=== PATIENT | male | born 1940 | race Caucasian/White ===

== ENCOUNTER 2019-08-15 06:07 | Outpatient (RCR) | payer MEDICARE, SELFPAY | END 2019-08-30 00:01 | LOC: ONCMED 06:07 | PROVIDERS: Family Provider Family Medicine; Visit Provider Nurse Practitioner | DX: C7B.02 Secondary carcinoid tumors of liver (principal); C7A.012 Malignant carcinoid tumor of the ileum | CPT/HCPCS: 96372 ==

== ENCOUNTER 2019-09-15 06:53 | Outpatient (RCR) | payer MEDICARE, SELFPAY ==
[2019-09-15] MEDS: octreotide LAR depot 20 mg Kit IM (08:40)
== END 2019-09-30 23:59 | disposition home or self-care (01) ==
LOC: ONCMED 06:53
PROVIDERS: Family Provider Family Medicine; PCP Registered Nurse; Visit Provider Nurse Practitioner
DX: C7B.02 Secondary carcinoid tumors of liver (principal); C7A.012 Malignant carcinoid tumor of the ileum
CPT/HCPCS: 96372; J2353

== ENCOUNTER 2019-10-17 05:40 | Outpatient (RCR) | payer MEDICARE, SELFPAY ==
[2019-10-10 09:38] LABS: Basophils # 0.1 10^3/uL (0.0-0.1); Basophils % 0.6 %; Eosinophils # 0.3 10^3/uL (0.0-0.8); Hematocrit 39.3 % (42.0-52.0); Lymphocytes % 24.3 %; Mean Corpuscular HGB Conc 33.1 g/dL (30.0-36.0); Mean Corpuscular Hemoglobin 35.5 pg (28.0-34.0); Mean Corpuscular Volume 107.4 fL (80-94); Mean Platelet Volume 10.9 fL (7.4-10.4); Monocytes # 0.6 10^3/uL (0.2-0.9); Monocytes % 7.6 %; Neutrophils # 5.3 10^3/uL (1.8-7.7); Neutrophils % 64.3 %; Nucleated Red Blood Cells % 0 %; Platelet Count 166 10^3/cmm (130-400); Red Blood Count 3.66 10^6/uL (4.1-5.3); Red Cell Distribution Width 13.6 % (12.1-15.1); White Blood Count 8.3 10^3/uL (4.0-10.0)
[2019-10-10 10:08] LABS: Alanine Aminotransferase 18 U/L (0-41); Albumin Level 3.9 g/dL (3.5-5.2); Alkaline Phosphatase 124 IU/L (40-130); Anion Gap 16.1 (5-19); Aspartate Amino Transferase 27 U/L (0-40); Blood Urea Nitrogen 14 mg/dL (8-23); Calcium 9.3 mg/dL (8.5-10.5); Carbon Dioxide 27 mmol/L (22-29); Chloride 102 mmol/L (98-107); Glucose 140 mg/dL (65-115); Potassium 4.1 mmol/L (3.5-5.1); Sodium 141 mmol/L (136-145); Thyroid Stimulating Hormone 1.69 uIU/mL (0.27-4.20); Total Bilirubin 0.4 mg/dL (0.15-1.2); Total Protein 6.9 g/dL (6.6-8.7)
[2019-10-13 16:28] LABS: Chromogranin A 245 ng/mL (25-140)
[2019-10-17] MEDS: octreotide LAR depot 20 mg Kit IM (09:35)
--- NOTE | 2019-10-17 10:40 | ONC FU_ITS ---
Dr. Joel Patient Follow-Up Note Patient: Jigar Ochoa Unit #: [id number]: 1940 Dicatated By: Jamir Joel M.D.Date of Visit:Oct 17, 2019 Onc Med Follow-up/Prog Note Chief Complaint: Malignant carcinoid. History of Present Illness: This is an 79 year-old man with metastatic carcinoid involving the liver. He had presented to the emergency room in May 2014 with abdominal pain, bloating, and constipation. Abdominal CT scan showed high-grade small bowel obstruction with a transition point which appeared to be near the region of the cecum. There was felt to be probably a cecal mass, though a discrete mass was difficult to identify. There was a cluster of lymph nodes in the mesentery measuring 2.8 x 1.4 cm which was suspicious for metastatic disease, and there were lesions in the liver which were suspicious for metastases. Incidentally noted was an infrarenal abdominal aortic aneurysm measuring 3.5 cm. On 06/23/14 he underwent exploratory laparotomy. He was found to have a distal small bowel obstructing mass approximately 50 cm from the terminal ileum. There was an additional mesenteric mass adjacent to it at the level of the mid mesentery. On palpation, there are also was suspicion of a cecal mass. There were multiple small nodules identified on the surface of the liver. The procedure included resection of the distal small bowel to include the small bowel mass and the mesenteric mass, right hemicolectomy, and liver biopsy. On further examination, there was no mass found in the cecum. Pathology showed low-grade carcinoid tumor measuring 1.5 cm in greatest dimension. The tumor was extending into the deep muscularis into the subserosa. The margins were free including a 6 cm proximal margin, 50 cm distal margin, and a 4 cm radial margin. There was involvement in 4 of 21 lymph nodes. The liver biopsy showed metastatic carcinoid tumor. I had seen him initially in July 2014. At that time, he was having severe diarrhea and he also was very weak. His laboratory studies did show iron deficiency, though he was just borderline anemic with hemoglobin 12.9 g. His albumin was low at 2.8 g/dL. Liver enzymes and bilirubin were normal. TSH was normal, as was the B12 level. His chromogranin A level was normal at 3 nmol per liter and a 24-hour urine HIAA also was normal. Multiple stool samples were negative for Clostridium difficile. He had subsequently shown gradual improvement with symptomatic management. During follow-up, there was suspicion of bowel obstruction on restaging CT scans, but repeat colonoscopy in February 2015 showed patent ileocolic anastomosis and no other significant abnormalities. CT scan of the abdomen and pelvis performed 07/18/2016 showed numerous metastatic nodules within the liver. Taking into consideration difference in technique and slice selection there was no significant progression since 07/04/2015. New soft tissue thickening was noted around the abdominal aortic aneurysm. 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 The abdominal aortic aneurysm was noted to measure 3.8 cm transverse diameter with a 2 mm increase in size since 07/04/2015. He continued observation/expectant management. A follow-up CTA of the thoracic/abdominal aorta on 06/09/2017 showed mild ectasia and predominantly noncalcified atherosclerotic plaque of the aortic arch and descending thoracic aorta. The infrarenal fusiform abdominal aortic aneurysm appeared stable compared to the study from July 2016. There was no change in the probable inflammatory retroperitoneal soft tissue thickening anterior to the inferior aspect of the aneurysm. Also noted was some progression of metastatic involvement in the liver, the largest measuring up to 2.9 cm compared to 2.3 cm on the prior exam. Restaging CT of the abdomen/pelvis on 12/21/2017 showed progression in the size and number of metastatic lesions within the liver. There were 2 lesions identified in the left lobe, the largest measuring 1.7 cm. A new nodule was noted adjacent the falciform ligament. At least 5 metastatic lesions were identified within the right lobe, the largest measuring 2.8 cm. There was no associated lymphadenopathy. The abdominal aortic aneurysm was noted to be stable with a maximum diameter of 3.9 cm. At that point his tumor markers had not changed significantly, but he appeared to be having more significant diarrhea, and I did opt to have him start treatment with Sandostatin LAR. He received his initial injection of 20 mg on 01/19/2018. He tolerated it well, and he then continued Sandostatin LAR injections monthly. 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 He also has COPD. He has no other medical illnesses. He has a history of smoking 2 packs of cigarettes daily for 50 years. He quit smoking in August 2016. INTERIM HISTORY: He is seen for a scheduled visit. He has been feeling okay. He stays busy all the time, and he pretty much has normal activity. His appetite is not as good. His weight is stable. He has no fever or flushing spells. He still has sweating at night. He has a little bit of sinus congestion and has a little bit of cough. He does not complain of shortness of breath or chest pain. He has no GI complaints other than frequent bowel movements, though he says it is not diarrhea. He also has urinary frequency, but that has improved with medication. He has no significant joint or bone pain. He has no focal neurologic symptoms. Medications: Aspirin 1 (81 mg) Tablet Oral daily, Multivitamins 1 Tablet Oral daily, SandoSTATIN LAR Depot 1 (20 mg) Intramuscular q 4 weeks, Tamsulosin HCl 1 Capsule (of 0.4 mg) Oral daily Allergies: PCN Review of Systems: Constitutional - He stays busy, and he has normal activity. His appetite is not as good as it used to be, but his weight is up 4 pounds since his last visit. No fever, chills or hot flashes. He has night sweating. ECOG score is 0, ENMT - He has sinus congestion. No mouth sores. No sore throat or difficulty swallowing, Hematologic/Lymphatic - He bruises easily, Respiratory - No shortness of breath. He has a little bit of cough. No pleuritic pain or hemoptysis. He has quit smoking, Cardiovascular - No angina pain. No palpitations, Gastrointestinal - No nausea or vomiting. No heartburn or acid reflux. He has frequent bowel movements, but he says it is not diarrhea. No blood in the stool or black stools, Genitourinary (M) - No dysuria or hematuria. He has frequent urination, but it has improved with medication. No urgency or incontinence, Musculoskeletal - No joint or bone pain, Integumentary - No skin complications, Neurologic - No headache. His dizziness has gotten better. No numbness/paresthesias or other focal neurologic symptoms, Psychiatric - He has some anxiety and depression. He has a hard time getting to sleep. Vital Signs: Performed on Oct 17, 2019 08:36 Height - 74.00 in Weight - 168.8 lbs (HIGH) BSA - 2.02 sq.m BMI - 21.67 Temperature - 97.9 F (LOW) Pulse - 81 /min Respiration - 16 /min BP - 134/74 mm(hg) O2 Sat - 99 % Pain - 0 Physical Examination: Constitutional - He looks pretty good generally, Eyes - Sclerae nonicteric. Conjunctivae clear, ENMT - No lesions noted in the oral cavity, Hematologic/Lymphatic - No cervical, clavicular, or axillary adenopathy, Respiratory - Lungs are clear with diminished air movement bilaterally, Cardiovascular - Heart rhythm is regular. There is murmur, gallop, or rub noted, Abdomen - Soft. Liver is not enlarged. Spleen is not palpable. There is no abdominal mass or ascites noted and there is no inguinal adenopathy, Extremities - No edema, Neurologic - No focal neurologic deficits noted. Lab/Imaging: Test performed on Jul 07, 2019 08:20 Sodium 141 mmol/L Potassium 4.2 mmol/L Chloride 106 mmol/L CO2 25 mmol/L Anion Gap 14.2 BUN 17 mg/dL Creatinine 1.2 mg/dL Cr Clearance (Est) 52.9800 mL/min Glucose 98 mg/dl Calcium 9.2 mg/dL Protein, Total 6.8 g/dL Albumin 4.5 g/dL Globulin 2.3 gm/dL Bilirubin, Total 0.3 mg/dL ALT (SGPT) 19 U/L AST (SGOT) 26 U/L Alkaline Phosphatase 137 U/L WBC 6.9 10 3/uL RBC 3.46 10 6/uL HGB 12.2 g/dL HCT 36.3 % MCV 104.9 fl MCH 35.3 pg MCHC 33.6 g/dl RDW 13.1 % Platelet Count 150 10 3/cmm MPV 10.6 fl Neutrophils 4.2 10 3/uL Lymphocytes 1.7 10 3/uL Monocytes 0.7 10 3/uL Eosinophils 0.3 10 3/uL Basophils 0.1 10 3/uL Neutrophil % 61.2 % Lymphocyte % 23.9 % Monocyte % 9.9 % Eosinophil % 3.9 % Basophils % 1.0 % Chromogranin A 250 ng/mL Impression: 1. 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 2. He had presented initially with small bowel obstruction, and he underwent exploratory laparotomy with the ileocolic resection on 06/23/2014. 3. He developed severe diarrhea following the surgery. It has improved and has generally been controlled on Imodium, but the etiology remains uncertain. Thus far he does not appear clinically to have carcinoid syndrome, and he has remained on observation/symptomatic management following the surgery. 4. A followup CT scan in November 2014 did show a slight increase in the number of hepatic metastatic lesions, with the largest lesion measuring 2.0 cm. That study showed marked dilatation of the colon at the anastomotic site with possible partial obstruction at 10 cm from the anastomosis. An area of narrowing was noted in that area, with no associated mass. There were new subcentimeter lymph nodes in the mesentery of the right abdomen. He was seen then by Dr. Kelsey, but there was no evidence of obstruction on a followup colonoscopy. Restaging CT in July 2015 appeared stable. Other medical illnesses include: 5. History of atrial fibrillation. 6. He apparently has a prior diagnosis of polymyalgia rheumatica. 7. He has nicotine dependence (cigarettes). CT scan of the abdomen and pelvis performed on 07/18/2016 showed numerous metastatic nodules with the liver, but with no significant progression since 07/04/2015. There was new soft tissue thickening around the abdominal aortic aneurysm which was felt to be highly suspicious for interval development of inflammatory abdominal aortic aneurysm. The aneurysm had shown a 0.2 mm increase in size, to 3.8 cm transverse diameter, since the 07/04/2015 study. A follow-up CTA of the thoracic/abdominal aorta on 06/09/2017 showed no significant change in the aneurysm. There was evidence of some progression of the metastatic lesions in the liver, the largest measuring 2.9 cm compared to 2.3 cm on the previous study. At that point he did not appear to be symptomatic, it was opted to just continue on observation/expectant management. His repeat CT scan of the abdomen/pelvis on 12/21/2017 did appear to show some further disease progression in the liver. At that point his tumor markers were stable, but he was having more diarrhea, and I did opt to have him start treatment with Sandostatin LAR. He received his initial injection of 20 mg on 01/19/2018. He has since then continued treatment monthly. He has tolerated it well. He has had symptomatic improvement, though he continues to complain of night sweating. During follow-up he has continued to tolerate the Sandostatin LAR with no adverse effects. His chromogranin A level is elevated, but stable. His overall clinical status also appears stable. Overall, he appears to be doing well with no obvious progression of the malignant carcinoid. Plan: He continues Sandostatin LAR 20 mg by intramuscular injection monthly. He will be scheduled for a follow-up visit in 3 months. Signed By: Jamir Joel M.D. <<Signature on File>>
== END 2019-10-29 23:59 | disposition home or self-care (01) ==
LOC: ONCMED 05:40
PROVIDERS: Nurse Practitioner; Family Provider Family Medicine; PCP Registered Nurse; Visit Provider Internal Medicine Medical Oncology
DX: C7B.02 Secondary carcinoid tumors of liver (principal); C7A.012 Malignant carcinoid tumor of the ileum; J44.9 Chronic obstructive pulmonary disease, unspecified; I48.91 Unspecified atrial fibrillation; M35.3 Polymyalgia rheumatica; Z79.82 Long term (current) use of aspirin; Z79.899 Other long term (current) drug therapy; Z87.891 Personal history of nicotine dependence; Z95.0 Presence of cardiac pacemaker
CPT/HCPCS: 80053; 83497; 84443; 85025; 86316; 96372; 99214; J2353

== ENCOUNTER 2019-11-14 06:17 | Outpatient (RCR) | payer MEDICARE, SELFPAY ==
[2019-11-14] MEDS: octreotide LAR depot 20 mg Kit IM (08:50)
== END 2019-11-29 23:59 | disposition home or self-care (01) ==
LOC: ONCMED 06:17
PROVIDERS: Family Provider Family Medicine; PCP Registered Nurse; Visit Provider Nurse Practitioner
DX: C7A.012 Malignant carcinoid tumor of the ileum (principal); C7B.02 Secondary carcinoid tumors of liver
CPT/HCPCS: 96372; J2353

== ENCOUNTER 2019-12-12 07:00 | Outpatient (RCR) | payer MEDICARE, SELFPAY | END 2019-12-29 23:59 | disposition home or self-care (01) | LOC: ONCMED 07:00 | PROVIDERS: Family Provider Family Medicine; PCP Registered Nurse; Visit Provider Nurse Practitioner | DX: C7A.012 Malignant carcinoid tumor of the ileum (principal); C7B.02 Secondary carcinoid tumors of liver | CPT/HCPCS: 96372; J2353 ==

== ENCOUNTER 2020-01-09 06:42 | Outpatient (RCR) | payer MEDICARE, SELFPAY ==
[2020-01-02 09:17] LABS: Basophils # 0.1 10^3/uL (0.0-0.1); Basophils % 0.7 %; Eosinophils # 0.2 10^3/uL (0.0-0.8); Eosinophils % 2.9 %; Hematocrit 37.5 % (42.0-52.0); Hemoglobin 12.3 g/dL (11.7-16.6); Lymphocytes # 1.7 10^3/uL (0.8-4.8); Lymphocytes % 24.1 %; Mean Corpuscular HGB Conc 32.8 g/dL (30.0-36.0); Mean Corpuscular Hemoglobin 35.3 pg (28.0-34.0); Mean Corpuscular Volume 107.8 fL (80-94); Mean Platelet Volume 10.6 fL (7.4-10.4); Monocytes # 0.5 10^3/uL (0.2-0.9); Monocytes % 7.5 %; Neutrophils # 4.5 10^3/uL (1.8-7.7); Neutrophils % 64.7 %; Nucleated Red Blood Cells % 0 %; Platelet Count 139 10^3/cmm (130-400); Red Blood Count 3.48 10^6/uL (4.1-5.3); White Blood Count 6.9 10^3/uL (4.0-10.0)
[2020-01-02 09:47] LABS: Alanine Aminotransferase 18 U/L (0-41); Alkaline Phosphatase 124 IU/L (40-130); Anion Gap 11.6 (5-19); Aspartate Amino Transferase 25 U/L (0-40); Blood Urea Nitrogen 25 mg/dL (8-23); Calcium 9.1 mg/dL (8.5-10.5); Carbon Dioxide 25 mmol/L (22-29); Chloride 107 mmol/L (98-107); Globulin 3.2 g/dL (1.3-4.6); Glucose 112 mg/dL (65-115); Osmolality Calculated 286 mOsm/kg (285-295); Potassium 4.6 mmol/L (3.5-5.1); Sodium 139 mmol/L (136-145); Total Bilirubin 0.5 mg/dL (0.15-1.2); Total Protein 7.2 g/dL (6.6-8.7)
[2020-01-05 17:02] LABS: Chromogranin A 224 ng/mL (25-140)
[2020-01-07 19:01] LABS: Serotonin Whole Blood 262 ng/mL (56-244)
[2020-01-09] MEDS: octreotide LAR depot 20 mg Kit IM (08:45)
--- NOTE | 2020-01-09 10:17 | ONC FU_ITS ---
Dr. Joel Patient Follow-Up Note Patient: Jigar Ochoa Unit #: [id number]: 1940 Dicatated By: Jamir Joel M.D.Date of Visit:January 09, 2020 Onc Med Follow-up/Prog Note Chief Complaint: Malignant carcinoid. History of Present Illness: This is an 79 year-old man with metastatic carcinoid involving the liver. He had presented to the emergency room in May 2014 with abdominal pain, bloating, and constipation. Abdominal CT scan showed high-grade small bowel obstruction with a transition point which appeared to be near the region of the cecum. There was felt to be probably a cecal mass, though a discrete mass was difficult to identify. There was a cluster of lymph nodes in the mesentery measuring 2.8 x 1.4 cm which was suspicious for metastatic disease, and there were lesions in the liver which were suspicious for metastases. Incidentally noted was an infrarenal abdominal aortic aneurysm measuring 3.5 cm. On 06/23/14 he underwent exploratory laparotomy. He was found to have a distal small bowel obstructing mass approximately 50 cm from the terminal ileum. There was an additional mesenteric mass adjacent to it at the level of the mid mesentery. On palpation, there are also was suspicion of a cecal mass. There were multiple small nodules identified on the surface of the liver. The procedure included resection of the distal small bowel to include the small bowel mass and the mesenteric mass, right hemicolectomy, and liver biopsy. On further examination, there was no mass found in the cecum. Pathology showed low-grade carcinoid tumor measuring 1.5 cm in greatest dimension. The tumor was extending into the deep muscularis into the subserosa. The margins were free including a 6 cm proximal margin, 50 cm distal margin, and a 4 cm radial margin. There was involvement in 4 of 21 lymph nodes. The liver biopsy showed metastatic carcinoid tumor. I had seen him initially in July 2014. At that time, he was having severe diarrhea and he also was very weak. His laboratory studies did show iron deficiency, though he was just borderline anemic with hemoglobin 12.9 g. His albumin was low at 2.8 g/dL. Liver enzymes and bilirubin were normal. TSH was normal, as was the B12 level. His chromogranin A level was normal at 3 nmol per liter and a 24-hour urine HIAA also was normal. Multiple stool samples were negative for Clostridium difficile. He had subsequently shown gradual improvement with symptomatic management. During follow-up, there was suspicion of bowel obstruction on restaging CT scans, but repeat colonoscopy in February 2015 showed patent ileocolic anastomosis and no other significant abnormalities. CT scan of the abdomen and pelvis performed 07/18/2016 showed numerous metastatic nodules within the liver. Taking into consideration difference in technique and slice selection there was no significant progression since 07/04/2015. New soft tissue thickening was noted around the abdominal aortic aneurysm. 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 The abdominal aortic aneurysm was noted to measure 3.8 cm transverse diameter with a 2 mm increase in size since 07/04/2015. He continued observation/expectant management. A follow-up CTA of the thoracic/abdominal aorta on 06/09/2017 showed mild ectasia and predominantly noncalcified atherosclerotic plaque of the aortic arch and descending thoracic aorta. The infrarenal fusiform abdominal aortic aneurysm appeared stable compared to the study from July 2016. There was no change in the probable inflammatory retroperitoneal soft tissue thickening anterior to the inferior aspect of the aneurysm. Also noted was some progression of metastatic involvement in the liver, the largest measuring up to 2.9 cm compared to 2.3 cm on the prior exam. Restaging CT of the abdomen/pelvis on 12/21/2017 showed progression in the size and number of metastatic lesions within the liver. There were 2 lesions identified in the left lobe, the largest measuring 1.7 cm. A new nodule was noted adjacent the falciform ligament. At least 5 metastatic lesions were identified within the right lobe, the largest measuring 2.8 cm. There was no associated lymphadenopathy. The abdominal aortic aneurysm was noted to be stable with a maximum diameter of 3.9 cm. At that point his tumor markers had not changed significantly, but he appeared to be having more significant diarrhea, and I did opt to have him start treatment with Sandostatin LAR. He received his initial injection of 20 mg on 01/19/2018. He tolerated it well, and he then continued Sandostatin LAR injections monthly. 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 He also has COPD. He has no other medical illnesses. He has a history of smoking 2 packs of cigarettes daily for 50 years. He quit smoking in August 2016. INTERIM HISTORY: Repeat CT abdomen/pelvis on 07/26/2019 showed no change in the multiple hepatic metastatic lesions. There was no evidence of other malignant process. The infrarenal abdominal aortic aneurysm was unchanged at 3.9 cm. He continued treatment with Sandostatin LAR. He is seen for a scheduled visit. He has been feeling pretty good generally. He says his energy is fair. He does stay busy all the time. His ECOG score is 1. His appetite has not been as good. His weight is down a couple of pounds. He has not had fever or hot flashes/flushing spells. He still has night sweating. He has no shortness of breath, cough, or chest pain. He has no GI complaints. In particular, he has had no diarrhea. Bladder function remains adequate with tamsulosin. He has no significant joint or bone pain. He has no focal neurologic symptoms. Medications: Aspirin 1 (81 mg) Tablet Oral daily, Multivitamins 1 Tablet Oral daily, SandoSTATIN LAR [place]ot 1 (20 mg) Intramuscular q 4 weeks, Tamsulosin HCl 1 Capsule (of 0.4 mg) Oral daily Allergies: PCN Review of Systems: Constitutional - His energy level is fair. He does some light outside work. His appetite is poor and weight is down a few pounds from last visit. No fever, chills or hot flashes. He continues to have persistent night sweats. ECOG score is 1, ENMT - He has some sinus congestion/drainage. No mouth sores. No sore throat or difficulty swallowing. He wears hearing aids, Hematologic/Lymphatic - He bruises easily, Respiratory - No shortness of breath. No cough. No pleuritic pain or hemoptysis, Cardiovascular - No angina pain. No palpitations, Gastrointestinal - No nausea or vomiting. No heartburn or acid reflux. No diarrhea or constipation. No blood in the stool or black stools, Genitourinary (M) - No dysuria or hematuria. No urinary frequency. No urgency or incontinence, Musculoskeletal - No joint or bone pain, Integumentary - No skin complications, Neurologic - No headache or dizziness. No numbness/paresthesias or other focal neurologic symptoms, Psychiatric - No anxiety or depression. No insomnia. Vital Signs: Performed on January 09, 2020 08:12 Height - 74.00 in Weight - 166.2 lbs (LOW) BSA - 2.01 sq.m BMI - 21.34 Temperature - 98.5 F Pulse - 66 /min Respiration - 18 /min BP - 145/81 mm(hg) (HIGH) O2 Sat - 99 % Pain - 0 Physical Examination: Constitutional - He looks pretty good generally, Eyes - Sclerae nonicteric. Conjunctivae clear, ENMT - No lesions noted in the oral cavity, Hematologic/Lymphatic - No cervical, clavicular, or axillary adenopathy, Respiratory - Lungs are clear with diminished air movement bilaterally, Cardiovascular - Heart rhythm is regular. There is no murmur, gallop, or rub noted, Abdomen - Soft. Liver is not enlarged. Spleen is not palpable. There is no abdominal mass or ascites noted and there is no inguinal adenopathy, Extremities - No edema, Neurologic - No focal neurologic deficits noted. Lab/Imaging: Test performed on January 02, 2020 08:56 Sodium 139 mmol/L Potassium 4.6 mmol/L Chloride 107 mmol/L CO2 25 mmol/L Anion Gap 11.6 BUN 25 mg/dL Creatinine 1.4 mg/dL Cr Clearance (Est) 44.8200 mL/min Glucose 112 mg/dL Calcium 9.1 mg/dL Protein, Total 7.2 g/dL Albumin 4.0 g/dL Globulin 3.2 g/dL Bilirubin, Total 0.5 mg/dL ALT (SGPT) 18 U/L AST (SGOT) 25 U/L Alkaline Phosphatase 124 IU/L WBC 6.9 10 3/uL RBC 3.48 10 6/uL HGB 12.3 g/dL HCT 37.5 % MCV 107.8 fL MCH 35.3 pg MCHC 32.8 g/dL RDW 14.0 % Platelet Count 139 10 3/cmm MPV 10.6 fL Neutrophils 4.5 10 3/uL Lymphocytes 1.7 10 3/uL Monocytes 0.5 10 3/uL Eosinophils 0.2 10 3/uL Basophils 0.1 10 3/uL Neutrophil % 64.7 % Lymphocyte % 24.1 % Monocyte % 7.5 % Eosinophil % 2.9 % Basophils % 0.7 % Chromogranin A 224 ng/mL Impression: 1. 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 2. He had presented initially with small bowel obstruction, and he underwent exploratory laparotomy with the ileocolic resection on 06/23/2014. 3. He developed severe diarrhea following the surgery. It has improved and has generally been controlled on Imodium, but the etiology remains uncertain. Thus far he does not appear clinically to have carcinoid syndrome, and he has remained on observation/symptomatic management following the surgery. 4. A followup CT scan in November 2014 did show a slight increase in the number of hepatic metastatic lesions, with the largest lesion measuring 2.0 cm. That study showed marked dilatation of the colon at the anastomotic site with possible partial obstruction at 10 cm from the anastomosis. An area of narrowing was noted in that area, with no associated mass. There were new subcentimeter lymph nodes in the mesentery of the right abdomen. He was seen then by Dr. Kelsey, but there was no evidence of obstruction on a followup colonoscopy. Restaging CT in July 2015 appeared stable. Other medical illnesses include: 5. History of atrial fibrillation. 6. He apparently has a prior diagnosis of polymyalgia rheumatica. 7. He has nicotine dependence (cigarettes). CT scan of the abdomen and pelvis performed on 07/18/2016 showed numerous metastatic nodules with the liver, but with no significant progression since 07/04/2015. There was new soft tissue thickening around the abdominal aortic aneurysm which was felt to be highly suspicious for interval development of inflammatory abdominal aortic aneurysm. The aneurysm had shown a 0.2 mm increase in size, to 3.8 cm transverse diameter, since the 07/04/2015 study. A follow-up CTA of the thoracic/abdominal aorta on 06/09/2017 showed no significant change in the aneurysm. There was evidence of some progression of the metastatic lesions in the liver, the largest measuring 2.9 cm compared to 2.3 cm on the previous study. At that point he did not appear to be symptomatic, it was opted to just continue on observation/expectant management. His repeat CT scan of the abdomen/pelvis on 12/21/2017 did appear to show some further disease progression in the liver. At that point his tumor markers were stable, but he was having more diarrhea, and I did opt to have him start treatment with Sandostatin LAR. He received his initial injection of 20 mg on 01/19/2018. He has since then continued treatment monthly. He has tolerated it well. He has had symptomatic improvement, though he continues to complain of night sweating. During follow-up he has olerated the Sandostatin LAR with no adverse effects. His chromogranin A level has been elevated, but stable. His clinical status also has remained stable. Overall, he has been doing well with no obvious progression of the malignant carcinoid. Plan: He continues Sandostatin LAR 20 mg by intramuscular injection monthly. He will be scheduled for a follow-up visit in 3 months. Signed By: Jamir Joel M.D. <<Signature on File>>
[2020-01-09 20:31] LABS: 24 Hour Urine Volume 1025 mL/24 h; 5-HIAA, 24 Hour Urine 8.7 mg/24 h (<=6.0)
== END 2020-01-29 23:59 | disposition home or self-care (01) ==
LOC: ONCMED 06:42
PROVIDERS: Nurse Practitioner; Family Provider Family Medicine; PCP Registered Nurse; Visit Provider Internal Medicine Medical Oncology
DX: C7A.012 Malignant carcinoid tumor of the ileum (principal); C7B.02 Secondary carcinoid tumors of liver; I48.91 Unspecified atrial fibrillation; M35.3 Polymyalgia rheumatica; F17.210 Nicotine dependence, cigarettes, uncomplicated; I71.4 Abdominal aortic aneurysm, without rupture; K56.609 Unspecified intestinal obstruction, unspecified as to partial versus complete obstruction
CPT/HCPCS: 36415; 80053; 83497; 84260; 85025; 86316; 96372; 99214; J2353

== ENCOUNTER 2020-02-09 07:05 | Outpatient (RCR) | payer MEDICARE, SELFPAY ==
[2020-02-09] MEDS: octreotide LAR depot 20 mg Kit IM (08:10)
== END 2020-02-28 23:59 | disposition home or self-care (01) ==
LOC: ONCMED 07:05
PROVIDERS: PCP Registered Nurse; Visit Provider Internal Medicine Medical Oncology
DX: C7A.012 Malignant carcinoid tumor of the ileum (principal); C7B.02 Secondary carcinoid tumors of liver; I48.91 Unspecified atrial fibrillation; M35.3 Polymyalgia rheumatica; F17.200 Nicotine dependence, unspecified, uncomplicated; Z79.818 Long term (current) use of other agents affecting estrogen receptors and estrogen levels
CPT/HCPCS: 96372; J2353

== ENCOUNTER 2020-03-12 07:19 | Outpatient (RCR) | payer MEDICARE, SELFPAY ==
[2020-03-12] MEDS: octreotide LAR depot 20 mg Kit IM (08:15)
== END 2020-03-30 23:59 | disposition home or self-care (01) ==
LOC: ONCMED 07:19
PROVIDERS: PCP Registered Nurse; Visit Provider Internal Medicine Medical Oncology
DX: C7A.012 Malignant carcinoid tumor of the ileum (principal); C7B.02 Secondary carcinoid tumors of liver; I48.91 Unspecified atrial fibrillation
CPT/HCPCS: 96372; J2353

== ENCOUNTER 2020-04-12 05:41 | Outpatient (RCR) | payer MEDICARE, SELFPAY ==
[2020-04-05 08:59] LABS: Basophils # 0.1 10^3/uL (0.0-0.1); Basophils % 0.7 %; Eosinophils # 0.2 10^3/uL (0.0-0.8); Eosinophils % 2.2 %; Hematocrit 39.2 % (42.0-52.0); Lymphocytes # 1.4 10^3/uL (0.8-4.8); Lymphocytes % 18.9 %; Mean Corpuscular HGB Conc 33.2 g/dL (30.0-36.0); Mean Corpuscular Hemoglobin 36.5 pg (28.0-34.0); Mean Corpuscular Volume 110.1 fL (80-94); Mean Platelet Volume 10.5 fL (7.4-10.4); Monocytes # 0.6 10^3/uL (0.2-0.9); Monocytes % 8.3 %; Neutrophils # 5.25 10^3/uL (1.8-7.7); Neutrophils % 69.5 %; Nucleated Red Blood Cells % 0 %; Platelet Count 150 10^3/cmm (130-400); Red Blood Count 3.56 10^6/uL (4.1-5.3); Red Cell Distribution Width 13.8 % (12.1-15.1); White Blood Count 7.6 10^3/uL (4.0-10.0)
[2020-04-05 09:16] LABS: Alanine Aminotransferase 20 U/L (0-41); Albumin Level 4.3 g/dL (3.5-5.2); Alkaline Phosphatase 135 IU/L (40-130); Anion Gap 12.3 (5-19); Aspartate Amino Transferase 29 U/L (0-40); Blood Urea Nitrogen 21 mg/dL (8-23); Carbon Dioxide 25 mmol/L (22-29); Chloride 104 mmol/L (98-107); Globulin 2.6 g/dL (1.3-4.6); Glucose 103 mg/dL (65-115); Osmolality Calculated 281 mOsm/kg (285-295); Potassium 4.3 mmol/L (3.5-5.1); Sodium 137 mmol/L (136-145); Total Bilirubin 0.5 mg/dL (0.15-1.2); Total Protein 6.9 g/dL (6.6-8.7)
[2020-04-09 17:20] LABS: Chromogranin A 274 ng/mL (25-140)
[2020-04-10 20:00] LABS: Serotonin Whole Blood 365 ng/mL (56-244)
[2020-04-11 14:10] LABS: 24 Hour Urine Volume 2525 mL; 5-HIAA, 24 Hour Urine 8.1 mg/24 h (<=6.0)
[2020-04-12] MEDS: octreotide LAR depot 20 mg Kit IM (09:40)
--- NOTE | 2020-04-15 11:26 | ONC FU_ITS ---
Dr. Joel Patient Follow-Up Note Patient: Jigar Ochoa Unit #: [id number]: 1940 Dicatated By: Jamir Joel M.D.Date of Visit:Apr 12, 2020 Onc Med Follow-up/Prog Note Chief Complaint: Malignant carcinoid. History of Present Illness: This is an 79 year-old man with metastatic carcinoid involving the liver. He had presented to the emergency room in May 2014 with abdominal pain, bloating, and constipation. Abdominal CT scan showed high-grade small bowel obstruction with a transition point which appeared to be near the region of the cecum. There was felt to be probably a cecal mass, though a discrete mass was difficult to identify. There was a cluster of lymph nodes in the mesentery measuring 2.8 x 1.4 cm which was suspicious for metastatic disease, and there were lesions in the liver which were suspicious for metastases. Incidentally noted was an infrarenal abdominal aortic aneurysm measuring 3.5 cm. On 06/23/14 he underwent exploratory laparotomy. He was found to have a distal small bowel obstructing mass approximately 50 cm from the terminal ileum. There was an additional mesenteric mass adjacent to it at the level of the mid mesentery. On palpation, there are also was suspicion of a cecal mass. There were multiple small nodules identified on the surface of the liver. The procedure included resection of the distal small bowel to include the small bowel mass and the mesenteric mass, right hemicolectomy, and liver biopsy. On further examination, there was no mass found in the cecum. Pathology showed low-grade carcinoid tumor measuring 1.5 cm in greatest dimension. The tumor was extending into the deep muscularis into the subserosa. The margins were free including a 6 cm proximal margin, 50 cm distal margin, and a 4 cm radial margin. There was involvement in 4 of 21 lymph nodes. The liver biopsy showed metastatic carcinoid tumor. I had seen him initially in July 2014. At that time, he was having severe diarrhea and he also was very weak. His laboratory studies did show iron deficiency, though he was just borderline anemic with hemoglobin 12.9 g. His albumin was low at 2.8 g/dL. Liver enzymes and bilirubin were normal. TSH was normal, as was the B12 level. His chromogranin A level was normal at 3 nmol per liter and a 24-hour urine HIAA also was normal. Multiple stool samples were negative for Clostridium difficile. He had subsequently shown gradual improvement with symptomatic management. During follow-up, there was suspicion of bowel obstruction on restaging CT scans, but repeat colonoscopy in February 2015 showed patent ileocolic anastomosis and no other significant abnormalities. CT scan of the abdomen and pelvis performed 07/18/2016 showed numerous metastatic nodules within the liver. Taking into consideration difference in technique and slice selection there was no significant progression since 07/04/2015. New soft tissue thickening was noted around the abdominal aortic aneurysm. 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 The abdominal aortic aneurysm was noted to measure 3.8 cm transverse diameter with a 2 mm increase in size since 07/04/2015. He continued observation/expectant management. A follow-up CTA of the thoracic/abdominal aorta on 06/09/2017 showed mild ectasia and predominantly noncalcified atherosclerotic plaque of the aortic arch and descending thoracic aorta. The infrarenal fusiform abdominal aortic aneurysm appeared stable compared to the study from July 2016. There was no change in the probable inflammatory retroperitoneal soft tissue thickening anterior to the inferior aspect of the aneurysm. Also noted was some progression of metastatic involvement in the liver, the largest measuring up to 2.9 cm compared to 2.3 cm on the prior exam. Restaging CT of the abdomen/pelvis on 12/21/2017 showed progression in the size and number of metastatic lesions within the liver. There were 2 lesions identified in the left lobe, the largest measuring 1.7 cm. A new nodule was noted adjacent the falciform ligament. At least 5 metastatic lesions were identified within the right lobe, the largest measuring 2.8 cm. There was no associated lymphadenopathy. The abdominal aortic aneurysm was noted to be stable with a maximum diameter of 3.9 cm. At that point his tumor markers had not changed significantly, but he appeared to be having more significant diarrhea, and I did opt to have him start treatment with Sandostatin LAR. He received his initial injection of 20 mg on 01/19/2018. He tolerated it well, and he then continued Sandostatin LAR injections monthly. 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 He also has COPD. He has no other medical illnesses. He has a history of smoking 2 packs of cigarettes daily for 50 years. He quit smoking in August 2016. INTERIM HISTORY: Repeat CT abdomen/pelvis on 07/26/2019 showed no change in the multiple hepatic metastatic lesions. There was no evidence of other malignant process. The infrarenal abdominal aortic aneurysm was unchanged at 3.9 cm. He continued treatment with Sandostatin LAR. He is seen for a scheduled visit. He has been feeling pretty good generally. He says his energy is not bad. He has normal activity. ECOG score is 0. His appetite is okay, but he has lost weight, in the range of 8 pounds. He does not have fever. He says he is not having as much night sweating now. He has no shortness of breath, cough, or chest pain. He has no GI complaints. In particular, he has had no diarrhea. He has urinary frequency and nocturia. He has no significant joint or bone pain. He does not complain of headache or dizziness. He has no focal neurologic symptoms. Medications: Aspirin 1 (81 mg) Tablet Oral daily, Multivitamins 1 Tablet Oral daily, SandoSTATIN LAR [place] 1 (20 mg) Intramuscular q 4 weeks, Tamsulosin HCl 1 Capsule (of 0.4 mg) Oral daily Allergies: PCN Review of Systems: Constitutional - He has been feeling good. His energy is good and he has normal activity without restrictions. His appetite is good and he is eating well. His weight is down 8 pounds. No fevers. He has not been having as much sweating at night. No hot flushes. ECOG score is 0, ENMT - No sinus congestion/drainage. No mouth sores. No sore throat or difficulty swallowing, Hematologic/Lymphatic - He bruises easily, Respiratory - No shortness of breath. No cough. No pleuritic pain or hemoptysis, Cardiovascular - No angina pain. No palpitations, Gastrointestinal - No nausea or vomiting. No heartburn or acid reflux. No diarrhea or constipation. No blood in the stool or black stools, Genitourinary (M) - No dysuria or hematuria. He has urinary frequency both day and at night. No urgency or incontinence, Musculoskeletal - No joint or bone pain, Integumentary - No skin complications, Neurologic - No headache or dizziness. No numbness or tingling. No other focal neurologic symptoms, Psychiatric - No anxiety or depression. No insomnia. Vital Signs: Performed on Apr 12, 2020 09:12 Height - 74.00 in Weight - 158.6 lbs (LOW) BSA - 1.97 sq.m BMI - 20.36 Temperature - 97.6 F (LOW) Pulse - 70 /min Respiration - 20 /min BP - 140/74 mm(hg) O2 Sat - 97 % Pain - 0 Physical Examination: Constitutional - He looks pretty good generally, Eyes - Sclerae nonicteric. Conjunctivae clear, ENMT - No lesions noted in the oral cavity, Hematologic/Lymphatic - No cervical, clavicular, or axillary adenopathy, Respiratory - Lungs are clear with diminished air movement bilaterally, Cardiovascular - Heart rhythm is regular. There is no murmur, gallop, or rub noted, Abdomen - Soft. Liver is not enlarged. Spleen is not palpable. There is no abdominal mass or ascites noted and there is no inguinal adenopathy, Extremities - No edema, Neurologic - No focal neurologic deficits noted. Lab/Imaging: CBC shows hemoglobin 13.0 g, white blood cell count 7600, and platelet count 150,000. Comprehensive metabolic profile shows borderline renal function with BUN 21 and creatinine 1.3 mg/dL. Alkaline phosphatase is slightly elevated at 135/130 IU/L. The bilirubin and the other liver enzymes are normal. The chromogranin A level remains mildly elevated at 274/140 ng/mL and the whole blood serotonin also has mildly elevated at 365/244 ng/mL. His 24-hour urine 5-HIAA is slightly high at 8.1 mg. Impression: 1. 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 2. He had presented initially with small bowel obstruction, and he underwent exploratory laparotomy with the ileocolic resection on 06/23/2014. 3. He developed severe diarrhea following the surgery. It has improved and has generally been controlled on Imodium, but the etiology remains uncertain. Thus far he does not appear clinically to have carcinoid syndrome, and he has remained on observation/symptomatic management following the surgery. 4. A followup CT scan in November 2014 did show a slight increase in the number of hepatic metastatic lesions, with the largest lesion measuring 2.0 cm. That study showed marked dilatation of the colon at the anastomotic site with possible partial obstruction at 10 cm from the anastomosis. An area of narrowing was noted in that area, with no associated mass. There were new subcentimeter lymph nodes in the mesentery of the right abdomen. He was seen then by Dr. Kelsey, but there was no evidence of obstruction on a followup colonoscopy. Restaging CT in July 2015 appeared stable. Other medical illnesses include: 5. History of atrial fibrillation. 6. He apparently has a prior diagnosis of polymyalgia rheumatica. 7. He has nicotine dependence (cigarettes). CT scan of the abdomen and pelvis performed on 07/18/2016 showed numerous metastatic nodules with the liver, but with no significant progression since 07/04/2015. There was new soft tissue thickening around the abdominal aortic aneurysm which was felt to be highly suspicious for interval development of inflammatory abdominal aortic aneurysm. The aneurysm had shown a 0.2 mm increase in size, to 3.8 cm transverse diameter, since the 07/04/2015 study. A follow-up CTA of the thoracic/abdominal aorta on 06/09/2017 showed no significant change in the aneurysm. There was evidence of some progression of the metastatic lesions in the liver, the largest measuring 2.9 cm compared to 2.3 cm on the previous study. At that point he did not appear to be symptomatic, it was opted to just continue on observation/expectant management. His repeat CT scan of the abdomen/pelvis on 12/21/2017 did appear to show some further disease progression in the liver. At that point his tumor markers were stable, but he was having more diarrhea, and I did opt to have him start treatment with Sandostatin LAR. He received his initial injection of 20 mg on 01/19/2018. He has since then continued treatment monthly. He has tolerated it well. He has had symptomatic improvement, though he continues to complain of night sweating. During follow-up he has olerated the Sandostatin LAR with no adverse effects. His chromogranin A level has been elevated, but stable. At this point he has no obvious carcinoid symptoms. He has had significant weight loss since his last visit. His clinical status otherwise remains stable. Plan: He continues Sandostatin LAR 20 mg by intramuscular injection monthly. I will see him again in 3 months. He will have restaging CT scans prior to that visit. Signed By: Jamir Joel M.D. <<Signature on File>>
== END 2020-04-30 23:59 | disposition home or self-care (01) ==
LOC: ONCMED 05:41
PROVIDERS: Nurse Practitioner; PCP Registered Nurse; Visit Provider Internal Medicine Medical Oncology
DX: C7A.012 Malignant carcinoid tumor of the ileum (principal); C7B.02 Secondary carcinoid tumors of liver; K56.609 Unspecified intestinal obstruction, unspecified as to partial versus complete obstruction; I48.91 Unspecified atrial fibrillation; M35.3 Polymyalgia rheumatica; F17.210 Nicotine dependence, cigarettes, uncomplicated; R97.8 Other abnormal tumor markers; Z79.899 Other long term (current) drug therapy
CPT/HCPCS: 80053; 83497; 84260; 85025; 86316; 96372; 99214; J2353

== ENCOUNTER 2020-05-14 06:01 | Outpatient (CLI) | payer MEDICARE, SELFPAY ==
[2020-05-14] MEDS: octreotide LAR depot 20 mg Kit IM (08:40)
== END 2020-05-14 06:02 | disposition home or self-care (01) ==
LOC: ONCMED 06:02
PROVIDERS: PCP Registered Nurse; Visit Provider Internal Medicine Medical Oncology
DX: C7A.012 Malignant carcinoid tumor of the ileum (principal); C7B.02 Secondary carcinoid tumors of liver
CPT/HCPCS: 96372; J2353

== ENCOUNTER 2020-06-13 06:11 | Outpatient (CLI) | payer MEDICARE, SELFPAY ==
[2020-06-13] MEDS: octreotide LAR depot 20 mg Kit IM (08:45)
== END 2020-06-13 06:12 | disposition home or self-care (01) ==
LOC: ONCMED 06:14
PROVIDERS: PCP Registered Nurse; Visit Provider Internal Medicine Medical Oncology
DX: C7A.012 Malignant carcinoid tumor of the ileum (principal); C7B.02 Secondary carcinoid tumors of liver
CPT/HCPCS: 96372; J2353

== ENCOUNTER 2020-07-11 12:45 | Outpatient (CLI) | payer MEDICARE, SELFPAY ==
--- NOTE | 2020-07-11 13:09 | CT_ITS ---
WS: [id number] CT scan of the chest With IV contrast, CT scan of the abdomen and pelvis with IV contrast and oral contrast. Additional two-dimensional coronal and sagittal reconstruction was performed. 07/11/2020 Clinical Data: CARCINOID, AORTIC ANEURYSM Comparison: CT abdomen and pelvis, 07/25/2019. DLP: 1987.[address] scans at [facility] use at least one of these dose optimization techniques: automat ed exposure control; mA and/or kV adjustment per patient size (includes targeted exams where dose is matched to clinical indication); or iterative reconstruction. Findings: Chest: No nodules, masses or effusions are seen. There is a permanent pacemaker via a left upper chest with the lead wires ending in the right ventricle. The heart size is normal with no pericardial effusion. No pneumonia or pneumothorax is seen. The pulm onary vascularity is not remarkable. The pulmonary arterial system and thoracic aorta demonstrate no abnormalities or dilatations. The thy roid gland shows normal enhancement. There is no axillary or significant mediastinal adenopathy. Ther e is a small hiatal hernia. 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 Abdomen/pelvis: The liver has several low density areas and the largest of which is in the posterior aspect of the ri ght lobe measuring 2.4 cm. These are presumed to be metastatic lesions. They have changed from the pr ior study. The gallbladder shows gallstones.. The spleen, adrenal glands and pancreas are normal. The kidneys show equal bilateral contrast excretion with no cyst or masses. The abdominal aorta shows a 3.9 cm aneurysm with mural thrombus but no extravasation.. No appendicitis or diverticulitis is seen. There are numerous sigmoid diverticula. Oral contrast is i n the stomach, small bowel and colon, and there is no bowel dilatation. The patient's had a right hem icolectomy. No abscess, adenopathy, ascites, mass, obstruction or free air is seen. The bladder is unremarkable. No inguinal hernia is seen. The lumbar vertebral bodies show osteoarthritic change but no metastatic disease. CT/CT chest abd pel w con* Impression: 1. Multiple low density lesions in the liver which are probably metastatic but they have not changed. 2. Cholelithiasis. 3. Abdominal aortic aneurysm unchanged. 4. Negative for acute cardiopulmonary disease.
[2020-07-11] MEDS: iohexol 300 mg/mL 50 mL Btl PO (13:20)
[2020-07-11 14:44] LABS: Blood Urea Nitrogen 23 mg/dL (8-23)
[2020-07-11] MEDS: iodixanol 320 mg/mL 100mL Btl IV (14:53)
== END 2020-07-11 12:50 | disposition home or self-care (01) ==
LOC: RADWPI 12:49
PROVIDERS: PCP Registered Nurse; Visit Provider Internal Medicine Medical Oncology
DX: I71.4 Abdominal aortic aneurysm, without rupture (principal); C7B.02 Secondary carcinoid tumors of liver; C7A.012 Malignant carcinoid tumor of the ileum; K80.20 Calculus of gallbladder without cholecystitis without obstruction
CPT/HCPCS: 71260; 74177; 82565; 84520; Q9967

== ENCOUNTER 2020-07-17 14:18 | Outpatient (CLI) | payer MEDICARE, SELFPAY ==
[2020-07-17 15:06] LABS: Basophils # 0.1 10^3/uL (0.0-0.1); Basophils % 0.8 %; Eosinophils # 0.3 10^3/uL (0.0-0.8); Eosinophils % 3.5 %; Hematocrit 36.9 % (42.0-52.0); Hemoglobin 12.1 g/dL (11.7-16.6); Lymphocytes # 1.9 10^3/uL (0.8-4.8); Lymphocytes % 26.9 %; Mean Corpuscular HGB Conc 32.8 g/dL (30.0-36.0); Mean Corpuscular Hemoglobin 35.4 pg (28.0-34.0); Mean Corpuscular Volume 107.9 fL (80-94); Mean Platelet Volume 10.3 fL (7.4-10.4); Monocytes # 0.6 10^3/uL (0.2-0.9); Monocytes % 8.5 %; Neutrophils # 4.29 10^3/uL (1.8-7.7); Nucleated Red Blood Cells % 0 %; Platelet Count 146 10^3/cmm (130-400); Red Blood Count 3.42 10^6/uL (4.1-5.3); Red Cell Distribution Width 13.7 % (12.1-15.1); White Blood Count 7.2 10^3/uL (4.0-10.0)
[2020-07-17 15:36] LABS: Alanine Aminotransferase 20 U/L (0-41); Albumin Level 4.2 g/dL (3.5-5.2); Alkaline Phosphatase 138 IU/L (40-130); Anion Gap 14.8 (5-19); Aspartate Amino Transferase 25 U/L (0-40); Blood Urea Nitrogen 22 mg/dL (8-23); Calcium 8.9 mg/dL (8.5-10.5); Carbon Dioxide 25 mmol/L (22-29); Chloride 102 mmol/L (98-107); Globulin 2.7 g/dL (1.3-4.6); Glucose 103 mg/dL (65-115); Osmolality Calculated 288 mOsm/kg (285-295); Potassium 4.8 mmol/L (3.5-5.1); Sodium 137 mmol/L (136-145); Total Bilirubin 0.3 mg/dL (0.15-1.2); Total Protein 6.9 g/dL (6.6-8.7)
[2020-07-20 17:17] LABS: Chromogranin A 267 ng/mL (25-140)
[2020-07-21 18:52] LABS: Serotonin Whole Blood 275 ng/mL (56-244)
== END 2020-07-17 14:19 | disposition home or self-care (01) ==
LOC: ONCMED 14:21
PROVIDERS: PCP Registered Nurse; Visit Provider Internal Medicine Medical Oncology
DX: C7A.012 Malignant carcinoid tumor of the ileum (principal); C7B.02 Secondary carcinoid tumors of liver
CPT/HCPCS: 36415; 80053; 84260; 85025; 86316

== ENCOUNTER 2020-07-18 06:11 | Outpatient (CLI) | payer MEDICARE, SELFPAY ==
[2020-07-18] MEDS: octreotide LAR depot 20 mg Kit IM (09:20)
--- NOTE | 2020-07-22 10:05 | ONC FU_ITS ---
Dr. Joel Patient Follow-Up Note Patient: Jigar Ochoa Unit #: [id number]: 1940 Dicatated By: Jamir Joel M.D.Date of Visit:Jul 18, 2020 Onc Med Follow-up/Prog Note Chief Complaint: Malignant carcinoid. History of Present Illness: This is an 79 year-old man with metastatic carcinoid involving the liver. He had presented to the emergency room in May 2014 with abdominal pain, bloating, and constipation. Abdominal CT scan showed high-grade small bowel obstruction with a transition point which appeared to be near the region of the cecum. There was felt to be probably a cecal mass, though a discrete mass was difficult to identify. There was a cluster of lymph nodes in the mesentery measuring 2.8 x 1.4 cm which was suspicious for metastatic disease, and there were lesions in the liver which were suspicious for metastases. Incidentally noted was an infrarenal abdominal aortic aneurysm measuring 3.5 cm. On 06/23/14 he underwent exploratory laparotomy. He was found to have a distal small bowel obstructing mass approximately 50 cm from the terminal ileum. There was an additional mesenteric mass adjacent to it at the level of the mid mesentery. On palpation, there are also was suspicion of a cecal mass. There were multiple small nodules identified on the surface of the liver. The procedure included resection of the distal small bowel to include the small bowel mass and the mesenteric mass, right hemicolectomy, and liver biopsy. On further examination, there was no mass found in the cecum. Pathology showed low-grade carcinoid tumor measuring 1.5 cm in greatest dimension. The tumor was extending into the deep muscularis into the subserosa. The margins were free including a 6 cm proximal margin, 50 cm distal margin, and a 4 cm radial margin. There was involvement in 4 of 21 lymph nodes. The liver biopsy showed metastatic carcinoid tumor. I had seen him initially in July 2014. At that time, he was having severe diarrhea and he also was very weak. His laboratory studies did show iron deficiency, though he was just borderline anemic with hemoglobin 12.9 g. His albumin was low at 2.8 g/dL. Liver enzymes and bilirubin were normal. TSH was normal, as was the B12 level. His chromogranin A level was normal at 3 nmol per liter and a 24-hour urine HIAA also was normal. Multiple stool samples were negative for Clostridium difficile. He had subsequently shown gradual improvement with symptomatic management. During follow-up, there was suspicion of bowel obstruction on restaging CT scans, but repeat colonoscopy in February 2015 showed patent ileocolic anastomosis and no other significant abnormalities. CT scan of the abdomen and pelvis performed 07/18/2016 showed numerous metastatic nodules within the liver. Taking into consideration difference in technique and slice selection there was no significant progression since 07/04/2015. New soft tissue thickening was noted around the abdominal aortic aneurysm. 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 The abdominal aortic aneurysm was noted to measure 3.8 cm transverse diameter with a 2 mm increase in size since 07/04/2015. He continued observation/expectant management. A follow-up CTA of the thoracic/abdominal aorta on 06/09/2017 showed mild ectasia and predominantly noncalcified atherosclerotic plaque of the aortic arch and descending thoracic aorta. The infrarenal fusiform abdominal aortic aneurysm appeared stable compared to the study from July 2016. There was no change in the probable inflammatory retroperitoneal soft tissue thickening anterior to the inferior aspect of the aneurysm. Also noted was some progression of metastatic involvement in the liver, the largest measuring up to 2.9 cm compared to 2.3 cm on the prior exam. Restaging CT of the abdomen/pelvis on 12/21/2017 showed progression in the size and number of metastatic lesions within the liver. There were 2 lesions identified in the left lobe, the largest measuring 1.7 cm. A new nodule was noted adjacent the falciform ligament. At least 5 metastatic lesions were identified within the right lobe, the largest measuring 2.8 cm. There was no associated lymphadenopathy. The abdominal aortic aneurysm was noted to be stable with a maximum diameter of 3.9 cm. At that point his tumor markers had not changed significantly, but he appeared to be having more significant diarrhea, and I did opt to have him start treatment with Sandostatin LAR. He received his initial injection of 20 mg on 01/19/2018. He tolerated it well, and he then continued Sandostatin LAR injections monthly. 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 He also has COPD. He has no other medical illnesses. He has a history of smoking 2 packs of cigarettes daily for 50 years. He quit smoking in August 2016. INTERIM HISTORY: Repeat CT abdomen/pelvis on 07/26/2019 showed no change in the multiple hepatic metastatic lesions. There was no evidence of other malignant process. The infrarenal abdominal aortic aneurysm was unchanged at 3.9 cm. He continued treatment with Sandostatin LAR. Restaging CT scans of the chest, abdomen, and pelvis on 07/11/2020 showed several low-density lesions in the liver, the largest in the posterior aspect of the right lobe measuring 2.4 cm. These had not changed significantly. There was no other evidence of malignancy. There was evidence of abdominal aortic aneurysm measuring 3.9 cm with associated mural thrombus, but no extravasation. He is seen for a followup visit. He has been feeling good generally. He says his energy is not too bad. He has reasonably good activity, though not strenuous. ECOG score is 1. He has pretty good appetite, but he does have early satiety, and he has had some weight loss over the past 6 months. He has not had fever and he has not been having any flushing episodes. He occasionally has mild night sweating. He has shortness with activity. He says his breathing is the same. He does not complain of cough and he has not been having chest pain. He colonel he has no GI complaints. In particular, he has not been having diarrhea. He has some urinary frequency and nocturia. He has no significant joint or bone pain. He has no focal neurologic symptoms. Medications: Aspirin 1 (81 mg) Tablet Oral daily, Multivitamins 1 Tablet Oral daily, SandoSTATIN LAR Depot 1 (20 mg) Intramuscular q 4 weeks Allergies: PCN Review of Systems: Constitutional - His energy is not too bad. He has pretty good activity tolerance, though not strenuous. Appetite also is pretty good, though he does have some early satiety. He has lost weight. He does not have fever, night sweats, or flushing episodes. ECOG score is 1, ENMT - No sinus congestion/drainage. No mouth sores. No sore throat or difficulty swallowing, Hematologic/Lymphatic - He has some mild bruising, Respiratory - He has some shortness of breath, but his breathing is the same. No cough. No pleuritic pain or hemoptysis, Cardiovascular - No angina pain. No palpitations, Gastrointestinal - No nausea or vomiting. No heartburn or acid reflux. No diarrhea or constipation. No blood in the stool or black stools, Genitourinary (M) - No dysuria or hematuria. He has urinary frequency and nocturia. No urgency or incontinence, Musculoskeletal - No joint or bone pain, Integumentary - No skin rash, Neurologic - No headache or dizziness. No numbness or tingling. No other focal neurologic symptoms, Psychiatric - No anxiety or depression. No insomnia. Vital Signs: Performed on Jul 18, 2020 08:51 Height - 74.00 in Weight - 155.8 lbs (LOW) BSA - 1.95 sq.m BMI - 20.00 Temperature - 97.7 F (LOW) Pulse - 75 /min Respiration - 18 /min BP - 131/72 mm(hg) O2 Sat - 92 % (LOW) Pain - 0 Physical Examination: Constitutional - He looks pretty good generally, Eyes - Sclerae nonicteric. Conjunctivae clear, ENMT - No lesions noted in the oral cavity, Hematologic/Lymphatic - No cervical, clavicular, or axillary adenopathy, Respiratory - Lungs are clear with diminished air movement bilaterally, Cardiovascular - Heart rhythm is regular. There is no murmur, gallop, or rub noted, Abdomen - Soft. Liver is not enlarged. Spleen is not palpable. There is no abdominal mass or ascites noted and there is no inguinal adenopathy, Extremities - No edema. There are purpuric lesions on both hands, Neurologic - No focal neurologic deficits noted. Lab/Imaging: CBC shows hemoglobin 12.1 g, white blood cell count 7200, and platelet count 146,000. Comprehensive metabolic profile is unremarkable except for slightly elevated alkaline phosphatase of 138/130 IUs/L. The serotonin is slightly elevated at 275/244 ng/mL and the chromogranin A level remains mildly elevated at 267/140 ng/mL. The 24-hour urine 5-HIAA is pending. Impression: 1. 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 2. He had presented initially with small bowel obstruction, and he underwent exploratory laparotomy with the ileocolic resection on 06/23/2014. 3. He developed severe diarrhea following the surgery. It has improved and has generally been controlled on Imodium, but the etiology remains uncertain. Thus far he does not appear clinically to have carcinoid syndrome, and he has remained on observation/symptomatic management following the surgery. 4. A followup CT scan in November 2014 did show a slight increase in the number of hepatic metastatic lesions, with the largest lesion measuring 2.0 cm. That study showed marked dilatation of the colon at the anastomotic site with possible partial obstruction at 10 cm from the anastomosis. An area of narrowing was noted in that area, with no associated mass. There were new subcentimeter lymph nodes in the mesentery of the right abdomen. He was seen then by Dr. Kelsey, but there was no evidence of obstruction on a followup colonoscopy. Restaging CT in July 2015 appeared stable. Other medical illnesses include: 5. History of atrial fibrillation. 6. He apparently has a prior diagnosis of polymyalgia rheumatica. 7. He has nicotine dependence (cigarettes). CT scan of the abdomen and pelvis performed on 07/18/2016 showed numerous metastatic nodules with the liver, but with no significant progression since 07/04/2015. There was new soft tissue thickening around the abdominal aortic aneurysm which was felt to be highly suspicious for interval development of inflammatory abdominal aortic aneurysm. The aneurysm had shown a 0.2 mm increase in size, to 3.8 cm transverse diameter, since the 07/04/2015 study. A follow-up CTA of the thoracic/abdominal aorta on 06/09/2017 showed no significant change in the aneurysm. There was evidence of some progression of the metastatic lesions in the liver, the largest measuring 2.9 cm compared to 2.3 cm on the previous study. At that point he did not appear to be symptomatic, it was opted to just continue on observation/expectant management. His repeat CT scan of the abdomen/pelvis on 12/21/2017 did appear to show some further disease progression in the liver. At that point his tumor markers were stable, but he was having more diarrhea, and I did opt to have him start treatment with Sandostatin LAR. He received his initial injection of 20 mg on 01/19/2018. He has since then continued treatment monthly. He has tolerated it well. He has had symptomatic improvement, though he continues to complain of night sweating. During follow-up he has olerated the Sandostatin LAR with no adverse effects. His chromogranin A level has been elevated, but stable. During the past 6 months he has had some weight loss, but he has no obvious carcinoid symptoms, and his restaging CT scan showed no evidence of disease progression. Plan: He continues Sandostatin LAR 20 mg by intramuscular injection monthly. I will see him again in 3 months. Signed By: Jamir Joel M.D. <<Signature on File>>
== END 2020-07-18 06:12 | disposition home or self-care (01) ==
LOC: ONCMED 06:12
PROVIDERS: PCP Registered Nurse; Visit Provider Internal Medicine Medical Oncology
DX: C7A.012 Malignant carcinoid tumor of the ileum (principal); C7B.02 Secondary carcinoid tumors of liver; R63.4 Abnormal weight loss; M35.3 Polymyalgia rheumatica; F17.210 Nicotine dependence, cigarettes, uncomplicated; I71.4 Abdominal aortic aneurysm, without rupture; Z79.899 Other long term (current) drug therapy; Z68.20 Body mass index [BMI] 20.0-20.9, adult
CPT/HCPCS: 96372; 99214; J2353

== ENCOUNTER 2020-07-19 05:43 | Outpatient (CLI) | payer MEDICARE, SELFPAY ==
[2020-07-27 10:23] LABS: 24 Hour Urine Volume 1750 mL; 5-HIAA, 24 Hour Urine 8.9 mg/24 h (<=6.0)
== END 2020-07-19 05:44 | disposition home or self-care (01) ==
PROVIDERS: PCP Registered Nurse; Visit Provider Internal Medicine Medical Oncology
DX: C7A.012 Malignant carcinoid tumor of the ileum (principal); C7B.02 Secondary carcinoid tumors of liver
CPT/HCPCS: 83497

== ENCOUNTER 2020-08-20 07:25 | Outpatient (CLI) | payer MEDICARE, SELFPAY ==
[2020-08-20] MEDS: octreotide LAR depot 20 mg Kit IM (08:15)
== END 2020-08-20 07:26 | disposition home or self-care (01) ==
LOC: ONCMED 07:27
PROVIDERS: PCP Registered Nurse; Visit Provider Internal Medicine Medical Oncology
DX: C7A.012 Malignant carcinoid tumor of the ileum (principal); C7B.02 Secondary carcinoid tumors of liver; Z79.890 Hormone replacement therapy
CPT/HCPCS: 96372; J2353

== ENCOUNTER 2020-09-24 07:41 | Outpatient (CLI) | payer MEDICARE, SELFPAY ==
[2020-09-24] MEDS: octreotide LAR depot 20 mg Kit IM (08:20)
== END 2020-09-24 07:42 | disposition home or self-care (01) ==
LOC: ONCMED 07:44
PROVIDERS: PCP Registered Nurse; Visit Provider Internal Medicine Medical Oncology
DX: C7A.012 Malignant carcinoid tumor of the ileum (principal); C7B.02 Secondary carcinoid tumors of liver
CPT/HCPCS: 96372; J2353

== ENCOUNTER 2020-10-23 07:38 | Outpatient (CLI) | payer MEDICARE, SELFPAY ==
[2020-10-23 08:07] LABS: Basophils # 0.1 10^3/uL (0.0-0.1); Basophils % 0.9 %; Eosinophils # 0.2 10^3/uL (0.0-0.8); Hematocrit 39.3 % (42.0-52.0); Lymphocytes # 1.6 10^3/uL (0.8-4.8); Lymphocytes % 18.7 %; Mean Corpuscular HGB Conc 33.1 g/dL (30.0-36.0); Mean Corpuscular Hemoglobin 35.5 pg (28.0-34.0); Mean Corpuscular Volume 107.4 fL (80-94); Mean Platelet Volume 11.1 fL (7.4-10.4); Monocytes # 0.6 10^3/uL (0.2-0.9); Monocytes % 7.2 %; Neutrophils # 6.13 10^3/uL (1.8-7.7); Nucleated Red Blood Cells % 0 %; Platelet Count 152 10^3/cmm (130-400); Red Blood Count 3.66 10^6/uL (4.1-5.3); Red Cell Distribution Width 13.1 % (12.1-15.1); White Blood Count 8.6 10^3/uL (4.0-10.0)
[2020-10-23 08:24] LABS: Alanine Aminotransferase 15 U/L (0-41); Alkaline Phosphatase 137 IU/L (40-130); Blood Urea Nitrogen 22 mg/dL (8-23); Carbon Dioxide 21 mmol/L (22-29); Chloride 107 mmol/L (98-107); Globulin 3.4 g/dL (1.3-4.6); Glucose 107 mg/dL (65-115); Osmolality Calculated 288 mOsm/kg (285-295); Sodium 137 mmol/L (136-145); Total Bilirubin 0.5 mg/dL (0.15-1.2); Total Protein 7.4 g/dL (6.6-8.7)
[2020-10-23 08:31] LABS: Anion Gap 13.5 (5-19); Potassium 4.5 mmol/L (3.5-5.1)
[2020-10-23 08:32] LABS: Aspartate Amino Transferase 28 U/L (0-40)
[2020-10-23] MEDS: octreotide LAR depot 20 mg Kit IM (09:15)
[2020-10-26 19:53] LABS: 24 Hour Urine Volume 2350 mL; 5-HIAA, 24 Hour Urine 3.1 mg/24 h (<=6.0)
--- NOTE | 2020-10-27 08:50 | ONC FU_ITS ---
Dr. Joel Patient Follow-Up Note Patient: Jigar Ochoa Unit #: [id number]: 1940 Dicatated By: Jamir Joel M.D.Date of Visit:Oct 23, 2020 Onc Med Follow-up/Prog Note Chief Complaint: Malignant carcinoid. History of Present Illness: This is an 80 year-old man with metastatic carcinoid involving the liver. He had presented to the emergency room in May 2014 with abdominal pain, bloating, and constipation. Abdominal CT scan showed high-grade small bowel obstruction with a transition point which appeared to be near the region of the cecum. There was felt to be probably a cecal mass, though a discrete mass was difficult to identify. There was a cluster of lymph nodes in the mesentery measuring 2.8 x 1.4 cm which was suspicious for metastatic disease, and there were lesions in the liver which were suspicious for metastases. Incidentally noted was an infrarenal abdominal aortic aneurysm measuring 3.5 cm. On 06/23/14 he underwent exploratory laparotomy. He was found to have a distal small bowel obstructing mass approximately 50 cm from the terminal ileum. There was an additional mesenteric mass adjacent to it at the level of the mid mesentery. On palpation, there are also was suspicion of a cecal mass. There were multiple small nodules identified on the surface of the liver. The procedure included resection of the distal small bowel to include the small bowel mass and the mesenteric mass, right hemicolectomy, and liver biopsy. On further examination, there was no mass found in the cecum. Pathology showed low-grade carcinoid tumor measuring 1.5 cm in greatest dimension. The tumor was extending into the deep muscularis into the subserosa. The margins were free including a 6 cm proximal margin, 50 cm distal margin, and a 4 cm radial margin. There was involvement in 4 of 21 lymph nodes. The liver biopsy showed metastatic carcinoid tumor. I had seen him initially in July 2014. At that time, he was having severe diarrhea and he also was very weak. His laboratory studies did show iron deficiency, though he was just borderline anemic with hemoglobin 12.9 g. His albumin was low at 2.8 g/dL. Liver enzymes and bilirubin were normal. TSH was normal, as was the B12 level. His chromogranin A level was normal at 3 nmol per liter and a 24-hour urine HIAA also was normal. Multiple stool samples were negative for Clostridium difficile. He had subsequently shown gradual improvement with symptomatic management. During follow-up, there was suspicion of bowel obstruction on restaging CT scans, but repeat colonoscopy in February 2015 showed patent ileocolic anastomosis and no other significant abnormalities. CT scan of the abdomen and pelvis performed 07/18/2016 showed numerous metastatic nodules within the liver. Taking into consideration difference in technique and slice selection there was no significant progression since 07/04/2015. New soft tissue thickening was noted around the abdominal aortic aneurysm. 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 The abdominal aortic aneurysm was noted to measure 3.8 cm transverse diameter with a 2 mm increase in size since 07/04/2015. He continued observation/expectant management. A follow-up CTA of the thoracic/abdominal aorta on 06/09/2017 showed mild ectasia and predominantly noncalcified atherosclerotic plaque of the aortic arch and descending thoracic aorta. The infrarenal fusiform abdominal aortic aneurysm appeared stable compared to the study from July 2016. There was no change in the probable inflammatory retroperitoneal soft tissue thickening anterior to the inferior aspect of the aneurysm. Also noted was some progression of metastatic involvement in the liver, the largest measuring up to 2.9 cm compared to 2.3 cm on the prior exam. Restaging CT of the abdomen/pelvis on 12/21/2017 showed progression in the size and number of metastatic lesions within the liver. There were 2 lesions identified in the left lobe, the largest measuring 1.7 cm. A new nodule was noted adjacent the falciform ligament. At least 5 metastatic lesions were identified within the right lobe, the largest measuring 2.8 cm. There was no associated lymphadenopathy. The abdominal aortic aneurysm was noted to be stable with a maximum diameter of 3.9 cm. At that point his tumor markers had not changed significantly, but he appeared to be having more significant diarrhea, and I did opt to have him start treatment with Sandostatin LAR. He received his initial injection of 20 mg on 01/19/2018. He tolerated it well, and he then continued Sandostatin LAR injections monthly. 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 He also has COPD. He has no other medical illnesses. He has a history of smoking 2 packs of cigarettes daily for 50 years. He quit smoking in August 2016. INTERIM HISTORY: Restaging CT scans of the chest, abdomen, and pelvis on 07/11/2020 showed several low-density lesions in the liver, the largest in the posterior aspect of the right lobe measuring 2.4 cm. These had not changed significantly. There was no other evidence of malignancy. There was evidence of abdominal aortic aneurysm measuring 3.9 cm with associated mural thrombus, but no extravasation. He continued treatment with Sandostatin LAR. He is seen for a followup visit. He has been feeling okay. His activity is somewhat limited, but he is doing light work. ECOG score is 1. He has good appetite. He complains that he cannot gain weight, but he is up close to 5 pounds from his last visit. He does not have fever. He sometimes has sweating at night, but overall not as bad as it used to be. He has no shortness of breath, cough, or chest pain. He complains of having stomach gas and belching. He has just occasional diarrhea, and that does seem to be associated with Ensure. He has no complaints. His left thumb has been bothering him on occasion. He has no other joint or bone pain. He does not complain of headache or dizziness. He has no focal neurologic symptoms. Medications: Aspirin 1 (81 mg) Tablet Oral daily, Multivitamins 1 Tablet Oral daily, SandoSTATIN LAR [place]ot 1 (20 mg) Intramuscular q 4 weeks Allergies: PCN Vital Signs: Performed on Oct 23, 2020 08:43 Height - 74.00 in Weight - 160.4 lbs (HIGH) BSA - 1.98 sq.m BMI - 20.59 Temperature - 98.1 F (LOW) Pulse - 64 /min Respiration - 18 /min BP - 144/81 mm(hg) (HIGH) O2 Sat - 100 % Pain - 0 Fatigue - 0 Physical Examination: Constitutional - He looks pretty good generally, Eyes - Sclerae nonicteric. Conjunctivae clear, ENMT - No lesions noted in the oral cavity, Hematologic/Lymphatic - No cervical, clavicular, or axillary adenopathy, Respiratory - Lungs are clear with diminished air movement bilaterally, Cardiovascular - Heart rhythm is regular. There is no murmur, gallop, or rub noted, Abdomen - Soft. Liver is not enlarged. Spleen is not palpable. There is no abdominal mass or ascites noted and there is no inguinal adenopathy, Extremities - No edema, Neurologic - No focal neurologic deficits noted. Lab/Imaging: Test performed on Oct 23, 2020 07:55 U Total Volume 2350 mL U 5-HIAA, 24hr 3.1 mg/24 h Test performed on Oct 23, 2020 07:50 Sodium 137 mmol/L Potassium 4.5 mmol/L Chloride 107 mmol/L CO2 21 mmol/L Anion Gap 13.5 BUN 22 mg/dL Creatinine 1.3 mg/dL Cr Clearance (Est) 45.08 mL/min Glucose 107 mg/dL Osmolality - Calculated 288 mOsm/kg Calcium 9.0 mg/dL Protein, Total 7.4 g/dL Albumin 4.0 g/dL Globulin 3.4 g/dL Bilirubin, Total 0.5 mg/dL ALT (SGPT) 15 U/L AST (SGOT) 28 U/L Alkaline Phosphatase 137 IU/L WBC 8.6 10 3/uL RBC 3.66 10 6/uL HGB 13.0 g/dL HCT 39.3 % MCV 107.4 fL MCH 35.5 pg MCHC 33.1 g/dL RDW 13.1 % Platelet Count 152 10 3/cmm MPV 11.1 fL Neutrophils 6.13 10 3/uL Lymphocytes 1.6 10 3/uL Monocytes 0.6 10 3/uL Eosinophils 0.2 10 3/uL Basophils 0.1 10 3/uL Neutrophil % 71.0 % Lymphocyte % 18.7 % Monocyte % 7.2 % Eosinophil % 2.0 % Basophils % 0.9 % NRBC % 0 % Problem List: 1. 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 2. He also has CT evidence of abdominal aortic aneurysm. 3. History of atrial fibrillation. 4. He apparently has a prior diagnosis of polymyalgia rheumatica. 5. He has nicotine dependence (cigarettes). Problems Addressed with this Encounter and Plan: 1. 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 He had presented initially with small bowel obstruction, and he underwent exploratory laparotomy with the ileocolic resection on 06/23/2014. He had developed severe diarrhea following the surgery, but it generally was controlled on Imodium, and the cause was uncertain. He did not appear clinically to have carcinoid syndrome, and he initially was followed on observation/symptomatic management. A followup CT scan in November 2014 did show a slight increase in the number of hepatic metastatic lesions, with the largest lesion measuring 2.0 cm. That study showed marked dilatation of the colon at the anastomotic site with possible partial obstruction at 10 cm from the anastomosis. An area of narrowing was noted in that area, with no associated mass. There were new subcentimeter lymph nodes in the mesentery of the right abdomen. He was seen then by Dr. Kelsey, but there was no evidence of obstruction on a followup colonoscopy. Restaging CT in July 2015 appeared stable. However, his repeat CT scan of the abdomen/pelvis on 12/21/2017 did appear to show some further disease progression in the liver. At that point his tumor markers were stable, but he was having more diarrhea, and in December 2017 he began treatment with Sandostatin LAR 20 mg monthly. He did have symptomatic benefit with improvement in his diarrhea and in his night sweating. During subsequent follow-up, there has been no significant progression of the carcinoid. At this point he appears stable clinically. He continues to tolerate the treatment well. He will continue treatment with Sandostatin LAR 20 mg by intramuscular injection monthly. I will see him again in 3 months. 2. He has evidence on CT scan of and abdominal aortic aneurysm, but it has remained stable. It will be followed with yearly surveillance. Signed By: Jamir Joel M.D. <<Signature on File>>
[2020-10-27 17:57] LABS: Chromogranin A 351 ng/mL (25-140)
[2020-11-02 00:23] LABS: Serotonin Whole Blood 252 ng/mL (56-244)
== END 2020-10-23 07:39 | disposition home or self-care (01) ==
LOC: ONCMED 07:40
PROVIDERS: PCP Registered Nurse; Visit Provider Internal Medicine Medical Oncology
DX: C7A.012 Malignant carcinoid tumor of the ileum (principal); C7B.02 Secondary carcinoid tumors of liver; I71.4 Abdominal aortic aneurysm, without rupture; M35.3 Polymyalgia rheumatica; F17.210 Nicotine dependence, cigarettes, uncomplicated; Z79.899 Other long term (current) drug therapy
CPT/HCPCS: 80053; 83497; 84260; 85025; 86316; 96372; 99214; J2353

== ENCOUNTER 2020-11-20 13:34 | Outpatient (CLI) | payer MEDICARE, SELFPAY ==
[2020-11-20] MEDS: octreotide LAR depot 20 mg Kit IM (14:00)
== END 2020-11-20 13:35 | disposition home or self-care (01) ==
PROVIDERS: PCP Registered Nurse; Visit Provider Internal Medicine Medical Oncology
DX: C7A.012 Malignant carcinoid tumor of the ileum (principal); C7B.02 Secondary carcinoid tumors of liver
CPT/HCPCS: 96372; J2353

== ENCOUNTER 2020-12-18 13:02 | Outpatient (CLI) | payer MEDICARE, SELFPAY ==
[2020-12-18] MEDS: octreotide LAR depot 20 mg Kit IM (13:35)
== END 2020-12-18 13:03 | disposition home or self-care (01) ==
PROVIDERS: PCP Registered Nurse; Visit Provider Internal Medicine Hematology & Oncology
DX: C7A.019 Malignant carcinoid tumor of the small intestine, unspecified portion (principal); C7B.02 Secondary carcinoid tumors of liver
CPT/HCPCS: 96372; J2353

== ENCOUNTER 2021-01-16 12:14 | Outpatient (CLI) | payer MEDICARE, SELFPAY ==
[2021-01-16 13:38] LABS: Basophils # 0.1 10^3/uL (0.0-0.1); Basophils % 0.7 %; Eosinophils # 0.3 10^3/uL (0.0-0.8); Eosinophils % 3.6 %; Hematocrit 37.9 % (42.0-52.0); Hemoglobin 12.6 g/dL (11.7-16.6); Lymphocytes # 1.6 10^3/uL (0.8-4.8); Lymphocytes % 19.6 %; Mean Corpuscular HGB Conc 33.2 g/dL (30.0-36.0); Mean Corpuscular Hemoglobin 35.5 pg (28.0-34.0); Mean Corpuscular Volume 106.8 fL (80-94); Mean Platelet Volume 10.8 fL (7.4-10.4); Monocytes # 0.7 10^3/uL (0.2-0.9); Monocytes % 8.9 %; Neutrophils # 5.37 10^3/uL (1.8-7.7); Nucleated Red Blood Cells % 0 %; Platelet Count 150 10^3/cmm (130-400); Red Blood Count 3.55 10^6/uL (4.1-5.3); Red Cell Distribution Width 13.6 % (12.1-15.1)
[2021-01-16] MEDS: octreotide LAR depot 20 mg Kit IM (14:18)
[2021-01-16 14:26] LABS: Alanine Aminotransferase 18 U/L (0-41); Albumin Level 4.5 g/dL (3.5-5.2); Alkaline Phosphatase 136 IU/L (40-130); Anion Gap 14.7 (5-19); Aspartate Amino Transferase 26 U/L (0-40); Blood Urea Nitrogen 25 mg/dL (8-23); Calcium 8.4 mg/dL (8.5-10.5); Carbon Dioxide 23 mmol/L (22-29); Chloride 106 mmol/L (98-107); Globulin 2.8 g/dL (1.3-4.6); Glucose 92 mg/dL (65-115); Osmolality Calculated 292 mOsm/kg (285-295); Potassium 4.7 mmol/L (3.5-5.1); Sodium 139 mmol/L (136-145); Total Bilirubin 0.4 mg/dL (0.15-1.2); Total Protein 7.3 g/dL (6.6-8.7)
--- NOTE | 2021-01-17 06:50 | ONC FU_ITS ---
Dr. Joel Patient Follow-Up Note Patient: Jigar Ochoa Unit #: [id number]: 1940 Dicatated By: Jamir Joel M.D.Date of Visit:January 16, 2021 Onc Med Follow-up/Prog Note Chief Complaint: Malignant carcinoid. History of Present Illness: This is an 80 year-old man with metastatic carcinoid involving the liver. He had presented to the emergency room in May 2014 with abdominal pain, bloating, and constipation. Abdominal CT scan showed high-grade small bowel obstruction with a transition point which appeared to be near the region of the cecum. There was felt to be probably a cecal mass, though a discrete mass was difficult to identify. There was a cluster of lymph nodes in the mesentery measuring 2.8 x 1.4 cm which was suspicious for metastatic disease, and there were lesions in the liver which were suspicious for metastases. Incidentally noted was an infrarenal abdominal aortic aneurysm measuring 3.5 cm. On 06/23/14 he underwent exploratory laparotomy. He was found to have a distal small bowel obstructing mass approximately 50 cm from the terminal ileum. There was an additional mesenteric mass adjacent to it at the level of the mid mesentery. On palpation, there are also was suspicion of a cecal mass. There were multiple small nodules identified on the surface of the liver. The procedure included resection of the distal small bowel to include the small bowel mass and the mesenteric mass, right hemicolectomy, and liver biopsy. On further examination, there was no mass found in the cecum. Pathology showed low-grade carcinoid tumor measuring 1.5 cm in greatest dimension. The tumor was extending into the deep muscularis into the subserosa. The margins were free including a 6 cm proximal margin, 50 cm distal margin, and a 4 cm radial margin. There was involvement in 4 of 21 lymph nodes. The liver biopsy showed metastatic carcinoid tumor. I had seen him initially in July 2014. At that time, he was having severe diarrhea and he also was very weak. His laboratory studies did show iron deficiency, though he was just borderline anemic with hemoglobin 12.9 g. His albumin was low at 2.8 g/dL. Liver enzymes and bilirubin were normal. TSH was normal, as was the B12 level. His chromogranin A level was normal at 3 nmol per liter and a 24-hour urine HIAA also was normal. Multiple stool samples were negative for Clostridium difficile. He had subsequently shown gradual improvement with symptomatic management. During follow-up, there was suspicion of bowel obstruction on restaging CT scans, but repeat colonoscopy in February 2015 showed patent ileocolic anastomosis and no other significant abnormalities. CT scan of the abdomen and pelvis performed 07/18/2016 showed numerous metastatic nodules within the liver. Taking into consideration difference in technique and slice selection there was no significant progression since 07/04/2015. New soft tissue thickening was noted around the abdominal aortic aneurysm. 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 The abdominal aortic aneurysm was noted to measure 3.8 cm transverse diameter with a 2 mm increase in size since 07/04/2015. He continued observation/expectant management. A follow-up CTA of the thoracic/abdominal aorta on 06/09/2017 showed mild ectasia and predominantly noncalcified atherosclerotic plaque of the aortic arch and descending thoracic aorta. The infrarenal fusiform abdominal aortic aneurysm appeared stable compared to the study from July 2016. There was no change in the probable inflammatory retroperitoneal soft tissue thickening anterior to the inferior aspect of the aneurysm. Also noted was some progression of metastatic involvement in the liver, the largest measuring up to 2.9 cm compared to 2.3 cm on the prior exam. Restaging CT of the abdomen/pelvis on 12/21/2017 showed progression in the size and number of metastatic lesions within the liver. There were 2 lesions identified in the left lobe, the largest measuring 1.7 cm. A new nodule was noted adjacent the falciform ligament. At least 5 metastatic lesions were identified within the right lobe, the largest measuring 2.8 cm. There was no associated lymphadenopathy. The abdominal aortic aneurysm was noted to be stable with a maximum diameter of 3.9 cm. At that point his tumor markers had not changed significantly, but he appeared to be having more significant diarrhea, and I did opt to have him start treatment with Sandostatin LAR. He received his initial injection of 20 mg on 01/19/2018. He tolerated it well, and he then continued Sandostatin LAR injections monthly. 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 He also has COPD. He has no other medical illnesses. He has a history of smoking 2 packs of cigarettes daily for 50 years. He quit smoking in August 2016. INTERIM HISTORY: Restaging CT scans of the chest, abdomen, and pelvis on 07/11/2020 showed several low-density lesions in the liver, the largest in the posterior aspect of the right lobe measuring 2.4 cm. These had not changed significantly. There was no other evidence of malignancy. There was evidence of abdominal aortic aneurysm measuring 3.9 cm with associated mural thrombus, but no extravasation. He continued treatment with Sandostatin LAR. He is seen for a followup visit. He has been feeling good generally. He has pretty good energy. He is doing light work at home and caring for his who required an AKA amputation about 2 years ago. ECOG score is 1. Appetite is generally good, though he sometimes has early satiety. He has not had fever and has not had any flushing spells. He says his night sweating has stopped. He has sinus/nasal congestion. He has just a little bit of cough. He has some shortness of breath. He does not complain of chest pain. He has no GI complaints other than a lot of upper intestinal gas. In particular, he does not have diarrhea now. Bladder function has been okay. He has been having some pain in his right arm muscle. He has no significant joint or bone pain. He does not complain of headache or dizziness, and he has no focal neurologic symptoms. Medications: Aspirin 1 (81 mg) Tablet Oral daily, Multivitamins 1 Tablet Oral daily, SandoSTATIN LAR [place] 1 (20 mg) Intramuscular q 4 weeks Allergies: PCN Vital Signs: Performed on January 16, 2021 14:02 Height - 74.00 in Weight - 156.2 lbs (LOW) BSA - 1.96 sq.m BMI - 20.06 Temperature - 97.8 F (LOW) Pulse - 71 /min Respiration - 18 /min BP - 161/83 mm(hg) (HIGH) O2 Sat - 94 % (LOW) Pain - 0 Physical Examination: Constitutional - He looks pretty good generally, Eyes - Sclerae nonicteric. Conjunctivae clear, ENMT - No lesions noted in the oral cavity, Hematologic/Lymphatic - No cervical, clavicular, or axillary adenopathy, Respiratory - Lungs are clear with diminished air movement bilaterally, Cardiovascular - Heart rhythm is regular. There is no murmur, gallop, or rub noted, Abdomen - Soft. Liver is not enlarged. Spleen is not palpable. There is no abdominal mass or ascites noted and there is no inguinal adenopathy, Extremities - No edema, Neurologic - No focal neurologic deficits noted. Lab/Imaging: Test performed on January 16, 2021 13:05 Sodium 139 mmol/L Potassium 4.7 mmol/L Chloride 106 mmol/L CO2 23 mmol/L Anion Gap 14.7 BUN 25 mg/dL Creatinine 1.2 mg/dL Cr Clearance (Est) 47.5600 mL/min Glucose 92 mg/dL Osmolality - Calculated 292 mOsm/kg Calcium 8.4 mg/dL Protein, Total 7.3 g/dL Albumin 4.5 g/dL Globulin 2.8 g/dL Bilirubin, Total 0.4 mg/dL ALT (SGPT) 18 U/L AST (SGOT) 26 U/L Alkaline Phosphatase 136 IU/L WBC 8.0 10 3/uL RBC 3.55 10 6/uL HGB 12.6 g/dL HCT 37.9 % MCV 106.8 fL MCH 35.5 pg MCHC 33.2 g/dL RDW 13.6 % Platelet Count 150 10 3/cmm MPV 10.8 fL Neutrophils 5.37 10 3/uL Lymphocytes 1.6 10 3/uL Monocytes 0.7 10 3/uL Eosinophils 0.3 10 3/uL Basophils 0.1 10 3/uL Neutrophil % 67.0 % Lymphocyte % 19.6 % Monocyte % 8.9 % Eosinophil % 3.6 % Basophils % 0.7 % NRBC % 0 % Problem List: 1. 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 2. He also has CT evidence of abdominal aortic aneurysm. 3. History of atrial fibrillation. 4. He apparently has a prior diagnosis of polymyalgia rheumatica. 5. He has nicotine dependence (cigarettes). Problems Addressed with this Encounter and Plan: 1. 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 He had presented initially with small bowel obstruction, and he underwent exploratory laparotomy with the ileocolic resection on 06/23/2014. He had developed severe diarrhea following the surgery, but it generally was controlled on Imodium, and the cause was uncertain. He did not appear clinically to have carcinoid syndrome, and he initially was followed on observation/symptomatic management. A followup CT scan in November 2014 did show a slight increase in the number of hepatic metastatic lesions, with the largest lesion measuring 2.0 cm. That study showed marked dilatation of the colon at the anastomotic site with possible partial obstruction at 10 cm from the anastomosis. An area of narrowing was noted in that area, with no associated mass. There were new subcentimeter lymph nodes in the mesentery of the right abdomen. He was seen then by Dr. Kelsey, but there was no evidence of obstruction on a followup colonoscopy. Restaging CT in July 2015 appeared stable. However, his repeat CT scan of the abdomen/pelvis on 12/21/2017 did appear to show some further disease progression in the liver. At that point his tumor markers were stable, but he was having more diarrhea, and in December 2017 he began treatment with Sandostatin LAR 20 mg monthly. He did have symptomatic benefit with improvement in his diarrhea and in his night sweating. During subsequent follow-up, there has been no significant progression of the carcinoid and he has remained stable clinically. He continues to tolerate the treatment well. He will continue treatment with Sandostatin LAR 20 mg by intramuscular injection monthly. I will see him again in 3 months. 2. He has evidence on CT scan of and abdominal aortic aneurysm, but it has remained stable. It will require yearly surveillance. Signed By: Jamir Joel M.D. <<Signature on File>>
[2021-01-19 20:32] LABS: 24 Hour Urine Volume 2950 mL; 5-HIAA, 24 Hour Urine 7.4 mg/24 h (<=6.0)
[2021-01-21 12:33] LABS: Serotonin Whole Blood 327 ng/mL (56-244)
[2021-01-25 15:03] LABS: Chromogranin A LC/MS/MS 686 ng/mL (ADULTS: <311)
== END 2021-01-16 12:15 | disposition home or self-care (01) ==
PROVIDERS: PCP Registered Nurse; Visit Provider Internal Medicine Medical Oncology
DX: C7A.012 Malignant carcinoid tumor of the ileum (principal); C7B.02 Secondary carcinoid tumors of liver; I71.4 Abdominal aortic aneurysm, without rupture; I48.20 Chronic atrial fibrillation, unspecified; M35.3 Polymyalgia rheumatica; F17.210 Nicotine dependence, cigarettes, uncomplicated; Z79.818 Long term (current) use of other agents affecting estrogen receptors and estrogen levels
CPT/HCPCS: 36415; 80053; 83497; 84260; 85025; 86316; 96372; 99214; J2353

== ENCOUNTER 2021-02-18 13:29 | Outpatient (CLI) | payer MEDICARE, SELFPAY ==
[2021-02-18] MEDS: octreotide LAR depot 20 mg Kit IM (14:00)
== END 2021-02-18 13:30 | disposition home or self-care (01) ==
PROVIDERS: PCP Registered Nurse; Visit Provider Internal Medicine Medical Oncology
DX: C7A.012 Malignant carcinoid tumor of the ileum (principal); C7B.02 Secondary carcinoid tumors of liver; Z79.818 Long term (current) use of other agents affecting estrogen receptors and estrogen levels
CPT/HCPCS: 96372; J2353

== ENCOUNTER 2021-03-22 08:59 | Outpatient (CLI) | payer MEDICARE, SELFPAY ==
[2021-03-22] MEDS: octreotide LAR depot 20 mg Kit IM (09:43)
== END 2021-03-22 09:00 | disposition home or self-care (01) ==
LOC: ONCMED 09:02
PROVIDERS: PCP Registered Nurse; Visit Provider Nurse Practitioner
DX: C7A.012 Malignant carcinoid tumor of the ileum (principal); C7B.02 Secondary carcinoid tumors of liver; Z79.899 Other long term (current) drug therapy
CPT/HCPCS: 96372; J2353

== ENCOUNTER 2021-04-24 10:50 | Outpatient (CLI) | payer MEDICARE, SELFPAY ==
[2021-04-24 11:51] LABS: Basophils # 0.1 10^3/uL (0.0-0.1); Basophils % 0.7 %; Eosinophils # 0.1 10^3/uL (0.0-0.8); Eosinophils % 1.9 %; Hematocrit 35.7 % (42.0-52.0); Hemoglobin 11.9 g/dL (11.7-16.6); Lymphocytes # 1.5 10^3/uL (0.8-4.8); Lymphocytes % 20.7 %; Mean Corpuscular HGB Conc 33.3 g/dL (30.0-36.0); Mean Corpuscular Hemoglobin 35.4 pg (28.0-34.0); Mean Corpuscular Volume 106.3 fl (80-94); Mean Platelet Volume 10.4 fL (7.4-10.4); Monocytes # 0.7 10^3/uL (0.2-0.9); Monocytes % 9.4 %; Neutrophils # 4.72 10^3/uL (1.8-7.7); Neutrophils % 67.2 %; Nucleated Red Blood Cells % 0 %; Platelet Count 153 10^3/cmm (130-400); Red Blood Count 3.36 10^6/uL (4.1-5.3); Red Cell Distribution Width 13.2 % (12.1-15.1)
[2021-04-24 12:10] LABS: Alanine Aminotransferase 15 U/L (0-41); Albumin Level 3.9 g/dL (3.5-5.2); Alkaline Phosphatase 115 IU/L (40-130); Anion Gap 13.4 (5-19); Aspartate Amino Transferase 24 U/L (0-40); Blood Urea Nitrogen 24 mg/dL (8-23); Calcium 8.3 mg/dL (8.5-10.5); Carbon Dioxide 23 mmol/L (22-29); Chloride 105 mmol/L (98-107); Globulin 2.8 g/dL (1.3-4.6); Glucose 100 mg/dL (65-115); Osmolality Calculated 288 mOsm/kg (285-295); Potassium 4.4 mmol/L (3.5-5.1); Sodium 137 mmol/L (136-145); Total Bilirubin 0.3 mg/dL (0.15-1.2); Total Protein 6.7 g/dL (6.6-8.7)
[2021-04-24] MEDS: octreotide LAR depot 20 mg Kit IM (12:10)
[2021-04-28 23:17] LABS: 24 Hour Urine Volume 1600 mL
[2021-05-01 14:26] LABS: Chromogranin A LC/MS/MS 1134 ng/mL (ADULTS: <311)
[2021-05-05 07:23] LABS: Serotonin Whole Blood 212 ng/mL (56-244)
== END 2021-04-24 10:51 | disposition home or self-care (01) ==
LOC: ONCMED 10:53
PROVIDERS: PCP Registered Nurse; Visit Provider Internal Medicine Medical Oncology
DX: C7A.012 Malignant carcinoid tumor of the ileum (principal); C7B.02 Secondary carcinoid tumors of liver; Z79.899 Other long term (current) drug therapy
CPT/HCPCS: 36415; 80053; 83497; 84260; 85025; 86316; 96372; J2353

== ENCOUNTER 2021-05-01 05:53 | Outpatient (CLI) | payer MEDICARE, SELFPAY ==
--- NOTE | 2021-05-01 18:05 | ONC FU_ITS ---
Dr. Joel Patient Follow-Up Note Patient: Jigar Ochoa Unit #: [id number]: 1940 Dicatated By: Jamir Joel M.D.Date of Visit:May 01, 2021 Onc Med Follow-up/Prog Note Chief Complaint: Malignant carcinoid. History of Present Illness: This is an 80 year-old man with metastatic carcinoid involving the liver. He had presented to the emergency room in May 2014 with abdominal pain, bloating, and constipation. Abdominal CT scan showed high-grade small bowel obstruction with a transition point which appeared to be near the region of the cecum. There was felt to be probably a cecal mass, though a discrete mass was difficult to identify. There was a cluster of lymph nodes in the mesentery measuring 2.8 x 1.4 cm which was suspicious for metastatic disease, and there were lesions in the liver which were suspicious for metastases. Incidentally noted was an infrarenal abdominal aortic aneurysm measuring 3.5 cm. On 06/23/14 he underwent exploratory laparotomy. He was found to have a distal small bowel obstructing mass approximately 50 cm from the terminal ileum. There was an additional mesenteric mass adjacent to it at the level of the mid mesentery. On palpation, there are also was suspicion of a cecal mass. There were multiple small nodules identified on the surface of the liver. The procedure included resection of the distal small bowel to include the small bowel mass and the mesenteric mass, right hemicolectomy, and liver biopsy. On further examination, there was no mass found in the cecum. Pathology showed low-grade carcinoid tumor measuring 1.5 cm in greatest dimension. The tumor was extending into the deep muscularis into the subserosa. The margins were free including a 6 cm proximal margin, 50 cm distal margin, and a 4 cm radial margin. There was involvement in 4 of 21 lymph nodes. The liver biopsy showed metastatic carcinoid tumor. I had seen him initially in July 2014. At that time, he was having severe diarrhea and he also was very weak. His laboratory studies did show iron deficiency, though he was just borderline anemic with hemoglobin 12.9 g. His albumin was low at 2.8 g/dL. Liver enzymes and bilirubin were normal. TSH was normal, as was the B12 level. His chromogranin A level was normal at 3 nmol per liter and a 24-hour urine HIAA also was normal. Multiple stool samples were negative for Clostridium difficile. He had subsequently shown gradual improvement with symptomatic management. During follow-up, there was suspicion of bowel obstruction on restaging CT scans, but repeat colonoscopy in February 2015 showed patent ileocolic anastomosis and no other significant abnormalities. CT scan of the abdomen and pelvis performed 07/18/2016 showed numerous metastatic nodules within the liver. Taking into consideration difference in technique and slice selection there was no significant progression since 07/04/2015. New soft tissue thickening was noted around the abdominal aortic aneurysm. 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 The abdominal aortic aneurysm was noted to measure 3.8 cm transverse diameter with a 2 mm increase in size since 07/04/2015. He continued observation/expectant management. A follow-up CTA of the thoracic/abdominal aorta on 06/09/2017 showed mild ectasia and predominantly noncalcified atherosclerotic plaque of the aortic arch and descending thoracic aorta. The infrarenal fusiform abdominal aortic aneurysm appeared stable compared to the study from July 2016. There was no change in the probable inflammatory retroperitoneal soft tissue thickening anterior to the inferior aspect of the aneurysm. Also noted was some progression of metastatic involvement in the liver, the largest measuring up to 2.9 cm compared to 2.3 cm on the prior exam. Restaging CT of the abdomen/pelvis on 12/21/2017 showed progression in the size and number of metastatic lesions within the liver. There were 2 lesions identified in the left lobe, the largest measuring 1.7 cm. A new nodule was noted adjacent the falciform ligament. At least 5 metastatic lesions were identified within the right lobe, the largest measuring 2.8 cm. There was no associated lymphadenopathy. The abdominal aortic aneurysm was noted to be stable with a maximum diameter of 3.9 cm. At that point his tumor markers had not changed significantly, but he appeared to be having more significant diarrhea, and I did opt to have him start treatment with Sandostatin LAR. He received his initial injection of 20 mg on 01/19/2018. He tolerated it well, and he then continued Sandostatin LAR injections monthly. 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 He also has COPD. He has no other medical illnesses. He has a history of smoking 2 packs of cigarettes daily for 50 years. He quit smoking in August 2016. INTERIM HISTORY: Restaging CT scans of the chest, abdomen, and pelvis on 07/11/2020 showed several low-density lesions in the liver, the largest in the posterior aspect of the right lobe measuring 2.4 cm. These had not changed significantly. There was no other evidence of malignancy. There was evidence of abdominal aortic aneurysm measuring 3.9 cm with associated mural thrombus, but no extravasation. He continued treatment with Sandostatin LAR. He is seen for a followup visit. He has been feeling pretty good generally. He says his energy has not been too bad. He pretty much has normal activity. He says he stays active. ECOG score is 0. Appetite is pretty good, though he does have some early satiety. He has no fever or night sweats, and he has not been having any flushing spells. He says he always has nasal drainage. He has not had sore throat or difficulty swallowing. He has occasional hacking cough. He has no shortness of breath or chest pain. He currently has no GI complaints. He says he typically has 3 bowel movements in the morning, but not actual diarrhea, and his bowels are okay the rest of the day. He has no complaints. He occasionally has muscle cramps in his legs. He has no significant joint or bone pain. He does not complain of headache. He sometimes has dysequilibrium. He has no numbness/paresthesia or other focal neurologic symptoms. Medications: Aspirin 1 (81 mg) Tablet Oral daily, Multivitamins 1 Tablet Oral daily, SandoSTATIN LAR [place] 1 (20 mg) Intramuscular q 4 weeks Allergies: PCN Vital Signs: Performed on May 01, 2021 13:59 Height - 74.00 in Weight - 154 lbs (LOW) BSA - 1.94 sq.m BMI - 19.77 Temperature - 99.2 F (HIGH) Pulse - 75 /min Respiration - 18 /min BP - 130/69 mm(hg) O2 Sat - 99 % Pain - 0 Fatigue - 0 Physical Examination: Constitutional - He looks pretty good generally, Eyes - Sclerae nonicteric. Conjunctivae clear, ENMT - No lesions noted in the oral cavity, Hematologic/Lymphatic - No cervical, clavicular, or axillary adenopathy, Respiratory - Lungs are clear with diminished air movement bilaterally, Cardiovascular - Heart rhythm is regular. There is no murmur, gallop, or rub noted, Abdomen - Soft. Liver is not enlarged. Spleen is not palpable. There is no abdominal mass or ascites noted and there is no inguinal adenopathy, Extremities - No edema, Neurologic - No focal neurologic deficits noted. Lab/Imaging: Test performed on Apr 24, 2021 11:40 Sodium 137 mmol/L U Total Volume 1600 mL Potassium 4.4 mmol/L Chloride 105 mmol/L CO2 23 mmol/L U 5-HIAA, 24hr 11.0 mg/24 h Anion Gap 13.4 BUN 24 mg/dL Creatinine 1.2 mg/dL Cr Clearance (Est) 47.5600 mL/min Glucose 100 mg/dL Osmolality - Calculated 288 mOsm/kg Calcium 8.3 mg/dL Protein, Total 6.7 g/dL Albumin 3.9 g/dL Globulin 2.8 g/dL Bilirubin, Total 0.3 mg/dL ALT (SGPT) 15 U/L AST (SGOT) 24 U/L Alkaline Phosphatase 115 IU/L WBC 7.0 10 3/uL RBC 3.36 10 6/uL HGB 11.9 g/dL HCT 35.7 % MCV 106.3 fl MCH 35.4 pg MCHC 33.3 g/dL RDW 13.2 % Platelet Count 153 10 3/cmm MPV 10.4 fL Neutrophils 4.72 10 3/uL Lymphocytes 1.5 10 3/uL Monocytes 0.7 10 3/uL Eosinophils 0.1 10 3/uL Basophils 0.1 10 3/uL Neutrophil % 67.2 % Lymphocyte % 20.7 % Monocyte % 9.4 % Eosinophil % 1.9 % Basophils % 0.7 % NRBC % 0 % Problem List: 1. 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 2. He also has CT evidence of abdominal aortic aneurysm. 3. History of atrial fibrillation. 4. He apparently has a prior diagnosis of polymyalgia rheumatica. 5. He has nicotine dependence (cigarettes). Problems Addressed with this Encounter and Plan: 1. 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 He had presented initially with small bowel obstruction, and he underwent exploratory laparotomy with the ileocolic resection on 06/23/2014. He had developed severe diarrhea following the surgery, but it generally was controlled on Imodium, and the cause was uncertain. He did not appear clinically to have carcinoid syndrome, and he initially was followed on observation/symptomatic management. A followup CT scan in November 2014 did show a slight increase in the number of hepatic metastatic lesions, with the largest lesion measuring 2.0 cm. That study showed marked dilatation of the colon at the anastomotic site with possible partial obstruction at 10 cm from the anastomosis. An area of narrowing was noted in that area, with no associated mass. There were new subcentimeter lymph nodes in the mesentery of the right abdomen. He was seen then by Dr. Kelsey, but there was no evidence of obstruction on a followup colonoscopy. Restaging CT in July 2015 appeared stable. However, his repeat CT scan of the abdomen/pelvis on 12/21/2017 did appear to show some further disease progression in the liver. At that point his tumor markers were stable, but he was having more diarrhea, and in December 2017 he began treatment with Sandostatin LAR 20 mg monthly. He did have symptomatic benefit with improvement in his diarrhea and in his night sweating. As of July 2020 his follow-up CT scans had shown no significant progression of the carcinoid and during followup he has remained stable clinically. He continues to tolerate the treatment well. He will continue Sandostatin LAR 20 mg by intramuscular injection monthly. I will see him again in 3 months. He will have a repeat CT abdomen/pelvis prior to that visit. 2. He has evidence on CT scan of and abdominal aortic aneurysm, but it has remained stable. It will require yearly surveillance. Signed By: Jamir Joel M.D. <<Signature on File>>
== END 2021-05-01 05:54 | disposition home or self-care (01) ==
LOC: ONCMED 05:54
PROVIDERS: PCP Registered Nurse; Visit Provider Internal Medicine Medical Oncology
DX: Z08 Encounter for follow-up examination after completed treatment for malignant neoplasm (principal); Z85.060 Personal history of malignant carcinoid tumor of small intestine; F17.210 Nicotine dependence, cigarettes, uncomplicated; Z79.899 Other long term (current) drug therapy
CPT/HCPCS: 99214

== ENCOUNTER 2021-05-24 10:11 | Outpatient (CLI) | payer MEDICARE, SELFPAY ==
[2021-05-24] MEDS: octreotide LAR depot 20 mg Kit IM (10:27)
== END 2021-05-24 10:12 | disposition home or self-care (01) ==
PROVIDERS: PCP Registered Nurse; Visit Provider Internal Medicine Medical Oncology
DX: C7A.012 Malignant carcinoid tumor of the ileum (principal); C7B.02 Secondary carcinoid tumors of liver; Z79.899 Other long term (current) drug therapy
CPT/HCPCS: 96372; J2353

== ENCOUNTER 2021-06-21 09:53 | Outpatient (CLI) | payer MEDICARE, SELFPAY ==
[2021-06-21] MEDS: octreotide LAR depot 20 mg Kit IM (10:25)
== END 2021-06-21 09:54 | disposition home or self-care (01) ==
LOC: ONCMED 09:53
PROVIDERS: PCP Registered Nurse; Visit Provider Internal Medicine Medical Oncology
DX: C7A.012 Malignant carcinoid tumor of the ileum (principal); C7B.02 Secondary carcinoid tumors of liver; Z79.818 Long term (current) use of other agents affecting estrogen receptors and estrogen levels
CPT/HCPCS: 96372; J2353

== ENCOUNTER 2021-07-23 09:05 | Outpatient (CLI) | payer MEDICARE, SELFPAY ==
[2021-07-23 09:39] LABS: Basophils # 0.1 10^3/uL (0.0-0.1); Eosinophils # 0.2 10^3/uL (0.0-0.8); Eosinophils % 2.6 %; Hematocrit 38.7 % (42.0-52.0); Hemoglobin 13.1 g/dL (11.7-16.6); Lymphocytes # 1.4 10^3/uL (0.8-4.8); Lymphocytes % 17.9 %; Mean Corpuscular HGB Conc 33.9 g/dL (30.0-36.0); Mean Corpuscular Hemoglobin 35.7 pg (28.0-34.0); Mean Corpuscular Volume 105.4 fl (80-94); Mean Platelet Volume 10.5 fL (7.4-10.4); Monocytes # 0.6 10^3/uL (0.2-0.9); Monocytes % 8.3 %; Neutrophils # 5.41 10^3/uL (1.8-7.7); Neutrophils % 69.8 %; Nucleated Red Blood Cells % 0 %; Platelet Count 160 10^3/cmm (130-400); Red Blood Count 3.67 10^6/uL (4.1-5.3); Red Cell Distribution Width 12.9 % (12.1-15.1); White Blood Count 7.8 10^3/uL (4.0-10.0)
[2021-07-23 10:15] LABS: Alanine Aminotransferase 15 U/L (0-41); Albumin Level 4.1 g/dL (3.5-5.2); Alkaline Phosphatase 119 IU/L (40-130); Anion Gap 13.5 (5-19); Aspartate Amino Transferase 25 U/L (0-40); Blood Urea Nitrogen 18 mg/dL (8-23); Calcium 8.3 mg/dL (8.5-10.5); Carbon Dioxide 26 mmol/L (22-29); Chloride 101 mmol/L (98-107); Globulin 2.8 g/dL (1.3-4.6); Glucose 107 mg/dL (65-115); Iron 105 ug/dL (59-158); Osmolality Calculated 284 mOsm/kg (285-295); Percent Saturation 39.6 % (20-50); Potassium 4.5 mmol/L (3.5-5.1); Sodium 136 mmol/L (136-145); Total Bilirubin 0.4 mg/dL (0.15-1.2); Total Iron Binding Capacity 265 mcg/dl; Total Protein 6.9 g/dL (6.6-8.7); Unsaturated Iron Binding 160 ug/dL (112-347)
[2021-07-23] MEDS: octreotide LAR depot 20 mg Kit IM (11:33)
--- NOTE | 2021-07-23 12:57 | ONC FU_ITS ---
Dr. Joel Patient Follow-Up Note Patient: Jigar Ochoa Unit #: [id number]: 1940 Dicatated By: Jamir Joel M.D.Date of Visit:Jul 23, 2021 Onc Med Follow-up/Prog Note Chief Complaint: Malignant carcinoid. History of Present Illness: This is an 80 year-old man with metastatic carcinoid involving the liver. He had presented to the emergency room in May 2014 with abdominal pain, bloating, and constipation. Abdominal CT scan showed high-grade small bowel obstruction with a transition point which appeared to be near the region of the cecum. There was felt to be probably a cecal mass, though a discrete mass was difficult to identify. There was a cluster of lymph nodes in the mesentery measuring 2.8 x 1.4 cm which was suspicious for metastatic disease, and there were lesions in the liver which were suspicious for metastases. Incidentally noted was an infrarenal abdominal aortic aneurysm measuring 3.5 cm. On 06/23/14 he underwent exploratory laparotomy. He was found to have a distal small bowel obstructing mass approximately 50 cm from the terminal ileum. There was an additional mesenteric mass adjacent to it at the level of the mid mesentery. On palpation, there are also was suspicion of a cecal mass. There were multiple small nodules identified on the surface of the liver. The procedure included resection of the distal small bowel to include the small bowel mass and the mesenteric mass, right hemicolectomy, and liver biopsy. On further examination, there was no mass found in the cecum. Pathology showed low-grade carcinoid tumor measuring 1.5 cm in greatest dimension. The tumor was extending into the deep muscularis into the subserosa. The margins were free including a 6 cm proximal margin, 50 cm distal margin, and a 4 cm radial margin. There was involvement in 4 of 21 lymph nodes. The liver biopsy showed metastatic carcinoid tumor. I had seen him initially in July 2014. At that time, he was having severe diarrhea and he also was very weak. His laboratory studies did show iron deficiency, though he was just borderline anemic with hemoglobin 12.9 g. His albumin was low at 2.8 g/dL. Liver enzymes and bilirubin were normal. TSH was normal, as was the B12 level. His chromogranin A level was normal at 3 nmol per liter and a 24-hour urine HIAA also was normal. Multiple stool samples were negative for Clostridium difficile. He had subsequently shown gradual improvement with symptomatic management. During follow-up, there was suspicion of bowel obstruction on restaging CT scans, but repeat colonoscopy in February 2015 showed patent ileocolic anastomosis and no other significant abnormalities. CT scan of the abdomen and pelvis performed 07/18/2016 showed numerous metastatic nodules within the liver. Taking into consideration difference in technique and slice selection there was no significant progression since 07/04/2015. New soft tissue thickening was noted around the abdominal aortic aneurysm. 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 The abdominal aortic aneurysm was noted to measure 3.8 cm transverse diameter with a 2 mm increase in size since 07/04/2015. He continued observation/expectant management. A follow-up CTA of the thoracic/abdominal aorta on 06/09/2017 showed mild ectasia and predominantly noncalcified atherosclerotic plaque of the aortic arch and descending thoracic aorta. The infrarenal fusiform abdominal aortic aneurysm appeared stable compared to the study from July 2016. There was no change in the probable inflammatory retroperitoneal soft tissue thickening anterior to the inferior aspect of the aneurysm. Also noted was some progression of metastatic involvement in the liver, the largest measuring up to 2.9 cm compared to 2.3 cm on the prior exam. Restaging CT of the abdomen/pelvis on 12/21/2017 showed progression in the size and number of metastatic lesions within the liver. There were 2 lesions identified in the left lobe, the largest measuring 1.7 cm. A new nodule was noted adjacent the falciform ligament. At least 5 metastatic lesions were identified within the right lobe, the largest measuring 2.8 cm. There was no associated lymphadenopathy. The abdominal aortic aneurysm was noted to be stable with a maximum diameter of 3.9 cm. At that point his tumor markers had not changed significantly, but he appeared to be having more significant diarrhea, and I did opt to have him start treatment with Sandostatin LAR. He received his initial injection of 20 mg on 01/19/2018. He tolerated it well, and he then continued Sandostatin LAR injections monthly. 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 He also has COPD. He has no other medical illnesses. He has a history of smoking 2 packs of cigarettes daily for 50 years. He quit smoking in August 2016. INTERIM HISTORY: Restaging CT scans of the chest, abdomen, and pelvis on 07/11/2020 showed several low-density lesions in the liver, the largest in the posterior aspect of the right lobe measuring 2.4 cm. These had not changed significantly. There was no other evidence of malignancy. There was evidence of abdominal aortic aneurysm measuring 3.9 cm with associated mural thrombus, but no extravasation. He continued treatment with Sandostatin LAR. He is seen for a followup visit. He has been feeling pretty good generally. His energy is fair. He does have fatigue, but he stays pretty busy and active. His ECOG score is 1. His appetite is good, but he does have early satiety. He has not had fever. He occasionally gets a little damp at night. He has no drenching night sweats. He has not had sore mouth or throat. He does not complain of cough, and he has not been having shortness of breath or chest pain. He has a little bit of acid reflux occasionally. He manages it with [place]. Bowel function has been pretty good. He has just occasional diarrhea. He does have some urinary frequency and nocturia. He has no significant joint or bone pain. He does not complain of headache or dizziness, and he has no focal neurologic symptoms. Medications: Aspirin 1 (81 mg) Tablet Oral daily, Multivitamins 1 Tablet Oral daily, SandoSTATIN LAR [place] 1 (20 mg) Intramuscular q 4 weeks Allergies: PCN Vital Signs: Performed on Jul 23, 2021 11:02 Height - 74.00 in Weight - 159.0 lbs (HIGH) BSA - 1.97 sq.m BMI - 20.41 Temperature - 97.6 F (LOW) Pulse - 83 /min Respiration - 16 /min BP - 155/74 mm(hg) (HIGH) O2 Sat - 95 % (LOW) Pain - 0 Fatigue - 5 Physical Examination: Constitutional - He looks pretty good generally, Eyes - Sclerae nonicteric. Conjunctivae clear, ENMT - No lesions noted in the oral cavity, Hematologic/Lymphatic - No cervical, clavicular, or axillary adenopathy, Respiratory - Lungs are clear with diminished air movement bilaterally, Cardiovascular - Heart rhythm is regular. There is no murmur, gallop, or rub noted, Abdomen - Soft. Liver is not enlarged. Spleen is not palpable. There is no abdominal mass or ascites noted and there is no inguinal adenopathy, Extremities - No edema. There are purpuric lesions on both arms, Neurologic - No focal neurologic deficits noted. Lab/Imaging: Test performed on Jul 23, 2021 09:22 Iron 105 mcg/dL Sodium 136 mmol/L Iron Binding Capacity (TIBC) 265 mcg/dl Potassium 4.5 mmol/L % Iron Saturation 39.6 % Chloride 101 mmol/L CO2 26 mmol/L UIBC 160 mcg/dL Anion Gap 13.5 BUN 18 mg/dL Creatinine 1.3 mg/dL Cr Clearance (Est) 44.69 mL/min Glucose 107 mg/dL Osmolality - Calculated 284 mOsm/kg Calcium 8.3 mg/dL Protein, Total 6.9 g/dL Albumin 4.1 g/dL Globulin 2.8 g/dL Bilirubin, Total 0.4 mg/dL ALT (SGPT) 15 U/L AST (SGOT) 25 U/L Alkaline Phosphatase 119 IU/L WBC 7.8 10 3/uL RBC 3.67 10 6/uL HGB 13.1 g/dL HCT 38.7 % MCV 105.4 fl MCH 35.7 pg MCHC 33.9 g/dL RDW 12.9 % Platelet Count 160 10 3/cmm MPV 10.5 fL Neutrophils 5.41 10 3/uL Lymphocytes 1.4 10 3/uL Monocytes 0.6 10 3/uL Eosinophils 0.2 10 3/uL Basophils 0.1 10 3/uL Neutrophil % 69.8 % Lymphocyte % 17.9 % Monocyte % 8.3 % Eosinophil % 2.6 % Basophils % 1.0 % NRBC % 0 % Problem List: 1. 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 2. He also has CT evidence of abdominal aortic aneurysm. 3. History of atrial fibrillation. 4. He apparently has a prior diagnosis of polymyalgia rheumatica. 5. He has nicotine dependence (cigarettes). Problems Addressed with this Encounter and Plan: 1. 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 He had presented initially with small bowel obstruction, and he underwent exploratory laparotomy with the ileocolic resection on 06/23/2014. He had developed severe diarrhea following the surgery, but it generally was controlled on Imodium, and the cause was uncertain. He did not appear clinically to have carcinoid syndrome, and he initially was followed on observation/symptomatic management. A followup CT scan in November 2014 did show a slight increase in the number of hepatic metastatic lesions, with the largest lesion measuring 2.0 cm. That study showed marked dilatation of the colon at the anastomotic site with possible partial obstruction at 10 cm from the anastomosis. An area of narrowing was noted in that area, with no associated mass. There were new subcentimeter lymph nodes in the mesentery of the right abdomen. He was seen then by Dr. Kelsey, but there was no evidence of obstruction on a followup colonoscopy. Restaging CT in July 2015 appeared stable. However, his repeat CT scan of the abdomen/pelvis on 12/21/2017 did appear to show some further disease progression in the liver. At that point his tumor markers were stable, but he was having more diarrhea, and in December 2017 he began treatment with Sandostatin LAR 20 mg monthly. He did have symptomatic benefit with improvement in his diarrhea and in his night sweating. As of July 2020 his follow-up CT scans had shown no significant progression of the carcinoid and he continued treatment with Sandostatin LAR. During subsequent follow-up he has remained stable clinically. He will continue his same treatment with Sandostatin LAR 20 mg by intramuscular injection monthly. He will be scheduled for a follow-up visit in 3 months. In the meantime, as it has been more than a year since his last CT scans, he will be scheduled for restaging CT scans of the chest, abdomen, and pelvis. He will have further evaluation as indicated. 2. He has evidence on CT scan of and abdominal aortic aneurysm, but it has remained stable. He has been on yearly surveillance. Signed By: Jamir Joel M.D. <<Signature on File>>
[2021-07-23 13:49] LABS: Thyroid Stimulating Hormone 2.15 uIU/mL (0.27-4.20); Vitamin B12 282 pg/mL (232-1245)
[2021-07-27 02:52] LABS: Serotonin Whole Blood 298 ng/mL (56-244)
[2021-07-28 16:33] LABS: 24 Hour Urine Volume 1500 mL; 5-HIAA, 24 Hour Urine 5.3 mg/24 h (<=6.0)
[2021-07-31 14:03] LABS: Chromogranin A LC/MS/MS 1192 ng/mL (ADULTS: <311)
== END 2021-07-23 09:06 | disposition home or self-care (01) ==
LOC: ONCMED 09:08
PROVIDERS: PCP Registered Nurse; Visit Provider Internal Medicine Medical Oncology
DX: C7A.012 Malignant carcinoid tumor of the ileum (principal); C7B.02 Secondary carcinoid tumors of liver; I71.4 Abdominal aortic aneurysm, without rupture; I48.20 Chronic atrial fibrillation, unspecified; M35.3 Polymyalgia rheumatica; F17.210 Nicotine dependence, cigarettes, uncomplicated; Z79.818 Long term (current) use of other agents affecting estrogen receptors and estrogen levels
CPT/HCPCS: 36415; 80053; 82607; 83497; 83540; 83550; 84260; 84443; 85025; 86316; 96372; 99214; J2353

== ENCOUNTER 2021-07-29 00:21 | Emergency (ER) | payer MEDICARE, SELFPAY ==
--- NOTE | 2021-07-29 00:22 | ECG_ITS ---
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
--- NOTE | 2021-07-29 00:22 | CTR_ITS ---
PROCEDURE INFORMATION: Exam: CT Head Without Contrast Exam date and time: 07/29/2021 12:22 AM Age: 80 years old Clinical indication: Injury or trauma; Fall; Blunt trauma (contusions or hematomas); With loss of consciousness; Loss of consciousness for 30 minutes or less; Additional info: Fall from toilet, loc TECHNIQUE: Imaging protocol: Computed tomography of the head without contrast. Radiation optimization: All CT scans at this facility use at least one of these dose optimization techniques: automated exposure control; mA and/or kV adjustment per patient size (includes targeted exams where dose is matched to clinical indication); or iterative reconstruction. COMPARISON: US Soft Tissue Head Neck [id number] 04/06/2018 1:29 PM RADIATION DOSE METRICS: Total DLP (mGy-cm): 928.93 FINDINGS: Brain: Age appropriate atrophy and small vessel ischemic change. No evidence of intracranial hemorrhage, mass effect, midline shift or extra-axial fluid collections. Midline structures are normal. Akbar-white matter differentiation is normal. Cerebral ventricles: No ventriculomegaly. Paranasal sinuses: Visualized sinuses are unremarkable. No fluid levels. Mastoid air cells: Visualized mastoid air cells are well aerated. Orbital cavity: The patient has had bilateral lens replacement surgery. Vasculature: Carotid atherosclerotic calcification. Bones/joints: Unremarkable. No acute fracture. Soft tissues: Unremarkable. CT/CT head wo con* [id number] IMPRESSION: No acute intracranial injury. Radiation Dose CTDIVOL = (mGy): DLP = 928.93 (mGy-cm)
--- NOTE | 2021-07-29 00:24 | W.ED.FALL ---
Documented by User: MAIKOL Graham 07/29/21 02:32 HPI - Fall General: Chief Complaint: Syncope Stated Complaint: FALL Time Seen by Provider: 07/29/21 00:22 History of Present Illness: HPI Narrative: 80-year-old male patient comes in today after passing out while having a bowel movement on the toilet. EMS states there was stool on the patient when they came in and found him in the floor. Patient has a history of sick sinus syndrome with a pacemaker implantation, and colon cancer stage IV. Patient denied any illness or injury. Patient is alert and oriented at this time. No sign of injury is noted. Respirations are even. Patient appears chronically ill and nontoxic at this time. Patient appears in no pain. Patient is alert and oriented and responds appropriately to questions. No neural deficits are noted on initial exam. Review of Systems General: Reports: 10 or more systems reviewed and unremarkable except in HPI and below Card: Reports: syncope [facility] ED PFSH: Medical History Hx of cardiac pacemaker Social History Smoking and tobacco status: current every day smoker Second hand smoke exposure: Yes Alcohol intake: never Physical Exam Const: COMMON NORMALS: no acute distress and patient oriented x3 GENERAL APPEARANCE: cooperative HENMT: COMMON NORMALS: normocephalic and Normal external nose present HEAD & SCALP: normal to inspection and normocephalic NOSE: Normal external nose present MOUTH: Abnormal oral and palatal mucosa present (dry) Eye: GENERAL EYE: appearance normal, both eyes and all related structures CONJUNCTIVA: Yes conjunctival abnormal positive bilateral pallor Neck/C-Spine: COMMON NORMALS: full ROM Lymph: LYMPHATIC: no lymphadenopathy noted Chest: COMMONS NORMALS: normal inspection of the chest Resp: COMMON NORMALS: normal respiratory effort EFFORT & INSPECTION: Yes able to speak in complete sentences Cardio: COMMON NORMALS: regular rate and regular rhythm RATE: regular rate RHYTHM: regular rhythm GI: COMMON NORMALS: non-tender : COMMON NORMALS: Yes no CVA tenderness BLADDER/KIDNEY EXAM: Yes no CVA tenderness Back/Pelvis: COMMON NORMALS: no CVA tenderness and thoracic and lumbar spine normal to inspection Extremity: COMMON NORMALS: normal to inspection Neuro: COMMON NORMALS: patient oriented x3 and moves all extremities Psych: COMMON NORMALS: mental status grossly normal and cooperative Skin: COMMON NORMALS: no rashes or lesions noted GENERAL SKIN EXAM: no rashes or lesions noted Course Vital Signs: Vital signs: Vital Signs Temperature 98.2 F 07/29/21 00:25 Pulse Rate 75 07/29/21 02:37 Respiratory Rate 16 07/29/21 02:37 Blood Pressure 108/57 07/29/21 02:37 Pulse Oximetry 98 07/29/21 02:37 MDM - Fall MDM Narrative: Medical decision making narrative: Patient was brought in by EMS for concerns of syncopal episode. Patient had a large bowel movement at home and then went to get up from the toilet and passed out. Patient is alert and oriented at this time. Patient does seem kind of pale. Respirations were even lungs were clear to auscultation abdomen soft nontender. No signs of injury was noted. Differential diagnosis includes but not limited to vasovagal syncope, ACS, stroke syndrome, intracranial bleed, anemia. Laboratory values note a hemoglobin of 10 and hematocrit of 30, creatinine was 1.4, troponin was 12, EKG showed a paced rhythm. Chest x-ray was normal. CT of the head was normal. Urinalysis was clear. Concerned about patient's hemoglobin has dropped from 13-10 think patient should talk to his oncologist regarding this change in his hemoglobin. Patient reported no blood in the stool. I recommended patient monitor for blood in stool and vomitus. Also recommended patient return to the ER for high fever or new other new concerns. Patient felt comfortable to go home and will follow up with his primary care and oncology tomorrow. Lab Data: Labs: Lab Results 07/29/21 07/29/21 07/29/21 00:30 00:30 00:30 WBC 10.1 10^3/uL H 10 ^3/uL (4.0-10.0) RBC 2.87 10^6/uL L 10 ^6/uL (4.1-5.3) Hgb 10.1 g/dL L g/dL (11.7-16.6) Hct 30.9 % L % (42.0-52.0) MCV 107.7 fl H fl (80-94) MCH 35.2 pg H pg (28.0-34.0) MCHC 32.7 g/dL g/dL (30.0-36.0) RDW 12.9 % % (12.1-15.1) Plt Count 135 10^3/cmm 10^3 /cmm (130-400) MPV 10.6 fL H fL (7.4-10.4) Neut % (Auto) 66.5 % % Lymph % (Auto) 21.0 % % [place] % (Auto) 8.4 % % Eos % (Auto) 3.4 % % Baso % (Auto) 0.4 % % Neut # (Auto) 6.72 10^3/uL 10^3 /uL (1.8-7.7) Lymph # (Auto) 2.1 10^3/uL 10^3/ uL (0.8-4.8) [place] # (Auto) 0.9 10^3/uL 10^3/ uL (0.2-0.9) Eos # (Auto) 0.3 10^3/uL 10^3/ uL (0.0-0.8) Baso # (Auto) 0.0 10^3/uL 10^3/ uL (0.0-0.1) Nucleated RBC % (a uto) 0 % % Nucleated RBCs # 0.0 /100WBC /100W BC Sodium 139 mmol/L mmol/L (136-145) Potassium 5.1 mmol/L mmol/L (3.5-5.1) Chloride 106 mmol/L mmol/L (98-107) Carbon Dioxide 24 mmol/L mmol/L (22-29) Anion Gap 14.1 (5-19) BUN 27 mg/dL H mg/dL (8-23) Creatinine 1.4 mg/dL H mg/dL (0.7-1.2) GFR Calculation Not Reportable Glucose 103 mg/dL mg/dL (65-115) Calculated Osmolal ity 293 mOsm/kg mOsm/ kg (285-295) Lactate Calcium 8.1 mg/dL L mg/dL (8.5-10.5) Total Bilirubin 0.3 mg/dL mg/dL (0.15-1.2) AST 20 U/L U/L (0-40) ALT 12 U/L U/L (0-41) Alkaline Phosphata se 93 IU/L IU/L (40-130) Troponin T Baselin e 12 ng/L ng/L (0-15) Troponin T 120 [address] [place] Troponin T Total Protein 5.4 g/dL L g/dL (6.6-8.7) Albumin 3.4 g/dL L g/dL (3.5-5.2) Globulin 2.0 g/dL g/dL (1.3-4.6) Urine Color Urine Appearance Urine pH Ur Specific Gravit y Urine Protein Urine Glucose (UA) Urine Ketones Urine Blood Urine Nitrate Urine Bilirubin Urine Urobilinogen Ur Leukocyte Nicole ase 07/29/21 07/29/21 07/29/21 00:30 01:57 02:22 WBC RBC Hgb Hct MCV MCH MCHC RDW Plt Count MPV Neut % (Auto) Lymph % (Auto) [place] % (Auto) Eos % (Auto) Baso % (Auto) Neut # (Auto) Lymph # (Auto) [place] # (Auto) Eos # (Auto) Baso # (Auto) Nucleated RBC % (a uto) Nucleated RBCs # Sodium Potassium Chloride Carbon Dioxide Anion Gap BUN Creatinine GFR Calculation Glucose Calculated Osmolal ity Lactate 1.4 mmol/L mmol/L (0.5-2.2) Calcium Total Bilirubin AST ALT Alkaline Phosphata se Troponin T Baselin e Troponin T 120 [address] [place] 14.92 ng/L ng/L (0-15) Delta Troponin T 2.92 ABS# ABS# (0-10) Total Protein Albumin Globulin Urine Color Yellow (Yellow) Urine Appearance Clear (CLEAR) Urine pH 6 (5-7) Ur Specific Gravit y 1.010 (1.005-1.030) Urine Protein Neg (Negative) Urine Glucose (UA) Norm (Normal) Urine Ketones Negative (Negative) Urine Blood Neg (Negative) Urine Nitrate Negative (Negative) Urine Bilirubin Neg (Negative) Urine Urobilinogen Norm mg/dL mg/dL (Negative) Ur Leukocyte Nicole ase Negative (Negative) EKG Data^: EKG 1: Attestation: I personally reviewed and interpreted this EKG as follows: (00 30, EKG shows paced atrial rhythm, regular rate at 67 bpm, no ST elevation, no ectopy, no prior exam is available for comparison at this time.) Discharge Plan Discharge Patient Disposition: Home Clinical Impression: Vasovagal syncope Condition: Stable Prescriptions: No Action aspirin [Adult Aspirin Regimen] 81 mg tablet,delayed release (DR/EC) 81 mg PO DAILY RF: 0 multivitamin Tablet 1 tab PO DAILY RF: 0 octreotide acetate [Sandostatin] 100 mcg/mL solution 100 mcg SUBCUT .monthly RF: 0 ciclopirox 8 % solution 1 applic TOPICAL DAILY 28 Days Qty: 6.6 RF: 2 triamcinolone acetonide 0.1 % cream See Rx Instructions .ROUTE .COMPLEX Qty: 454 RF: 0 Discharge Orders: Discharge ED (Routine); Ordered 07/29/21 Ordered By: Evans Hayden Referrals: Paddy Sheth FNP [Primary Care Provider] - Discharge Diet: Usual diet Discharge Activity: Increase activity as tolerated Patient Instructions: Syncope in Older Adults (ED), Opioid Safety Activity Restrictions/Additional Instructions: Home and rest. Healthy diet, drink plenty of fluids, follow-up with Dr. Joel's office tomorrow regarding anemia. Return to the ER for worsening symptoms. Return to the ER for blood in vomit or stool. Return to the ER for high fever greater than 100.4. Coding Level of Care Code ED Endoscopy Technician for Chg Fwd Exam Comprehensive Documented by User: Peterson Avina DO 07/29/21 03:16 HPI - Fall General: Chief Complaint: Syncope Stated Complaint: FALL Time Seen by Provider: 07/29/21 00:22 [facility] ED PFSH: Medical History Hx of cardiac pacemaker Social History Smoking and tobacco status: current every day smoker Second hand smoke exposure: Yes Alcohol intake: never Course Vital Signs: Vital signs: Vital Signs Temperature 98.2 F 07/29/21 00:25 Pulse Rate 75 07/29/21 02:37 Respiratory Rate 16 07/29/21 02:37 Blood Pressure 108/57 07/29/21 02:37 Pulse Oximetry 98 07/29/21 02:37 MDM - Fall MDM Narrative: Medical decision making narrative: This patient was originally seen by MAIKOL Bansal. I agree with his history, evaluation, and treatment. Lab Data: Labs: Lab Results 07/29/21 07/29/21 07/29/21 00:30 00:30 00:30 WBC 10.1 10^3/uL H 10 ^3/uL (4.0-10.0) RBC 2.87 10^6/uL L 10 ^6/uL (4.1-5.3) Hgb 10.1 g/dL L g/dL (11.7-16.6) Hct 30.9 % L % (42.0-52.0) MCV 107.7 fl H fl (80-94) MCH 35.2 pg H pg (28.0-34.0) MCHC 32.7 g/dL g/dL (30.0-36.0) RDW 12.9 % % (12.1-15.1) Plt Count 135 10^3/cmm 10^3 /cmm (130-400) MPV 10.6 fL H fL (7.4-10.4) Neut % (Auto) 66.5 % % Lymph % (Auto) 21.0 % % [place] % (Auto) 8.4 % % Eos % (Auto) 3.4 % % Baso % (Auto) 0.4 % % Neut # (Auto) 6.72 10^3/uL 10^3 /uL (1.8-7.7) Lymph # (Auto) 2.1 10^3/uL 10^3/ uL (0.8-4.8) [place] # (Auto) 0.9 10^3/uL 10^3/ uL (0.2-0.9) Eos # (Auto) 0.3 10^3/uL 10^3/ uL (0.0-0.8) Baso # (Auto) 0.0 10^3/uL 10^3/ uL (0.0-0.1) Nucleated RBC % (a uto) 0 % % Nucleated RBCs # 0.0 /100WBC /100W BC Sodium 139 mmol/L mmol/L (136-145) Potassium 5.1 mmol/L mmol/L (3.5-5.1) Chloride 106 mmol/L mmol/L (98-107) Carbon Dioxide 24 mmol/L mmol/L (22-29) Anion Gap 14.1 (5-19) BUN 27 mg/dL H mg/dL (8-23) Creatinine 1.4 mg/dL H mg/dL (0.7-1.2) GFR Calculation Not Reportable Glucose 103 mg/dL mg/dL (65-115) Calculated Osmolal ity 293 mOsm/kg mOsm/ kg (285-295) Lactate Calcium 8.1 mg/dL L mg/dL (8.5-10.5) Total Bilirubin 0.3 mg/dL mg/dL (0.15-1.2) AST 20 U/L U/L (0-40) ALT 12 U/L U/L (0-41) Alkaline Phosphata se 93 IU/L IU/L (40-130) Troponin T Baselin e 12 ng/L ng/L (0-15) Troponin T 120 [address] [place] Troponin T Total Protein 5.4 g/dL L g/dL (6.6-8.7) Albumin 3.4 g/dL L g/dL (3.5-5.2) Globulin 2.0 g/dL g/dL (1.3-4.6) Urine Color Urine Appearance Urine pH Ur Specific Gravit y Urine Protein Urine Glucose (UA) Urine Ketones Urine Blood Urine Nitrate Urine Bilirubin Urine Urobilinogen Ur Leukocyte Nicole ase 07/29/21 07/29/21 07/29/21 00:30 01:57 02:22 WBC RBC Hgb Hct MCV MCH MCHC RDW Plt Count MPV Neut % (Auto) Lymph % (Auto) [place] % (Auto) Eos % (Auto) Baso % (Auto) Neut # (Auto) Lymph # (Auto) [place] # (Auto) Eos # (Auto) Baso # (Auto) Nucleated RBC % (a uto) Nucleated RBCs # Sodium Potassium Chloride Carbon Dioxide Anion Gap BUN Creatinine GFR Calculation Glucose Calculated Osmolal ity Lactate 1.4 mmol/L mmol/L (0.5-2.2) Calcium Total Bilirubin AST ALT Alkaline Phosphata se Troponin T Baselin e Troponin T 120 [address] [place] 14.92 ng/L ng/L (0-15) Delta Troponin T 2.92 ABS# ABS# (0-10) Total Protein Albumin Globulin Urine Color Yellow (Yellow) Urine Appearance Clear (CLEAR) Urine pH 6 (5-7) Ur Specific Gravit y 1.010 (1.005-1.030) Urine Protein Neg (Negative) Urine Glucose (UA) Norm (Normal) Urine Ketones Negative (Negative) Urine Blood Neg (Negative) Urine Nitrate Negative (Negative) Urine Bilirubin Neg (Negative) Urine Urobilinogen Norm mg/dL mg/dL (Negative) Ur Leukocyte Nicole ase Negative (Negative) Discharge Plan Discharge Patient Disposition: Home Clinical Impression: Vasovagal syncope Condition: Stable Prescriptions: No Action aspirin [Adult Aspirin Regimen] 81 mg tablet,delayed release (DR/EC) 81 mg PO DAILY RF: 0 multivitamin Tablet 1 tab PO DAILY RF: 0 octreotide acetate [Sandostatin] 100 mcg/mL solution 100 mcg SUBCUT .monthly RF: 0 ciclopirox 8 % solution 1 applic TOPICAL DAILY 28 Days Qty: 6.6 RF: 2 triamcinolone acetonide 0.1 % cream See Rx Instructions .ROUTE .COMPLEX Qty: 454 RF: 0 Discharge Orders: Discharge ED (Routine); Ordered 07/29/21 Ordered By: Evans Hayden Referrals: Paddy Sheth FNP [Primary Care Provider] - Discharge Diet: Usual diet Discharge Activity: Increase activity as tolerated Patient Instructions: Syncope in Older Adults (ED), Opioid Safety Activity Restrictions/Additional Instructions: Home and rest. Healthy diet, drink plenty of fluids, follow-up with Dr. Joel's office tomorrow regarding anemia. Return to the ER for worsening symptoms. Return to the ER for blood in vomit or stool. Return to the ER for high fever greater than 100.4. Coding Level of Care Code ED Endoscopy Technician for Ricky Fwrikki Exam Comprehensive
[2021-07-29 00:25] VITALS: BP 110/68; PULSE 70; RESP 18; TEMP 36.8; O2SAT 100; BMI 19.2
--- NOTE | 2021-07-29 00:36 | XRR_ITS ---
PROCEDURE INFORMATION: Exam: XR Chest Exam date and time: 07/29/2021 12:36 AM Age: 80 years old Clinical indication: Injury or trauma; Fall; Blunt trauma (contusions or hematomas); Prior surgery; Surgery date: 6+ months; Surgery type: Pacemaker TECHNIQUE: Imaging protocol: XR of the chest. Views: 1 view. COMPARISON: CT chest abd pel w con* 07/11/2020 2:49 PM FINDINGS: Tubes, catheters and devices: There is a cardiac pacer system in place. Lungs: Unremarkable. No consolidation. Pleural spaces: Unremarkable. No pleural effusion. No pneumothorax. Heart/Mediastinum: Unremarkable. No cardiomegaly. Vasculature: Mild atherosclerotic calcification in the aortic arch. Bones/joints: Unremarkable. XR/XR chest 1V portable [id number] IMPRESSION: No acute cardiopulmonary abnormality. Radiation Dose CTDIVOL = (mGy): DLP = (mGy-cm)
[2021-07-29] MEDS: sodium chloride 0.9% 1,000 ML 999 ML IV (00:37)
[2021-07-29 00:40] VITALS: BP 111/62; PULSE 65; RESP 16; O2SAT 100
[2021-07-29 00:48] LABS: Basophils % 0.4 %; Eosinophils # 0.3 10^3/uL (0.0-0.8); Eosinophils % 3.4 %; Hematocrit 30.9 % (42.0-52.0); Hemoglobin 10.1 g/dL (11.7-16.6); Lymphocytes # 2.1 10^3/uL (0.8-4.8); Mean Corpuscular HGB Conc 32.7 g/dL (30.0-36.0); Mean Corpuscular Hemoglobin 35.2 pg (28.0-34.0); Mean Corpuscular Volume 107.7 fl (80-94); Mean Platelet Volume 10.6 fL (7.4-10.4); Monocytes # 0.9 10^3/uL (0.2-0.9); Monocytes % 8.4 %; Neutrophils # 6.72 10^3/uL (1.8-7.7); Neutrophils % 66.5 %; Nucleated Red Blood Cells % 0 %; Platelet Count 135 10^3/cmm (130-400); Red Blood Count 2.87 10^6/uL (4.1-5.3); Red Cell Distribution Width 12.9 % (12.1-15.1); White Blood Count 10.1 10^3/uL (4.0-10.0)
[2021-07-29 01:00] LABS: Lactate (Lactic Acid level) 1.4 mmol/L (0.5-2.2)
[2021-07-29 01:01] LABS: Alanine Aminotransferase 12 U/L (0-41); Albumin Level 3.4 g/dL (3.5-5.2); Alkaline Phosphatase 93 IU/L (40-130); Anion Gap 14.1 (5-19); Aspartate Amino Transferase 20 U/L (0-40); Blood Urea Nitrogen 27 mg/dL (8-23); Calcium 8.1 mg/dL (8.5-10.5); Carbon Dioxide 24 mmol/L (22-29); Chloride 106 mmol/L (98-107); Glucose 103 mg/dL (65-115); Osmolality Calculated 293 mOsm/kg (285-295); Potassium 5.1 mmol/L (3.5-5.1); Sodium 139 mmol/L (136-145); Total Bilirubin 0.3 mg/dL (0.15-1.2); Total Protein 5.4 g/dL (6.6-8.7)
[2021-07-29 01:04] LABS: Troponin(5th) Baseline 12 ng/L (0-15)
[2021-07-29 01:06] VITALS: BP 103/56; BP 111/66; BP 128/59; PULSE 74; PULSE 75; PULSE 87
[2021-07-29 01:36] VITALS: BP 102/57; PULSE 81; RESP 16; O2SAT 99
[2021-07-29 02:10] LABS: Add Urine Microscopic? NO; Charge for UA Resulting for Rev
[2021-07-29 02:17] LABS: Bilirubin Urine Neg (Negative); Blood Urine Neg (Negative); Glucose Urine UA Norm (Normal); Ketones Urine Negative (Negative); Leukocyte Esterase Urine Negative (Negative); Nitrate Urine Negative (Negative); Protein Urine Neg (Negative); Urine Appearance Clear (CLEAR); Urine Color Yellow (Yellow); Urobilinogen Urine Norm (Negative); pH Urine 6 (5-7)
--- NOTE | 2021-07-29 02:22 | ECG_ITS ---
[facility] Test Date: 2021-07-29 Pat Name: Jigar Ochoa Department: Room: Gender: Male Elevator Technician: : 1940 Requested By: Evans Brown Order Number: [id number] Lupe MD: JATIN ALEXANDRA Measurements Intervals [place] Rate: 66 P: 85 MI: 166 QRS: 60 QRSD: 81 T: 40 QT: 389 QTc: 410 Interpretive Statements ELECTRONIC ATRIAL PACEMAKER ABNORMAL RHYTHM ECG No previous ECG available for comparison Electronically Signed On 07-29-2021 12:57:35 AC/DC REWINDER by JATIN ALEXANDRA [id number]
[2021-07-29 02:37] VITALS: BP 108/57; PULSE 75; RESP 16; O2SAT 98
[2021-07-29 03:01] LABS: Troponin 5 2HR 14.92 ng/L (0-15); Troponin 5 2HR Delta 2.92 ABS# (0-10)
== END 2021-07-29 02:37 | disposition home or self-care (01) ==
PROVIDERS: Emergency Provider Nurse Practitioner Family; PCP Registered Nurse
DX: R55 Syncope and collapse (principal); F17.210 Nicotine dependence, cigarettes, uncomplicated; Z79.82 Long term (current) use of aspirin; Z95.0 Presence of cardiac pacemaker; C18.9 Malignant neoplasm of colon, unspecified
CPT/HCPCS: 36415; 70450; 71045; 80053; 81003; 83605; 84484; 85025; 93005; 96360; 99284; J7030

== ENCOUNTER 2021-07-29 05:04 | Inpatient (IN) | payer MEDICARE, SELFPAY ==
[2021-07-29] VITALS (45 sets, daily range): BP systolic 79–143; BP diastolic 48–87; PULSE 58–125; RESP 0–37; TEMP 36.1–36.6; O2SAT 84–100; BMI 19.2
--- NOTE | 2021-07-29 05:09 | CTR_ITS ---
PROCEDURE INFORMATION: Exam: CT Abdomen And Pelvis With Contrast Exam date and time: 07/29/2021 5:09 AM Age: 80 years old Clinical indication: Abdominal pain; Prior surgery; Additional info: Gi bleeing TECHNIQUE: Imaging protocol: Computed tomography of the abdomen and pelvis with contrast. Radiation optimization: All CT scans at this facility use at least one of these dose optimization techniques: automated exposure control; mA and/or kV adjustment per patient size (includes targeted exams where dose is matched to clinical indication); or iterative reconstruction. Contrast material: VISI; Contrast volume: 95 ml; Contrast route: INTRAVENOUS (IV); COMPARISON: 1. CT chest abd pel w con* 07/11/2020 2:[address] Abdomen/Pelvis w IV* [id number] 07/25/2019 3:08:11 PM RADIATION DOSE METRICS: Total DLP (mGy-cm): 1076.56 FINDINGS: Diaphragm: Small sliding hiatal hernia. Liver: There are multiple low-density rounded lesions in the liver. They are similar in size and number when compared to previous examinations. Gallbladder and bile ducts: Cholelithiasis. Normal bile ducts. Pancreas: Normal. No ductal dilation. Spleen: Benign small calcified granulomas in the spleen. Adrenal glands: Normal. No mass. Kidneys and ureters: There is a stable benign-appearing 13 mm cyst in the lower pole of the left kidney. No hydronephrosis or renal calculus. Stomach and bowel: There is an ileocolic anastomosis in the right side of the abdomen. There is no evidence of bowel obstruction or dilatation. Appendix: No evidence of appendicitis. Intraperitoneal space: Unremarkable. No free air. No significant fluid collection. Vasculature: There is an infrarenal abdominal aortic aneurysm with mural thrombus that measures about 4.4 cm in diameter. There is no evidence of aneurysm leak. There is calcification of the iliac arteries. Lymph nodes: Unremarkable. No enlarged lymph nodes. Urinary bladder: Unremarkable as visualized. Reproductive: Unremarkable as visualized. Bones/joints: Degenerative changes are present in the spine with scattered sclerosis and osteophytes. Soft tissues: Unremarkable. CT/CT abdomen pelvis w con* [id number] IMPRESSION: 1. There has been no significant change in the multiple low-density liver lesions. 2. Cholelithiasis. Normal bile ducts. 3. There is an infrarenal abdominal aortic aneurysm measuring about 4.4 cm in diameter. 4. No acute abnormalities are seen in the abdomen and pelvis. Radiation Dose CTDIVOL = (mGy): DLP = 1076.56 (mGy-cm)
--- NOTE | 2021-07-29 05:09 | ECG_ITS ---
[facility] Test Date: 2021-07-29 Pat Name: Jigar Ochoa Department: Room: ICU10 Gender: Male Registered Appraiser: : 1940 Requested By: Peterson Franklin Order Number: [id number] Lupe MD: JATIN ALEXANDRA Measurements Intervals [place] Rate: 81 P: MI: QRS: 67 QRSD: 89 T: 52 QT: 360 QTc: 418 Interpretive Statements ATRIAL FIBRILLATION POSSIBLE RIGHT VENTRICULAR CONDUCTION DELAY [RSR (QR) IN V1/V2] MINIMAL ST DEPRESSION [0.025+ mV ST DEPRESSION] ABNORMAL RHYTHM ECG Compared to ECG 07/29/2021 02:18:54 ST (T wave) deviation now present Atrial-paced complex(es) or rhythm no longer present Electronically Signed On 07-29-2021 12:51:14 STEEL FINISHER by JATIN ALEXANDRA [id number]
[2021-07-29] MEDS: calcium gluconate 0.1 gm/mL 10% SDV 10mL 1 GM IVP (05:28)
[2021-07-29] MEDS: sodium chloride 0.9% 1,000 ML 999 ML IV (05:28)
[2021-07-29 05:29] LABS: Basophils % 0.3 %; Eosinophils % 0.3 %; Hematocrit 27.9 % (42.0-52.0); Hemoglobin 8.9 g/dL (11.7-16.6); Lymphocytes # 1.5 10^3/uL (0.8-4.8); Lymphocytes % 12.8 %; Mean Corpuscular HGB Conc 31.9 g/dL (30.0-36.0); Mean Corpuscular Hemoglobin 34.6 pg (28.0-34.0); Mean Corpuscular Volume 108.6 fl (80-94); Mean Platelet Volume 10.2 fL (7.4-10.4); Monocytes # 0.8 10^3/uL (0.2-0.9); Monocytes % 7.2 %; Neutrophils # 9.14 10^3/uL (1.8-7.7); Neutrophils % 78.8 %; Nucleated Red Blood Cells % 0 %; Platelet Count 114 10^3/cmm (130-400); Red Blood Count 2.57 10^6/uL (4.1-5.3); Red Cell Distribution Width 13.6 % (12.1-15.1); White Blood Count 11.6 10^3/uL (4.0-10.0)
--- NOTE | 2021-07-29 05:30 | PC.NURSE ---
0515 1st unit of RBC's started. 05 1st unit of RBC's finished. 05 2nd unit of RBC's started. 05 2nd unit of RBC's finished.
--- NOTE | 2021-07-29 05:32 | ED_ITS ---
HPI - GI Bleed General: Chief complaint: GI Bleed Stated complaint: GI BLEED Time Seen by Provider: 07/29/21 05:09 History of Present Illness: HPI Narrative: 80-year-old male who was just seen in the ER after a syncopal episode at home. At that point, he had no evidence of rectal bleeding on exam, he was not orthostatic, and he felt well enough to go home. EMS was called prior to arrival for a fall. When they arrived at his home, they noticed a significant amount of blood coming from this patient's rectum, and a blood pressure was difficult to obtain. The patient had a pulse and was awake. He presents hypotensive, but awake, he states he is freezing cold. He is not in any significant pain MD complaint: gross hematochezia Onset (ago): minute(s) Pain Consistency: other Relieving factors: none Exacerbating factors: none Context: other (History of colon cancer) Associated symptoms: Denies abdominal pain, epistaxis, fever(s), other bleeding or vomiting Review of Systems Const: Denies: fever(s) ENMT: Denies: epistaxis GI: Denies: abdominal pain or vomiting [facility] ED PFSH: Medical History Hx of cardiac pacemaker Social History Smoking and tobacco status: current every day smoker Second hand smoke exposure: Yes Alcohol intake: never Physical Exam Const: COMMON NORMALS: patient oriented x3 and alert GENERAL APPEARANCE: in distress, ill appearing and frail appearing; not comfortable HENMT: COMMON NORMALS: normocephalic HEAD & SCALP: normocephalic and scalp lesion (abrasion forehead) Eye: COMMON NORMALS: EOMs intact bilaterally Chest: COMMONS NORMALS: normal inspection of the chest Resp: EFFORT & INSPECTION: Yes tachypneic, No labored and No uses accessory muscles Cardio: COMMON NORMALS: regular rhythm RATE: tachycardic RHYTHM: regular rhythm GI: COMMON NORMALS: Normal to inspection, nondistended, normoactive bowel soun ds present and Soft to palpation PALPATION: Yes Soft to palpation OTHER: Gross blood per rectum Neuro: COMMON NORMALS: patient oriented x3 SENSORIUM/ORIENTATION: Yes alert Course Consultations: Consultation #1: nasir Time: 05:57 Vital Signs: Vital signs: Vital Signs Temperature 96.9 F L 07/29/21 05:39 Pulse Rate 76 07/29/21 06:15 Respiratory Rate 16 07/29/21 06:15 Blood Pressure 128/58 07/29/21 06:10 Pulse Oximetry 84 L 07/29/21 06:15 MDM - GI Bleed MDM Narrative: Medical decision making narrative: 80-year-old gentleman with samira GI bleeding. He was hypotensive on arrival, with systolic pressures in the 70s. 2 units of O- were released, and infused by rapid infusion. He is also had a liter of fluid. Currently his blood pressure is 100/70. His heart rate is down to 90 he is awake and talking. His hemoglobin went from 10 earlier this morning to 9 currently. His creatinine is 1.6. Source appears to be lower GI, but source has not been identified yet. CT scan is pending. The patient's gotten Protonix IV as well as TXA here. Lab Data: Labs: Lab Results 07/29/21 07/29/21 07/29/21 05:20 05:20 05:20 WBC 11.6 10^3/uL H 10 ^3/uL (4.0-10.0) RBC 2.57 10^6/uL L 10 ^6/uL (4.1-5.3) Hgb 8.9 g/dL L g/dL (11.7-16.6) Hct 27.9 % L % (42.0-52.0) MCV 108.6 fl H fl (80-94) MCH 34.6 pg H pg (28.0-34.0) MCHC 31.9 g/dL g/dL (30.0-36.0) RDW 13.6 % % (12.1-15.1) Plt Count 114 10^3/cmm L 10 ^3/cmm (130-400) MPV 10.2 fL fL (7.4-10.4) Neut % (Auto) 78.8 % % Lymph % (Auto) 12.8 % % [place] % (Auto) 7.2 % % Eos % (Auto) 0.3 % % Baso % (Auto) 0.3 % % Neut # (Auto) 9.14 10^3/uL H 10 ^3/uL (1.8-7.7) Lymph # (Auto) 1.5 10^3/uL 10^3/ uL (0.8-4.8) [place] # (Auto) 0.8 10^3/uL 10^3/ uL (0.2-0.9) Eos # (Auto) 0.0 10^3/uL 10^3/ uL (0.0-0.8) Baso # (Auto) 0.0 10^3/uL 10^3/ uL (0.0-0.1) Nucleated RBC % (a uto) 0 % % Nucleated RBCs # 0.0 /100WBC /100W BC Sodium 141 mmol/L mmol/L (136-145) Potassium 5.0 mmol/L mmol/L (3.5-5.1) Chloride 109 mmol/L H mmol /L (98-107) Carbon Dioxide 21 mmol/L L mmol/ L (22-29) Anion Gap 16.0 (5-19) BUN 30 mg/dL H mg/dL (8-23) Creatinine 1.6 mg/dL H mg/dL (0.7-1.2) GFR Calculation Not Reportable Glucose 119 mg/dL H mg/dL (65-115) Calculated Osmolal ity 299 mOsm/kg H mOs m/kg (285-295) Calcium 7.6 mg/dL L mg/dL (8.5-10.5) Total Bilirubin 0.3 mg/dL mg/dL (0.15-1.2) AST 17 U/L U/L (0-40) ALT 12 U/L U/L (0-41) Alkaline Phosphata se 79 IU/L IU/L (40-130) Troponin T Baselin e Total Protein 4.8 g/dL L g/dL (6.6-8.7) Albumin 3.1 g/dL L g/dL (3.5-5.2) Globulin 1.7 g/dL g/dL (1.3-4.6) Blood Type B Positive Rho(D) Type Positive Antibody Screen Negative Crossmatch See Detail 07/29/21 05:28 WBC RBC Hgb Hct MCV MCH MCHC RDW Plt Count MPV Neut % (Auto) Lymph % (Auto) [place] % (Auto) Eos % (Auto) Baso % (Auto) Neut # (Auto) Lymph # (Auto) [place] # (Auto) Eos # (Auto) Baso # (Auto) Nucleated RBC % (a uto) Nucleated RBCs # Sodium Potassium Chloride Carbon Dioxide Anion Gap BUN Creatinine GFR Calculation Glucose Calculated Osmolal ity Calcium Total Bilirubin AST ALT Alkaline Phosphata se Troponin T Baselin e 17 ng/L H ng/L (0-15) Total Protein Albumin Globulin Blood Type Rho(D) Type Antibody Screen Crossmatch Critical Care Time Critical Care Time: Critical Care Time: Yes Total Critical Care Time: 60 Attestation: This case had a high probability of a clinically significant, sudden, or life threatening deterioration of this patient's condition which required my full and direct attention, intervention and personal management. Discharge Plan Discharge Patient Disposition: Admitted As Inpatient Admit Provider: Rupesh Gutiérrez Clinical Impression: Acute lower gastrointestinal bleeding, Anemia Condition: Stable Coding Level of Care Code ED Sales Representative Trainee for Chg Fwd Exam Detailed
[2021-07-29 05:46] LABS: Alanine Aminotransferase 12 U/L (0-41); Albumin Level 3.1 g/dL (3.5-5.2); Alkaline Phosphatase 79 IU/L (40-130); Aspartate Amino Transferase 17 U/L (0-40); Blood Urea Nitrogen 30 mg/dL (8-23); Calcium 7.6 mg/dL (8.5-10.5); Carbon Dioxide 21 mmol/L (22-29); Chloride 109 mmol/L (98-107); Globulin 1.7 g/dL (1.3-4.6); Glucose 119 mg/dL (65-115); Osmolality Calculated 299 mOsm/kg (285-295); Sodium 141 mmol/L (136-145); Total Bilirubin 0.3 mg/dL (0.15-1.2); Total Protein 4.8 g/dL (6.6-8.7)
[2021-07-29 06:00] LABS: Troponin(5th) Baseline 17 ng/L (0-15)
[2021-07-29] MEDS: pantoprazole 40 mg SDV 80 MG IVP (06:18)
[2021-07-29 06:32] LABS: INR 1.32 (0.8-1.2)
[2021-07-29 06:33] LABS: Partial Thromboplastin Time 35.2 SECONDS (23.9-36.7)
[2021-07-29] MEDS: iodixanol 320 mg/mL 100mL Btl IV (06:39)
--- NOTE | 2021-07-29 06:48 | PC.NURSE ---
0631 Attempted to call report. Unable to take report at this time. Will call back. 0647 Attempted to call report. Unable to take report at this time. Will call back.
--- NOTE | 2021-07-29 06:59 | PC.NURSE ---
0658 Attempted to give report to ICU. ICU did not take report at this time. Gave report to EDILIA Lundberg.
--- NOTE | 2021-07-29 07:09 | ECG_ITS ---
[facility] Test Date: 2021-07-29 Pat Name: Jigar Ochoa Department: Room: ICU10 Gender: Male Data Developer: : 1940 Requested By: Peterson Franklin Order Number: [id number] Lupe MD: JATIN ALEXANDRA Measurements Intervals [place] Rate: 73 P: 67 SD: 170 QRS: 51 QRSD: 85 T: 68 QT: 380 QTc: 419 Interpretive Statements ELECTRONIC ATRIAL PACEMAKER POSSIBLE RIGHT VENTRICULAR CONDUCTION DELAY [RSR (QR) IN V1/V2] ABNORMAL RHYTHM ECG Compared to ECG 07/29/2021 05:36:57 Atrial fibrillation no longer present ST (T wave) deviation no longer present Electronically Signed On 07-29-2021 12:57:06 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
--- NOTE | 2021-07-29 07:50 | PC.NURSE ---
Pt arrives to ICU from ED. Pt alert and oriented. No GI complaints t this time. Sinus rhythm noted. VSS. Pt does complain of being cold. Warm blankets provided. Orientation to room provided. .
--- NOTE | 2021-07-29 07:54 | PC.NURSE ---
Tar charting not completed by previous RN. RN states in report that pt was in unstable condition upon arrival and 2 units of PRBCs were rapidly infused at that time. Pt taken to ICU at 0740.
--- NOTE | 2021-07-29 08:21 | PM.HP ---
Providers/Chief Complaint Admitting Physician: Rupesh Gutiérrez Primary Care Provider: MAIKOL Cox Chief Complaint: GI BLEED History of Present Illness Jigar Ochoa is a 80 year old male who presented to the emergency department twice today. The first episode he had had a syncopal episode, on the toilet. Second time he was brought to the emergency department he had had another syncopal episode, and on arrival of EMS blood was noted coming from the patient's rectum. Blood pressure was difficult to obtain but he was awake in the field and had a pulse. He was complaining of coldness. Patient reports he can't really remember anything when I question him. He states he has been told he had blood from his rectum. He has been feeling weak and dizzy. He reports he feels much better now. He denies any prior history of blood in his stool. 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 He reports his last EGD or colonoscopy was probably 5 to 7 years ago. He is not on any anticoagulation. He is on aspirin. Review of Systems General: Reports: 10 or more systems reviewed and unremarkable except in HPI and below Const: Reports: fatigue and malaise; Denies: fever(s) or chills Eyes: Denies: change in vision ENMT: Denies: throat pain Card: Denies: chest pain Resp: Denies: dyspnea GI: Reports: hematochezia; Denies: abdominal pain : Denies: flank pain Musc: Denies: neck pain Skin/Breast: Denies: rash Neuro: Reports: dizziness Psych: Denies: anxiety or depression Endo: Denies: polyuria Edwin/Lymph: Denies: easy bruising All/Imm: Denies: urticaria Medications/Allergies Home Medications Medication Instructions Recorded Confirmed Last Taken Type aspirin 81 mg tablet,delayed 81 mg PO QAM 11/01/19 07/29/21 Unknown History release multivitamin 1 tab PO QAM 11/01/19 07/29/21 Unknown History triamcinolone acetonide 0.1 % See Rx Instructions .ROUTE 05/15/21 07/29/21 Unknown Rx topical cream .COMPLEX #454 g Sandostatin See Rx Instructions .ROUTE .COMPLEX 07/29/21 07/29/21 07/23/21 History Allergies Allergy/AdvReac Type Severity Reaction Status Date / Time Penicillins Allergy Unknown unknown Verified 07/29/21 10:39 PFSH Acute PFSH: Medical History (Updated 07/29/21 @ 16:01 by Mukul Connor MD) Abdominal aortic aneurysm COPD (chronic obstructive pulmonary disease) Metastatic carcinoid tumor Polymyalgia rheumatica SVT (supraventricular tachycardia) Surgical History (Updated 07/29/21 @ 15:56 by Mukul Connor MD) H/O colectomy History of appendectomy Hx of cardiac pacemaker Social History Smoking and tobacco status: current every day smoker Second hand smoke exposure: Yes Alcohol intake: never Supplemental PFSH Information: Family history of alcoholism Vitals/I&O/Wt Last Vital Signs Temp 96.9 F L 07/29/21 05:39 Pulse 84 07/29/21 07:56 Resp 17 07/29/21 07:56 BP 111/74 07/29/21 07:56 Pulse Ox 97 07/29/21 07:56 Weight last 48 hrs Weight 68.039 kg Physical Exam Narrative: EXAM NARRATIVE: General exam is a white male, in no apparent distress, reporting he feels somewhat better HEENT: Pupils equally round. Oropharynx clear. Neck is supple no lymphadenopathy or thyromegaly Cardiovascular regular rate and rhythm without murmur Lungs clear Abdomen is soft, positive bowel sounds. No obvious organomegaly exam is deferred Extremities no cyanosis clubbing or edema, cap refill brisk Skin no rash Neuro no obvious focal deficits. Data : 07/29/21 09:30 07/29/21 05:20 Other data: INR 1.32 Troponin XVII with repeat of 18 at 120 minutes LFTs normal Recent TSH normal Urinalysis negative Covid PCR pending Abdomen pelvis CT demonstrated no change in low-density liver lesions, cholelithiasis is noted with no evidence of cholecystitis, aortic aneurysm 4.4 cm in diameter Chest x-ray negative Head CT negative EKG demonstrates a atrial pacemaker, normal axis A&P Assessment and plan (1) GI bleed: Likely lower as bright red blood seen per rectum Surgery consultation for possible endoscopy Avoid any anticoagulation Hold antiplatelets Serial hemoglobins have been done through the day. We'll repeat the next one tomorrow morning Protonix IV Status: Acute (2) Anemia: Consistent with acute blood loss anemia Continue to monitor for need for transfusion Status: Acute (3) Metastatic carcinoid tumor: Followed by oncology. Could be playing a role in bleeding Status: Acute (4) COPD (chronic obstructive pulmonary disease): DuoNeb as needed Status: Acute (5) Abdominal aortic aneurysm: No evidence of extravasation of contrast/rupture Status: Acute Additional A&P Information Acute kidney injury. Hold any renal toxic medication. Hydrate. Recheck creatinine tomorrow. If does not improve rapidly consider renal ultrasound. Hypotension in the field as well as syncope associated with GI bleeding. Continue IV fluids, close monitoring of blood pressure Full code SCDs for DVT prophylaxis Attestations Medical Necessity Statement*: Will need greater than 2 midnight stay for evaluation and treatment of GI bleeding associated with hypotension Time Spent in Patient Care: Greater than 35 minutes Coding Level of Care Code Acute Business Process Analyst for Chg Fwd Diagnoses GI bleed K92.2 Anemia D64.9 Metastatic carcinoid tumor C7B.00 COPD (chronic obstructive pulmonary disease) J44.9 Abdominal aortic aneurysm I71.4
--- NOTE | 2021-07-29 09:06 | P.CONIM_ITS ---
Providers/Reason For Consult Consulting Physician/Specialty*: Olman Marquez MD Reason for Consult*: Lower GI bleed Requesting Physician: Dr. Connor Attending Physician: Mukul Connor MD Primary Care Provider: MAIKOL Cox History of Present Illness History of Present Illness Chief Complaint: Blood in stool History of present illness: Jigar Ochoa is a 80 year old male presented to the emergency department with lower GI bleed that has been going on for a day or so and the cold 911 to bring him to the hospital. Patient is well-known with history of malignant carcinoid where he did undergo exploratory laparotomy back in 2013, small bowel mass was found causing obstruction about 50 cm from the terminal ileum. Also a mesenteric mass in addition to right hemicolectomy and liver biopsies were done at the same setting. Patient has been followed up on by Dr. Joel medical oncologist. Apparently the patient had syncopal episode at home, EMS found a significant amount of blood coming from the patient's rectum and his blood pressure was difficult to obtain at that point. Patient got admitted to the hospital service in the ICU for closer monitoring, general surgery was consulted for potential intervention in the form of EGD and colonoscopy. Patient reports that he had a previous endoscopies before many years ago but he does not remember what were the findings CT scan of the abdomen and pelvis: 1. There has been no significant change in the multiple low-density liver lesions. 2. Cholelithiasis. Normal bile ducts. 3. There is an infrarenal abdominal aortic aneurysm measuring about 4.4 cm in diameter. 4. No acute abnormalities are seen in the abdomen and pelvis. Current hemoglobin 9.6 g/dL and platelet count 114. INR 1.3 serum creatinine 1.6 Review of Systems General: Reports: 10 or more systems reviewed and unremarkable except in HPI and below Meds/Allergies Home Medications and Allergies Home Medications Medication Instructions Recorded Confirmed Last Taken Type aspirin 81 mg tablet,delayed 81 mg PO QAM 11/01/19 07/29/21 Unknown History release multivitamin 1 tab PO QAM 11/01/19 07/29/21 Unknown History triamcinolone acetonide 0.1 % See Rx Instructions .ROUTE 05/15/21 07/29/21 Unknown Rx topical cream .COMPLEX #454 g Sandostatin See Rx Instructions .ROUTE .COMPLEX 07/29/21 07/29/21 07/23/21 History Allergies Allergy/AdvReac Type Severity Reaction Status Date / Time Penicillins Allergy Unknown unknown Verified 07/29/21 10:39 PFSH Acute PFSH: Medical History Hx of cardiac pacemaker Social History Smoking and tobacco status: current every day smoker Second hand smoke exposure: Yes Alcohol intake: never Vitals/I&O/Wt Last Vital Signs Temp 96.9 F L 07/29/21 05:39 Pulse 84 07/29/21 07:56 Resp 17 07/29/21 07:56 BP 111/74 07/29/21 07:56 Pulse Ox 97 07/29/21 07:56 Weight last 48 hrs Weight 150 lb Physical Exam Narrative: EXAM NARRATIVE: Patient is conscious alert oriented X3 Hard hearing BMI 19.3 Head and neck examination PERRLA no masses no cervical lymphadenopathy no jaundice Cardiac examination audible S1-S2 no murmurs no gallops no arrhythmias Chest is clear bilateral,abscence of Rhonchi or wheezes,no surgical emphysema Abdomen nontender nondistended soft no organomegaly guarding or rigidity/no signs of peritonitis Midline scar of previous laparotomy Extremities no cyanosis no clubbing no edema A&P Assessment and plan (1) Acute lower gastrointestinal bleeding: Plan of care; After thorough history and physical examination and reviewing the chart, plan to perform a diagnostic esophagogastroduodenoscopy and diagnostic colonoscopy with possible biopsy and possible polypectomy tomorrow in the GI lab after resuscitation. I discussed with the patient in detail the risks,benefits,alternatives and indications.The risk of aspiration, bleeding, soft tissue injury, perforation of the stomach/esophagus/colon and other potential concomitant complications were explained to the patient in details also the potential need for Thoracotomy and or Laproscoy/Laparotomy to repair any related complications including but not limited to colectomy and or Closotomy. The patient understood this well and did agree to proceed. Rationale was carefully and clearly discussed with the patient.Appropriate informed consent have been reviewed and signed Verbal and written Instructions were given to the patient for colonoscopy prep Status: Acute Consult Attestations Medical Necessity Statement: Per admitting service Time Spent in Patient Care: 16 - 35 minutes (>than 50% of time spent in counselling and/or direct pt care on unit) . Coding Level of Care Code Acute Brush Material Preparer for Chg Fwd Diagnoses Acute lower gastrointestinal bleeding K92.2
[2021-07-29 09:08] LABS: Troponin 5 2HR 18.37 ng/L (0-15); Troponin 5 2HR Delta 1.37 ABS# (0-10)
[2021-07-29 09:49] LABS: Hematocrit 31.1 % (42.0-52.0); Hemoglobin 9.6 g/dL (11.7-16.6)
--- NOTE | 2021-07-29 09:53 | PC.CHAP ---
Pastoral Care Encounter/Spiritual Assessment Type of Contact [] Declined anesthesiology technologist visit [] Patient/Family/Request visit [] Outpatient visit [] Follow-up visit [] Physician referral [] Code/Alert [x] Routine visit [] Staff referral [] Actively dying [] Patient sleeping [x] Family support [] [] Out of room [] Palliative care [] [] Receiving care in room [] Pre-surgical visit [] Trauma [] Long length of stay [x] ICU visit [] Other: Relational/Emotional Strength [] Patient feels connected with others/family/visitors/staff [] Distress [] Loneliness/isolation [] Abandonment Spirituality of Patient [x] Person of Lisa [] Attends Oriental Orthodox of their Lisa [] Believes in Prayer [] Reads Bible or Alevism materials [] There are Spiritual issues to be addressed Remote Encoding Operations Supervisor Interventions [x] Prayer [x] Active listening [x] Non-anxious presence [x] Spiritual/emotional support [] Crisis/trauma care [] Spiritual counseling [] Bereavement support [] Provided bereavement packet [] Provided Bible/devotional materials [] Provided toy/stuffed animal, coloring book to patient or family member [] Provided Communion [] Anointing/Marshall [] Salvation [x] Completed spiritual assessment [] Other: Impact on Illness or Injury [] Angry [] Fearful [] Anxious [] Often cries [] Exhaustion [] Unable to work [] Unable to attend rastafari [] Unable to walk/stand [] Unable to read [] Unable to drive [] Unable to eat/drink [] Unable to sleep [] Unable to be with family [] Patient intubated [] Other: Summary patient wanting to see info from doctor... wants to eat!! family present with him, and resting well... Time spent with patient 10 min
[2021-07-29] MEDS: pantoprazole 40 mg SDV IVP ×2 (10:02→21:11)
[2021-07-29] MEDS: sodium chlor 0.9% + KCl 20 mEq 20 MEQ/1,000 ML BAG 100 MEQ IV (10:04)
--- NOTE | 2021-07-29 10:39 | PC.PHAR ---
PT STATES HE TAKES CARE OF HIS OWN MEDICATIONS-[employer] HZEN STATES THAT THE PT TAKES CARE OF HIS OWN MEDS AND STATES HE TAKES NO RX MEDICATIONS DAILY-PT STATES HE TAKES A 81MG ASPIRIN DAILY ZHEN STATES SHE THOUGHT THE PT STOP TAKING IT 6 MONTHS AGO-NOTES ARE MADE IN THE PHARMACY COMMENTS
[2021-07-29 13:15] LABS: Troponin 5 6HR 16.19 ng/L (0-15)
[2021-07-29 13:19] LABS: Troponin 5 6HR Delta -0.81 ng/L (0-12)
--- NOTE | 2021-07-29 14:30 | PC.NURSE ---
Pt has been up to BSC twice . Bright red blood smear noted on toilet paper both times. Pt reminded to use call light for safety and not to roth with trying to get out of bed.
[2021-07-29] MEDS: peg /e-lyte soln 4,000 mL Btl 4000 ML PO (15:12)
--- NOTE | 2021-07-29 15:12 | PC.NURSE ---
MAR other delay: Go-lytely administered as soon as nurse done with other pt's care.
--- NOTE | 2021-07-29 16:51 | PC.NURSE ---
Pt diligently working on the Go-lytely. IT was out over ice to improve taste. Now offered at room temp. Pt has called out frequently since starting Go-lytely about 'freezing to
[2021-07-29] MEDS: sodium chloride 0.9% 1,000 ML 100 ML IV (17:27)
--- NOTE | 2021-07-29 18:11 | PC.NURSE ---
Pt to BSC. liquid bloody BM with clots noted. 850 ml. Pt felt faint, assisted back to bed.. BP now 89/52, the systolic had been over [address] stay[address] Connor notified. ORders to hold transfer to [facility], to get an H&H, and to [facility] Dr Rae. Dr Rae notified via telephone of episode. Just to continue to watch, he will still need the Colonoscopy and EGD in am. patient registration supervisor and [facility] notified of cancelled transfer tonight.
--- NOTE | 2021-07-29 19:51 | PC.NURSE ---
Shift Note: Pt to remain in ICU overnight, due to fainting feeling, large bloody BM this evening and soft B/P after. that was his only BM throught this shift in ICU. He had one complain of being so hungry he felt sick. Clear liquid diet started He stated he felt much better after. He is drinking the Go-Lytley. He has a paced rhythm. He is a bit weak getting out of bed. Frequent safety and comfort rounds continue. Orders and/or nursing care completed as indicated. Patient monitored for response to intervention and treatment(s). Education provided includes Protonix, advance directives, EGD/colonoscopy and plan of care Patient and/or graphic art sales representative verbalized understanding. Will continue to monitor.
[2021-07-29 20:24] LABS: Hematocrit 24.7 % (42.0-52.0); Hemoglobin 8.4 g/dL (11.7-16.6)
[2021-07-30] VITALS (58 sets, daily range): BP systolic 95–172; BP diastolic 45–99; PULSE 61–687; RESP 9–37; TEMP 36.5–37.7; O2SAT 90–100
[2021-07-30] MEDS: sodium chloride 0.9% 1,000 ML 100 ML IV ×2 (02:36→12:23)
[2021-07-30 03:57] LABS: Basophils # 0.1 10^3/uL (0.0-0.1); Basophils % 0.5 %; Eosinophils # 0.2 10^3/uL (0.0-0.8); Eosinophils % 2.3 %; Hematocrit 24.4 % (42.0-52.0); Hemoglobin 8.2 g/dL (11.7-16.6); Lymphocytes # 2.2 10^3/uL (0.8-4.8); Lymphocytes % 23.6 %; Mean Corpuscular HGB Conc 33.6 g/dL (30.0-36.0); Mean Corpuscular Hemoglobin 32.9 pg (28.0-34.0); Mean Platelet Volume 10.9 fL (7.4-10.4); Monocytes # 0.7 10^3/uL (0.2-0.9); Monocytes % 7.3 %; Neutrophils # 6.09 10^3/uL (1.8-7.7); Neutrophils % 66.1 %; Nucleated Red Blood Cells % 0 %; Platelet Count 97 10^3/cmm (130-400); Red Blood Count 2.49 10^6/uL (4.1-5.3); Red Cell Distribution Width 16.9 % (12.1-15.1); White Blood Count 9.2 10^3/uL (4.0-10.0)
[2021-07-30 04:55] LABS: Alanine Aminotransferase 12 U/L (0-41); Albumin Level 3.2 g/dL (3.5-5.2); Alkaline Phosphatase 72 IU/L (40-130); Anion Gap 14.9 (5-19); Aspartate Amino Transferase 22 U/L (0-40); Blood Urea Nitrogen 27 mg/dL (8-23); Calcium 7.6 mg/dL (8.5-10.5); Carbon Dioxide 21 mmol/L (22-29); Chloride 109 mmol/L (98-107); Globulin 1.4 g/dL (1.3-4.6); Glucose 94 mg/dL (65-115); Osmolality Calculated 295 mOsm/kg (285-295); Potassium 4.9 mmol/L (3.5-5.1); Sodium 140 mmol/L (136-145); Total Bilirubin 0.5 mg/dL (0.15-1.2); Total Protein 4.6 g/dL (6.6-8.7)
[2021-07-30 05:35] LABS: INR 1.28 (0.8-1.2)
--- NOTE | 2021-07-30 07:28 | PM.PN ---
Subjective Subjective: Interval history: Slow processing some blood. Does not feel as dizzy. No abdominal pain. Endoscopy planned for today. Medications: Reviewed: Yes Vitals/I&O/Wt Last Vital Signs Temp 97.8 F 07/30/21 04:00 Pulse 65 07/30/21 06:30 Resp 9 L 07/30/21 06:30 BP 119/60 07/30/21 06:30 Pulse Ox 98 07/30/21 06:30 07/29/21 07/30/21 07/30/21 22:59 06:59 14:59 Intake Total 656.667 / 6713.658 1732 / 2561.667 Output Total 1000 / 1410 380 / 1790 Balance -343.333 / -3.333 775 / 771.667 Weight last 48 hrs Weight 68.039 kg Weight 68.039 kg Physical Exam Narrative: EXAM NARRATIVE: General exam is a white male, no distress currently Neck is supple no lymphadenopathy or thyromegaly Cardiovascular regular rate and rhythm without murmur Lungs clear Abdomen is soft, positive bowel sounds. No obvious organomegaly Extremities no cyanosis clubbing or edema, cap refill brisk Data : 07/30/21 03:27 07/30/21 03:27 A&P Assessment and plan (1) GI bleed: Likely lower as bright red blood seen per rectum. He continues to have blood with the colonoscopy prep Surgery consultation for possible endoscopy. This is planned today Avoid any anticoagulation Hold antiplatelets Repeat hemoglobin at noon Continue Protonix IV Status: Acute (2) Anemia: Consistent with acute blood loss anemia Continue to monitor for need for transfusion Status: Acute (3) Metastatic carcinoid tumor: Followed by oncology. Could be playing a role in bleeding Status: Acute (4) COPD (chronic obstructive pulmonary disease): DuoNeb as needed Status: Acute (5) Abdominal aortic aneurysm: No evidence of extravasation of contrast/rupture Status: Acute Additional A&P Information Acute kidney injury. Hold any renal toxic medication. Hydrated overnight. Renal function appears to be improving. Hypotension in the field as well as syncope associated with GI bleeding. Continue IV fluids, close monitoring of blood pressure Full code SCDs for DVT prophylaxis Attestations Medical Necessity Statement*: Needs continued hospitalization secondary to continued GI bleeding Coding Level of Care Code Acute Counterintelligence/Humint Specialist for [facility] Fw Diagnoses GI bleed K92.2 Anemia D64.9 Metastatic carcinoid tumor C7B.00 COPD (chronic obstructive pulmonary disease) J44.9 Abdominal aortic aneurysm I71.4
[2021-07-30] MEDS: pantoprazole 40 mg SDV IVP ×2 (08:06→20:23)
--- NOTE | 2021-07-30 08:31 | PC.NURSE ---
Report received, assessment completed. VSS. Pt AAOx4, makes all needs known. Uses BSC with standby assist. Dark, red blood noted in BSC after use. Approx 200ml, aware. No other issues noted. Pt c/o being cold, warm blanket given and heat adjusted. Will continue to monitor.
--- NOTE | 2021-07-30 10:05 | P.ANESASSM_ITS ---
Pre-Anesthetic Assessment Pre-Anesthetic Assessment: Height/Weight: Height 1.88 m Weight 68.039 kg Temp Pulse Resp BP Pulse Ox 98.5 F 61 29 H 120/64 99 07/30/21 08:00 07/30/21 08:00 07/30/21 08:00 07/30/21 08:00 07/30/21 08:00 Preop Diagnosis: Lower GI bleed Proposed Procedure: Operation Date: 07/30/21 13:45 Proposed Procedures p EGD(Not Applicable) - Olman Marquez MD s Colonoscopy(Not Applicable) - Olman Marquez MD Familial anesthetic complications: none Was Beta Greg taken within 24 hours: N/A Was Clonidine taken within 24 hours: N/A Last Intake: 09:30 Social: Social History: Tobacco and No alcohol Packs per day: 1ppd Pack years: 6-+ Exam: Pre-Anes Outpt Exam: alert, oriented x 3, clear to auscultation bilaterally and regular rate & rhythm Airway: Submandibular: WNL Cervical ROM: WNL MP: 1 Dentition: False (upper and lower) Pulmonary: Pulmonary: COPD and STAPLES CV/HEM: CV/HEM: Anemia and Arrythmia (SVT, SSS, had PPM) Comments: 4cm AAA : : Chronic renal Insufficiency Hepatic: Hepatic: None reported GI: GI: GERD Comments: history colon CA in 2013 and resection Metabolic: Metabolic: None reported Musc/skel: Musc/skel: Lower Back Pain and OA/DJD Neuropsych: Neuropsych: Syncope Anesthetic Plan: ASA status: 3E Anesthesia: MAC Risk of > 500 ml blood loss (7ml/kg in children): No Meds/Allergies Current Medications: Current Medications Generic Name Dose Route Start Last Admin Trade Name Freq PRN Reason Stop Dose Admin Sodium Chloride 1,000 mls @ 30 ml s/hr 07/29/21 12:37 07/29/21 20:51 Sodium Chloride 0.9% IV 07/30/21 12:36 Not Given .Q24H ONE Sodium Chloride 1,000 mls @ 100 m ls/hr 07/29/21 16:15 07/30/21 02:36 Sodium Chloride 0.9% IV 100 mls/hr .Q10H JAMES Administration Pantoprazole Sodiu m 40 mg 07/29/21 08:15 07/30/21 08:06 Pantoprazole 40 Mg Sdv IVP 40 mg Q12H JAMES Administration PFSH Anesthesia PFSH: Medical History (Updated 07/29/21 @ 16:01 by Mukul Connor MD) Abdominal aortic aneurysm COPD (chronic obstructive pulmonary disease) Metastatic carcinoid tumor Polymyalgia rheumatica SVT (supraventricular tachycardia) Surgical History (Updated 07/29/21 @ 15:56 by Mukul Connor MD) H/O colectomy History of appendectomy Hx of cardiac pacemaker Social History Smoking and tobacco status: current every day smoker Second hand smoke exposure: Yes Alcohol intake: never Supplemental PFSH Information: Family history of alcoholism Data Anesthesia CBC & Chem 7: 07/30/21 03:27 07/30/21 03:27 Other Labs: Laboratory Results - last 48 hr 07/29/21 07/29/21 07/29/21 05:20 05:20 05:20 WBC 11.6 H RBC 2.57 L Hgb 8.9 L Hct 27.9 L MCV 108.6 H MCH 34.6 H MCHC 31.9 RDW 13.6 Plt Count 114 L MPV 10.2 Neut % (Auto) 78.8 Lymph % (Auto) 12.8 [place] % (Auto) 7.2 Eos % (Auto) 0.3 Baso % (Auto) 0.3 Neut # (Auto) 9.14 H Lymph # (Auto) 1.5 [place] # (Auto) 0.8 Eos # (Auto) 0.0 Baso # (Auto) 0.0 Nucleated RBC % (auto) 0 Nucleated RBCs # 0.0 PT 16.80 H INR 1.32 H APTT 35.2 Sodium Potassium Chloride Carbon Dioxide Anion Gap BUN Creatinine GFR Calculation Glucose Calculated Osmolality Calcium Total Bilirubin AST ALT Alkaline Phosphatase Troponin T Baseline Troponin T 120 Minute Delta Troponin T Troponin T Hi Sens 6Hr Troponin T Hi Sens 6Hr Delta Total Protein Albumin Globulin Blood Type B Positive Rho(D) Type Positive Antibody Screen Negative Crossmatch See Detail 07/29/21 07/29/21 07/29/21 05:20 05:28 08:26 WBC RBC Hgb Hct MCV MCH MCHC RDW Plt Count MPV Neut % (Auto) Lymph % (Auto) [place] % (Auto) Eos % (Auto) Baso % (Auto) Neut # (Auto) Lymph # (Auto) [place] # (Auto) Eos # (Auto) Baso # (Auto) Nucleated RBC % (auto) Nucleated RBCs # PT INR APTT Sodium 141 Potassium 5.0 Chloride 109 H Carbon Dioxide 21 L Anion Gap 16.0 BUN 30 H Creatinine 1.6 H GFR Calculation Not Reportable Glucose 119 H Calculated Osmolality 299 H Calcium 7.6 L Total Bilirubin 0.3 AST 17 ALT 12 Alkaline Phosphatase 79 Troponin T Baseline 17 H Troponin T 120 Minute 18.37 H Delta Troponin T 1.37 Troponin T Hi Sens 6Hr Troponin T Hi Sens 6Hr Delta Total Protein 4.8 L Albumin 3.1 L Globulin 1.7 Blood Type Rho(D) Type Antibody Screen Crossmatch 07/29/21 07/29/21 07/29/21 09:30 11:50 19:47 WBC RBC Hgb 9.6 L 8.4 L Hct 31.1 L 24.7 L MCV MCH MCHC RDW Plt Count MPV Neut % (Auto) Lymph % (Auto) [place] % (Auto) Eos % (Auto) Baso % (Auto) Neut # (Auto) Lymph # (Auto) [place] # (Auto) Eos # (Auto) Baso # (Auto) Nucleated RBC % (auto) Nucleated RBCs # PT INR APTT Sodium Potassium Chloride Carbon Dioxide Anion Gap BUN Creatinine GFR Calculation Glucose Calculated Osmolality Calcium Total Bilirubin AST ALT Alkaline Phosphatase Troponin T Baseline Troponin T 120 Minute Delta Troponin T Troponin T Hi Sens 6Hr 16.19 H Troponin T Hi Sens 6Hr Delta -0.81 L Total Protein Albumin Globulin Blood Type Rho(D) Type Antibody Screen Crossmatch 07/30/21 07/30/21 07/30/21 03:27 03:27 03:27 WBC 9.2 RBC 2.49 L Hgb 8.2 L Hct 24.4 L MCV 98.0 H D MCH 32.9 MCHC 33.6 D RDW 16.9 H Plt Count 97 L MPV 10.9 H Neut % (Auto) 66.1 Lymph % (Auto) 23.6 [place] % (Auto) 7.3 Eos % (Auto) 2.3 Baso % (Auto) 0.5 Neut # (Auto) 6.09 Lymph # (Auto) 2.2 [place] # (Auto) 0.7 Eos # (Auto) 0.2 Baso # (Auto) 0.1 Nucleated RBC % (auto) 0 Nucleated RBCs # 0.0 PT 16.40 H INR 1.28 H APTT Sodium 140 Potassium 4.9 Chloride 109 H Carbon Dioxide 21 L Anion Gap 14.9 BUN 27 H Creatinine 1.2 GFR Calculation Not Reportable Glucose 94 Calculated Osmolality 295 Calcium 7.6 L Total Bilirubin 0.5 AST 22 ALT 12 Alkaline Phosphatase 72 Troponin T Baseline Troponin T 120 Minute Delta Troponin T Troponin T Hi Sens 6Hr Troponin T Hi Sens 6Hr Delta Total Protein 4.6 L Albumin 3.2 L Globulin 1.4 Blood Type Rho(D) Type Antibody Screen Crossmatch Cardiac Studies: No Data to Display
[2021-07-30 11:41] LABS: Hematocrit 22.7 % (42.0-52.0); Hemoglobin 7.5 g/dL (11.7-16.6)
--- NOTE | 2021-07-30 12:03 | ANES.PREANE2 ---
Pre-Anesthetic Assessment Pre-Anesthetic Assessment: Height/Weight: Height 1.88 m Weight 68.039 kg Temp Pulse Resp BP Pulse Ox 98.5 F 61 29 H 120/64 99 07/30/21 10:00 07/30/21 10:00 07/30/21 10:00 07/30/21 10:00 07/30/21 10:00 Preop Diagnosis: Lower GI bleed Proposed Procedure: Operation Date: 07/30/21 13:45 Proposed Procedures p EGD(Not Applicable) - Olman Marquez MD s Colonoscopy(Not Applicable) - Olman Marquez MD Was Beta Greg taken within 24 hours: N/A Was Clonidine taken within 24 hours: N/A Social: Social History: No alcohol and No tobacco Exam: Pre-Anes Outpt Exam: alert, oriented x 3, clear to auscultation bilaterally and regular rate & rhythm Airway: Submandibular: WNL Cervical ROM: WNL MP: 2 Dentition: Partials Pulmonary: Pulmonary: None reported CV/HEM: CV/HEM: Arrythmia (SSS/SVT s/p pacemaker), HTN (AAA) and None reported : : None reported Hepatic: Hepatic: None reported GI: Comments: Lower GI Bleed; Hx of metatstaic carcinoid tumor Metabolic: Metabolic: None reported Musc/skel: Musc/skel: None reported Neuropsych: Neuropsych: None reported Anesthetic Plan: ASA status: 4E Anesthesia: MAC Meds/Allergies Current Medications: Current Medications Generic Name Dose Route Start Last Admin Trade Name Freq PRN Reason Stop Dose Admin Sodium Chloride 1,000 mls @ 30 ml s/hr 07/29/21 12:37 07/29/21 20:51 Sodium Chloride 0.9% IV 07/30/21 12:36 Not Given .Q24H ONE Sodium Chloride 1,000 mls @ 100 m ls/hr 07/29/21 16:15 07/30/21 02:36 Sodium Chloride 0.9% IV 100 mls/hr .Q10H JAMES Administration Pantoprazole Sodiu m 40 mg 07/29/21 08:15 07/30/21 08:06 Pantoprazole 40 Mg Sdv IVP 40 mg Q12H JAMES Administration PFSH Anesthesia PFSH: Medical History (Updated 07/29/21 @ 16:01 by Mukul Connor MD) Abdominal aortic aneurysm COPD (chronic obstructive pulmonary disease) Metastatic carcinoid tumor Polymyalgia rheumatica SVT (supraventricular tachycardia) Surgical History (Updated 07/29/21 @ 15:56 by Mukul Connor MD) H/O colectomy History of appendectomy Hx of cardiac pacemaker Social History Smoking and tobacco status: current every day smoker Second hand smoke exposure: Yes Alcohol intake: never Supplemental PFSH Information: Family history of alcoholism Data Anesthesia CBC & Chem 7: 07/30/21 11:35 07/30/21 03:27 Other Labs: Laboratory Results - last 48 hr 07/29/21 07/29/21 07/29/21 05:20 05:20 05:20 WBC 11.6 H RBC 2.57 L Hgb 8.9 L Hct 27.9 L MCV 108.6 H MCH 34.6 H MCHC 31.9 RDW 13.6 Plt Count 114 L MPV 10.2 Neut % (Auto) 78.8 Lymph % (Auto) 12.8 Williamson % (Auto) 7.2 Eos % (Auto) 0.3 Baso % (Auto) 0.3 Neut # (Auto) 9.14 H Lymph # (Auto) 1.5 Williamson # (Auto) 0.8 Eos # (Auto) 0.0 Baso # (Auto) 0.0 Nucleated RBC % (auto) 0 Nucleated RBCs # 0.0 PT 16.80 H INR 1.32 H APTT 35.2 Sodium Potassium Chloride Carbon Dioxide Anion Gap BUN Creatinine GFR Calculation Glucose Calculated Osmolality Calcium Total Bilirubin AST ALT Alkaline Phosphatase Troponin T Baseline Troponin T 120 Minute Delta Troponin T Troponin T Hi Sens 6Hr Troponin T Hi Sens 6Hr Delta Total Protein Albumin Globulin Blood Type B Positive Rho(D) Type Positive Antibody Screen Negative Crossmatch See Detail 07/29/21 07/29/21 07/29/21 05:20 05:28 08:26 WBC RBC Hgb Hct MCV MCH MCHC RDW Plt Count MPV Neut % (Auto) Lymph % (Auto) Williamson % (Auto) Eos % (Auto) Baso % (Auto) Neut # (Auto) Lymph # (Auto) Williamson # (Auto) Eos # (Auto) Baso # (Auto) Nucleated RBC % (auto) Nucleated RBCs # PT INR APTT Sodium 141 Potassium 5.0 Chloride 109 H Carbon Dioxide 21 L Anion Gap 16.0 BUN 30 H Creatinine 1.6 H GFR Calculation Not Reportable Glucose 119 H Calculated Osmolality 299 H Calcium 7.6 L Total Bilirubin 0.3 AST 17 ALT 12 Alkaline Phosphatase 79 Troponin T Baseline 17 H Troponin T 120 Minute 18.37 H Delta Troponin T 1.37 Troponin T Hi Sens 6Hr Troponin T Hi Sens 6Hr Delta Total Protein 4.8 L Albumin 3.1 L Globulin 1.7 Blood Type Rho(D) Type Antibody Screen Crossmatch 07/29/21 07/29/21 07/29/21 09:30 11:50 19:47 WBC RBC Hgb 9.6 L 8.4 L Hct 31.1 L 24.7 L MCV MCH MCHC RDW Plt Count MPV Neut % (Auto) Lymph % (Auto) Williamson % (Auto) Eos % (Auto) Baso % (Auto) Neut # (Auto) Lymph # (Auto) Williamson # (Auto) Eos # (Auto) Baso # (Auto) Nucleated RBC % (auto) Nucleated RBCs # PT INR APTT Sodium Potassium Chloride Carbon Dioxide Anion Gap BUN Creatinine GFR Calculation Glucose Calculated Osmolality Calcium Total Bilirubin AST ALT Alkaline Phosphatase Troponin T Baseline Troponin T 120 Minute Delta Troponin T Troponin T Hi Sens 6Hr 16.19 H Troponin T Hi Sens 6Hr Delta -0.81 L Total Protein Albumin Globulin Blood Type Rho(D) Type Antibody Screen Crossmatch 07/30/21 07/30/21 07/30/21 03:27 03:27 03:27 WBC 9.2 RBC 2.49 L Hgb 8.2 L Hct 24.4 L MCV 98.0 H D MCH 32.9 MCHC 33.6 D RDW 16.9 H Plt Count 97 L MPV 10.9 H Neut % (Auto) 66.1 Lymph % (Auto) 23.6 Williamson % (Auto) 7.3 Eos % (Auto) 2.3 Baso % (Auto) 0.5 Neut # (Auto) 6.09 Lymph # (Auto) 2.2 Williamson # (Auto) 0.7 Eos # (Auto) 0.2 Baso # (Auto) 0.1 Nucleated RBC % (auto) 0 Nucleated RBCs # 0.0 PT 16.40 H INR 1.28 H APTT Sodium 140 Potassium 4.9 Chloride 109 H Carbon Dioxide 21 L Anion Gap 14.9 BUN 27 H Creatinine 1.2 GFR Calculation Not Reportable Glucose 94 Calculated Osmolality 295 Calcium 7.6 L Total Bilirubin 0.5 AST 22 ALT 12 Alkaline Phosphatase 72 Troponin T Baseline Troponin T 120 Minute Delta Troponin T Troponin T Hi Sens 6Hr Troponin T Hi Sens 6Hr Delta Total Protein 4.6 L Albumin 3.2 L Globulin 1.4 Blood Type Rho(D) Type Antibody Screen Crossmatch 07/30/21 11:35 WBC RBC Hgb 7.5 L Hct 22.7 L MCV MCH MCHC RDW Plt Count MPV Neut % (Auto) Lymph % (Auto) Williamson % (Auto) Eos % (Auto) Baso % (Auto) Neut # (Auto) Lymph # (Auto) Williamson # (Auto) Eos # (Auto) Baso # (Auto) Nucleated RBC % (auto) Nucleated RBCs # PT INR APTT Sodium Potassium Chloride Carbon Dioxide Anion Gap BUN Creatinine GFR Calculation Glucose Calculated Osmolality Calcium Total Bilirubin AST ALT Alkaline Phosphatase Troponin T Baseline Troponin T 120 Minute Delta Troponin T Troponin T Hi Sens 6Hr Troponin T Hi Sens 6Hr Delta Total Protein Albumin Globulin Blood Type Rho(D) Type Antibody Screen Crossmatch Cardiac Studies: No Data to Display
--- NOTE | 2021-07-30 13:27 | PC.NURSE ---
GI lab staff ere to transport pt to GI lab. Pt ambulated to [facility] with standby assist. Blood and Ns infusing.
--- NOTE | 2021-07-30 13:32 | P.PN_ITS ---
Subjective Subjective: Interval history: Patient is overall is about the same Vitals/I&O/Wt Last Vital Signs Temp 98.0 F 07/30/21 13:14 Pulse 68 07/30/21 13:23 Resp 24 H 07/30/21 13:14 BP 135/69 07/30/21 13:14 Pulse Ox 96 07/30/21 13:14 07/29/21 07/30/21 07/30/21 22:59 06:59 14:59 Intake Total 656.667 / 6561.582 9418 / 2561.667 1578.333 / 1578.333 Output Total 1000 / 1410 380 / 1790 1400 / 1400 Balance -343.333 / -3.333 775 / 771.667 178.333 / 178.333 Weight last 48 hrs Weight 150 lb Weight 150 lb Physical Exam Narrative: EXAM NARRATIVE: Patient is conscious alert oriented X3 Hard hearing BMI 19.3 Abdomen nontender nondistended soft no organomegaly guarding or rigidity/no signs of peritonitis Data : 07/30/21 11:35 07/30/21 03:27 A&P Assessment and plan (1) Acute lower gastrointestinal bleeding: Plan of care; After thorough history and physical examination and reviewing the chart, plan to perform a diagnostic esophagogastroduodenoscopy and diagnostic colonoscopy with possible biopsy and possible polypectomy tomorrow in the GI lab after resuscitation. I discussed with the patient in detail the risks,benefits,alternatives and indications.The risk of aspiration, bleeding, soft tissue injury, perforation of the stomach/esophagus/colon and other potential concomitant complications were explained to the patient in details also the potential need for Thoracotomy and or Laproscoy/Laparotomy to repair any related complications including but not limited to colectomy and or Closotomy. The patient understood this well and did agree to proceed. Rationale was carefully and clearly discussed with the patient.Appropriate informed consent have been reviewed and signed Verbal and written Instructions were given to the patient for colonoscopy prep Status: Acute Attestations Medical Necessity Statement*: Per admitting service Time Spent in Patient Care: (>than 50% of time spent in counselling and/or direct pt care on unit) . Coding Level of Care Code Acute Office Messenger for Ricky Almeida Diagnoses Acute lower gastrointestinal bleeding K92.2
[2021-07-30] MEDS: sodium chloride 0.9% 1,000 ML 30 ML IV (13:50)
[2021-07-30] MEDS: EPINEPHrine 1 mg/mL INJ XX ×2 (14:08→14:14)
[2021-07-30 14:26] LABS: Coronavirus Test Green County Not Detected
--- NOTE | 2021-07-30 15:07 | ANE.PACU2 ---
Inpatient post-anesthesia follow up: Airway intact: Yes Vital signs: Temperature 98.9 F Pulse Rate 66 Respiratory Rate 22 Blood Pressure 140/80 Pulse Oximetry 99 Oxygen Delivery Me thod Nasal Cannula Oxygen Flow Rate 2 Fraction of Inspir ed Oxygen 2 Hydration adequate: No Nausea and vomiting: No Pain level: 1 Mental status: Baseline
--- NOTE | 2021-07-30 15:08 | PC.NURSE ---
{Pt back to ICU at 1455. Blood infusing per orders. Pt linens changed d/t blood from GI. Will monitor.
--- NOTE | 2021-07-30 15:09 | ANE.PACU2 ---
Inpatient post-anesthesia follow up: Airway intact: Yes Vital signs: Temperature 97.8 F Pulse Rate 72 Respiratory Rate 20 Blood Pressure 165/90 Pulse Oximetry 95 Oxygen Delivery Me thod Nasal Cannula Oxygen Flow Rate 2 Fraction of Inspir ed Oxygen 2 Hydration adequate: Yes Nausea and vomiting: No Pain level: 1 Mental status: Baseline
[2021-07-30] MEDS: sucralfate 1 gm Tablet PO ×2 (15:40→20:23)
[2021-07-30] MEDS: sodium chloride 0.9% 250 ML 100 ML IV (16:04)
--- NOTE | 2021-07-30 18:16 | PC.NURSE ---
Shift Note Frequent safety and comfort rounds continue. Orders and/or nursing care completed as indicated. Patient monitored for response to intervention and treatment(s). Education provided includes treatment plan, medications, scope results and need for observation overnight. Pt verbalizes understanding. VSS. No episodes of bloody stools after scope. PRBC's infused without issue. Will continue to monitor.
[2021-07-30] MEDS: acetaminophen 325 mg Tablet 650 MG PO (20:22)
[2021-07-30 20:27] LABS: Hematocrit 26.2 % (42.0-52.0); Hemoglobin 8.9 g/dL (11.7-16.6)
--- NOTE | 2021-07-30 22:42 | ECG_ITS ---
[facility] Test Date: 2021-07-30 Pat Name: Jigar Ochoa Department: Room: ICU10 Gender: Male Sample Stitcher: : 1940 Requested By: Michelle Valdez Order Number: [id number] Lupe MD: Paras Vidales M.D. Measurements Intervals [place] Rate: 69 P: 77 SC: 157 QRS: 40 QRSD: 100 T: 53 QT: 399 QTc: 428 Interpretive Statements SINUS RHYTHM Compared to ECG 07/29/2021 08:58:59 Atrial-paced complex(es) or rhythm no longer present Electronically Signed On 07-31-2021 23:50:30 TIMING MACHINE OPERATOR by Paras Vidales M.D. [id number]
[2021-07-30] MEDS: morphine 4 mg/mL SDV 1 mL 2 MG IVP (23:58)
[2021-07-31] VITALS (37 sets, daily range): BP systolic 97–154; BP diastolic 43–89; PULSE 60–91; RESP 6–37; TEMP 36.7–37.6; O2SAT 78–100
[2021-07-31 00:09] LABS: Troponin(5th) Baseline 22 ng/L (0-15)
--- NOTE | 2021-07-31 01:38 | ECG_ITS ---
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 Measurements Intervals [place] Rate: 66 P: 74 RI: 147 QRS: 28 QRSD: 98 T: 42 QT: 402 QTc: 423 Interpretive Statements SINUS RHYTHM WITH SINUS ARRHYTHMIA POSSIBLE RIGHT VENTRICULAR CONDUCTION DELAY [RSR (QR) IN V1/V2] Compared to ECG 07/30/2021 22:52:08 No significant changes Electronically Signed On 07-31-2021 23:52:37 REGISTERED VASCULAR TECHNOLOGIST (RVT) by Paras Vidales M.D. [email or web address] [email or web address] [id number]
[2021-07-31 02:59] LABS: Troponin 5 2HR 23.62 ng/L (0-15); Troponin 5 2HR Delta 1.62 ABS# (0-10)
[2021-07-31] MEDS: sucralfate 1 gm Tablet PO ×4 (03:23→20:23)
[2021-07-31] MEDS: sodium chloride 0.9% 1,000 ML 100 ML IV (03:25)
--- NOTE | 2021-07-31 05:38 | ECG_ITS ---
[facility] Test Date: 2021-07-31 Pat Name: Jigar Ochoa Department: Room: ICU10 Gender: Male Manufacturing Design Engineer: : 1940 Requested By: Michelle Valdez Order Number: [id number] Lupe MD: Paras Vidales M.D. Measurements Intervals [place] Rate: 62 P: 240 MO: 179 QRS: 24 QRSD: 101 T: 30 QT: 422 QTc: 430 Interpretive Statements ELECTRONIC ATRIAL PACEMAKER POSSIBLE RIGHT VENTRICULAR CONDUCTION DELAY [RSR (QR) IN V1/V2] ABNORMAL RHYTHM ECG Compared to ECG 07/31/2021 02:04:29 Sinus rhythm no longer present Sinus arrhythmia no longer present Electronically Signed On 07-31-2021 23:53:08 RECONSTRUCTIVE DENTIST by Paras Vidales M.D. [email or web address]-[facility] medical centere-Go [email or web address]/[id number]
[2021-07-31 05:39] LABS: Basophils # 0.1 10^3/uL (0.0-0.1); Basophils % 0.5 %; Eosinophils # 0.4 10^3/uL (0.0-0.8); Hematocrit 25.3 % (42.0-52.0); Hemoglobin 8.5 g/dL (11.7-16.6); Lymphocytes # 2.2 10^3/uL (0.8-4.8); Lymphocytes % 18.7 %; Mean Corpuscular HGB Conc 33.6 g/dL (30.0-36.0); Mean Corpuscular Hemoglobin 32.6 pg (28.0-34.0); Mean Corpuscular Volume 96.9 fl (80-94); Mean Platelet Volume 10.7 fL (7.4-10.4); Monocytes # 0.9 10^3/uL (0.2-0.9); Monocytes % 7.6 %; Neutrophils # 8.21 10^3/uL (1.8-7.7); Neutrophils % 69.9 %; Nucleated Red Blood Cells % 0 %; Platelet Count 86 10^3/cmm (130-400); Red Blood Count 2.61 10^6/uL (4.1-5.3); Red Cell Distribution Width 17.7 % (12.1-15.1); White Blood Count 11.7 10^3/uL (4.0-10.0)
[2021-07-31 06:09] LABS: Troponin 5 6HR 24.05 ng/L (0-15); Troponin 5 6HR Delta 2.05 ng/L (0-12)
[2021-07-31 06:13] LABS: Alanine Aminotransferase 13 U/L (0-41); Alkaline Phosphatase 70 IU/L (40-130); Anion Gap 12.4 (5-19); Aspartate Amino Transferase 31 U/L (0-40); Blood Urea Nitrogen 17 mg/dL (8-23); Calcium 7.5 mg/dL (8.5-10.5); Carbon Dioxide 24 mmol/L (22-29); Chloride 103 mmol/L (98-107); Globulin 1.7 g/dL (1.3-4.6); Glucose 95 mg/dL (65-115); Osmolality Calculated 281 mOsm/kg (285-295); Potassium 4.4 mmol/L (3.5-5.1); Sodium 135 mmol/L (136-145); Total Bilirubin 0.9 mg/dL (0.15-1.2); Total Protein 4.7 g/dL (6.6-8.7)
[2021-07-31 06:18] LABS: INR 1.31 (0.8-1.2)
--- NOTE | 2021-07-31 06:19 | NUR.SHIFT ---
Shift Summary: Patient states chest/gastric pain. One time dose of morphine with relief of pain. Patient describes it as pressure, serial EKG and troponins ordered per MD. VSS, no signs of distress at this time
--- NOTE | 2021-07-31 07:17 | PC.NURSE ---
Report received, assessment completed. AAOx4, answers all questions appropriately. Denies any needs. C/O CP, night nurse reported that pt c/o at night and issues was addressed and all tests were WNL. VSS. No c/o bloody stools. Uses urinal. Will monitor.
[2021-07-31] MEDS: pantoprazole 40 mg SDV IVP ×2 (08:10→20:23)
--- NOTE | 2021-07-31 10:28 | PC.CHAP ---
Pastoral Care Encounter/Spiritual Assessment Type of Contact [] Declined supreme court judge visit [] Patient/Family/Request visit [] Outpatient visit [] Follow-up visit [] Physician referral [] Code/Alert [x] Routine visit [] Staff referral [] Actively dying [] Patient sleeping [] Family support [] [] Out of room [] Palliative care [] [] Receiving care in room [] Pre-surgical visit [] Trauma [] Long length of stay [x] ICU visit [] Other: Relational/Emotional Strength [] Patient feels connected with others/family/visitors/staff [] Distress [] Loneliness/isolation [] Abandonment Spirituality of Patient [] Person of Lisa [] Attends Evangelical of their Lisa [] Believes in Prayer [] Reads Bible or Congregation materials [] There are Spiritual issues to be addressed Manager Materials Management Interventions [x] Prayer [x] Active listening [x] Non-anxious presence [x] Spiritual/emotional support [] Crisis/trauma care [] Spiritual counseling [] Bereavement support [] Provided bereavement packet [] Provided Bible/devotional materials [] Provided toy/stuffed animal, coloring book to patient or family member [] Provided Communion [] Anointing/[place] [] Salvation [x] Completed spiritual assessment [] Other: Impact on Illness or Injury [] Angry [] Fearful [] Anxious [] Often cries [] Exhaustion [] Unable to work [] Unable to attend rastafarian [] Unable to walk/stand [] Unable to read [] Unable to drive [] Unable to eat/drink [] Unable to sleep [] Unable to be with family [] Patient intubated [] Other: Summary feeling stronger.. waiting for results on test... to define problem Time spent with patient 10 min
--- NOTE | 2021-07-31 11:16 | PM.PN ---
Subjective Subjective: Interval history: No significant stooling overnight. Throat sore and some chest discomfort this morning, he points to his lower chest. During the night and EKG, and troponins were done which were unrevealing. Patient reports the discomfort is constant and feels like gas. Medications: Reviewed: Yes Vitals/I&O/Wt Last Vital Signs Temp 98.1 F 07/31/21 08:00 Pulse 60 07/31/21 10:00 Resp 24 H 07/31/21 10:00 BP 138/69 07/31/21 10:00 Pulse Ox 100 07/31/21 10:00 07/30/21 07/31/21 07/31/21 22:59 06:59 14:59 Intake Total 941 / 2519.333 1000 / 3519.333 240 / 240 Output Total 550 / 1950 1150 / 3100 450 / 450 Balance 391 / 569.333 -150 / 419.333 -210 / -210 Weight last 48 hrs Weight 73.936 kg Weight 68.039 kg Physical Exam Narrative: EXAM NARRATIVE: General exam is a white male, no distress currently Neck is supple no lymphadenopathy or thyromegaly Cardiovascular regular rate and rhythm without murmur Lungs clear Abdomen is soft, positive bowel sounds. No obvious organomegaly Extremities no cyanosis clubbing or edema, cap refill brisk Data : 07/31/21 05:19 07/31/21 05:19 A&P Assessment and plan (1) GI bleed: Likely lower as bright red blood seen per rectum. Bleeding appears to have stopped Repeat hemoglobin at 1300 Appreciate surgical consultation. No obvious source of bleeding noted. Diverticuli were noted. EGD demonstrated gastric ulcers, duodenal polyp. This was not actively bleeding during the endoscopy. Avoid any anticoagulation Hold antiplatelets Continue Protonix IV Chest discomfort may be secondary to EGD. We will try GI cocktail. Carafate was also added to his regimen. Considering outpatient pill endoscopy. Status: Acute (2) Anemia: Consistent with acute blood loss anemia Continue to monitor for need for transfusion Status: Acute (3) Metastatic carcinoid tumor: Followed by oncology. Could be playing a role in bleeding Status: Acute (4) COPD (chronic obstructive pulmonary disease): DuoNeb as needed Status: Acute (5) Abdominal aortic aneurysm: No evidence of extravasation of contrast/rupture Status: Acute Additional A&P Information Acute kidney injury. Hold any renal toxic medication. Resolved with hydration Hypotension. Secondary to blood loss. Resolved. Low platelets, slight elevation in INR. Check ammonia level with a.m. labs Depression. Family reports that several weeks past he had made some comments to do harm to his significant other, and has previously made comments about himself. Patient admits to having some depression and stress in his current situation. Psychiatry will consult. Full code SCDs for DVT prophylaxis Possible transfer out of ICU this afternoon if hemoglobin stable Attestations Medical Necessity Statement*: Needs continued hospitalization for close monitoring following GI bleed that required transfusion. Coding Level of Care Code Acute Tank Truck Milk Receiver for [facility] Elle Diagnoses GI bleed K92.2 Anemia D64.9 Metastatic carcinoid tumor C7B.00 COPD (chronic obstructive pulmonary disease) J44.9 Abdominal aortic aneurysm I71.4
--- NOTE | 2021-07-31 12:29 | W.PM.PSYCONS ---
Providers/Reason for Consult Consulting Physican/Specialty*: Steve Blevins MD/Psychiatist Reason for Consult*: Stable depression and irritability Attending Physician: Mukul Connor MD Primary Care Provider: MAIKOL [facility] Psych Consult HPI History of Present Illness Jigar Ochoa is a 80 year old male who has been in the ICU after a GI bleed. He is reportedly been irritable and said some things such as going to blow his had off a few weeks ago. He says that he is in a difficult situation with his . She has been in a wheelchair for 30 months. It is he and his daughter that take care of her. She is very demanding and cranky at times. She will not do anything to help herself. She only talks about quite a good mother and she has been. He says that she is quite irritable and gets on his nerves. Occasionally he has said some things that he should not have. He initially said that he was depressed. He says that has just been since Thursday when he was hospitalized and has been confined to a bed. He says that he has always moving and always on the go. He hates being confined. He is absolutely confident that as soon as he is able to have freedom of movement again he will be fine. He denies any sleep or appetite problems prior to the last few days. He has been a little bit irritable with his but he thinks that his normal reaction to the situation. He related several stories about his past and his accomplishments and seems like his self-esteem is fairly good. Meds Current Medications: Current Medications Generic Name Dose Route Start Last Admin Trade Name Tyrell PRN Reason Stop Dose Admin Acetaminophen 650 mg 07/29/21 08:15 07/30/21 20:22 Acetaminophen 32 5 Mg Tablet PO 650 mg Q6H PRN Administration MILD PAIN Sodium Chloride 1,000 mls @ 100 m ls/hr 07/29/21 16:15 07/31/21 03:25 Sodium Chloride 0.9% IV 100 mls/hr .Q10H JAMES Administration Pantoprazole Sodiu m 40 mg 07/29/21 08:15 07/31/21 08:10 Pantoprazole 40 Mg Sdv IVP 40 mg Q12H JAMES Administration Sucralfate 1 gm 07/30/21 15:16 07/31/21 08:10 Sucralfate 1 Gm Tablet PO 1 gm Q6H JAMES Administration PFSH NPU PFSH: Medical History (Updated 07/29/21 @ 16:01 by Mukul Connor MD) Abdominal aortic aneurysm COPD (chronic obstructive pulmonary disease) Metastatic carcinoid tumor Polymyalgia rheumatica SVT (supraventricular tachycardia) Surgical History (Updated 07/29/21 @ 15:56 by Mukul Connor MD) H/O colectomy History of appendectomy Hx of cardiac pacemaker Social History Smoking and tobacco status: current every day smoker Second hand smoke exposure: Yes Alcohol intake: never Mental Status Exam MSE Comments: This is an 80-year-old appropriate weight male who appears younger than his stated age and is in no acute distress. He was just starting his lunch and seemed to be very pleased to talk and not bothered at all that I interrupted his lunch. psychomotor activity normal. Speech is at a regular rate and rhythm, normal volume, good articulation, not pressured. Alert, oriented X3 Attention and concentration very good. Memory is intact Mood is initially said he was depressed but then said he really was not depressed. Affect is almost tearful after we got started talking. Thought process is logical and goal-directed. Thought content: Denies auditory and visual hallucinations. No delusions or paranoia are noted. No current suicidal ideation, and no homicidal ideation. Fund of knowledge is normal. Insight and judgment appear to be good. Impulse control is good. Vitals/I&O/Wt Last Vital Signs Temp 98.0 F 07/31/21 12:00 Pulse 72 07/31/21 12:00 Resp 18 07/31/21 12:00 BP 148/81 07/31/21 12:00 Pulse Ox 91 07/31/21 12:00 07/30/21 07/31/21 07/31/21 22:59 06:59 14:59 Intake Total 941 / 2519.333 1000 / 3519.333 600 / 600 Output Total 550 / 1950 1150 / 3100 825 / 825 Balance 391 / 569.333 -150 / 419.333 -225 / -225 Weight last 48 hrs Weight 73.936 kg Weight 68.039 kg A&P Additional A&P Information Is an 80-year-old gentleman who is somewhat despondent with his current situation. He says that his appetite and sleep and energy level were good before his GI bleed. I would not recommend starting an antidepressant at this time but have his primary care doctor evaluate that in the next couple of weeks. Attestations NPU Medical Necessity Statement*: Inpatient hospitalization is medically necessary and the clinically appropriate intervention at this time. We will initiate medications and make changes as indicated. Coding Level of Care Code Acute Automotive Paint Technician for Ricky Almeida
[2021-07-31 13:25] LABS: H. Pylori / CLO Test Negative
[2021-07-31 14:20] LABS: Hemoglobin 8.6 g/dL (11.7-16.6)
--- NOTE | 2021-07-31 14:38 | PC.NURSE ---
Called to pt room, small amount of dark, red clotted blood in BSC. Approx 30ml. MD notified. No new order. Will continue to monitor.
--- NOTE | 2021-07-31 18:26 | PC.NURSE ---
Shift Note Frequent safety and comfort rounds continue. Orders and/or nursing care completed as indicated. Patient monitored for response to intervention and treatment(s). Education provided includes treatment plan, transfer to [facility] when available, blood in stools and medications. Pt and family verbalize understanding. VSS. No further blood in stool noted. Pt has no complaints other than being cold, warm blankets provided. Will continue to monitor.
[2021-08-01] VITALS (31 sets, daily range): BP systolic 82–140; BP diastolic 6–78; PULSE 62–92; RESP 17–36; TEMP 36.4–37.7; O2SAT 75–100
[2021-08-01] MEDS: sucralfate 1 gm Tablet PO ×3 (03:16→15:40)
[2021-08-01 05:27] LABS: Basophils % 0.3 %; Eosinophils # 0.5 10^3/uL (0.0-0.8); Eosinophils % 3.9 %; Hematocrit 25.6 % (42.0-52.0); Hemoglobin 8.6 g/dL (11.7-16.6); Lymphocytes # 1.6 10^3/uL (0.8-4.8); Lymphocytes % 14.1 %; Mean Corpuscular HGB Conc 33.6 g/dL (30.0-36.0); Mean Corpuscular Hemoglobin 33.2 pg (28.0-34.0); Mean Corpuscular Volume 98.8 fl (80-94); Mean Platelet Volume 11.2 fL (7.4-10.4); Monocytes % 8.9 %; Neutrophils # 8.32 10^3/uL (1.8-7.7); Neutrophils % 72.5 %; Nucleated Red Blood Cells % 0 %; Platelet Count 104 10^3/cmm (130-400); Red Blood Count 2.59 10^6/uL (4.1-5.3); Red Cell Distribution Width 16.8 % (12.1-15.1); White Blood Count 11.5 10^3/uL (4.0-10.0)
[2021-08-01 05:42] LABS: Ammonia 40 umol/L (16-60)
[2021-08-01 05:47] LABS: Anion Gap 13.1 (5-19); Blood Urea Nitrogen 12 mg/dL (8-23); Calcium 7.6 mg/dL (8.5-10.5); Carbon Dioxide 25 mmol/L (22-29); Chloride 103 mmol/L (98-107); Glucose 105 mg/dL (65-115); Osmolality Calculated 284 mOsm/kg (285-295); Potassium 4.1 mmol/L (3.5-5.1); Sodium 137 mmol/L (136-145)
--- NOTE | 2021-08-01 07:17 | PC.NURSE ---
Report received, assessment completed. Pt AAOx4, denies any bloody stools or needs. VSS. Uses urinal and BSC PRN. Will monitor
[2021-08-01] MEDS: pantoprazole 40 mg SDV IVP (08:12)
--- NOTE | 2021-08-01 09:32 | PC.NURSE ---
Attempted to get up with pt to ambulate, pt became dizzy upon standing, lowered back to bed to seated position. BP checked 82/46. Pt became less able to hold self up and then had complete syncopal episode and was lowered into a lying position. Pt unabe to verbalize for a few moments. After a few moments, pt alert and answering questions. Repositioned in bed. MD notified. New order for 500 ml saline bolus.
--- NOTE | 2021-08-01 09:36 | PC.CHAP ---
Pastoral Care Encounter/Spiritual Assessment Type of Contact [] Declined draw operator visit [] Patient/Family/Request visit [] Outpatient visit [] Follow-up visit [] Physician referral [] Code/Alert [x] Routine visit [] Staff referral [] Actively dying [] Patient sleeping [] Family support [] [] Out of room [] Palliative care [] [] Receiving care in room [] Pre-surgical visit [] Trauma [] Long length of stay [x] ICU visit [x] Other: patient busy on phone Relational/Emotional Strength [] Patient feels connected with others/family/visitors/staff [] Distress [] Loneliness/isolation [] Abandonment Spirituality of Patient [] Person of Lisa [] Attends Rastafari of their Lisa [] Believes in Prayer [] Reads Bible or Mu-Ism materials [] There are Spiritual issues to be addressed Shake Packer Interventions [x] Prayer [] Active listening [] Non-anxious presence [] Spiritual/emotional support [] Crisis/trauma care [] Spiritual counseling [] Bereavement support [] Provided bereavement packet [] Provided Bible/devotional materials [] Provided toy/stuffed animal, coloring book to patient or family member [] Provided Communion [] Anointing/[place] [] Salvation [x] Completed spiritual assessment [] Other: Impact on Illness or Injury [] Angry [] Fearful [] Anxious [] Often cries [] Exhaustion [] Unable to work [] Unable to attend pentecostal [] Unable to walk/stand [] Unable to read [] Unable to drive [] Unable to eat/drink [] Unable to sleep [] Unable to be with family [] Patient intubated [] Other: Summary Time spent with patient
[2021-08-01] MEDS: sodium chloride 0.9% 500 ML IV (09:47)
[2021-08-01] MEDS: sodium chloride 0.9% 1,000 ML 999 ML IV (12:25)
[2021-08-01 12:41] LABS: Hemoglobin 7.9 g/dL (11.7-16.6)
--- NOTE | 2021-08-01 12:46 | PC.NURSE ---
Assisted pt to [facility], pt had syncopal episode, BP low, Assisted back to bed per staff x4. Pt tachycardic when hooked back to telemetry. Took pt several minutes to gain full awareness of condition. Pt had fresh red bloody stool while in bed. MD at bedside. NS infusing per orders. O pos blood ordered, started at 1240. Another unit of blood and FFP ordered. VSS at this time. Spoke with family and made aware of condition and the need for transfer. Will continue to monitor.
[2021-08-01] MEDS: sodium chloride 0.9% (100 ml) 100 ML 150 ML (13:03)
--- NOTE | 2021-08-01 13:40 | P.PN_ITS ---
Subjective Subjective: Interval history: Patient was seen this morning and doing quite well. He was eager to go home. This afternoon, I was called with lower blood pressures and the patient started having bright red blood in his stools. He had a syncopal episode. He denied any abdominal pain. With this occurring, O- blood as well as FFP was ordered. Patient currently is awake and alert, tired, and hypotension that occurred earlier is improving. Medications: Reviewed: Yes Vitals/I&O/Wt Last Vital Signs Temp 98.6 F 08/01/21 04:03 Pulse 71 08/01/21 10:00 Resp 29 H 08/01/21 10:00 BP 85/49 08/01/21 10:00 Pulse Ox 98 08/01/21 06:00 07/31/21 08/01/21 08/01/21 22:59 06:59 14:59 Intake Total 360 / 1960 240 / 2200 742.5 / 742.5 Output Total 950 / 1775 1000 / 2775 300 / 300 Balance -590 / 185 -760 / -575 442.5 / 442.5 Weight last 48 hrs Weight 72.206 kg Weight 73.936 kg Physical Exam Narrative: EXAM NARRATIVE: General exam is a white male, pale appearing, no distress Neck is supple no lymphadenopathy or thyromegaly Cardiovascular regular rate and rhythm without murmur Lungs clear Abdomen is soft, positive bowel sounds. No obvious organomegaly Extremities no cyanosis clubbing or edema, cap refill brisk Data : 08/01/21 12:26 08/01/21 04:25 A&P Assessment and plan (1) GI bleed: Patient has rebled today. Syncope occurred, and significant hypotension Appreciate surgical consultation. No obvious source of bleeding noted. Diverticuli were noted. EGD demonstrated gastric ulcers, duodenal polyp. This was not actively bleeding during the endoscopy. Endoscopy occurred on July 30. Avoid any anticoagulation Hold antiplatelets Continue Protonix IV With recurrence of bleeding 2 units of O- blood were ordered immediately secondary to severe hypotension, large-volume bright red blood. Secondary to mild elevation of INR FFP was ordered as well. Patient appears to be stabilizing. Lasix 20 mg IV if blood pressure tolerates in between units of blood and FFP. I visited with patient as well as family. Secondary to recurrent bleeding, possibility of small bowel bleeding, transfer to a larger institution with interventional radiology and/or possibility of enteroscopy was discussed. I have tried multiple hospitals for transfer including [facility], [facility], [facility], [place], [facility]. Currently there are no ICU beds available. He is on a wait list at [facility]. I have been informed if his level of need decreases to stepdown there are some possibilities in [place]. 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 Could be playing a role in bleeding Status: Acute (4) COPD (chronic obstructive pulmonary disease): DuoNeb as needed Status: Acute (5) Abdominal aortic aneurysm: No evidence of extravasation of contrast/rupture Status: Acute Additional A&P Information Acute kidney injury. Hold any renal toxic medication. Resolved with hydration Hypotension. Secondary to blood loss. Resolved. Low platelets, slight elevation in INR. Ammonia level checked and normal Depression. Family reports that several weeks past he had made some comments to do harm to his significant other, and has previously made comments about himself. Patient admits to having some depression and stress in his current s ituation. Psychiatry consulted, no active threat currently. Full code SCDs for DVT prophylaxis With recurrence of bleeding, concern for small bowel bleeding, need for interventional radiology, possible enteroscopy will transfer to higher level of care Attestations Medical Necessity Statement*: Needs continued hospitalization secondary to recurrent GI bleeding Critical Care Time: The high probability of a clinically significant, sudden or life threatening deterioration of the patient's [GI, hematologic] system(s) required my full and direct attention, intervention and personal management. The critical care time is as shown. This time is in addition to time spent performing any reported procedures but includes the following: [x] Data and vital sign review and interpretation [x] Patient assessment, examination and intervention [x] Documentation [x] Medication orders and management Critical Care Time (min): 55 Coding Level of Care Code Acute Brewing Technician for Lyndseyg Fwd Diagnoses GI bleed K92.2 Anemia D64.9 Metastatic carcinoid tumor C7B.00 COPD (chronic obstructive pulmonary disease) J44.9 Abdominal aortic aneurysm I71.4
[2021-08-01] MEDS: FUROsemide 10 mg/mL SDV 2mL 20 MG IVP (13:53)
--- NOTE | 2021-08-01 13:59 | P.TS_ITS ---
Transfer Summary Providers Date of Admission: 07/29/21 06:16 Date of Discharge: 08/01/21 Attending Provider at Admission: Rupesh Gutiérrez Attending Provider at Transfer: Mukul Connor MD Primary Care Provider: MAIKOL Cox Anticipated Date of Transfer: Anticipated date of transfer: 08/01/21 Receiving Facility & Provider: Receiving Provider: [] Receiving facility: [] Diagnoses at Discharge Discharge Diagnosis (1) GI bleed: Status: Acute (2) Anemia: Status: Acute (3) Metastatic carcinoid tumor: Status: Acute (4) COPD (chronic obstructive pulmonary disease): Status: Acute (5) Abdominal aortic aneurysm: Status: Acute Reason for Visit Reason for Visit: GI BLEED Hospital Course Hospital Course Mr. Ochoa is an 80-year-old white male with history of metastatic carcinoid who presents to the hospital with GI bleeding on July 29. He had bright red blood in his stool, and eventually drifted down to a hemoglobin of 7.5 with active bleeding and was transfused. He was on Protonix IV, and surgery was consulted for possible endoscopy. Endoscopy demonstrated gastric ulcers, no active bleeding. Colonoscopy demonstrated blood in the colon, as well as distal small bowel. Diverticuli was noted. No obvious active bleeding was noted. The concern was from the surgeon was that this could be a small bowel bleeding as patient has had carcinoid in his small bowel before with previous resection of some distal small bowel and a right hemicolectomy in 2013. From the time of the endoscopy on 29 August until morning of July 2 patient was doing well with no evidence of recurrent bleeding. He then had an abrupt presyncopal episode, hypotension, tachycardia, and started passing large amounts of bright red blood per stool. IV fluids were initiated, and transfusion of 2 units of O- blood were initiated and 1 unit of FFP. With this the patient began to stabilize. Discussion with patient and family occurred for transfer patient to higher level of care where interventional radiology was available as well as possibility of gastroenterology, small bowel enteroscopy. [facility], Dr. Gregg graciously accepted the patient. It should also be noted the patient had a CT abdomen and pelvis on admission which demonstrated multiple low-density liver lesions unchanged from previous scans, cholelithiasis with normal ducts, infrarenal abdominal aortic aneurysm 4.4 cm in diameter with no evidence of extravasation or leak. He also had acute kidney injury that resolved during his hospital stay. Physical Exam Narrative: EXAM NARRATIVE: General exam Sleepy male, slightly nauseated. Heart rate currently 75, blood pressure 122/60 Neck is supple Cardiovascular regular rate and rhythm Lungs clear Abdomen is soft, bowel sounds noted Extremities no cyanosis clubbing or edema TS Data Data Completed and Pending: Completed Studies During Hospitalization Category Date Time Status CT abdomen pelvis w con* [id number] Urge nt Cat Scan 07/29/21 05:09 Completed Pathology: Surgic al [PTH] Routine Pth 07/30/21 15:12 Completed Pending at discharge Category Date Time Status ABO/Rh Type Routi ne Lab 07/29/21 05:20 Results Complete Crossmat ch Routine Lab 07/29/21 05:20 Results Frozen Plasma FZ <24 1st Cont Routi ne Lab 07/29/21 05:20 Results Leukocyte Reduced RBC Routine Lab 07/29/21 05:20 Results Type and Screen R outine Lab 07/29/21 05:20 Results Labs from last 24 hours 08/01/21 08/01/21 08/01/21 12:26 04:25 04:25 WBC 11.5 H RBC 2.59 L Hgb 7.9 L 8.6 L Hct 24.0 L 25.6 L MCV 98.8 H MCH 33.2 MCHC 33.6 RDW 16.8 H Plt Count 104 L MPV 11.2 H Neut % (Auto) 72.5 Lymph % (Auto) 14.1 [place] % (Auto) 8.9 Eos % (Auto) 3.9 Baso % (Auto) 0.3 Neut # (Auto) 8.32 H Lymph # (Auto) 1.6 [place] # (Auto) 1.0 H Eos # (Auto) 0.5 Baso # (Auto) 0.0 Nucleated RBC % (a uto) 0 Nucleated RBCs # 0.0 Sodium 137 Potassium 4.1 Chloride 103 Carbon Dioxide 25 Anion Gap 13.1 BUN 12 Creatinine 1.1 GFR Calculation Not Reportable Glucose 105 Calculated Osmolal ity 284 L Calcium 7.6 L Ammonia Blood Type Rho(D) Type Antibody Screen Crossmatch 08/01/21 07/31/21 07/29/21 04:25 13:00 05:20 WBC RBC Hgb 8.6 L Hct 26.0 L MCV MCH MCHC RDW Plt Count MPV Neut % (Auto) Lymph % (Auto) [place] % (Auto) Eos % (Auto) Baso % (Auto) Neut # (Auto) Lymph # (Auto) [place] # (Auto) Eos # (Auto) Baso # (Auto) Nucleated RBC % (a uto) Nucleated RBCs # Sodium Potassium Chloride Carbon Dioxide Anion Gap BUN Creatinine GFR Calculation Glucose Calculated Osmolal ity Calcium Ammonia 40 Blood Type B Positive Rho(D) Type Positive Antibody Screen Negative Crossmatch See Detail Vitals: Last Vital Signs Temp 97.6 F 08/01/21 13:49 Pulse 73 08/01/21 13:49 Resp 31 H 08/01/21 13:49 BP 122/6 08/01/21 13:49 Pulse Ox 100 08/01/21 13:49 TS Medications Medications Home Medications aspirin 81 mg tablet,delayed release 81 mg PO QAM 11/01/19 [History Confirmed 07/29/21] multivitamin 1 tab PO QAM 11/01/19 [History Confirmed 07/29/21] triamcinolone acetonide 0.1 % topical cream See Rx Instructions .ROUTE .COMPLEX #454 g 05/15/21 [Rx Confirmed 07/29/21] Sandostatin See Rx Instructions .ROUTE .COMPLEX 07/29/21 [History Confirmed 07/29/21] Active Medications Acetaminophen (Acetaminophen 325 Mg Tablet) 650 mg PO Q6H PRN PRN Reason: MILD PAIN Last Admin: 07/30/21 20:22 Dose: 650 mg Documented by: Furosemide (Furosemide 10 Mg/Ml Sdv 2ml) 20 mg IVP PRN PRN PRN Reason: VOLUME OVERLOAD Last Admin: 08/01/21 13:53 Dose: 20 mg Documented by: Ondansetron HCl (Ondansetron 2 Mg/Ml Sdv 2 Ml) 4 mg IVP Q6H PRN PRN Reason: NAUSEA AND VOMITING Pantoprazole Sodium (Pantoprazole 40 Mg Sdv) 40 mg IVP Q12H JAMES Last Admin: 08/01/21 08:12 Dose: 40 mg Documented by: Sucralfate (Sucralfate 1 Gm Tablet) 1 gm PO Q6H JAMES Last Admin: 08/01/21 08:12 Dose: 1 gm Documented by: Discharge Plan Discharge Patient Disposition: Xfer Short-Term Hosp Condition: Stable Prescriptions: No Action aspirin [Adult Aspirin Regimen] 81 mg tablet,delayed release (DR/EC) 81 mg PO QAM RF: 0 multivitamin Tablet 1 tab PO QAM RF: 0 triamcinolone acetonide 0.1 % cream See Rx Instructions .ROUTE .COMPLEX Qty: 454 RF: 0 Sandostatin See Rx Instructions .ROUTE .COMPLEX RF: 0 Discharge Orders: Transfer Out of Facility (Order); Ordered 08/01/21 Ordered By: Mukul Connor Patient Instructions: GI Discharge Instructions Transfer Attestations Time Spent in Transfer Care*: greater than 30 min Quality Metrics Clinical Quality Measures: During this hospital stay, did patient experience: None Coding Level of Care Code Acute Post Office Markup Clerk for Ricky Fwd Diagnoses GI bleed K92.2 Anemia D64.9 Metastatic carcinoid tumor C7B.00 COPD (chronic obstructive pulmonary disease) J44.9 Abdominal aortic aneurysm I71.4
--- NOTE | 2021-08-01 14:11 | PC.NURSE ---
Pt to be transferred to [facility]. Receiving blood and FFP at this time. One unit blood transfused without issue. FFP infusing at this time. VSS. Pt more alert and able to communicate. spoke with family r/t tx and condition. Will monitor.
[2021-08-01] MEDS: sodium chloride 0.9% (100 ml) 100 ML 240 ML (15:00)
--- NOTE | 2021-08-01 15:38 | PC.NURSE ---
1500 Report called to Jasmin YEBOAH at [facility]U. Awaiting Air-evac for tx. 2nd unit of PRBC's infusing per orders. Tolerated well. No s/s of SOB noted. Pt conversing with family and feels much better. Will monitor
--- NOTE | 2021-08-01 16:20 | PC.NURSE ---
AIr evac here to load and transport pt. second unit of PRBC's infused. Pt AAOx4, uses urinal.
--- NOTE | 2021-08-01 16:35 | PC.NURSE ---
Pt out with Air evac at 1633. Fmaily aware of tx location and time
== END 2021-08-01 16:33 | disposition short-term general hospital (02) | DRG 378 ==
LOC: ER 05:18 → ICU 06:27
PROVIDERS: Student in an Organized Health Care Education/Training Program; Surgery; Admitting Provider Hospitalist; Emergency Provider Emergency Medicine; PCP Registered Nurse; Visit Provider Internal Medicine
PROC: 0DJ08ZZ Inspection of Upper Intestinal Tract, Via Natural or Artificial Opening Endoscopic (ICD-10-PCS; CPT 43235; principal; 2021-07-30 13:45)
PROC: 0DJD8ZZ Inspection of Lower Intestinal Tract, Via Natural or Artificial Opening Endoscopic (ICD-10-PCS; CPT 45378; 2021-07-30 13:45)
DX: K92.2 Gastrointestinal hemorrhage, unspecified (principal); C7B.02 Secondary carcinoid tumors of liver; D62 Acute posthemorrhagic anemia; N17.9 Acute kidney failure, unspecified; K92.1 Melena; I95.9 Hypotension, unspecified; Z85.030 Personal history of malignant carcinoid tumor of large intestine; Z95.0 Presence of cardiac pacemaker; F17.210 Nicotine dependence, cigarettes, uncomplicated; I71.4 Abdominal aortic aneurysm, without rupture; J44.9 Chronic obstructive pulmonary disease, unspecified; M35.3 Polymyalgia rheumatica; Z90.49 Acquired absence of other specified parts of digestive tract; K80.20 Calculus of gallbladder without cholecystitis without obstruction; I85.00 Esophageal varices without bleeding; K44.9 Diaphragmatic hernia without obstruction or gangrene; Z79.82 Long term (current) use of aspirin; R55 Syncope and collapse; F32.A Depression, unspecified; K57.30 Diverticulosis of large intestine without perforation or abscess without bleeding; K31.7 Polyp of stomach and duodenum; K25.9 Gastric ulcer, unspecified as acute or chronic, without hemorrhage or perforation
CPT/HCPCS: 36415; 36430; 43239; 43255; 45378; 70450; 71045; 74177; 80048; 80053; 81003; 82140; 83605; 84484; 85014; 85018; 85025; 85610; 85730; 86850; 86900; 86920; 86927; 87077; 87635; 88305; 93005; 96360; 96365; 96375; 99284; 99285; C9113; J0171; J0610; J1940; J2270; J2704; J7030; J7040; J7050; P9016; P9017; Q9967

== ENCOUNTER 2021-08-15 14:49 | Outpatient (CLI) | payer MEDICARE, SELFPAY ==
[2021-08-15 15:54] LABS: Basophils # 0.1 10^3/uL (0.0-0.1); Basophils % 0.9 %; Eosinophils # 0.4 10^3/uL (0.0-0.8); Eosinophils % 5.3 %; Hematocrit 31.1 % (42.0-52.0); Lymphocytes # 1.8 10^3/uL (0.8-4.8); Lymphocytes % 22.6 %; Mean Corpuscular HGB Conc 32.2 g/dL (30.0-36.0); Mean Corpuscular Hemoglobin 32.6 pg (28.0-34.0); Mean Corpuscular Volume 101.3 fl (80-94); Mean Platelet Volume 9.8 fL (7.4-10.4); Monocytes # 0.7 10^3/uL (0.2-0.9); Monocytes % 9.3 %; Neutrophils % 61.6 %; Nucleated Red Blood Cells % 0 %; Platelet Count 203 10^3/cmm (130-400); Red Blood Count 3.07 10^6/uL (4.1-5.3); Red Cell Distribution Width 19.3 % (12.1-15.1)
[2021-08-15 16:51] LABS: Alanine Aminotransferase 17 U/L (0-41); Albumin Level 3.9 g/dL (3.5-5.2); Alkaline Phosphatase 89 IU/L (40-130); Aspartate Amino Transferase 30 U/L (0-40); Blood Urea Nitrogen 23 mg/dL (8-23); Calcium 8.1 mg/dL (8.5-10.5); Carbon Dioxide 22 mmol/L (22-29); Chloride 105 mmol/L (98-107); Ferritin 145 ng/mL (30-400); Globulin 2.5 g/dL (1.3-4.6); Glucose 89 mg/dL (65-115); Iron 39 ug/dL (59-158); Osmolality Calculated 293 mOsm/kg (285-295); Percent Saturation 12.6 % (20-50); Sodium 140 mmol/L (136-145); Thyroid Stimulating Hormone 1.68 uIU/mL (0.27-4.20); Total Bilirubin 0.3 mg/dL (0.15-1.2); Total Iron Binding Capacity 309 mcg/dl; Total Protein 6.4 g/dL (6.6-8.7); Unsaturated Iron Binding 270 ug/dL (112-347); Vitamin B12 425 pg/mL (232-1245)
[2021-08-15 16:53] LABS: Anion Gap 18.3 (5-19); Potassium 5.3 mmol/L (3.5-5.1)
--- NOTE | 2021-08-18 14:49 | ONC FU_ITS ---
Dr. Joel Patient Follow-Up Note Patient: Jigar Ochoa Unit #: [id number]: 1940 Dicatated By: Jamir Joel M.D.Date of Visit:Aug 15, 2021 Onc Med Follow-up/Prog Note Chief Complaint: Malignant carcinoid. History of Present Illness: This is an 80 year-old man with metastatic carcinoid involving the liver. He had presented to the emergency room in May 2014 with abdominal pain, bloating, and constipation. Abdominal CT scan showed high-grade small bowel obstruction with a transition point which appeared to be near the region of the cecum. There was felt to be probably a cecal mass, though a discrete mass was difficult to identify. There was a cluster of lymph nodes in the mesentery measuring 2.8 x 1.4 cm which was suspicious for metastatic disease, and there were lesions in the liver which were suspicious for metastases. Incidentally noted was an infrarenal abdominal aortic aneurysm measuring 3.5 cm. On 06/23/14 he underwent exploratory laparotomy. He was found to have a distal small bowel obstructing mass approximately 50 cm from the terminal ileum. There was an additional mesenteric mass adjacent to it at the level of the mid mesentery. On palpation, there are also was suspicion of a cecal mass. There were multiple small nodules identified on the surface of the liver. The procedure included resection of the distal small bowel to include the small bowel mass and the mesenteric mass, right hemicolectomy, and liver biopsy. On further examination, there was no mass found in the cecum. Pathology showed low-grade carcinoid tumor measuring 1.5 cm in greatest dimension. The tumor was extending into the deep muscularis into the subserosa. The margins were free including a 6 cm proximal margin, 50 cm distal margin, and a 4 cm radial margin. There was involvement in 4 of 21 lymph nodes. The liver biopsy showed metastatic carcinoid tumor. I had seen him initially in July 2014. At that time, he was having severe diarrhea and he also was very weak. His laboratory studies did show iron deficiency, though he was just borderline anemic with hemoglobin 12.9 g. His albumin was low at 2.8 g/dL. Liver enzymes and bilirubin were normal. TSH was normal, as was the B12 level. His chromogranin A level was normal at 3 nmol per liter and a 24-hour urine HIAA also was normal. Multiple stool samples were negative for Clostridium difficile. He had subsequently shown gradual improvement with symptomatic management. During follow-up, there was suspicion of bowel obstruction on restaging CT scans, but repeat colonoscopy in February 2015 showed patent ileocolic anastomosis and no other significant abnormalities. CT scan of the abdomen and pelvis performed 07/18/2016 showed numerous metastatic nodules within the liver. Taking into consideration difference in technique and slice selection there was no significant progression since 07/04/2015. New soft tissue thickening was noted around the abdominal aortic aneurysm. 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 The abdominal aortic aneurysm was noted to measure 3.8 cm transverse diameter with a 2 mm increase in size since 07/04/2015. He continued observation/expectant management. A follow-up CTA of the thoracic/abdominal aorta on 06/09/2017 showed mild ectasia and predominantly noncalcified atherosclerotic plaque of the aortic arch and descending thoracic aorta. The infrarenal fusiform abdominal aortic aneurysm appeared stable compared to the study from July 2016. There was no change in the probable inflammatory retroperitoneal soft tissue thickening anterior to the inferior aspect of the aneurysm. Also noted was some progression of metastatic involvement in the liver, the largest measuring up to 2.9 cm compared to 2.3 cm on the prior exam. Restaging CT of the abdomen/pelvis on 12/21/2017 showed progression in the size and number of metastatic lesions within the liver. There were 2 lesions identified in the left lobe, the largest measuring 1.7 cm. A new nodule was noted adjacent the falciform ligament. At least 5 metastatic lesions were identified within the right lobe, the largest measuring 2.8 cm. There was no associated lymphadenopathy. The abdominal aortic aneurysm was noted to be stable with a maximum diameter of 3.9 cm. At that point his tumor markers had not changed significantly, but he appeared to be having more significant diarrhea, and I did opt to have him begin monthly injections of Sandostatin LAR. Restaging CT scans of the chest, abdomen, and pelvis on 07/11/2020 showed several low-density lesions in the liver, the largest in the posterior aspect of the right lobe measuring 2.4 cm. These had not changed significantly. There was no other evidence of malignancy. There was evidence of abdominal aortic aneurysm measuring 3.9 cm with associated mural thrombus, but no extravasation. He continued treatment with Sandostatin LAR. 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 He also has COPD. He has no other medical illnesses. He has a history of smoking 2 packs of cigarettes daily for 50 years. He quit smoking in August 2016. INTERIM HISTORY: On 07/29/2021 he was seen in the emergency room following an apparent vasovagal attack at home. He had passed out on the toilet while having a bowel movement and fallen on the floor. He was initially discharged home but he then returned to the emergency room and was admitted to the hospital after he had rectal bleeding. His EGD the following day showed grade 2 esophageal varices, and there were multiple small ulcerations noted in the gastric body. There was no active bleeding. A polyp was removed from the second portion of the duodenum. Pathology showed benign duodenal mucosa with fragmented hyperplastic polyp. Colonoscopy showed evidence of hematochezia throughout the whole left side of the colon and towards the terminal ileum, but without an identifiable source of blood loss. Further evaluation with enteroscopy was recommended, and he was also recommended to have repeat colonoscopy within 6 months. He initially appeared to have stabilized in the hospital, but then he developed abrupt recurrence of bright red rectal bleeding, and he was then transferred to the [facility] for further management. I have not received those records. From his description it sounds as though he had a negative bleeding scan and the bleeding had subsided with conservative treatment measures. He was discharged home on 08/05/2021 with the presumptive diagnosis of bleeding ulcers. He is seen now for a follow-up visit. He is still weak generally. He has limited activity, but he is up and around. ECOG score is 2. His appetite has been okay. He does not have fever. He occasionally gets a little damp at night, but he does not have flushing spells or drenching night sweats. He has not had sore mouth or throat and he has no difficulty swallowing. He has occasional hacking cough. He does not complain of shortness of breath or chest pain. He reports having a lot of gas, but he has had no nausea/vomiting and he has no obvious acid reflux symptoms. He is having 3-4 bowel movements per day, but it is not diarrhea, and he has not been aware of having any further blood in the stool. He has no complaints. He has no significant joint or bone pain. He does not complain of headache. He is not having orthostatic symptoms. He has no numbness/paresthesia or other focal neurologic symptoms. Medications: FeroSul (325 (65 fe) mg) Tablet Oral Take as Directed, Multivitamins 1 Tablet Oral daily, Pantoprazole Sodium 1 Tablet (of 40 mg) Tablet, enteric coated Oral daily, SandoSTATIN LAR [place] 1 (20 mg) Intramuscular q 4 weeks Allergies: PCN Vital Signs: Performed on Aug 15, 2021 16:08 Height - 74.00 in Weight - 161.2 lbs (HIGH) BSA - 1.98 sq.m BMI - 20.70 Temperature - 98.2 F (LOW) Pulse - 81 /min Respiration - 18 /min BP - 129/71 mm(hg) O2 Sat - 97 % Pain - 0 Fatigue - 9 Physical Examination: Constitutional - He appears generally weak, Eyes - Sclerae nonicteric. Conjunctivae clear, ENMT - No lesions noted in the oral cavity, Hematologic/Lymphatic - No cervical, clavicular, or axillary adenopathy, Respiratory - Lungs are clear with diminished air movement bilaterally, Cardiovascular - Heart rhythm is regular. There is no murmur, gallop, or rub noted, Abdomen - Thin but soft. Liver is not enlarged. Spleen is not palpable. There is no abdominal mass or ascites noted and there is no inguinal adenopathy, Extremities - No edema. There are purpuric lesions on both arms, Neurologic - No focal neurologic deficits noted. Lab/Imaging: Test performed on Aug 15, 2021 15:35 Ferritin 145 ng/mL Iron 39 mcg/dL Sodium 140 mmol/L TSH 1.68 uIU/mL Vitamin B12 425 pg/mL Iron Binding Capacity (TIBC) 309 mcg/dl Potassium 5.3 mmol/L % Iron Saturation 12.6 % Chloride 105 mmol/L CO2 22 mmol/L UIBC 270 mcg/dL Anion Gap 18.3 BUN 23 mg/dL Creatinine 1.4 mg/dL Cr Clearance (Est) 42.0700 mL/min Glucose 89 mg/dL Osmolality - Calculated 293 mOsm/kg Calcium 8.1 mg/dL Protein, Total 6.4 g/dL Albumin 3.9 g/dL Globulin 2.5 g/dL Bilirubin, Total 0.3 mg/dL ALT (SGPT) 17 U/L AST (SGOT) 30 U/L Alkaline Phosphatase 89 IU/L WBC 8.0 10 3/uL RBC 3.07 10 6/uL HGB 10.0 g/dL HCT 31.1 % MCV 101.3 fl MCH 32.6 pg MCHC 32.2 g/dL RDW 19.3 % Platelet Count 203 10 3/cmm MPV 9.8 fL Neutrophils 4.90 10 3/uL Lymphocytes 1.8 10 3/uL Monocytes 0.7 10 3/uL Eosinophils 0.4 10 3/uL Basophils 0.1 10 3/uL Neutrophil % 61.6 % Lymphocyte % 22.6 % Monocyte % 9.3 % Eosinophil % 5.3 % Basophils % 0.9 % NRBC % 0 % Problem List: 1. 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 2. He also has CT evidence of abdominal aortic aneurysm. 3. History of atrial fibrillation. 4. He apparently has a prior diagnosis of polymyalgia rheumatica. 5. He has nicotine dependence (cigarettes). Problems Addressed with this Encounter and Plan: 1. 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 He had presented initially with small bowel obstruction, and he underwent exploratory laparotomy with the ileocolic resection on 06/23/2014. He had developed severe diarrhea following the surgery, but it generally was controlled on Imodium, and the cause was uncertain. He did not appear clinically to have carcinoid syndrome, and he initially was followed on observation/symptomatic management. A followup CT scan in November 2014 did show a slight increase in the number of hepatic metastatic lesions, with the largest lesion measuring 2.0 cm. That study showed marked dilatation of the colon at the anastomotic site with possible partial obstruction at 10 cm from the anastomosis. An area of narrowing was noted in that area, with no associated mass. There were new subcentimeter lymph nodes in the mesentery of the right abdomen. He was seen then by Dr. Kelsey, but there was no evidence of obstruction on a followup colonoscopy. Restaging CT in July 2015 appeared stable. However, his repeat CT scan of the abdomen/pelvis on 12/21/2017 did appear to show some further disease progression in the liver. At that point his tumor markers were stable, but he was having more diarrhea, and in December 2017 he began treatment with Sandostatin LAR 20 mg monthly. He did have symptomatic benefit with improvement in his diarrhea and in his night sweating. As of July 2020 his follow-up CT scans had shown no significant progression of the carcinoid and he continued treatment with Sandostatin LAR. During subsequent follow-up he had remained stable clinically. As of his follow-up visit here on 07/23/2021 he appeared stable clinically. At that point he was scheduled to come in for restaging CT scans. In the meantime, on 07/29/2021 he was admitted to the hospital with acute GI bleeding. His EGD showed evidence of grade 2 esophageal varices and multiple ulcerations in the gastric body, but there is no bleeding noted at the time of that procedure. His colonoscopy was unrevealing. He was ultimately discharged with a presumptive diagnosis of bleeding ulcers, though it was suspected that the bleeding source may have been from somewhere in the small intestine. A CT abdomen/pelvis at the time of his admission showed no significant change in the multiple low-density liver lesions. There were no other acute findings in the abdomen/pelvis. The infrarenal abdominal aortic aneurysm appeared stable measuring 4.4 cm. At this point he continues treatment with pantoprazole 40 mg daily. I will check his serum iron studies, and he will begin oral iron supplementation as indicated. He will be scheduled for a follow-up visit in 2 weeks. 2. He has reported decrease in memory and cognitive dysfunction, and both he and his family indicate that he has been getting more irritable. It is likely that he is having early symptoms of dementia. I will have him start citalopram 10 mg daily, and I will arrange for referral to Dr. Gandara. Signed By: Jamir Joel M.D. <<Signature on File>>
== END 2021-08-15 14:50 | disposition home or self-care (01) ==
LOC: ONCMED 14:53
PROVIDERS: PCP Registered Nurse; Visit Provider Internal Medicine Medical Oncology
DX: C7A.012 Malignant carcinoid tumor of the ileum (principal); C7B.02 Secondary carcinoid tumors of liver; I71.4 Abdominal aortic aneurysm, without rupture; I48.91 Unspecified atrial fibrillation; Z79.899 Other long term (current) drug therapy; J44.9 Chronic obstructive pulmonary disease, unspecified; Z87.891 Personal history of nicotine dependence
CPT/HCPCS: 36415; 80053; 82607; 82728; 83540; 83550; 84443; 85025; 99214

== ENCOUNTER 2021-08-21 06:46 | Outpatient (CLI) | payer MEDICARE, SELFPAY ==
[2021-08-21] MEDS: octreotide LAR depot 20 mg Kit IM (08:43)
== END 2021-08-21 06:47 | disposition home or self-care (01) ==
LOC: ONCMED 06:47
PROVIDERS: PCP Registered Nurse; Visit Provider Internal Medicine Medical Oncology
DX: C7A.012 Malignant carcinoid tumor of the ileum (principal); C7B.02 Secondary carcinoid tumors of liver; Z79.818 Long term (current) use of other agents affecting estrogen receptors and estrogen levels
CPT/HCPCS: 96372; J2353

== ENCOUNTER 2021-09-20 11:06 | Outpatient (CLI) | payer MEDICARE, SELFPAY ==
[2021-09-20] MEDS: octreotide LAR depot 20 mg Kit IM (11:40)
== END 2021-09-20 11:07 | disposition home or self-care (01) ==
PROVIDERS: PCP Registered Nurse; Visit Provider Internal Medicine Medical Oncology
DX: C7A.012 Malignant carcinoid tumor of the ileum (principal); C7B.02 Secondary carcinoid tumors of liver; Z79.818 Long term (current) use of other agents affecting estrogen receptors and estrogen levels
CPT/HCPCS: 96372; J2353

== ENCOUNTER → 2021-09-30 10:39 | Outpatient (BNVA) | payer MEDICARE, SELFPAY | PROVIDERS: PCP Registered Nurse; Visit Provider Surgery | DX: Z20.822 Contact with and (suspected) exposure to COVID-19 (principal) | CPT/HCPCS: 87635 ==

== ENCOUNTER 2021-10-03 06:35 | Day surgery (SDC) | payer MEDICARE, SELFPAY ==
[2021-09-30 13:02] VITALS: BMI 18.6
--- NOTE | 2021-10-03 07:17 | ANES.PREANE2 ---
Pre-Anesthetic Assessment Height/Weight: Height 1.88 m Weight 65.771 kg Preop Diagnosis: History of gastric ulcers and hematochezia Operation Date: 10/03/21 08:00 Proposed Procedures p EGD 39227 k27.4(Not Applicable) - Olman Marquez MD Familial anesthetic complications: None Was Beta Greg taken within 24 hours: N/A Was Clonidine taken within 24 hours: N/A Social No alcohol and No tobacco Exam alert, oriented x 3, clear to auscultation bilaterally and regular rate & rhythm Airway Submandibular: within normal limits Cervical ROM: within normal limits Mallampati: Class I Dentition: false History/ROS No significant complaints Pulmonary Chronic Obstructive Pulmonary Disease Able to chop wood, ascend 3 flights of stairs CV/HEM Anemia and Arrythmia (SVT) Hx of pacemaker insertion EKG ? Interpretive Statements ELECTRONIC ATRIAL PACEMAKER POSSIBLE RIGHT VENTRICULAR CONDUCTION DELAY? [RSR (QR) IN V1/V2] ABNORMAL RHYTHM ECG Compared to ECG 07/31/2021 02:04:29 Sinus rhythm no longer present Sinus arrhythmia no longer present Electronically Signed On 07-31-2021 23:53:08 [employer] by Paras Vidales M.D. [email or web address] None reported Hepatic None reported GI Peptic Ulcer Disease GI Bleed hx Hx of carcinoid tumor Metabolic None reported [facility]/skel PMR Neuropsych None reported Anesthetic Plan ASA status: 2 Anesthesia: Anesthesia Evaluation, General and MAC Other: I discussed with the patient risks, goals, and benefits of MAC and general anesthesia. We discussed spectrum of MAC anesthesia including conversion to general as well as possibility of recall of intraoperative stimuli including discomfort/pain. Patient agrees to proceed with MAC. Risk of > 500 ml blood loss (7ml/kg in children): No Medications/Allergies Home Medications Medication Instructions Recorded Confirmed Last Taken Type multivitamin 1 tab PO QAM 11/01/19 09/30/21 Unknown History triamcinolone acetonide 0.1 % See Rx Instructions .ROUTE 05/15/21 09/30/21 Unknown Rx topical cream .COMPLEX #454 g citalopram 10 mg tablet 10 mg PO DAILY 09/04/21 09/30/21 Unknown History ferrous sulfate 325 mg (65 mg 325 mg PO DAILY #60 tab 09/06/21 09/30/21 Unknown Rx iron) tablet (FeroSul) pantoprazole 40 mg tablet,delayed 40 mg PO DAILY #90 tab 09/06/21 09/30/21 Unknown Rx release Lactobacillus 40-Bifidobact 1 cap PO DAILY 09/30/21 09/30/21 Unknown History 3-S.thermophilus 100 billion cell capsule (Probiotic) Sandostatin See Rx Instructions .ROUTE .COMPLEX 09/30/21 09/30/21 Unknown History Allergies Allergy/AdvReac Type Severity Reaction Status Date / Time Penicillins Allergy Unknown unknown Verified 09/30/21 13:04 REPLACED BY [facility] Anesthesia Medical History Abdominal aortic aneurysm COPD (chronic obstructive pulmonary disease) GI bleed Metastatic carcinoid tumor Polymyalgia rheumatica SVT (supraventricular tachycardia) Surgical History H/O colectomy History of appendectomy Hx of cardiac pacemaker Social History Smoking and tobacco status: never smoked Second hand smoke exposure: Yes Alcohol intake: never Data Anesthesia Cardiac Studies: No Data to Display
--- NOTE | 2021-10-03 07:32 | W.PM.OPSUD ---
Surgery/Procedure H&P Update DATE OF PROCEDURE: October 03, 2021 DATE H&P PERFORMED: 09/04/21 CHANGES TO PREVIOUS DOCUMENTATION: none PREOP DIAGNOSIS: History of gastric ulcers and hematochezia PRIMARY INDICATION FOR PROCEDURE: The same PLANNED PROCEDURE: Operation Date: 10/03/21 08:00 Proposed Procedures p EGD 94282 k27.4(Not Applicable) - Olman Marquez MD
[2021-10-03 07:48] VITALS: BP 143/79; PULSE 77; RESP 18; TEMP 36.3; O2SAT 98
[2021-10-03] MEDS: sodium chloride 0.9% 1,000 ML 30 ML IV (07:50)
[2021-10-03 08:27] VITALS: BP 120/71; PULSE 69; RESP 16; TEMP 36.1; O2SAT 98
[2021-10-03 08:42] VITALS: BP 119/69; PULSE 67; RESP 18; TEMP 36.1; O2SAT 96
--- NOTE | 2021-10-03 12:49 | ANE.PACU2 ---
Inpatient post-anesthesia follow up: Airway intact: Yes Vital signs: Temperature 97 F Pulse Rate 67 Respiratory Rate 18 Blood Pressure 119/69 Pulse Oximetry 96 Oxygen Delivery Me thod Room Air Oxygen Flow Rate Fraction of Inspir ed Oxygen Hydration adequate: Yes Nausea and vomiting: No Pain level: 1 Mental status: Baseline
== END 2021-10-03 08:53 | disposition home or self-care (01) ==
PROVIDERS: PCP Registered Nurse; Visit Provider Surgery
PROC: 0DJ08ZZ Inspection of Upper Intestinal Tract, Via Natural or Artificial Opening Endoscopic (ICD-10-PCS; CPT 43235; principal; 2021-10-03 08:00)
DX: Z87.11 Personal history of peptic ulcer disease (principal); I85.00 Esophageal varices without bleeding; K44.9 Diaphragmatic hernia without obstruction or gangrene; K29.70 Gastritis, unspecified, without bleeding; J44.9 Chronic obstructive pulmonary disease, unspecified; Z95.0 Presence of cardiac pacemaker; Z85.030 Personal history of malignant carcinoid tumor of large intestine; Z90.49 Acquired absence of other specified parts of digestive tract
CPT/HCPCS: 43239; 88305; J2704; J7030

== ENCOUNTER 2021-10-21 12:20 | Outpatient (CLI) | payer MEDICARE, SELFPAY ==
[2021-10-21 13:03] LABS: Basophils # 0.1 10^3/uL (0.0-0.1); Basophils % 0.8 %; Eosinophils # 0.1 10^3/uL (0.0-0.8); Eosinophils % 1.4 %; Hematocrit 37.1 % (42.0-52.0); Hemoglobin 12.4 g/dL (11.7-16.6); Lymphocytes # 1.7 10^3/uL (0.8-4.8); Lymphocytes % 26.7 %; Mean Corpuscular HGB Conc 33.4 g/dL (30.0-36.0); Mean Corpuscular Hemoglobin 33.9 pg (28.0-34.0); Mean Corpuscular Volume 101.4 fl (80-94); Mean Platelet Volume 10.1 fL (7.4-10.4); Monocytes # 0.9 10^3/uL (0.2-0.9); Monocytes % 13.8 %; Neutrophils # 3.55 10^3/uL (1.8-7.7); Neutrophils % 57.1 %; Nucleated Red Blood Cells % 0 %; Platelet Count 132 10^3/cmm (130-400); Red Blood Count 3.66 10^6/uL (4.1-5.3); Red Cell Distribution Width 15.7 % (12.1-15.1); White Blood Count 6.2 10^3/uL (4.0-10.0)
[2021-10-21 13:24] LABS: Alanine Aminotransferase 17 U/L (0-41); Albumin Level 4.4 g/dL (3.5-5.2); Alkaline Phosphatase 139 IU/L (40-130); Anion Gap 14.5 (5-19); Aspartate Amino Transferase 25 U/L (0-40); Blood Urea Nitrogen 20 mg/dL (8-23); Calcium 8.9 mg/dL (8.5-10.5); Carbon Dioxide 24 mmol/L (22-29); Chloride 102 mmol/L (98-107); Glucose 129 mg/dL (65-115); Iron 81 ug/dL (59-158); Osmolality Calculated 286 mOsm/kg (285-295); Percent Saturation 30.3 % (20-50); Potassium 4.5 mmol/L (3.5-5.1); Sodium 136 mmol/L (136-145); Total Bilirubin 0.4 mg/dL (0.15-1.2); Total Iron Binding Capacity 267 mcg/dl; Total Protein 7.4 g/dL (6.6-8.7); Unsaturated Iron Binding 186 ug/dL (112-347)
[2021-10-21] MEDS: octreotide LAR depot 20 mg Kit IM (14:14)
--- NOTE | 2021-10-24 08:21 | ONC FU_ITS ---
Dr. Joel Patient Follow-Up Note Patient: Jigar Ochoa Unit #: [id number]: 1940 Dicatated By: Jamir Joel M.D.Date of Visit:Oct 21, 2021 Onc Med Follow-up/Prog Note Chief Complaint: Malignant carcinoid. History of Present Illness: This is an 81 year-old man with metastatic carcinoid involving the liver. He had presented to the emergency room in May 2014 with abdominal pain, bloating, and constipation. Abdominal CT scan showed high-grade small bowel obstruction with a transition point which appeared to be near the region of the cecum. There was felt to be probably a cecal mass, though a discrete mass was difficult to identify. There was a cluster of lymph nodes in the mesentery measuring 2.8 x 1.4 cm which was suspicious for metastatic disease, and there were lesions in the liver which were suspicious for metastases. Incidentally noted was an infrarenal abdominal aortic aneurysm measuring 3.5 cm. On 06/23/14 he underwent exploratory laparotomy. He was found to have a distal small bowel obstructing mass approximately 50 cm from the terminal ileum. There was an additional mesenteric mass adjacent to it at the level of the mid mesentery. On palpation, there are also was suspicion of a cecal mass. There were multiple small nodules identified on the surface of the liver. The procedure included resection of the distal small bowel to include the small bowel mass and the mesenteric mass, right hemicolectomy, and liver biopsy. On further examination, there was no mass found in the cecum. Pathology showed low-grade carcinoid tumor measuring 1.5 cm in greatest dimension. The tumor was extending into the deep muscularis into the subserosa. The margins were free including a 6 cm proximal margin, 50 cm distal margin, and a 4 cm radial margin. There was involvement in 4 of 21 lymph nodes. The liver biopsy showed metastatic carcinoid tumor. I had seen him initially in July 2014. At that time, he was having severe diarrhea and he also was very weak. His laboratory studies did show iron deficiency, though he was just borderline anemic with hemoglobin 12.9 g. His albumin was low at 2.8 g/dL. Liver enzymes and bilirubin were normal. TSH was normal, as was the B12 level. His chromogranin A level was normal at 3 nmol per liter and a 24-hour urine HIAA also was normal. Multiple stool samples were negative for Clostridium difficile. He had subsequently shown gradual improvement with symptomatic management. During follow-up, there was suspicion of bowel obstruction on restaging CT scans, but repeat colonoscopy in February 2015 showed patent ileocolic anastomosis and no other significant abnormalities. CT scan of the abdomen and pelvis performed 07/18/2016 showed numerous metastatic nodules within the liver. Taking into consideration difference in technique and slice selection there was no significant progression since 07/04/2015. New soft tissue thickening was noted around the abdominal aortic aneurysm. 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 The abdominal aortic aneurysm was noted to measure 3.8 cm transverse diameter with a 2 mm increase in size since 07/04/2015. He continued observation/expectant management. A follow-up CTA of the thoracic/abdominal aorta on 06/09/2017 showed mild ectasia and predominantly noncalcified atherosclerotic plaque of the aortic arch and descending thoracic aorta. The infrarenal fusiform abdominal aortic aneurysm appeared stable compared to the study from July 2016. There was no change in the probable inflammatory retroperitoneal soft tissue thickening anterior to the inferior aspect of the aneurysm. Also noted was some progression of metastatic involvement in the liver, the largest measuring up to 2.9 cm compared to 2.3 cm on the prior exam. Restaging CT of the abdomen/pelvis on 12/21/2017 showed progression in the size and number of metastatic lesions within the liver. There were 2 lesions identified in the left lobe, the largest measuring 1.7 cm. A new nodule was noted adjacent the falciform ligament. At least 5 metastatic lesions were identified within the right lobe, the largest measuring 2.8 cm. There was no associated lymphadenopathy. The abdominal aortic aneurysm was noted to be stable with a maximum diameter of 3.9 cm. At that point his tumor markers had not changed significantly, but he appeared to be having more significant diarrhea, and I did opt to have him begin monthly injections of Sandostatin LAR. Restaging CT scans of the chest, abdomen, and pelvis on 07/11/2020 showed several low-density lesions in the liver, the largest in the posterior aspect of the right lobe measuring 2.4 cm. These had not changed significantly. There was no other evidence of malignancy. There was evidence of abdominal aortic aneurysm measuring 3.9 cm with associated mural thrombus, but no extravasation. He continued treatment with Sandostatin LAR. 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 He also has COPD. He has no other medical illnesses. He has a history of smoking 2 packs of cigarettes daily for 50 years. He quit smoking in August 2016. INTERIM HISTORY: On 07/29/2021 he was seen in the emergency room following an apparent vasovagal attack at home. He had passed out on the toilet while having a bowel movement and fallen on the floor. He was initially discharged home but he then returned to the emergency room and was admitted to the hospital after he had rectal bleeding. His EGD the following day showed grade 2 esophageal varices, and there were multiple small ulcerations noted in the gastric body. There was no active bleeding. A polyp was removed from the second portion of the duodenum. Pathology showed benign duodenal mucosa with fragmented hyperplastic polyp. Colonoscopy showed evidence of hematochezia throughout the whole left side of the colon and towards the terminal ileum, but without an identifiable source of blood loss. Further evaluation with enteroscopy was recommended, and he was also recommended to have repeat colonoscopy within 6 months. He initially appeared to have stabilized in the hospital, but then he developed abrupt recurrence of bright red rectal bleeding, and he was then transferred to the [facility] for further management. I have not received those records. From his description it sounds as though he had a negative bleeding scan and the bleeding had subsided with conservative treatment measures. He was discharged home on 08/05/2021 with the presumptive diagnosis of bleeding ulcers. At his follow-up visit on 08/15/2021 he was still pretty weak generally. His hemoglobin was adequate at 10.0 g. He was started on oral iron supplementation, as his transferrin saturation was low at 12.6%. He continued treatment with pantoprazole. He is seen for a follow-up visit. He is feeling better generally. He says his energy is not bad now. He is able to do light work. His appetite is okay, but he does complain that he cannot gain weight. He has not had fever. He sometimes has a little bit of sweating at night. He complains that his throat has felt a little raw. He has had some chest congestion, and he has been coughing up clear phlegm. His breathing is not bad, though. He occasionally uses his inhaler at night. He has not been having chest pain. He currently has no GI or complaints. He has no significant joint or bone pain. He does not complain of headache, and he has no focal neurologic symptoms. Medications: FeroSul (325 (65 fe) mg) Tablet Oral Take as Directed, Multivitamins 1 Tablet Oral daily, Pantoprazole Sodium 1 Tablet (of 40 mg) Tablet, enteric coated Oral daily, SandoSTATIN LAR [place] 1 (20 mg) Intramuscular q 4 weeks Allergies: PCN Vital Signs: Performed on Oct 21, 2021 14:40 Height - 74.00 in Weight - 159.0 lbs (LOW) BSA - 1.97 sq.m BMI - 20.41 Temperature - 98.8 F Pulse - 83 /min Respiration - 16 /min BP - 136/82 mm(hg) O2 Sat - 98 % Pain - 0 Fatigue - 3 Physical Examination: Constitutional - He looks pretty good generally, Eyes - Sclerae nonicteric. Conjunctivae clear, ENMT - No lesions noted in the oral cavity, Hematologic/Lymphatic - No cervical, clavicular, or axillary adenopathy, Respiratory - Lungs sound clear with diminished air movement bilaterally, Cardiovascular - Heart rhythm is regular. There is no murmur, gallop, or rub noted, Abdomen - Thin but soft. Liver is not enlarged. Spleen is not palpable. There is no abdominal mass or ascites noted and there is no inguinal adenopathy, Extremities - No edema. There are purpuric lesions on both arms, Neurologic - No focal neurologic deficits noted. Lab/Imaging: Test performed on Oct 21, 2021 12:50 Iron 81 mcg/dL Sodium 136 mmol/L Iron Binding Capacity (TIBC) 267 mcg/dl Potassium 4.5 mmol/L % Iron Saturation 30.3 % Chloride 102 mmol/L CO2 24 mmol/L UIBC 186 mcg/dL Anion Gap 14.5 BUN 20 mg/dL Creatinine 1.2 mg/dL Cr Clearance (Est) 47.58 mL/min Glucose 129 mg/dL Osmolality - Calculated 286 mOsm/kg Calcium 8.9 mg/dL Protein, Total 7.4 g/dL Albumin 4.4 g/dL Globulin 3.0 g/dL Bilirubin, Total 0.4 mg/dL ALT (SGPT) 17 U/L AST (SGOT) 25 U/L Alkaline Phosphatase 139 IU/L WBC 6.2 10 3/uL RBC 3.66 10 6/uL HGB 12.4 g/dL HCT 37.1 % MCV 101.4 fl MCH 33.9 pg MCHC 33.4 g/dL RDW 15.7 % Platelet Count 132 10 3/cmm MPV 10.1 fL Neutrophils 3.55 10 3/uL Lymphocytes 1.7 10 3/uL Monocytes 0.9 10 3/uL Eosinophils 0.1 10 3/uL Basophils 0.1 10 3/uL Neutrophil % 57.1 % Lymphocyte % 26.7 % Monocyte % 13.8 % Eosinophil % 1.4 % Basophils % 0.8 % NRBC % 0 % Problem List: 1. 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 2. He also has CT evidence of abdominal aortic aneurysm. 3. History of atrial fibrillation. 4. He apparently has a prior diagnosis of polymyalgia rheumatica. 5. He has nicotine dependence (cigarettes). Problems Addressed with this Encounter and Plan: 1. 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 He had presented initially with small bowel obstruction, and he underwent exploratory laparotomy with the ileocolic resection on 06/23/2014. He had developed severe diarrhea following the surgery, but it generally was controlled on Imodium, and the cause was uncertain. He did not appear clinically to have carcinoid syndrome, and he initially was followed on observation/symptomatic management. A followup CT scan in November 2014 did show a slight increase in the number of hepatic metastatic lesions, with the largest lesion measuring 2.0 cm. That study showed marked dilatation of the colon at the anastomotic site with possible partial obstruction at 10 cm from the anastomosis. An area of narrowing was noted in that area, with no associated mass. There were new subcentimeter lymph nodes in the mesentery of the right abdomen. He was seen then by Dr. Kelsey, but there was no evidence of obstruction on a followup colonoscopy. Restaging CT in July 2015 appeared stable. However, his repeat CT scan of the abdomen/pelvis on 12/21/2017 did appear to show some further disease progression in the liver. At that point his tumor markers were stable, but he was having more diarrhea, and in December 2017 he began treatment with Sandostatin LAR 20 mg monthly. He did have symptomatic benefit with improvement in his diarrhea and in his night sweating. As of July 2020 his follow-up CT scans had shown no significant progression of the carcinoid and he continued treatment with Sandostatin LAR. During subsequent follow-up he had remained stable clinically. As of his follow-up visit here on 07/23/2021 he appeared stable clinically. At that point he was scheduled to come in for restaging CT scans. In the meantime, on 07/29/2021 he was admitted to the hospital with acute GI bleeding. His EGD showed evidence of grade 2 esophageal varices and multiple ulcerations in the gastric body, but there is no bleeding noted at the time of that procedure. His colonoscopy was unrevealing. He was ultimately discharged with a presumptive diagnosis of bleeding ulcers, though it was suspected that the bleeding source may have been from somewhere in the small intestine. A CT abdomen/pelvis at the time of his admission showed no significant change in the multiple low-density liver lesions. There were no other acute findings in the abdomen/pelvis. The infrarenal abdominal aortic aneurysm appeared stable measuring 4.4 cm. As of his follow-up visit on 08/15/2021 his hemoglobin was adequate at 10 g. His transferrin saturation was low at 12.6%, and he did start on oral iron supplementation. Since then he has had improvement in his clinical status, and his hemoglobin is now back up to 12.4 g. He will continue on his oral iron supplement. In the absence of any evidence of progression of the malignant carcinoid, he will continue on his monthly Sandostatin LAR injections. I will see him again in 3 months. 2. He has suspected early dementia, as he had reported decrease in memory and cognitive dysfunction and both he and his family indicated that he had been getting more irritable. He was started on citalopram 10 mg daily, and he has been referred to Dr. Gandara. Signed By: Jamir Joel M.D. <<Signature on File>>
[2021-10-25 18:18] LABS: 24 Hour Urine Volume 1800 mL; 5-HIAA, 24 Hour Urine 7.7 mg/24 h (<=6.0)
== END 2021-10-21 12:21 | disposition home or self-care (01) ==
PROVIDERS: PCP Registered Nurse; Visit Provider Internal Medicine Medical Oncology
DX: C78.7 Secondary malignant neoplasm of liver and intrahepatic bile duct (principal); I48.91 Unspecified atrial fibrillation; M35.3 Polymyalgia rheumatica; I71.4 Abdominal aortic aneurysm, without rupture; J44.9 Chronic obstructive pulmonary disease, unspecified; F17.210 Nicotine dependence, cigarettes, uncomplicated; Z79.899 Other long term (current) drug therapy; Z95.0 Presence of cardiac pacemaker; Z85.068 Personal history of other malignant neoplasm of small intestine
CPT/HCPCS: 36415; 80053; 83497; 83540; 83550; 85025; 96372; 99215; J2353

== ENCOUNTER 2021-11-18 13:48 | Outpatient (CLI) | payer MEDICARE, SELFPAY ==
[2021-11-18] MEDS: octreotide LAR depot 20 mg Kit IM (14:20)
[2021-11-18 14:22] LABS: Basophils % 0.5 %; Eosinophils # 0.1 10^3/uL (0.0-0.8); Eosinophils % 1.9 %; Hematocrit 37.5 % (42.0-52.0); Hemoglobin 12.4 g/dL (11.7-16.6); Lymphocytes # 1.4 10^3/uL (0.8-4.8); Lymphocytes % 24.1 %; Mean Corpuscular HGB Conc 33.1 g/dL (30.0-36.0); Mean Corpuscular Hemoglobin 33.4 pg (28.0-34.0); Mean Corpuscular Volume 101.1 fl (80-94); Mean Platelet Volume 10.2 fL (7.4-10.4); Monocytes # 0.8 10^3/uL (0.2-0.9); Monocytes % 12.7 %; Neutrophils # 3.57 10^3/uL (1.8-7.7); Neutrophils % 60.5 %; Nucleated Red Blood Cells % 0 %; Platelet Count 132 10^3/cmm (130-400); Red Blood Count 3.71 10^6/uL (4.1-5.3); Red Cell Distribution Width 14.6 % (12.1-15.1); White Blood Count 5.9 10^3/uL (4.0-10.0)
[2021-11-18 14:42] LABS: Alanine Aminotransferase 16 U/L (0-41); Albumin Level 4.1 g/dL (3.5-5.2); Alkaline Phosphatase 138 IU/L (40-130); Anion Gap 14.5 (5-19); Aspartate Amino Transferase 27 U/L (0-40); Blood Urea Nitrogen 16 mg/dL (8-23); Calcium 8.8 mg/dL (8.5-10.5); Carbon Dioxide 24 mmol/L (22-29); Chloride 101 mmol/L (98-107); Glucose 152 mg/dL (65-115); Iron 63 ug/dL (59-158); Osmolality Calculated 284 mOsm/kg (285-295); Percent Saturation 25.6 % (20-50); Potassium 4.5 mmol/L (3.5-5.1); Sodium 135 mmol/L (136-145); Total Bilirubin 0.4 mg/dL (0.15-1.2); Total Iron Binding Capacity 246 mcg/dl; Total Protein 7.1 g/dL (6.6-8.7); Unsaturated Iron Binding 183 ug/dL (112-347)
== END 2021-11-18 13:49 | disposition home or self-care (01) ==
PROVIDERS: PCP Registered Nurse; Visit Provider Internal Medicine Medical Oncology
DX: C7A.012 Malignant carcinoid tumor of the ileum (principal); C7B.02 Secondary carcinoid tumors of liver; Z79.818 Long term (current) use of other agents affecting estrogen receptors and estrogen levels
CPT/HCPCS: 80053; 83540; 83550; 85025; 96372; J2353

== ENCOUNTER 2021-12-16 12:32 | Outpatient (CLI) | payer MEDICARE, SELFPAY ==
[2021-12-16] MEDS: octreotide LAR depot 20 mg Kit IM (12:53)
== END 2021-12-16 12:33 | disposition home or self-care (01) ==
LOC: ONCMED 12:35
PROVIDERS: PCP Registered Nurse; Visit Provider Internal Medicine Medical Oncology
DX: C7A.012 Malignant carcinoid tumor of the ileum (principal); C7B.02 Secondary carcinoid tumors of liver; Z79.818 Long term (current) use of other agents affecting estrogen receptors and estrogen levels
CPT/HCPCS: 96372; 96402; J2353

== ENCOUNTER 2022-01-13 08:55 | Oncology outpatient (recurring) (ONCR) | payer MEDICARE, SELFPAY ==
[2022-01-13] MEDS: octreotide LAR depot 20 mg Kit IM (11:17)
== END 2022-01-28 23:59 | disposition home or self-care (01) ==
PROVIDERS: PCP Registered Nurse; Referring Provider Surgery; Visit Provider Internal Medicine Medical Oncology
DX: C7A.012 Malignant carcinoid tumor of the ileum (principal); C7B.02 Secondary carcinoid tumors of liver; R19.7 Diarrhea, unspecified; R61 Generalized hyperhidrosis; D64.9 Anemia, unspecified; Z79.818 Long term (current) use of other agents affecting estrogen receptors and estrogen levels; Z79.899 Other long term (current) drug therapy
CPT/HCPCS: 80053; 83497; 83540; 83550; 85025; 96372; 99214; 99999; J2353

== ENCOUNTER 2022-02-14 07:53 | Oncology outpatient (recurring) (ONCR) | payer MEDICARE, SELFPAY ==
[2022-02-14 08:05] VITALS: BMI 19.5
[2022-02-14] MEDS: octreotide LAR depot 20 mg Kit IM (08:20)
[2022-02-14 08:23] VITALS: BP 138/80; PULSE 65; RESP 18; TEMP 35.9; O2SAT 99
== END 2022-02-27 23:59 | disposition home or self-care (01) ==
PROVIDERS: PCP Registered Nurse; Referring Provider Surgery; Visit Provider Internal Medicine Medical Oncology
DX: Z79.818 Long term (current) use of other agents affecting estrogen receptors and estrogen levels (principal); C7A.012 Malignant carcinoid tumor of the ileum
CPT/HCPCS: 96372; J2353

== ENCOUNTER → 2022-03-14 09:35 | Outpatient (BNVA) | payer MEDICARE, SELFPAY | PROVIDERS: PCP Registered Nurse; Visit Provider Internal Medicine | DX: Z45.010 Encounter for checking and testing of cardiac pacemaker pulse generator [battery] (principal) | CPT/HCPCS: 93280 ==

== ENCOUNTER 2022-03-18 07:45 | Oncology outpatient (recurring) (ONCR) | payer MEDICARE, SELFPAY ==
[2022-03-18 08:06] VITALS: BMI 19.3
[2022-03-18] MEDS: octreotide LAR depot 20 mg Kit IM (08:31)
== END 2022-03-30 23:59 | disposition home or self-care (01) ==
LOC: ONCMED 07:46
PROVIDERS: PCP Registered Nurse; Referring Provider Surgery; Visit Provider Internal Medicine Medical Oncology
DX: Z79.818 Long term (current) use of other agents affecting estrogen receptors and estrogen levels (principal); C7A.012 Malignant carcinoid tumor of the ileum
CPT/HCPCS: 96372; J2353

== ENCOUNTER 2022-04-17 07:50 | Oncology outpatient (recurring) (ONCR) | payer MEDICARE, SELFPAY ==
[2022-04-17 08:37] LABS: Basophils % 0.7 %; Eosinophils # 0.1 10^3/uL (0.0-0.8); Eosinophils % 2.4 %; Hematocrit 41.6 % (42.0-52.0); Hemoglobin 13.8 g/dL (11.7-16.6); Lymphocytes # 1.2 10^3/uL (0.8-4.8); Lymphocytes % 21.5 %; Mean Corpuscular HGB Conc 33.2 g/dL (30.0-36.0); Mean Corpuscular Hemoglobin 34.7 pg (28.0-34.0); Mean Corpuscular Volume 104.5 fl (80-94); Mean Platelet Volume 10.9 fL (7.4-10.4); Monocytes # 0.8 10^3/uL (0.2-0.9); Neutrophils # 3.36 10^3/uL (1.8-7.7); Neutrophils % 61.2 %; Nucleated Red Blood Cells % 0 %; Platelet Count 88 10^3/cmm (130-400); Red Blood Count 3.98 10^6/uL (4.1-5.3); Red Cell Distribution Width 15.1 % (12.1-15.1); White Blood Count 5.5 10^3/uL (4.0-10.0)
[2022-04-17 08:57] LABS: Alanine Aminotransferase 18 U/L (0-41); Albumin Level 4.1 g/dL (3.5-5.2); Alkaline Phosphatase 230 U/L (40-130); Anion Gap 14.8 (5-19); Aspartate Amino Transferase 33 U/L (0-40); Blood Urea Nitrogen 17 mg/dL (8-23); Calcium 9.1 mg/dL (8.5-10.5); Carbon Dioxide 27 mmol/L (22-29); Chloride 99 mmol/L (98-107); Globulin 2.7 g/dL (1.3-4.6); Glucose 89 mg/dL (65-115); Iron 66 ug/dL (59-158); Osmolality Calculated 283 mOsm/kg (285-295); Percent Saturation 26.6 % (20-50); Potassium 4.8 mmol/L (3.5-5.1); Sodium 136 mmol/L (136-145); Total Bilirubin 1.1 mg/dL (0.15-1.2); Total Iron Binding Capacity 248 mcg/dl; Total Protein 6.8 g/dL (6.6-8.7); Unsaturated Iron Binding 182 ug/dL (112-347)
[2022-04-17] MEDS: octreotide LAR depot 20 mg Kit IM (10:00)
[2022-04-22 20:07] LABS: 24 Hour Urine Volume 1650 mL; 5-HIAA, 24 Hour Urine 17.7 mg/24 h (<=6.0)
[2022-04-24 15:57] LABS: Serotonin Whole Blood <10 ng/mL (56-244)
[2022-04-25 17:08] LABS: Chromogranin A LC/MS/MS 441 ng/mL (ADULTS: <311)
== END 2022-04-30 23:59 | disposition home or self-care (01) ==
PROVIDERS: PCP Registered Nurse; Referring Provider Surgery; Visit Provider Internal Medicine Medical Oncology
DX: Z79.818 Long term (current) use of other agents affecting estrogen receptors and estrogen levels (principal); C7A.012 Malignant carcinoid tumor of the ileum; C7B.02 Secondary carcinoid tumors of liver; F17.210 Nicotine dependence, cigarettes, uncomplicated; Z79.899 Other long term (current) drug therapy; D50.9 Iron deficiency anemia, unspecified
CPT/HCPCS: 36415; 80053; 83497; 83540; 83550; 84260; 85025; 86316; 96372; 96401; 99214; J2353

== ENCOUNTER → 2022-04-30 12:49 | Outpatient (BNVA) | payer MEDICARE, SELFPAY | PROVIDERS: PCP Registered Nurse; Visit Provider Internal Medicine Cardiovascular Disease | DX: D64.9 Anemia, unspecified (principal); C7A.012 Malignant carcinoid tumor of the ileum; I71.4 Abdominal aortic aneurysm, without rupture; J44.9 Chronic obstructive pulmonary disease, unspecified; Z86.79 Personal history of other diseases of the circulatory system; I49.5 Sick sinus syndrome; Z95.0 Presence of cardiac pacemaker; F17.200 Nicotine dependence, unspecified, uncomplicated | CPT/HCPCS: 99213; 99214 ==

== ENCOUNTER 2022-05-15 14:30 | Oncology outpatient (recurring) (ONCR) | payer MEDICARE, SELFPAY ==
--- NOTE | 2022-05-12 15:48 | CT_ITS ---
WS: [id number] CT CHEST, ABDOMEN AND PELVIS WITH CONTRAST HISTORY: Follow up colon cancer and liver metastases. TECHNIQUE: Contiguous 5 mm axial imaging performed through the chest, abdomen and pelvis with IV cont rast, oral contrast has been provided. Coronal and sagittal reformats chest. Coronal and sagittal ref ormats through the abdomen and pelvis. All CT scans at [facility] use at least one of these d ose optimization techniques: automated exposure control; mA and/or kV adjustment per patient size (in cludes targeted exams where dose is matched to clinical indication); or iterative reconstruction. CONTRAST: Visipaque 320; 95 mL IV. DLP: 1416.77 mGy.cm COMPARISON: 07/29/2021 and 07/11/[address]: Hyperexpanded lungs from emphysema. No pulmonary mass or nodule. No pneumonia. No pericardi al or pleural effusions. Atherosclerotic plaque throughout the thoracic aorta. There is intimal thick ening and scattered calcifications. No aneurysm. Normal pulmonary artery. No mediastinal or hilar ajay nopathy. LEFT subclavian dual lead cardiac pacer. Small amount of oral contrast in the mid to distal esophagus from reflux disease or incomplete emptying. Abdomen CT: Liver is normal size. There are multiple hypervascular lesions within the liver. The larg est in the posterior RIGHT lobe measures 3.5 x 2.9 cm. These lesions are little more hypervascular th an on the prior study but this may be due to phase of contrast enhancement at injection. No definite increase in size or number. No improvement. No bile duct dilatation. Normal portal vein. Cholelithias is. Atrophied pancreas. Normal adrenal glands. Mild cortical thinning of each kidney. Stable 1.5 cm c yst lower pole LEFT kidney. Aorta: 4.2 cm abdominal aortic aneurysm. Large amount of circumferential thrombus. Luminal enhancemen t measures 2.9 cm. Atherosclerosis but no aneurysm into the iliac arteries. Small amount of free flui d. Status post partial RIGHT colectomy. Diffuse constipation throughout the remaining colon. There is mi ld wall thickening distal sigmoid colon. Prior appendectomy. Pelvic CT: Small amount of free fluid in the pelvis. There are 2 enhancing nodules in the pelvis with the largest measuring 10 mm. These have increased in size since the prior study. Increase in thoracic kyphosis and lumbar lordosis. No destructive bone lesions. CT/CT chest abd pel w con* IMPRESSION: 1. No metastatic nodules within the lungs. No adenopathy in the mediastinum. 2. Multiple hypervascular metastatic lesions are reidentified. Although these nodules have not significantly increased in size they are more vascular than on the prior study. There is also new ascites in the pelvis and several small hyp ervascular nodules in the pelvis. Consider progression of carcinoid tumor. 3. Infrarenal abdominal aortic aneurysm with a maximum diameter 4.2 cm. No sig nificant increase in size. 4. Prior RIGHT colectomy. Again noted is distention of the colon at the colect juventino site which is similar to prior studies and diffuse constipation. 5. Cholelithiasis. 6. Marked diffuse constipation.
[2022-05-12] MEDS: iodixanol 320 mg/mL 100mL Btl IV (17:12)
[2022-05-12] MEDS: barium sulfate 450 mL Oral Susp PO (17:13)
[2022-05-15] MEDS: octreotide LAR depot 20 mg Kit IM (14:47)
== END 2022-05-30 23:59 | disposition home or self-care (01) ==
PROVIDERS: PCP Registered Nurse; Visit Provider Internal Medicine Medical Oncology
DX: C7A.012 Malignant carcinoid tumor of the ileum (principal); C7B.02 Secondary carcinoid tumors of liver; F17.210 Nicotine dependence, cigarettes, uncomplicated; D50.9 Iron deficiency anemia, unspecified
CPT/HCPCS: 71260; 74177; 96372; 96402; J2353

== ENCOUNTER → 2022-05-28 13:36 | Outpatient (BNVA) | payer MEDICARE, SELFPAY | PROVIDERS: PCP Registered Nurse; Visit Provider Emergency Medicine | DX: N39.0 Urinary tract infection, site not specified (principal); N30.01 Acute cystitis with hematuria | CPT/HCPCS: 81000 ==

== ENCOUNTER 2022-06-12 10:34 | Oncology outpatient (recurring) (ONCR) | payer MEDICARE, SELFPAY ==
[2022-06-12 12:18] LABS: Basophils % 0.6 %; Eosinophils # 0.1 10^3/uL (0.0-0.8); Eosinophils % 0.7 %; Hematocrit 44.3 % (42.0-52.0); Hemoglobin 15.1 g/dL (11.7-16.6); Lymphocytes # 1.8 10^3/uL (0.8-4.8); Lymphocytes % 25.6 %; Mean Corpuscular HGB Conc 34.1 g/dL (30.0-36.0); Mean Corpuscular Hemoglobin 35.9 pg (28.0-34.0); Mean Corpuscular Volume 105.2 fl (80-94); Mean Platelet Volume 10.9 fL (7.4-10.4); Monocytes % 14.5 %; Neutrophils # 4.13 10^3/uL (1.8-7.7); Neutrophils % 58.3 %; Nucleated Red Blood Cells % 0 %; Platelet Count 102 10^3/cmm (130-400); Red Blood Count 4.21 10^6/uL (4.1-5.3); Red Cell Distribution Width 14.6 % (12.1-15.1); White Blood Count 7.1 10^3/uL (4.0-10.0)
[2022-06-12 12:37] LABS: Alanine Aminotransferase 33 U/L (0-41); Alkaline Phosphatase 313 U/L (40-130); Aspartate Amino Transferase 45 U/L (0-40); Blood Urea Nitrogen 21 mg/dL (8-23); Calcium 9.4 mg/dL (8.5-10.5); Carbon Dioxide 27 mmol/L (22-29); Chloride 99 mmol/L (98-107); Globulin 3.3 g/dL (1.3-4.6); Glucose 65 mg/dL (65-115); Iron 121 ug/dL (59-158); Osmolality Calculated 279 mOsm/kg (285-295); Percent Saturation 44.9 % (20-50); Sodium 134 mmol/L (136-145); Total Bilirubin 1.3 mg/dL (0.15-1.2); Total Iron Binding Capacity 269 mcg/dl; Total Protein 7.3 g/dL (6.6-8.7); Unsaturated Iron Binding 148 ug/dL (112-347)
[2022-06-12] MEDS: octreotide LAR depot 20 mg Kit IM (13:01)
[2022-06-20 15:57] LABS: Chromogranin A LC/MS/MS 515 ng/mL (ADULTS: <311)
[2022-06-22 13:38] LABS: Serotonin Whole Blood 12 ng/mL (56-244)
== END 2022-06-30 23:59 | disposition home or self-care (01) ==
PROVIDERS: PCP Registered Nurse; Visit Provider Internal Medicine Medical Oncology
DX: C7A.012 Malignant carcinoid tumor of the ileum (principal); C7B.02 Secondary carcinoid tumors of liver; F17.200 Nicotine dependence, unspecified, uncomplicated; K80.20 Calculus of gallbladder without cholecystitis without obstruction; D64.9 Anemia, unspecified; Z79.818 Long term (current) use of other agents affecting estrogen receptors and estrogen levels; I71.40 Abdominal aortic aneurysm, without rupture, unspecified; I95.9 Hypotension, unspecified
CPT/HCPCS: 36415; 80053; 83540; 83550; 84260; 85025; 86316; 96372; 99214; J2353

== ENCOUNTER 2022-06-14 10:17 | Outpatient (CLI) | payer MEDICARE, SELFPAY ==
[2022-06-27 08:26] LABS: 24 Hour Urine Volume 1530 mL; 5-HIAA, 24 Hour Urine 4.4 mg/24 h (< OR = 6.0)
== END 2022-06-14 10:18 | disposition home or self-care (01) ==
PROVIDERS: PCP Registered Nurse; Visit Provider Internal Medicine Medical Oncology
DX: C7A.012 Malignant carcinoid tumor of the ileum (principal); D64.9 Anemia, unspecified
CPT/HCPCS: 83497

== ENCOUNTER 2022-07-10 13:58 | Oncology outpatient (recurring) (ONCR) | payer MEDICARE, SELFPAY ==
[2022-07-10] MEDS: octreotide LAR depot 20 mg Kit IM (15:03)
[2022-07-10 15:30] VITALS: BP 136/74; PULSE 78; RESP 18; TEMP 36.4; O2SAT 99
== END 2022-07-30 23:59 | disposition home or self-care (01) ==
PROVIDERS: PCP Registered Nurse; Visit Provider Internal Medicine Medical Oncology
DX: C7A.012 Malignant carcinoid tumor of the ileum (principal); C7B.02 Secondary carcinoid tumors of liver
CPT/HCPCS: 96372; 96402; J2353

== ENCOUNTER 2022-08-07 13:54 | Oncology outpatient (recurring) (ONCR) | payer MEDICARE, SELFPAY ==
[2022-08-07 14:48] LABS: Basophils % 0.6 %; Eosinophils # 0.1 10^3/uL (0.0-0.8); Eosinophils % 1.3 %; Hematocrit 42.7 % (42.0-52.0); Hemoglobin 14.6 g/dL (11.7-16.6); Lymphocytes # 1.5 10^3/uL (0.8-4.8); Lymphocytes % 28.7 %; Mean Corpuscular HGB Conc 34.2 g/dL (30.0-36.0); Mean Corpuscular Hemoglobin 36.7 pg (28.0-34.0); Mean Corpuscular Volume 107.3 fl (80-94); Mean Platelet Volume 11.3 fL (7.4-10.4); Monocytes # 0.7 10^3/uL (0.2-0.9); Neutrophils # 2.98 10^3/uL (1.8-7.7); Neutrophils % 56.4 %; Nucleated Red Blood Cells % 0 %; Platelet Count 89 10^3/cmm (130-400); Red Blood Count 3.98 10^6/uL (4.1-5.3); Red Cell Distribution Width 14.4 % (12.1-15.1); White Blood Count 5.3 10^3/uL (4.0-10.0)
[2022-08-07 15:12] LABS: Alanine Aminotransferase 31 U/L (0-41); Albumin Level 3.9 g/dL (3.5-5.2); Alkaline Phosphatase 264 U/L (40-130); Anion Gap 12.9 (5-19); Aspartate Amino Transferase 41 U/L (0-40); Blood Urea Nitrogen 31 mg/dL (8-23); Calcium 9.1 mg/dL (8.5-10.5); Carbon Dioxide 26 mmol/L (22-29); Chloride 101 mmol/L (98-107); Globulin 3.3 g/dL (1.3-4.6); Glucose 85 mg/dL (65-115); Osmolality Calculated 286 mOsm/kg (285-295); Potassium 4.9 mmol/L (3.5-5.1); Sodium 135 mmol/L (136-145); Total Bilirubin 1.3 mg/dL (0.15-1.2); Total Protein 7.2 g/dL (6.6-8.7)
[2022-08-07] MEDS: octreotide LAR depot 20 mg Kit IM (15:22)
[2022-08-13 11:48] LABS: Serotonin Whole Blood 72 ng/mL (56-244)
[2022-08-14 12:30] LABS: 24 Hour Urine Volume 2350 mL
[2022-08-14 12:41] LABS: Chromogranin A LC/MS/MS 1066 ng/mL (ADULTS: <311)
== END 2022-08-30 23:59 | disposition home or self-care (01) ==
PROVIDERS: PCP Registered Nurse; Visit Provider Internal Medicine Medical Oncology
DX: C7B.02 Secondary carcinoid tumors of liver (principal); Z79.818 Long term (current) use of other agents affecting estrogen receptors and estrogen levels; F17.200 Nicotine dependence, unspecified, uncomplicated; Z85.060 Personal history of malignant carcinoid tumor of small intestine; D50.9 Iron deficiency anemia, unspecified; I73.89 Other specified peripheral vascular diseases; Z79.899 Other long term (current) drug therapy
CPT/HCPCS: 36415; 80053; 83497; 84260; 85025; 86316; 96372; 99214; J2353

== ENCOUNTER 2022-09-08 15:30 | Oncology outpatient (recurring) (ONCR) | payer MEDICARE, SELFPAY ==
[2022-09-05 08:41] LABS: Basophils % 0.7 %; Eosinophils # 0.1 10^3/uL (0.0-0.8); Eosinophils % 2.4 %; Hematocrit 44.2 % (42.0-52.0); Hemoglobin 14.7 g/dL (11.7-16.6); Lymphocytes # 1.8 10^3/uL (0.8-4.8); Lymphocytes % 30.2 %; Mean Corpuscular HGB Conc 33.3 g/dL (30.0-36.0); Mean Corpuscular Hemoglobin 36.7 pg (28.0-34.0); Mean Corpuscular Volume 110.2 fl (80-94); Mean Platelet Volume 11.1 fL (7.4-10.4); Monocytes # 0.7 10^3/uL (0.2-0.9); Monocytes % 11.9 %; Neutrophils # 3.23 10^3/uL (1.8-7.7); Neutrophils % 54.6 %; Nucleated Red Blood Cells % 0 %; Platelet Count 79 10^3/cmm (130-400); Red Blood Count 4.01 10^6/uL (4.1-5.3); Red Cell Distribution Width 13.8 % (12.1-15.1); White Blood Count 5.9 10^3/uL (4.0-10.0)
[2022-09-05 09:12] LABS: Alanine Aminotransferase 23 U/L (0-41); Alkaline Phosphatase 299 U/L (40-130); Anion Gap 14.1 (5-19); Aspartate Amino Transferase 36 U/L (0-40); Blood Urea Nitrogen 18 mg/dL (8-23); Calcium 9.1 mg/dL (8.5-10.5); Carbon Dioxide 26 mmol/L (22-29); Chloride 103 mmol/L (98-107); Globulin 3.4 g/dL (1.3-4.6); Glucose 87 mg/dL (65-115); Osmolality Calculated 287 mOsm/kg (285-295); Potassium 5.1 mmol/L (3.5-5.1); Sodium 138 mmol/L (136-145); Total Bilirubin 1.9 mg/dL (0.15-1.2); Total Protein 7.4 g/dL (6.6-8.7)
[2022-09-05] MEDS: octreotide LAR depot 20 mg Kit IM (10:08)
== END 2022-09-30 23:59 | disposition home or self-care (01) ==
PROVIDERS: PCP Registered Nurse; Visit Provider Internal Medicine Medical Oncology
DX: C7B.02 Secondary carcinoid tumors of liver (principal); C7A.012 Malignant carcinoid tumor of the ileum
CPT/HCPCS: 36415; 80053; 85025; 96372; 99214; J2353

== ENCOUNTER 2022-10-06 12:52 | Oncology outpatient (recurring) (ONCR) | payer MEDICARE, SELFPAY ==
[2022-10-06 13:28] VITALS: BP 104/72; PULSE 75; RESP 18; TEMP 36.4; O2SAT 97
[2022-10-06] MEDS: octreotide LAR depot 20 mg Kit IM (13:39)
== END 2022-10-28 23:59 | disposition home or self-care (01) ==
PROVIDERS: PCP Registered Nurse; Visit Provider Internal Medicine Medical Oncology
DX: Z79.818 Long term (current) use of other agents affecting estrogen receptors and estrogen levels; C7A.012 Malignant carcinoid tumor of the ileum; Z79.899 Other long term (current) drug therapy
CPT/HCPCS: 96372; J2353

== ENCOUNTER 2022-11-04 12:57 | Oncology outpatient (recurring) (ONCR) | payer MEDICARE, SELFPAY ==
[2022-11-04] MEDS: octreotide LAR depot 20 mg Kit IM (13:38)
[2022-11-04 13:43] VITALS: BP 142/86; PULSE 66; RESP 18; TEMP 36; O2SAT 96
== END 2022-11-28 23:59 | disposition home or self-care (01) ==
LOC: ONCMED 12:58
PROVIDERS: PCP Family Medicine Adult Medicine; Visit Provider Internal Medicine Medical Oncology
DX: C7A.012 Malignant carcinoid tumor of the ileum (principal); C7B.02 Secondary carcinoid tumors of liver; Z79.818 Long term (current) use of other agents affecting estrogen receptors and estrogen levels
CPT/HCPCS: 96402; J2353

== ENCOUNTER 2022-12-03 12:08 | Oncology outpatient (recurring) (ONCR) | payer MEDICARE, SELFPAY ==
[2022-12-03 13:51] LABS: Basophils % 0.6 %; Eosinophils # 0.1 10^3/uL (0.0-0.8); Eosinophils % 1.7 %; Hematocrit 42.1 % (42.0-52.0); Lymphocytes # 1.6 10^3/uL (0.8-4.8); Lymphocytes % 25.4 %; Mean Corpuscular HGB Conc 33.3 g/dL (30.0-36.0); Mean Corpuscular Hemoglobin 36.1 pg (28.0-34.0); Mean Corpuscular Volume 108.5 fl (80-94); Mean Platelet Volume 11.2 fL (7.4-10.4); Monocytes # 0.8 10^3/uL (0.2-0.9); Monocytes % 12.6 %; Neutrophils # 3.76 10^3/uL (1.8-7.7); Neutrophils % 59.4 %; Nucleated Red Blood Cells % 0 %; Platelet Count 71 10^3/cmm (130-400); Red Blood Count 3.88 10^6/uL (4.1-5.3); Red Cell Distribution Width 14.6 % (12.1-15.1); White Blood Count 6.3 10^3/uL (4.0-10.0)
[2022-12-03 13:56] LABS: Alanine Aminotransferase 23 U/L (0-41); Albumin Level 3.8 g/dL (3.5-5.2); Alkaline Phosphatase 320 U/L (40-130); Anion Gap 10.4 (5-19); Aspartate Amino Transferase 34 U/L (0-40); Blood Urea Nitrogen 18 mg/dL (8-23); Calcium 8.5 mg/dL (8.5-10.5); Carbon Dioxide 27 mmol/L (22-29); Chloride 107 mmol/L (98-107); Globulin 2.9 g/dL (1.3-4.6); Glucose 70 mg/dL (65-115); Iron 102 ug/dL (59-158); Osmolality Calculated 290 mOsm/kg (285-295); Percent Saturation 39.8 % (20-50); Potassium 4.4 mmol/L (3.5-5.1); Sodium 140 mmol/L (136-145); Total Bilirubin 2.1 mg/dL (0.15-1.2); Total Iron Binding Capacity 256 mcg/dl; Total Protein 6.7 g/dL (6.6-8.7); Unsaturated Iron Binding 154 ug/dL (112-347)
--- NOTE | 2022-12-03 14:59 | ECG_ITS ---
[facility] Test Date: 2022-12-03 Pat Name: Jigar Ochoa Department: Room: Gender: Male Chain Person: : 1940 Requested By: Jamir Carmona Order Number: [id number] Andrade MD: Paras Vidales M.D. Measurements Intervals [place] Rate: 110 P: 0 LA: 0 QRS: 56 QRSD: 91 T: 63 QT: 344 QTc: 466 Interpretive Statements ATRIAL FIBRILLATION WITH RAPID VENTRICULAR RESPONSE POSSIBLE RIGHT VENTRICULAR CONDUCTION DELAY [RSR (QR) IN V1/V2] ABNORMAL RHYTHM ECG INTERPRETATION BASED ON A DEFAULT AGE OF 40 YEARS Compared to ECG 07/31/2021 06:02:34 Atrial-paced complex(es) or rhythm no longer present Electronically Signed On 12-04-2022 0:22:27 CDT by Paras Vidales M.D. [email or web address]
[2022-12-03] MEDS: octreotide LAR depot 20 mg Kit IM (15:16)
[2022-12-03 15:24] VITALS: BP 130/84; PULSE 97; RESP 18; TEMP 36.3; O2SAT 96
[2022-12-07 18:53] LABS: Serotonin Whole Blood 80 ng/mL (56-244)
[2022-12-10 11:46] LABS: Chromogranin A LC/MS/MS 570 ng/mL (ADULTS: <311)
== END 2022-12-28 23:59 | disposition home or self-care (01) ==
PROVIDERS: PCP Family Medicine Adult Medicine; Visit Provider Internal Medicine Medical Oncology
DX: C7A.012 Malignant carcinoid tumor of the ileum (principal); C7B.02 Secondary carcinoid tumors of liver; Z79.818 Long term (current) use of other agents affecting estrogen receptors and estrogen levels; E80.7 Disorder of bilirubin metabolism, unspecified; R97.8 Other abnormal tumor markers; I48.91 Unspecified atrial fibrillation; Z79.899 Other long term (current) drug therapy
CPT/HCPCS: 36415; 80053; 83540; 83550; 84260; 85025; 86316; 93005; 96402; 99214; J2353

== ENCOUNTER → 2022-12-15 13:16 | Outpatient (BNVA) | payer MEDICARE, SELFPAY | PROVIDERS: PCP Family Medicine Adult Medicine; Visit Provider Internal Medicine | DX: I48.91 Unspecified atrial fibrillation (principal); K27.9 Peptic ulcer, site unspecified, unspecified as acute or chronic, without hemorrhage or perforation; C7B.02 Secondary carcinoid tumors of liver; J44.9 Chronic obstructive pulmonary disease, unspecified; Z95.0 Presence of cardiac pacemaker; F17.200 Nicotine dependence, unspecified, uncomplicated; I71.40 Abdominal aortic aneurysm, without rupture, unspecified; R06.00 Dyspnea, unspecified | CPT/HCPCS: 99214 ==

== ENCOUNTER 2022-12-18 15:07 | Outpatient (CLI) | payer MEDICARE, SELFPAY ==
[2022-12-18] MEDS: iohexol 350 mg/mL 500 mL Btl (per mL) PO (15:23)
[2022-12-18] MEDS: iohexol 350 mg/mL 500 mL Btl (per mL) IV (15:23)
--- NOTE | 2022-12-18 15:30 | CTR_ITS ---
PROCEDURE INFORMATION: Exam: CT Chest With Contrast; Diagnostic Exam date and time: 12/18/2022 4:26 PM Age: 82 years old Clinical indication: Condition or disease; Other: Colon cancer; Prior surgery; Surgery type: Colon, pacemaker, appy; Additional info: Restaging TECHNIQUE: Imaging protocol: Diagnostic computed tomography of the chest with contrast. Radiation optimization: All CT scans at this facility use at least one of these dose optimization techniques: automated exposure control; mA and/or kV adjustment per patient size (includes targeted exams where dose is matched to clinical indication); or iterative reconstruction. Contrast material: OMNI 350; Contrast volume: 100 ml; Contrast route: INTRAVENOUS (IV); REPORTING DATA: Count of CT and Cardiac NM exams in prior 12 months: This patient has received [address] and 0 known cardiac nuclear medicine studies in the 12 months prior to the current study. COMPARISON: CT chest abdpel w/*[id number] 05/12/2022 5:06 PM RADIATION DOSE METRICS: Total DLP (mGy-cm): 567.79 FINDINGS: Lungs: Right upper lobe 6.7 mm pulmonary nodule, series 5, image 29, new compared to prior exam, potentially concerning for metastatic disease. Pleural spaces: Unremarkable. No pneumothorax. No pleural effusion. Heart: Pacemaker. Coronary arteries: Coronary artery atherosclerotic calcifications. Lymph nodes: Several prominent subcentimeter short axis nonspecific mediastinal lymph nodes. Vasculature: Ascending thoracic aorta dilated 3.7 cm. Bones/joints: Multilevel bridging osteophytes throughout the thoracic spine. Soft tissues: Unremarkable. PROCEDURE INFORMATION: Exam: CT Abdomen And Pelvis With Contrast Exam date and time: 12/18/2022 4:26 PM Age: 82 years old Clinical indication: Condition or disease; Other: Colon cancer; Prior surgery; Surgery type: Colon, pacemaker, appy; Additional info: Restaging TECHNIQUE: Imaging protocol: Computed tomography of the abdomen and pelvis with contrast. Radiation optimization: All CT scans at this facility use at least one of these dose optimization techniques: automated exposure control; mA and/or kV adjustment per patient size (includes targeted exams where dose is matched to clinical indication); or iterative reconstruction. Contrast material: OMNI 350; Contrast volume: 100 ml; Contrast route: INTRAVENOUS (IV); REPORTING DATA: Count of CT and Cardiac NM exams in prior 12 months: This patient has received [address] and 0 known cardiac nuclear medicine studies in the 12 months prior to the current study. COMPARISON: CT chest abdpel w/*[id number] 05/12/2022 5:06 PM RADIATION DOSE METRICS: Total DLP (mGy-cm): 567.79 FINDINGS: Liver: Hepatic steatosis. Previously described hypervascular metastatic disease in the liver is largely no longer visualized, a possible subtle hypervascular lesion is seen near the caudal tip measuring 7.6 mm with 2 adjacent subcentimeter lesions, series 6, image 28, MRI could potentially further characterize this. Gallbladder and bile ducts: Cholelithiasis. Pancreas: Normal. No ductal dilation. Spleen: Normal. No splenomegaly. Adrenal glands: Normal. No mass. Kidneys and ureters: Left kidney cyst, negative for follow-up advised. Stomach and bowel: Unremarkable. No obstruction. No mucosal thickening. Appendix: No evidence of appendicitis. Intraperitoneal space: Unremarkable. No free air. No significant fluid collection. Vasculature: Fusiform infrarenal abdominal aortic aneurysm measuring 4.4 cm in diameter without rupture, similar to prior exam. Lymph nodes: Unremarkable. No enlarged lymph nodes. Urinary bladder: Prostate gland enlarged indenting the base of the urinary bladder. Reproductive: Unremarkable as visualized. Bones/joints: Unremarkable. No acute fracture. Soft tissues: Unremarkable. CT/CT chest abdpel w/*[id number] IMPRESSION: 1. Right upper lobe 6.7 mm pulmonary nodule, series 5, image 29, new compared to prior exam, potentially concerning for metastatic disease. 2. Several prominent subcentimeter short axis nonspecific mediastinal lymph nodes. 3. Ascending thoracic aorta dilated 3.7 cm. 4. Coronary artery atherosclerotic calcifications. 5. Multilevel bridging osteophytes throughout the thoracic spine. IMPRESSION: 1. Negative for new adenopathy. 2. Previously described hypervascular metastatic disease in the liver is largely no longer visualized, a possible subtle hypervascular lesion is seen near the caudal tip measuring 7.6 mm with 2 adjacent subcentimeter lesions, series 6, image 28, MRI could potentially further characterize this. 3. Cholelithiasis. 4. Fusiform infrarenal abdominal aortic aneurysm measuring 4.4 cm in diameter without rupture, similar to prior exam. 5. Prostate gland enlarged indenting the base of the urinary bladder. 6. Left kidney cyst, negative for follow-up advised. 7. Hepatic steatosis. COMMENTS: Consistent with the [employer]'s Incidental Findings Committee white paper (J Am Tiffani Radiol 2018): Any incidental renal lesion less than 1 cm or classified as too small to characterize, or any incidental cystic renal lesion characterized as simple-appearing, is likely benign. No follow-up imaging is recommended for these lesions per consensus recommendations based on imaging criteria.
== END 2022-12-18 15:08 | disposition home or self-care (01) ==
LOC: RAD 15:10
PROVIDERS: PCP Family Medicine Adult Medicine; Visit Provider Internal Medicine Medical Oncology
DX: C7B.02 Secondary carcinoid tumors of liver (principal); K80.20 Calculus of gallbladder without cholecystitis without obstruction; I71.40 Abdominal aortic aneurysm, without rupture, unspecified; N40.0 Benign prostatic hyperplasia without lower urinary tract symptoms; E88.89 Other specified metabolic disorders
CPT/HCPCS: 71260; 74177; 99214; Q9967

== ENCOUNTER 2022-12-30 09:59 | Emergency (ER) | payer MEDICARE, SELFPAY ==
--- NOTE | 2022-12-30 10:07 | XRR_ITS ---
PROCEDURE INFORMATION: Exam: XR Chest Exam date and time: 12/30/2022 10:36 AM Age: 82 years old Clinical indication: Cough and dyspnea; Prior surgery; Surgery type: Colon, pacer; Patient HX: Low blood pressure, HX of colon cancer with liver mets; Additional info: Dyspnea/cough TECHNIQUE: Imaging protocol: Radiologic exam of the chest. Views: 1 view. Total images: 2 COMPARISON: CT chest abdpel w/*[id number] 12/18/2022 4:26 PM FINDINGS: Tubes, catheters and devices: A pacemaker device is present, its leads in appropriate position. Lungs: 7 mm irregular nodule projecting just inferior to the anterior aspect of the right 1st rib felt to correspond to previously seen pulmonary nodule within the right upper lobe on prior CT. Pleural spaces: Unremarkable. No pleural effusion. No pneumothorax. Heart/Mediastinum: Unremarkable. No cardiomegaly. Bones/joints: Unremarkable. XR/XR chest 1V portable [id number] IMPRESSION: 1. No acute cardiopulmonary process. 2. 7 mm irregular nodule projecting just inferior to the anterior aspect of the right 1st rib felt to correspond to previously seen pulmonary nodule within the right upper lobe on prior CT.
--- NOTE | 2022-12-30 10:07 | ECG_ITS ---
[facility] Test Date: 2022-12-30 Pat Name: Jigar Ochoa Department: Room: Gender: Male Filer And Sander: : 1940 Requested By: Anselmo Hendrix Order Number: [id number] Lupe MD: Paras Vidales M.D. Measurements Intervals [place] Rate: 91 P: 0 [place]: 0 QRS: 44 QRSD: 101 T: 54 QT: 373 QTc: 459 Interpretive Statements ATRIAL FIBRILLATION INCOMPLETE RIGHT BUNDLE BRANCH BLOCK [90+ ms QRS DURATION, TERMINAL R IN V1/V2, 40+ ms S IN I/aVL/V4/V5/V6] MODERATE ST DEPRESSION [0.05+ mV ST DEPRESSION] Compared to ECG 12/03/2022 14:50:30 Incomplete right bundle-branch block now present ST (T wave) deviation now present Electronically Signed On 12-31-2022 0:18:30 CDT by Paras Vidales M.D. [id number]
[2022-12-30 10:13] VITALS: BP 87/51; PULSE 74; RESP 24; TEMP 36.4; O2SAT 92; BMI 16.9
--- NOTE | 2022-12-30 10:22 | W.ED.GENADLT ---
HPI - General Adult General: Chief complaint: General Medical Stated complaint: Wisam sent for low BP Time Seen by Provider: 12/30/22 10:07 Source: patient Mode of arrival: ambulatory History of Present Illness: 82-year-old male with a history of colon cancer with suspected recurrent metastasis to the liver per his report. He presents to the emergency room complaining of lightheadedness and dizziness he had a blood pressure that read 84/51 this morning. He states he recently had stopped 2 medications because they were thought to be causing hypotension. He denies any fever sweats chills or vomiting. Family member at the bedside is that he has been very weak and short of breath lately is moderately tachypneic when I see the patient although he denies any chest pain. His oxygen sat is 100% on room air. Onset (ago): day(s) (1) Relieving factors: none Exacerbating factors: other Associated symptoms: Reports dyspnea, malaise and nausea; Deny chest pain, confusion, cough, diaphoresis, decreased appetite, fevers/chills, headache(s), rash, palpitations, seizures, short of breath, syncope, vomiting or weakness Treatments prior to arrival: none Review of Systems Const: Reports: malaise; Denies: fever(s), chills, fatigue or diaphoresis ENMT: Denies: throat pain, ear or mastoid pain, nasal discharge or nasal congestion Card: Denies: chest pain, palpitations or syncope Resp: Reports: dyspnea GI: Reports: nausea; Denies: abdominal pain or vomiting : Denies: flank pain, dysuria, urinary frequency or urinary urgency Skin/Breast: Denies: rash Neuro: Denies: headache(s) or confusion PFSH ED PFSH: Medical History Abdominal aortic aneurysm Anemia Anxiety and depression Atrial fibrillation, new onset Cardiac arrhythmia CKD (chronic kidney disease) stage 3, GFR 30-59 ml/min COPD (chronic obstructive pulmonary disease) History of atrial fibrillation History of lower GI bleeding Metastatic carcinoid tumor Liver mets Pacemaker Peptic ulcer disease Polymyalgia rheumatica Sick sinus syndrome Surgical History H/O colectomy (06/23/14) right hemicolectomy and distal small bowel resection for low-grade carcinoid tumor History of appendectomy History of carpal tunnel release of both wrists History of cataract surgery bilateral Hx of cardiac pacemaker Family History Grandfather Diabetes Denies family history of CAD (coronary artery disease) Clotting disorder Dementia Hyperlipidemia Psychiatric illness Chronic kidney disease (CKD) Suicide Anesthesia complication Bleeding disorder Lung disease Cancer Hypertension Stroke Social History Smoking and tobacco status: current some day smoker Second hand smoke exposure: Yes Alcohol intake: never Substance/Drug Use: never Physical Exam Const: GENERAL APPEARANCE: cooperative and comfortable NUTRITIONAL APPEARANCE: cachectic ORIENTATION/CONSCIOUSNESS: Yes awake, Yes oriented to person, Yes oriented to place and Yes oriented to time HENMT: COMMON NORMALS: normocephalic, atraumatic and hearing grossly normal bilaterally HEAD & SCALP: normocephalic and atraumatic Resp: COMMON NORMALS: normal respiratory effort, No retractions, No use of accessory muscles and clear to auscultation bilaterally AUSCULTATION: clear to auscultation bilaterally Cardio: COMMON NORMALS: regular rate, regular rhythm and No murmurs present (Cardio) RATE: regular rate RHYTHM: regular rhythm GI: COMMON NORMALS: Soft to palpation and No hepatosplenomegaly present AUSCULTATION: Yes normoactive bowel sounds PALPATION: Yes Soft to palpation, No Tenderness to palpation present (GI), No Guarding due to palpation present (GI) and Yes No hepatosplenomegaly present Extremity: COMMON NORMALS: normal to inspection, capillary refill normal, no clubbing, cyanosis or edema, no calf tenderness and no pedal edema Neuro: SENSORIUM/ORIENTATION: Yes oriented to person, Yes oriented to place and Yes oriented to time Skin: COMMON NORMALS: no rashes or lesions noted GENERAL SKIN EXAM: no rashes or lesions noted Course Vital Signs: Vital signs: Vital Signs Temperature 97.5 F L 12/30/22 10:13 Pulse Rate 93 12/30/22 13:45 Respiratory Rate 30 H 12/30/22 13:30 Blood Pressure 128/95 12/30/22 13:45 Pulse Oximetry 100 12/30/22 13:45 Oxygen Delivery Me thod Room Air 12/30/22 10:13 MDM - General Adult Medical Decision Making Moderate dehydration improved after 2 L fluid patient is feeling much better blood pressure improved we will discharge patient home given Phenergan to use as needed follow-up with Dr. Joel tomorrow return if he has further problems. Medical Records I reviewed the patient's medical records. Lab Data I reviewed the patient's lab results. 12/30/22 10:20 12/30/22 10:20 Radiology Impressions Chest X-Ray 12/30/22 10:07 IMPRESSION: 1. No acute cardiopulmonary process. 2. 7 mm irregular nodule projecting just inferior to the anterior aspect of the right 1st rib felt to correspond to previously seen pulmonary nodule within the right upper lobe on prior CT. Laboratory Results WBC 7.5 10^3/uL (4.0-10.0) 12/30/22 10:20 RBC 4.47 10^6/uL (4.1-5.3) 12/30/22 10:20 Hgb 15.8 g/dL (11.7-16.6) 12/30/22 10:20 Hct 47.6 % (42.0-52.0) 12/30/22 10:20 MCV 106.5 fl (80-94) H 12/30/22 10:20 MCH 35.3 pg (28.0-34.0) H 12/30/22 10:20 MCHC 33.2 g/dL (30.0-36.0) 12/30/22 10:20 RDW 14.6 % (12.1-15.1) 12/30/22 10:20 Plt Count 81 10^3/cmm (130-400) L 12/30/22 10:20 MPV 11.2 fL (7.4-10.4) H 12/30/22 10:20 Neut % (Auto) 56.7 % 12/30/22 10:20 Lymph % (Auto) 29.8 % 12/30/22 10:20 [place] % (Auto) 10.8 % 12/30/22 10:20 Eos % (Auto) 1.9 % 12/30/22 10:20 Baso % (Auto) 0.5 % 12/30/22 10:20 Neut # (Auto) 4.25 10^3/uL (1.8-7.7) 12/30/22 10:20 Lymph # (Auto) 2.2 10^3/uL (0.8-4.8) 12/30/22 10:20 [place] # (Auto) 0.8 10^3/uL (0.2-0.9) 12/30/22 10:20 Eos # (Auto) 0.1 10^3/uL (0.0-0.8) 12/30/22 10:20 Baso # (Auto) 0.0 10^3/uL (0.0-0.1) 12/30/22 10:20 Nucleated RBC % (auto) 0 % 12/30/22 10:20 Nucleated RBCs # 0.0 /100WBC 12/30/22 10:20 Specimen Type Arterial 12/30/22 10:18 Sample Site Radial, right 12/30/22 10:18 ABG pH 7.33 (7.35-7.45) L 12/30/22 10:18 ABG pCO2 34.4 mmHg (35-45) L 12/30/22 10:18 ABG pO2 101.0 mmHg (80.0-100.0) H 12/30/22 10:18 ABG HCO3 18.3 mmol/L (22-26) L 12/30/22 10:18 ABG O2 Saturation 97.0 12/30/22 10:18 ABG Base Excess -6.6 mmol/L (-2.0-2.0) L 12/30/22 10:18 Wil Test Pos 12/30/22 10:18 A-a O2 Gradient 0.5 mmHg (5-10) L 12/30/22 10:18 Hematocrit 49.8 % (42-52) 12/30/22 10:18 Hgb O2 Saturation 95.1 % (95-100) 12/30/22 10:18 Carboxyhemoglobin 0.7 %THgb (0.4-20.1) 12/30/22 10:18 Methemoglobin 1.4 % (0.4-1.5) 12/30/22 10:18 Total Hemoglobin 16.2 g/dL (14-18) 12/30/22 10:18 Sodium 140.0 mmol/L (131-143) 12/30/22 10:18 Potassium 3.9 mmol/L (3.5-5.0) 12/30/22 10:18 Glucose 261.0 mg/dL (70-115) H 12/30/22 10:18 Ionized Calcium 1.2 mmol/L (1.1-1.4) 12/30/22 10:18 O2 Delivery Device Room air 12/30/22 10:18 FiO2 21.0 % 12/30/22 10:18 Sprinkling Truck Driver ID [place] 12/30/22 10:18 Sodium 138 mmol/L (136-145) 12/30/22 10:20 Potassium 4.3 mmol/L (3.5-5.1) 12/30/22 10:20 Chloride 103 mmol/L (98-107) 12/30/22 10:20 Carbon Dioxide 24 mmol/L (22-29) 12/30/22 10:20 Anion Gap 15.3 (5-19) 12/30/22 10:20 BUN 39 mg/dL (8-23) H 12/30/22 10:20 Creatinine 1.6 mg/dL (0.7-1.2) H 12/30/22 10:20 GFR Calculation Not Reportable 12/30/22 10:20 Glucose 186 mg/dL (65-115) H 12/30/22 10:20 Calculated Osmolality 300 mOsm/kg (285-295) H 12/30/22 10:20 Calcium 9.3 mg/dL (8.5-10.5) 12/30/22 10:20 Total Bilirubin 1.9 mg/dL (0.15-1.2) H 12/30/22 10:20 AST 52 U/L (0-40) H 12/30/22 10:20 ALT 37 U/L (0-41) 12/30/22 10:20 Alkaline Phosphatase 316 U/L (40-130) H 12/30/22 10:20 NT-Pro-B Natriuret Pep 1255 pg/mL (0-450) H 12/30/22 10:20 Total Protein 7.4 g/dL (6.6-8.7) 12/30/22 10:20 Albumin 3.9 g/dL (3.5-5.2) 12/30/22 10:20 Globulin 3.5 g/dL (1.3-4.6) 12/30/22 10:20 Urine Color Dark yellow (Yellow) 12/30/22 13:07 Urine Appearance Clear (CLEAR) 12/30/22 13:07 Urine pH 5 (5-7) 12/30/22 13:07 Ur Specific [place] 1.020 (1.005-1.030) 12/30/22 13:07 Urine Protein Trace (Negative) 12/30/22 13:07 Urine Glucose (UA) Norm (Normal) 12/30/22 13:07 Urine Ketones Negative (Negative) 12/30/22 13:07 Urine Blood Neg (Negative) 12/30/22 13:07 Urine Nitrate Negative (Negative) 12/30/22 13:07 Urine Bilirubin 1+ (Negative) H 12/30/22 13:07 Urine Urobilinogen 1 mg/dL (Negative) H 12/30/22 13:07 Ur Leukocyte Esterase Negative (Negative) 12/30/22 13:07 Urine RBC 0-4 /hpf (0-2) H 12/30/22 13:07 Urine WBC 0-4 /hpf (0-5) H 12/30/22 13:07 Ur Squamous Epith Cells 0-4 /hpf (0-5) H 12/30/22 13:07 Amorphous Sediment Not Reportable 12/30/22 13:07 Urine Bacteria None /hpf (NONE) 12/30/22 13:07 Hyaline Casts 0-4 /lpf H 12/30/22 13:07 Fine Granular Casts 0-4 /lpf H 12/30/22 13:07 Other Casts Rare wbc cast /lpf 12/30/22 13:07 Discharge Plan Discharge Patient Disposition: Home Clinical Impression: Malignant carcinoid tumor of the ileum, Dehydration, Hypotension Condition: Stable Prescriptions: New promethazine 25 mg tablet 25 mg PO Q6H PRN (Reason: nausea and vomiting) Qty: 20 0RF Changed metoprolol tartrate 25 mg tablet 12.5 mg PO BID Qty: 180 3RF No Action multivitamin Tablet 1 tab PO QAM triamcinolone acetonide 0.1 % cream See Rx Instructions .ROUTE .COMPLEX Qty: 454 0RF Dose Instruction: APPLY CREAM EXTERNALLY TO AFFECTED AREA ONCE DAILY Rx Instructions: APPLY CREAM EXTERNALLY TO AFFECTED AREA ONCE DAILY furosemide [Lasix] 20 mg tablet 20 mg PO BID Qty: 42 0RF Sandostatin LAR [place] 20 mg Suspension,Extended Rel Recon 20 mg IM Q28D Qty: 3 4RF Rx Instructions: due to get 12/31/22 pantoprazole 40 mg tablet,delayed release (DR/EC) 40 mg PO QAM ferrous sulfate 325 mg (65 mg iron) tablet 325 mg PO QAM sertraline 25 mg tablet 25 mg PO QAM Discharge Orders: Discharge ED (Routine); Ordered 12/30/22 Ordered By: Anselmo Soni Referrals: Gabriel Angela MD [Primary Care Provider] - Discharge Diet: Usual diet Discharge Activity: Resume usual activity Patient Instructions: Opioid Safety, Pain Management Activity Restrictions/Additional Instructions: You were seen for hypotenion which was related to dehydration. Reccommend regular fluid intake and use the promethazine as needed for nausea. Follow up with Dr. Joel tomorrow. Coding Level of Care Code ED Wastewater Operator for Ricky Almeida
[2022-12-30 10:31] LABS: ABG PCO2 34.4 mmHg (35-45); ABG PH Result 7.33 (7.35-7.45); Alveolar-Arterial Oxygen Gradi 0.5 mmHg (5-10); Arterial Blood Gas Hematocrit 49.8 % (42-52); Base Excess ABG -6.6 mmol/L (-2.0-2.0); Blood Gas Allen Test Pos; Blood Gas Operator Identificat MONRO; Blood Gas Sample Site Radial, right; Blood Gas Sample Type Arterial; Carboxyhemoglobin 0.7 %THgb (0.4-20.1); HCO3 ABG 18.3 mmol/L (22-26); HGB O2 Sat 95.1 % (95-100); Ionized Calcium Level - ABG 1.2 mmol/L (1.1-1.4); Methemoglobin 1.4 % (0.4-1.5); Oxygen Device ROOM AIR; Potassium Level - ABG 3.9 mmol/L (3.5-5.0); Total Hemoglobin 16.2 g/dL (14-18)
[2022-12-30] MEDS: sodium chloride 0.9% 1,000 ML 999 ML IV ×2 (10:33→12:51)
[2022-12-30 10:36] LABS: Basophils % 0.5 %; Eosinophils # 0.1 10^3/uL (0.0-0.8); Eosinophils % 1.9 %; Hematocrit 47.6 % (42.0-52.0); Hemoglobin 15.8 g/dL (11.7-16.6); Lymphocytes # 2.2 10^3/uL (0.8-4.8); Lymphocytes % 29.8 %; Mean Corpuscular HGB Conc 33.2 g/dL (30.0-36.0); Mean Corpuscular Hemoglobin 35.3 pg (28.0-34.0); Mean Corpuscular Volume 106.5 fl (80-94); Mean Platelet Volume 11.2 fL (7.4-10.4); Monocytes # 0.8 10^3/uL (0.2-0.9); Monocytes % 10.8 %; Neutrophils # 4.25 10^3/uL (1.8-7.7); Neutrophils % 56.7 %; Nucleated Red Blood Cells % 0 %; Platelet Count 81 10^3/cmm (130-400); Red Blood Count 4.47 10^6/uL (4.1-5.3); Red Cell Distribution Width 14.6 % (12.1-15.1); White Blood Count 7.5 10^3/uL (4.0-10.0)
[2022-12-30 10:52] LABS: Alanine Aminotransferase 37 U/L (0-41); Albumin Level 3.9 g/dL (3.5-5.2); Alkaline Phosphatase 316 U/L (40-130); Anion Gap 15.3 (5-19); Aspartate Amino Transferase 52 U/L (0-40); Blood Urea Nitrogen 39 mg/dL (8-23); Calcium 9.3 mg/dL (8.5-10.5); Carbon Dioxide 24 mmol/L (22-29); Chloride 103 mmol/L (98-107); Globulin 3.5 g/dL (1.3-4.6); Glucose 186 mg/dL (65-115); Osmolality Calculated 300 mOsm/kg (285-295); Potassium 4.3 mmol/L (3.5-5.1); Sodium 138 mmol/L (136-145); Total Bilirubin 1.9 mg/dL (0.15-1.2); Total Protein 7.4 g/dL (6.6-8.7)
--- NOTE | 2022-12-30 11:30 | PC.PHAR ---
pts life partner britney [phone] verified pts medications states he takes one more otc medication but states she has no idea what it is states she is in a wheelchair and cant reach where his meds are to see what the other otc item is-states the pt doesnt have any inhalers anymore ext shows a albuterol inhaler filled 07/10/22-
[2022-12-30 11:35] VITALS: BP 125/83
[2022-12-30 13:00] VITALS: BP 122/86; PULSE 90; O2SAT 100
[2022-12-30 13:19] VITALS: O2SAT 95
[2022-12-30 13:30] VITALS: PULSE 102; RESP 30; O2SAT 100
[2022-12-30 13:31] LABS: Add Urine Microscopic? YES; Bilirubin Urine 1+ (Negative); Blood Urine Neg (Negative); Glucose Urine UA Norm (Normal); Ketones Urine Negative (Negative); Leukocyte Esterase Urine Negative (Negative); Nitrate Urine Negative (Negative); Protein Urine Trace (Negative); Urine Appearance Clear (CLEAR); Urine Color Dark yellow (Yellow); Urobilinogen Urine 1 mg/dL (Negative); pH Urine 5 (5-7)
[2022-12-30 13:32] LABS: Fine Granular Casts Urine 0-4 /lpf; RBC Urine 0-4 /hpf (0-2); Squamous Epithelial Cell Urine 0-4 /hpf (0-5); WBC Urine 0-4 /hpf (0-5)
[2022-12-30 13:33] LABS: Add Urine Culture? No; Hyaline Casts Urine 0-4 /lpf
[2022-12-30 13:45] VITALS: BP 128/95; PULSE 93; O2SAT 100
[2022-12-30 14:28] LABS: NT Pro B Type Natriuretic Pept 1255 pg/mL (0-450)
== END 2022-12-30 14:07 | disposition home or self-care (01) ==
PROVIDERS: Internal Medicine; Emergency Provider Family Medicine; PCP Family Medicine Adult Medicine
DX: C7A.012 Malignant carcinoid tumor of the ileum (principal); E86.0 Dehydration; I95.9 Hypotension, unspecified; F17.210 Nicotine dependence, cigarettes, uncomplicated; Z95.0 Presence of cardiac pacemaker; N18.9 Chronic kidney disease, unspecified; J44.9 Chronic obstructive pulmonary disease, unspecified
CPT/HCPCS: 36600; 71045; 80051; 80053; 81001; 82330; 82805; 83880; 85025; 93005; 96360; 96361; 99285; J7030

== ENCOUNTER 2023-01-07 09:45 | Outpatient (CLI) | payer MEDICARE, SELFPAY ==
--- NOTE | 2023-01-07 09:45 | USCV_ITS ---
Jigar Ochoa Age: 82 Gender: M : 1940 Exam Date: 01/07/2023 10:13 Ordering Phys: Rico Acosta M.D ([email or web address]) Technologist: Morro Burks [place] [facility] [place]: sob BP: 116 / 84 HR: 117 Rhythm: Atrial fibrillation Technical Quality: Adequate MEASUREMENTS (Male / Female) Normal Values 2D ECHO LVOT Diameter 2.0 cm LV Ejection Fraction MOD 2C 58.2 % LV Ejection Fraction 2C AL 62.7 % LA Diameter 3.1 cm LA Width 3.0 cm LA Height 4.9 cm RA Width 4.2 cm RA Height 5.5 cm Aorta at Sinotubular Diameter 2.5 cm IVC Diameter 2.4 cm M-MODE Aortic Annulus Diameter 2.9 cm LA Ao Ratio MM 1.1 MV E Point Septal Separation 1.1 cm DOPPLER AV Peak Velocity 130.0 cm/s LVOT Peak Velocity 68.0 cm/s AV Area Cont Eq vti 1.6 cm squared AV Area Cont Eq pk 1.7 cm squared MV Peak Velocity 66.0 cm/s MV Area PHT 5.5 cm squared Mitral E to A Ratio 2.1 MV E' Velocity 35.5 cm/s Mitral E to MV E' Ratio 4.4 Mitral E to LV E' Lateral Ratio 4.0 Mitral E to LV E' Septal Ratio 4.9 TR Peak Velocity 238.4 cm/s TR Peak Gradient 22.7 mmHg TR Mean Velocity 175.0 cm/s TR Mean Gradient 13.7 mmHg TR Velocity Time Integral 58.7 cm Right Atrial Pressure 15.0 mmHg Pulmonary Artery Systolic Pressu 37.7 mmHg PV Peak Velocity 80.0 cm/s RV Acceleration Time 0.1 s RV Ejection Time 0.3 s RV AcT/ET 0.4 FINDINGS Left Ventricle Left ventricle is normal in size. LV systolic function is normal with EF of 50-55%. No regional wall motion abnormalities are seen. Right Ventricle Normal in size and function. Pacemaker lead is seen Right Atrium Dilated. Pacemaker lead is seen Left Atrium Normal in size Mitral Valve Structurally normal mitral valve. Mild mitral regurgitation. Aortic Valve Aortic valve is thickened.Mild aortic regurgitation. No significant stenosis. Tricuspid Valve Mild tricuspid regurgitation. RVSP is 35 to 40 mmHg. This is consistent with mild pulmonary hypertension. Pulmonic Valve Not well-visualized. Mild pulmonic regurgitation. Pericardium Normal Aorta Normal in size IVC Dilated CONCLUSIONS LV systolic function is normal with EF of 50 to 55%. Pacemaker lead is seen in RA and RV RA is dilated. Mild mitral regurgitation Mild aortic regurgitation Mild tricuspid regurgitation Mild pulmonary hypertension Mild pulmonic regurgitation No comparsion studies are available. Rico Acosta MD (Electronically Signed) Final Date: 17 Jan 2023 13:15 S
== END 2023-01-07 09:46 | disposition home or self-care (01) ==
LOC: RAD 09:48
PROVIDERS: PCP Family Medicine Adult Medicine; Visit Provider Internal Medicine
DX: I49.9 Cardiac arrhythmia, unspecified (principal); I48.91 Unspecified atrial fibrillation; Z95.0 Presence of cardiac pacemaker; I34.0 Nonrheumatic mitral (valve) insufficiency; I35.1 Nonrheumatic aortic (valve) insufficiency; I27.20 Pulmonary hypertension, unspecified; I37.1 Nonrheumatic pulmonary valve insufficiency
CPT/HCPCS: 36415; 80048; 83880; 93306

== ENCOUNTER 2023-01-28 13:30 | Oncology outpatient (recurring) (ONCR) | payer MEDICARE, SELFPAY ==
[2022-12-31 14:00] VITALS: BP 108/78; PULSE 78; RESP 18; TEMP 36.6; O2SAT 98
[2022-12-31] MEDS: octreotide LAR depot 20 mg Kit IM (14:02)
[2023-01-28] MEDS: octreotide LAR depot 20 mg Kit IM (14:04)
[2023-01-28 14:20] VITALS: BP 125/83; PULSE 84; RESP 18; TEMP 36.1; O2SAT 95
== END 2023-01-28 23:59 | disposition home or self-care (01) ==
PROVIDERS: PCP Family Medicine Adult Medicine; Visit Provider Internal Medicine Medical Oncology
DX: C7A.012 Malignant carcinoid tumor of the ileum (principal)
CPT/HCPCS: 96401; 96402; J2353

== ENCOUNTER 2023-02-25 14:19 | Oncology outpatient (recurring) (ONCR) | payer MEDICARE, SELFPAY ==
[2023-02-25] MEDS: octreotide LAR depot 20 mg Kit IM (15:10)
[2023-02-25 15:15] VITALS: BP 107/71; BP 108/72; PULSE 71; RESP 18; TEMP 36.6; O2SAT 100; O2SAT 99
== END 2023-02-27 23:59 | disposition home or self-care (01) ==
PROVIDERS: PCP Family Medicine Adult Medicine; Visit Provider Internal Medicine Medical Oncology
DX: C7A.012 Malignant carcinoid tumor of the ileum (principal)
CPT/HCPCS: 96402; J2353

== ENCOUNTER 2023-03-25 13:23 | Oncology outpatient (recurring) (ONCR) | payer MEDICARE, SELFPAY ==
[2023-03-25 13:57] LABS: Basophils # 0.1 10^3/uL (0.0-0.1); Basophils % 1.3 %; Eosinophils # 0.2 10^3/uL (0.0-0.8); Eosinophils % 3.9 %; Hematocrit 43.6 % (42.0-52.0); Hemoglobin 14.9 g/dL (11.7-16.6); Lymphocytes # 1.6 10^3/uL (0.8-4.8); Lymphocytes % 30.3 %; Mean Corpuscular HGB Conc 34.2 g/dL (30.0-36.0); Mean Corpuscular Hemoglobin 37.5 pg (28.0-34.0); Mean Corpuscular Volume 109.8 fl (80-94); Mean Platelet Volume 10.7 fL (7.4-10.4); Monocytes # 0.6 10^3/uL (0.2-0.9); Monocytes % 10.5 %; Neutrophils # 2.91 10^3/uL (1.8-7.7); Neutrophils % 53.8 %; Nucleated Red Blood Cells % 0 %; Platelet Count 72 10^3/cmm (130-400); Red Blood Count 3.97 10^6/uL (4.1-5.3); Red Cell Distribution Width 14.4 % (12.1-15.1); White Blood Count 5.4 10^3/uL (4.0-10.0)
[2023-03-25 14:04] VITALS: BP 94/60; PULSE 81; RESP 18; TEMP 36.4; O2SAT 98
[2023-03-25 14:28] LABS: Alanine Aminotransferase 28 U/L (0-41); Albumin Level 3.7 g/dL (3.5-5.2); Alkaline Phosphatase 266 U/L (40-130); Anion Gap 13.7 (5-19); Aspartate Amino Transferase 50 U/L (0-40); Blood Urea Nitrogen 27 mg/dL (8-23); Calcium 8.9 mg/dL (8.5-10.5); Carbon Dioxide 26 mmol/L (22-29); Chloride 102 mmol/L (98-107); Globulin 3.1 g/dL (1.3-4.6); Glucose 72 mg/dL (65-115); Iron 113 ug/dL (59-158); Osmolality Calculated 288 mOsm/kg (285-295); Percent Saturation 53.3 % (20-50); Potassium 4.7 mmol/L (3.5-5.1); Sodium 137 mmol/L (136-145); Total Bilirubin 1.6 mg/dL (0.15-1.2); Total Iron Binding Capacity 212 mcg/dl; Total Protein 6.8 g/dL (6.6-8.7); Unsaturated Iron Binding 99 ug/dL (112-347)
[2023-03-25] MEDS: octreotide LAR depot 20 mg Kit IM (15:45)
[2023-03-31 14:20] LABS: 24 Hour Urine Volume 1300 mL; 5-HIAA, 24 Hour Urine 7.8 mg/24 h (< OR = 6.0)
[2023-03-31 15:39] LABS: Serotonin Whole Blood 22 ng/mL (56-244)
[2023-04-01 18:20] LABS: Chromogranin A LC/MS/MS 949 ng/mL (ADULTS: <311)
== END 2023-03-30 23:59 | disposition home or self-care (01) ==
PROVIDERS: Nurse Practitioner Family; PCP Family Medicine Adult Medicine; Visit Provider Internal Medicine Medical Oncology
DX: C7A.012 Malignant carcinoid tumor of the ileum (principal); C7B.02 Secondary carcinoid tumors of liver; E80.7 Disorder of bilirubin metabolism, unspecified; R74.8 Abnormal levels of other serum enzymes; I48.91 Unspecified atrial fibrillation; R63.6 Underweight; Z68.1 Body mass index [BMI] 19.9 or less, adult; Z79.818 Long term (current) use of other agents affecting estrogen receptors and estrogen levels; Z79.899 Other long term (current) drug therapy
CPT/HCPCS: 36415; 80053; 83497; 83540; 83550; 84260; 85025; 86316; 99214; J2353

== ENCOUNTER 2023-04-22 13:14 | Oncology outpatient (recurring) (ONCR) | payer MEDICARE, SELFPAY ==
[2023-04-22 13:40] LABS: Basophils % 0.7 %; Eosinophils # 0.1 10^3/uL (0.0-0.8); Eosinophils % 1.5 %; Hematocrit 44.3 % (37-53); Lymphocytes # 1.8 10^3/uL (0.8-4.8); Lymphocytes % 34.1 %; Mean Corpuscular HGB Conc 33.9 g/dL (30-55); Mean Corpuscular Hemoglobin 36.7 pg (27-33); Mean Corpuscular Volume 108.3 fl (82-101); Mean Platelet Volume 11.1 fL (7.4-10.4); Monocytes # 0.6 10^3/uL (0.2-0.9); Monocytes % 11.1 %; Neutrophils # 2.82 10^3/uL (1.8-7.7); Neutrophils % 52.4 %; Nucleated Red Blood Cells % 0 %; Platelet Count 75 10^3/cmm (157-399); Red Blood Count 4.09 10^6/uL (3.85-5.65); Red Cell Distribution Width 14.9 % (12.1-15.1); White Blood Count 5.39 10^3/uL (3.29-11.43)
[2023-04-22] MEDS: octreotide LAR depot 20 mg Kit IM (13:43)
[2023-04-22 13:57] LABS: Alanine Aminotransferase 25 U/L (0-41); Albumin Level 3.6 g/dL (3.5-5.2); Alkaline Phosphatase 264 U/L (40-130); Anion Gap 12.5 (5-19); Aspartate Amino Transferase 36 U/L (0-40); Blood Urea Nitrogen 25 mg/dL (8-23); Carbon Dioxide 25 mmol/L (22-29); Chloride 105 mmol/L (98-107); Globulin 3.2 g/dL (1.3-4.6); Glucose 103 mg/dL (65-115); Iron 89 ug/dL (59-158); Osmolality Calculated 289 mOsm/kg (285-295); Percent Saturation 39.9 % (20-50); Potassium 5.5 mmol/L (3.5-5.1); Sodium 137 mmol/L (136-145); Total Bilirubin 1.8 mg/dL (0.15-1.2); Total Iron Binding Capacity 223 mcg/dl; Total Protein 6.8 g/dL (6.6-8.7); Unsaturated Iron Binding 134 ug/dL (112-347)
[2023-04-22 14:00] VITALS: BP 106/65; PULSE 82; RESP 16; TEMP 36.6; O2SAT 90
== END 2023-04-30 23:59 | disposition home or self-care (01) ==
LOC: ONCMED 13:15
PROVIDERS: Nurse Practitioner Family; PCP Family Medicine Adult Medicine; Visit Provider Internal Medicine Medical Oncology
DX: C7A.012 Malignant carcinoid tumor of the ileum (principal); C7B.02 Secondary carcinoid tumors of liver
CPT/HCPCS: 36415; 80053; 83540; 83550; 85025; 96402; J2353

== ENCOUNTER 2023-05-20 09:13 | Oncology outpatient (recurring) (ONCR) | payer MEDICARE, SELFPAY ==
[2023-05-20 10:31] LABS: Basophils % 0.8 %; Eosinophils # 0.1 10^3/uL (0.0-0.8); Eosinophils % 1.8 %; Hematocrit 44.2 % (37-53); Lymphocytes # 1.2 10^3/uL (0.8-4.8); Lymphocytes % 24.6 %; Mean Corpuscular HGB Conc 34.6 g/dL (30-55); Mean Corpuscular Volume 106.8 fl (82-101); Mean Platelet Volume 11.3 fL (7.4-10.4); Monocytes # 0.5 10^3/uL (0.2-0.9); Monocytes % 10.8 %; Neutrophils # 3.08 10^3/uL (1.8-7.7); Neutrophils % 61.6 %; Nucleated Red Blood Cells % 0 %; Platelet Count 82 10^3/cmm (157-399); Red Blood Count 4.14 10^6/uL (3.85-5.65); Red Cell Distribution Width 15.1 % (12.1-15.1)
[2023-05-20] MEDS: octreotide LAR depot 20 mg Kit IM (10:46)
[2023-05-20 10:48] VITALS: BP 111/75; PULSE 106; RESP 18; TEMP 36.2; O2SAT 97
[2023-05-20 10:51] LABS: Alanine Aminotransferase 27 U/L (0-41); Albumin Level 3.8 g/dL (3.5-5.2); Alkaline Phosphatase 258 U/L (40-130); Anion Gap 10.7 (5-19); Aspartate Amino Transferase 43 U/L (0-40); Blood Urea Nitrogen 24 mg/dL (8-23); Carbon Dioxide 27 mmol/L (22-29); Chloride 105 mmol/L (98-107); Globulin 3.1 g/dL (1.3-4.6); Glucose 87 mg/dL (65-115); Iron 120 ug/dL (59-158); Osmolality Calculated 289 mOsm/kg (285-295); Percent Saturation 59.4 % (20-50); Potassium 4.7 mmol/L (3.5-5.1); Sodium 138 mmol/L (136-145); Total Bilirubin 2.3 mg/dL (0.15-1.2); Total Iron Binding Capacity 202 mcg/dl; Total Protein 6.9 g/dL (6.6-8.7); Unsaturated Iron Binding 82 ug/dL (112-347)
== END 2023-05-30 23:59 | disposition home or self-care (01) ==
PROVIDERS: Nurse Practitioner Family; PCP Family Medicine Adult Medicine; Visit Provider Internal Medicine Medical Oncology
DX: C7A.012 Malignant carcinoid tumor of the ileum (principal); C7B.02 Secondary carcinoid tumors of liver; Z53.9 Procedure and treatment not carried out, unspecified reason
CPT/HCPCS: 80053; 83540; 83550; 85025; 96401; J2353

== ENCOUNTER 2023-06-17 15:00 | Oncology outpatient (recurring) (ONCR) | payer MEDICARE, SELFPAY ==
[2023-06-10 08:00] VITALS: BP 100/68; PULSE 100; RESP 20; TEMP 36.2; O2SAT 94
[2023-06-10 08:26] LABS: Basophils % 0.8 %; Eosinophils # 0.1 10^3/uL (0.0-0.8); Eosinophils % 2.7 %; Hematocrit 42.3 % (37-53); Lymphocytes # 1.6 10^3/uL (0.8-4.8); Mean Corpuscular Hemoglobin 37.2 pg (27-33); Mean Corpuscular Volume 109.3 fl (82-101); Mean Platelet Volume 11.6 fL (7.4-10.4); Monocytes # 0.5 10^3/uL (0.2-0.9); Neutrophils # 2.89 10^3/uL (1.8-7.7); Neutrophils % 56.3 %; Nucleated Red Blood Cells % 0 %; Platelet Count 74 10^3/cmm (157-399); Red Blood Count 3.87 10^6/uL (3.85-5.65); Red Cell Distribution Width 16.3 % (12.1-15.1); White Blood Count 5.13 10^3/uL (3.29-11.43)
[2023-06-10 08:51] LABS: Alanine Aminotransferase 25 U/L (0-41); Albumin Level 3.6 g/dL (3.5-5.2); Alkaline Phosphatase 262 U/L (40-130); Anion Gap 13.3 (5-19); Aspartate Amino Transferase 39 U/L (0-40); Blood Urea Nitrogen 22 mg/dL (8-23); Calcium 8.5 mg/dL (8.5-10.5); Carbon Dioxide 26 mmol/L (22-29); Chloride 105 mmol/L (98-107); Globulin 2.8 g/dL (1.3-4.6); Glucose 118 mg/dL (65-115); Iron 115 ug/dL (59-158); Osmolality Calculated 294 mOsm/kg (285-295); Percent Saturation 67.2 % (20-50); Potassium 4.3 mmol/L (3.5-5.1); Sodium 140 mmol/L (136-145); Total Bilirubin 2.1 mg/dL (0.15-1.2); Total Iron Binding Capacity 171 mcg/dl; Total Protein 6.4 g/dL (6.6-8.7); Unsaturated Iron Binding 56 ug/dL (112-347)
[2023-06-16 15:03] LABS: Serotonin Whole Blood 38 ng/mL (56-244)
[2023-06-17] MEDS: octreotide LAR depot 20 mg Kit IM (15:13)
[2023-06-18 12:46] LABS: Chromogranin A LC/MS/MS 1164 ng/mL (ADULTS: <311)
[2023-06-19 16:33] LABS: 24 Hour Urine Volume 500 mL
== END 2023-06-30 23:59 | disposition home or self-care (01) ==
PROVIDERS: PCP Family Medicine Adult Medicine; Visit Provider Internal Medicine Medical Oncology
DX: C7A.012 Malignant carcinoid tumor of the ileum (principal); C7B.02 Secondary carcinoid tumors of liver; Z79.899 Other long term (current) drug therapy
CPT/HCPCS: 36415; 80053; 83497; 83540; 83550; 84260; 85025; 86316; 96402; 99214; J2353

== ENCOUNTER 2023-07-04 01:35 | Observation (INO) | payer MEDICARE, SELFPAY ==
[2023-07-04] VITALS (12 sets, daily range): BP systolic 106–134; BP diastolic 69–102; PULSE 78–116; RESP 15–28; TEMP 36.5–36.8; O2SAT 94–100
--- NOTE | 2023-07-04 01:43 | XRR_ITS ---
PROCEDURE INFORMATION: Exam: XR Chest Exam date and time: 07/04/2023 1:43 AM Age: 82 years old Clinical indication: Shortness of breath; Prior surgery; Surgery date: 6+ months; Surgery type: Pacer; Patient HX: C/O SOB. History of afib, copd, and metastatic colon cancer. TECHNIQUE: Imaging protocol: Radiologic exam of the chest. Views: 1 view. COMPARISON: CR XR chest 1V portable [id number] 12/30/2022 10:36 AM FINDINGS: Tubes, catheters and devices: Left chest ICD. Lungs: Unremarkable. No consolidation. Pleural spaces: Unremarkable. No pleural effusion. No pneumothorax. Heart/Mediastinum: Unremarkable. No cardiomegaly. Bones/joints: Unremarkable. XR/XR chest 1V portable [id number] IMPRESSION: No focal acute pulmonary disease.
--- NOTE | 2023-07-04 02:12 | ECG_ITS ---
[facility] Test Date: 2023-07-04 Pat Name: Jigar Ochoa Department: Room: Gender: Male Program Developer: : 1940 Requested By: Peterson Franklin Order Number: [id number] Andrade MD: Analilia Mendez M.D. Measurements Intervals [place] Rate: 98 P: 0 IN: 0 QRS: 77 QRSD: 84 T: -30 QT: 362 QTc: 462 Interpretive Statements ATRIAL FIBRILLATION MODERATE ST DEPRESSION [0.05+ mV ST DEPRESSION] Compared to ECG 12/30/2022 10:48:48 Incomplete right bundle-branch block no longer present ST (T wave) deviation still present Electronically Signed On 07-04-2023 10:09:39 CDT by Analilia Mendez M.D. [id number]
[2023-07-04 02:19] LABS: Basophils % 0.5 %; Eosinophils # 0.1 10^3/uL (0.0-0.8); Eosinophils % 1.4 %; Hematocrit 39.8 % (37-53); Lymphocytes # 2.1 10^3/uL (0.8-4.8); Lymphocytes % 33.8 %; Mean Corpuscular HGB Conc 34.2 g/dL (30-55); Mean Corpuscular Hemoglobin 37.9 pg (27-33); Mean Corpuscular Volume 110.9 fl (82-101); Mean Platelet Volume 12.5 fL (7.4-10.4); Monocytes # 0.5 10^3/uL (0.2-0.9); Monocytes % 8.4 %; Neutrophils # 3.46 10^3/uL (1.8-7.7); Neutrophils % 55.7 %; Nucleated Red Blood Cells % 0 %; Platelet Count 60 10^3/cmm (157-399); Red Blood Count 3.59 10^6/uL (3.85-5.65); Red Cell Distribution Width 16.6 % (12.1-15.1); White Blood Count 6.21 10^3/uL (3.29-11.43)
[2023-07-04] MEDS: ipratropium-albuterol 3 mL Neb INHALATION (02:23)
[2023-07-04 02:31] LABS: Troponin(5th) Baseline 19 ng/L (0-15)
[2023-07-04 02:32] LABS: Lactic Sepsis W/Reflex 1.1 mmol/L (0.5-2.2)
[2023-07-04 02:36] LABS: D Dimer 2.79 ug/mLFEU (0-0.59)
--- NOTE | 2023-07-04 02:41 | W.ED.SOB ---
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 He presents with shortness of breath since around 11 PM. It was generally sudden in onset. He denies any significant chest discomfort. He notes that he has had leg cramps for the past couple of nights on and off which seem to not have improved. He he denies any fever. MD elicited complaint: shortness of breath Associated symptoms: Reports extremity pain; Deny abdominal pain or vomiting Review of Systems General: Reports: 10 or more systems reviewed and unremarkable except in HPI and below ENMT: Reports: throat pain Resp: Reports: dyspnea; Denies: productive cough or non-productive cough GI: Denies: abdominal pain or vomiting Musc: Reports: extremity pain and muscle cramps Skin/Breast: Denies: rash PFSH ED PFSH: Medical History Abdominal aortic aneurysm Anemia Anxiety and depression Atrial fibrillation, new onset Cardiac arrhythmia CKD (chronic kidney disease) stage 3, GFR 30-59 ml/min COPD (chronic obstructive pulmonary disease) History of atrial fibrillation History of lower GI bleeding Metastatic carcinoid tumor Liver mets Pacemaker Peptic ulcer disease Polymyalgia rheumatica Sick sinus syndrome Surgical History H/O colectomy (06/23/14) right hemicolectomy and distal small bowel resection for low-grade carcinoid tumor History of appendectomy History of carpal tunnel release of both wrists History of cataract surgery bilateral Hx of cardiac pacemaker Family History Grandfather Diabetes Denies family history of CAD (coronary artery disease) Clotting disorder Dementia Hyperlipidemia Psychiatric illness Chronic kidney disease (CKD) Suicide Anesthesia complication Bleeding disorder Lung disease Cancer Hypertension Stroke Social History Smoking and tobacco/nicotine status: current some day tobacco/nicotine user cigarettes Packs smoked per day: 0.25 Years cigarettes smoked: 60 Quit status (tobacco/nicotine): has quit using Year quit tobacco: Former quit date comment: Smoked for 20 + years on and off Second hand smoke exposure: Yes Alcohol intake: never Substance/Drug Use: never Physical Exam Const: COMMON NORMALS: alert GENERAL APPEARANCE: well developed ORIENTATION/CONSCIOUSNESS: Yes awake and Yes oriented to person HENMT: COMMON NORMALS: normocephalic, external ears normal, Normal external nose present and moist oral mucous membranes HEAD & SCALP: normocephalic; no scalp tenderness FACE & SINUS: normal facial exam NOSE: Normal external nose present and No nasal discharge present EXTERNAL EAR: Yes external ears normal MOUTH: tongue normal Eye: COMMON NORMALS: Equal, round and reactive pupils present, EOMs intact bilaterally and conjunctivae normal EYELID: eyelids normal CONJUNCTIVA: Yes conjunctivae normal PUPIL: Yes Equal, round and reactive pupils present Neck/C-Spine: COMMON NORMALS: full ROM GENERAL: No anterior neck swelling and No tracheal deviation Chest: COMMONS NORMALS: normal inspection of the chest CHEST: Yes Symmetrical chest wall rise and No tenderness Resp: COMMON NORMALS: clear to auscultation bilaterally EFFORT & INSPECTION: No tachypneic, No respiratory distress, No retractions, No uses accessory muscles and No tracheal deviation AUSCULTATION: clear to auscultation bilaterally, no rhonchi, no wheezes and lung sounds not diminished Cardio: COMMON NORMALS: regular rate and regular rhythm RATE: regular rate RHYTHM: regular rhythm HEART SOUNDS: no murmurs PERIPHERAL PULSES: radial pulses present GI: INSPECTION: No abdominal distension and No other PALPATION: No Tenderness to palpation present (GI), No Guarding due to palpation present (GI) and Yes Rigid due to palpation PERCUSSION: no dullness to percussion and no tympanic to percussion Neuro: SENSORIUM/ORIENTATION: Yes alert and Yes oriented to person Psych: COMMON NORMALS: mental status grossly normal and speech normal SPEECH: Yes normal speech Course Vital Signs: Vital signs: Vital Signs Temperature 98.2 F 07/04/23 12:04 Pulse Rate 81 07/04/23 12:04 Respiratory Rate 15 07/04/23 12:04 Blood Pressure 106/69 07/04/23 12:04 Pulse Oximetry 94 07/04/23 12:04 Oxygen Delivery Me thod Nasal Cannula 07/04/23 08:00 MDM - SOB/Dyspnea Medical Decision Making Patient is in atrial fibrillation with rvr, not controlled with metoprolol IV here. Started diltiazem with goal rate of 80 or less. bp is maintained. he is very weak. d dimer was positive. CTA shows no PE but new mass with potential of small area of obstruction. he is requiring oxygen. will go to [facility] for rate control, O2 therapy, etc. hospitalist aware and will see the patient. Lab Data 07/04/23 01:50 07/04/23 01:50 Labs/Radiology: Radiology Impressions Chest X-Ray 07/04/23 01:43 IMPRESSION: No focal acute pulmonary disease. Chest CTA 07/04/23 03:11 IMPRESSION: 1. Negative for pulmonary artery embolism, however it should be noted that the lower lobe segmental pulmonary arteries are not adequately opacified for evaluation. 2. Bilateral pleural effusions. 3. Right upper lobe pulmonary mass suspicious for malignancy. This could represent metastatic lesion or primary lung neoplasm. Laboratory Results WBC 6.21 10^3/uL (3.29-11.43) 07/04/23 01:50 RBC 3.59 10^6/uL (3.85-5.65) L 07/04/23 01:50 Hgb 13.60 g/dL (11.27-16.99) 07/04/23 01:50 Hct 39.8 % (37-53) 07/04/23 01:50 MCV 110.9 fl (82-101) H 07/04/23 01:50 MCH 37.9 pg (27-33) H 07/04/23 01:50 MCHC 34.2 g/dL (30-55) 07/04/23 01:50 RDW 16.6 % (12.1-15.1) H 07/04/23 01:50 Plt Count 60 10^3/cmm (157-399) L 07/04/23 01:50 MPV 12.5 fL (7.4-10.4) H 07/04/23 01:50 Neut % (Auto) 55.7 % 07/04/23 01:50 Lymph % (Auto) 33.8 % 07/04/23 01:50 [place] % (Auto) 8.4 % 07/04/23 01:50 Eos % (Auto) 1.4 % 07/04/23 01:50 Baso % (Auto) 0.5 % 07/04/23 01:50 Neut # (Auto) 3.46 10^3/uL (1.8-7.7) 07/04/23 01:50 Lymph # (Auto) 2.1 10^3/uL (0.8-4.8) 07/04/23 01:50 [place] # (Auto) 0.5 10^3/uL (0.2-0.9) 07/04/23 01:50 Eos # (Auto) 0.1 10^3/uL (0.0-0.8) 07/04/23 01:50 Baso # (Auto) 0.0 10^3/uL (0.0-0.1) 07/04/23 01:50 Nucleated RBC % (auto) 0 % 07/04/23 01:50 Nucleated RBCs # 0.0 /100WBC 07/04/23 01:50 D-Dimer 2.79 ug/mLFEU (0-0.59) H 07/04/23 01:50 Specimen Type Arterial 07/04/23 02:34 Sample Site Brachial, left 07/04/23 02:34 ABG pH 7.41 (7.35-7.45) 07/04/23 02:34 ABG pCO2 36.4 mmHg (35-45) 07/04/23 02:34 ABG pO2 77.9 mmHg (80.0-100.0) L 07/04/23 02:34 ABG HCO3 23.3 mmol/L (22-26) 07/04/23 02:34 ABG Base Excess -1.0 mmol/L (-2.0-2.0) 07/04/23 02:34 Wil Test N/a 07/04/23 02:34 Hematocrit 40.3 % (42-52) L 07/04/23 02:34 Hgb O2 Saturation 92.4 % (95-100) L 07/04/23 02:34 Carboxyhemoglobin 2.8 %THgb (0.4-20.1) 07/04/23 02:34 Methemoglobin 1.3 % (0.4-1.5) 07/04/23 02:34 Total Hemoglobin 13.2 g/dL (14-18) L 07/04/23 02:34 O2 Delivery Device Room air 07/04/23 02:34 [employer] ID [email or web address] 07/04/23 02:34 Sodium 137 mmol/L (136-145) 07/04/23 01:50 Potassium 4.4 mmol/L (3.5-5.1) 07/04/23 01:50 Chloride 104 mmol/L (98-107) 07/04/23 01:50 Carbon Dioxide 26 mmol/L (22-29) 07/04/23 01:50 Anion Gap 11.4 (5-19) 07/04/23 01:50 BUN 21 mg/dL (8-23) 07/04/23 01:50 Creatinine 1.6 mg/dL (0.7-1.2) H 07/04/23 01:50 GFR Calculation Not Reportable 07/04/23 01:50 Glucose 100 mg/dL (65-115) 07/04/23 01:50 Calculated Osmolality 287 mOsm/kg (285-295) 07/04/23 01:50 Lactic Acid 1.1 mmol/L (0.5-2.2) 07/04/23 01:50 Calcium 8.7 mg/dL (8.5-10.5) 07/04/23 01:50 Total Bilirubin 2.2 mg/dL (0.15-1.2) H 07/04/23 01:50 AST 33 U/L (0-40) 07/04/23 01:50 ALT 21 U/L (0-41) 07/04/23 01:50 Alkaline Phosphatase 227 U/L (40-130) H 07/04/23 01:50 Troponin T Baseline 19 ng/L (0-15) H 07/04/23 01:50 Troponin T 120 Minute 17.28 ng/L (0-15) H 07/04/23 03:44 Delta Troponin T -1.72 ABS# (0-10) L 07/04/23 03:44 NT-Pro-B Natriuret Pep 3404 pg/mL (0-450) H 07/04/23 01:50 Total Protein 5.8 g/dL (6.6-8.7) L 07/04/23 01:50 Albumin 3.3 g/dL (3.5-5.2) L 07/04/23 01:50 Globulin 2.5 g/dL (1.3-4.6) 07/04/23 01:50 TSH 2.15 uIU/mL (0.27-4.20) 07/04/23 03:44 SARS-CoV-2 Ag (Rapid) negative (Negative) 07/04/23 02:10 All radiology interpretation(s) finalized by discharge Critical Care Time Critical Care Time: Critical Care Time: Yes Total Critical Care Time: 35 Attestation: This case had a high probability of a clinically significant, sudden, or life threatening deterioration of this patient's condition which required my full and direct attention, intervention and personal management. timing is independent of any procedures performed. Discharge Plan Discharge Patient Disposition: Admitted As Inpatient Admit Provider: Michelle Valdez Clinical Impression: Mass of lung, Pulmonary edema, Atrial fibrillation with RVR Condition: Stable Discharge Diet: Cardiac Discharge Activity: Resume usual activity Coding Level of Care Code ED General Office Associate for Ricky Almeida
[2023-07-04 02:42] LABS: Alanine Aminotransferase 21 U/L (0-41); Albumin Level 3.3 g/dL (3.5-5.2); Alkaline Phosphatase 227 U/L (40-130); Anion Gap 11.4 (5-19); Aspartate Amino Transferase 33 U/L (0-40); Blood Urea Nitrogen 21 mg/dL (8-23); Calcium 8.7 mg/dL (8.5-10.5); Carbon Dioxide 26 mmol/L (22-29); Chloride 104 mmol/L (98-107); Globulin 2.5 g/dL (1.3-4.6); Glucose 100 mg/dL (65-115); NT Pro B Type Natriuretic Pept 3404 pg/mL (0-450); Osmolality Calculated 287 mOsm/kg (285-295); Potassium 4.4 mmol/L (3.5-5.1); Sodium 137 mmol/L (136-145); Total Bilirubin 2.2 mg/dL (0.15-1.2); Total Protein 5.8 g/dL (6.6-8.7)
[2023-07-04 02:44] LABS: ABG PCO2 36.4 mmHg (35-45); ABG PH Result 7.41 (7.35-7.45); Arterial Blood Gas Hematocrit 40.3 % (42-52); Blood Gas Sample Site Brachial, left; Blood Gas Sample Type Arterial; Carboxyhemoglobin 2.8 %THgb (0.4-20.1); HCO3 ABG 23.3 mmol/L (22-26); HGB O2 Sat 92.4 % (95-100); Methemoglobin 1.3 % (0.4-1.5); Oxygen Device ROOM AIR; PO2 ABG 77.9 mmHg (80.0-100.0); Total Hemoglobin 13.2 g/dL (14-18)
[2023-07-04 02:49] LABS: SARS Covid-2 Antigen negative (Negative)
--- NOTE | 2023-07-04 03:11 | CTR_ITS ---
PROCEDURE INFORMATION: Exam: CTA Chest With Contrast Exam date and time: 07/04/2023 3:26 AM Age: 82 years old Clinical indication: Abnormal findings; Abnormal diagnostic tests; Elevated d-dimer; Shortness of breath; Prior surgery; Surgery date: 6+ months; Surgery type: Pacer; Patient HX: SOB with dimer of 2.79. History of copd and metastatic colon cancer. TECHNIQUE: Imaging protocol: Computed tomographic angiography of the chest with contrast. Exam focused on the arteries. 3D rendering (Not supervised by radiologist): MIP and/or 3D reconstructed images were created by the technologist. Radiation optimization: All CT scans at this facility use at least one of these dose optimization techniques: automated exposure control; mA and/or kV adjustment per patient size (includes targeted exams where dose is matched to clinical indication); or iterative reconstruction. Contrast material: OMNI 350; Contrast volume: 76 ml; Contrast route: INTRAVENOUS (IV); REPORTING DATA: Count of CT and Cardiac NM exams in prior 12 months: This patient has received [address] and 0 known cardiac nuclear medicine studies in the 12 months prior to the current study. COMPARISON: CT angio chest abd [id number] 06/09/2017 10:01 AM RADIATION DOSE METRICS: Total DLP (mGy-cm): 242.39 FINDINGS: Tubes, catheters and devices: Left chest ICD. Pulmonary arteries: See Other arteries finding. Aorta: Unremarkable. No aortic aneurysm. No aortic dissection. Other arteries: Contrast bolus in the lower lobe segmental pulmonary arteries is nondiagnostic to evaluate the arteries. There is no acute pulmonary artery embolism identified within the adequately opacified arteries. Lungs: Centrilobular emphysema. Pulmonary hyperinflation. Modest dependent lower lobe atelectasis changes bilaterally. Noncalcified pulmonary mass with lobulated borders in the anterior right upper lobe causing localized endobronchial obstruction. Lesion measures 2.4 cm x 2.0 cm. Pleural spaces: Small volume bilateral pleural effusions. Heart: Multichamber cardiac dilation is right-side predominant. Mediastinal space: Unremarkable thoracic esophagus. Lymph nodes: Unremarkable. No enlarged lymph nodes. Intraperitoneal space: Small volume ascites within upper abdomen. Bones/joints: Unremarkable. No acute fracture. Soft tissues: Unremarkable. CT/CT angio chest PE protcl [id number] IMPRESSION: 1. Negative for pulmonary artery embolism, however it should be noted that the lower lobe segmental pulmonary arteries are not adequately opacified for evaluation. 2. Bilateral pleural effusions. 3. Right upper lobe pulmonary mass suspicious for malignancy. This could represent metastatic lesion or primary lung neoplasm.
[2023-07-04] MEDS: FUROsemide 10 mg/mL SDV 10mL 60 MG IVP (03:17)
[2023-07-04] MEDS: iohexol 350 mg/mL 500 mL Btl (per mL) IV (03:36)
[2023-07-04] MEDS: metoprolol tartrate 1 mg/1 mL SDV 5 mL 2.5 MG IVP (03:50)
--- NOTE | 2023-07-04 04:12 | ECG_ITS ---
[facility] Test Date: 2023-07-04 Pat Name: Jigar Ochoa Department: Room: Gender: Male Loss Prevention Agent: : 1940 Requested By: Peterson Franklin Order Number: [id number] Andrade MD: Analilia Mendez M.D. Measurements Intervals [place] Rate: 105 P: 0 MN: 0 QRS: 74 QRSD: 100 T: 77 QT: 357 QTc: 472 Interpretive Statements ATRIAL FIBRILLATION WITH RAPID VENTRICULAR RESPONSE INCOMPLETE RIGHT BUNDLE BRANCH BLOCK [90+ ms QRS DURATION, TERMINAL R IN V1/V2, 40+ ms S IN I/aVL/V4/V5/V6] ABNORMAL RHYTHM ECG Compared to ECG 07/04/2023 01:47:36 Incomplete right bundle-branch block now present ST (T wave) deviation no longer present Electronically Signed On 07-04-2023 10:10:25 CDT by Analliia Mendez M.D. [email or web address]
[2023-07-04 04:15] LABS: Troponin 5 2HR 17.28 ng/L (0-15)
[2023-07-04 04:16] LABS: Troponin 5 2HR Delta -1.72 ABS# (0-10)
[2023-07-04] MEDS: dilTIAZem 100 MG in sodium chloride 0.9% (add-van) 100 ML IV (04:36)
--- NOTE | 2023-07-04 07:41 | P.HP_ITS ---
Providers/Chief Complaint Admitting Physician: Michelle Valdez MD Primary Care Provider: Gabriel Angela MD Chief Complaint: SOB History of Present Illness Jigar Ochoa is a 82 year old male with past medical history of metastatic neuroendocrine tumor, supraventricular tachycardia, sick sinus syndrome status post pacemaker, smoking history, small AAA. He presents to the emergency room today with chief complaints of dyspnea which woke him up from sleep at around 3 AM. Patient states that he woke up unable to catch his breath. Also felt palpitations at that time. Came into the ER with these complaints and was found to have A-fib with RVR. Review of records shows that he followed with cardiology in November 2022 at which time he had been diagnosed with new onset A-fib with RVR. He was started on metoprolol 25 mg p.o. twice daily, however I am unable to see it on his current home medication list. Uncertain if patient is taking this medication. He was not started on anticoagulation due to history of peptic ulcer disease and GI bleeding history. When I asked him about this, patient states that he does not remember having A- fib, however also states that he may have forgotten as he has been increasingly forgetful over the past few months as well. Echocardiogram completed in December 2022 had shown LV systolic function of 50 to 55%, dilated RA, mild MR, mild AR mild TR and mild pulmonary hypertension. CT of the chest was performed earlier today, study was negative for the same but did show a right upper lobe pulmonary mass which was suspicious for malignancy. Review of Systems General: Reports: 10 or more systems reviewed and unremarkable except in HPI and below Const: Denies: fever(s), chills or body aches Eyes: Denies: change in vision, blurry vision or photophobia ENMT: Reports: hoarseness; Denies: throat pain, enlarged tonsils, odynophagia or nasal congestion Card: Denies: chest pain, palpitations, irregular heart rhythm, edema, swelling of feet/ankles, lightheadedness, pre-syncope, dyspnea on exertion or orthopnea Resp: Denies: dyspnea, productive cough, non-productive cough, wheezing, stridor, pain on inspiration, change in phlegm color, hemoptysis or chest congestion GI: Denies: abdominal pain, nausea, vomiting, hematemesis, coffee ground emesis, dysphagia, heartburn, diarrhea, constipation, GI cramping, change in stool character, hematochezia or melena : Denies: flank pain, dysuria, urinary frequency, urinary urgency, urinary hesitancy or hematuria Musc: Denies: neck pain, back pain, extremity pain, joint swelling, joint warmth or deformity Neuro: Denies: headache(s), numbness in extremities, weakness in extremities, sensory changes, difficulty walking, frequent falls, dizziness, vertigo, behavioral changes, Slurred speech present or seizure-like activity Psych: Denies: anxiety, depression, suicidal ideation or homicidal ideation Endo: Denies: polyuria, polydipsia, tired all the time, cold intolerance or h ot flashes Edwin/Lymph: Denies: easy bruising or easy bleeding Medications/Allergies Home Medications Medication Instructions Recorded Confirmed Last Taken Type multivitamin 1 tab PO QAM 11/01/19 07/04/23 07/03/23 History octreotide,microspheres 20 mg 20 mg IM Q28D #3 ea 07/18/22 06/17/23 Unknown Rx intramuscular susp, extended release (Sandostatin [place]) ferrous sulfate 325 mg (65 mg 325 mg PO QAM 12/30/22 07/04/23 07/03/23 History iron) tablet promethazine 25 mg tablet 25 mg PO Q6H PRN nausea and 12/30/22 06/17/23 Unknown Rx vomiting #20 tabs triamcinolone acetonide 0.1 % See Rx Instructions .Route 03/09/23 06/17/23 Unknown Rx topical cream .COMPLEX #454 grams pantoprazole 40 mg tablet,delayed 40 mg PO QAM #90 tabs 05/26/23 06/17/23 Unknown Rx release sertraline 25 mg tablet 25 mg PO QAM #30 tabs 06/30/23 Unknown Rx Allergies Allergy/AdvReac Type Severity Reaction Status Date / Time Penicillins Allergy Unknown unknown Verified 06/17/23 14:22 aspirin Allergy ADR-Nausea Verified 06/17/23 14:22 lidocaine Allergy ALGY-Difficulty Verified 06/17/23 14:22 Breathing PFSH Acute PFSH: Medical History Abdominal aortic aneurysm Anemia Anxiety and depression Atrial fibrillation, new onset Cardiac arrhythmia CKD (chronic kidney disease) stage 3, GFR 30-59 ml/min COPD (chronic obstructive pulmonary disease) History of atrial fibrillation History of lower GI bleeding Metastatic carcinoid tumor Liver mets Pacemaker Peptic ulcer disease Polymyalgia rheumatica Sick sinus syndrome Surgical History H/O colectomy (06/23/14) right hemicolectomy and distal small bowel resection for low-grade carcinoid tumor History of appendectomy History of carpal tunnel release of both wrists History of cataract surgery bilateral Hx of cardiac pacemaker Family History Grandfather Diabetes Denies family history of CAD (coronary artery disease) Clotting disorder Dementia Hyperlipidemia Psychiatric illness Chronic kidney disease (CKD) Suicide Anesthesia complication Bleeding disorder Lung disease Cancer Hypertension Stroke Social History Smoking and tobacco/nicotine status: current some day tobacco/nicotine user cigarettes Packs smoked per day: 0.25 Years cigarettes smoked: 60 Quit status (tobacco/nicotine): has quit using Year quit tobacco: Former quit date comment: Smoked for 20 + years on and off Second hand smoke exposure: Yes Alcohol intake: never Substance/Drug Use: never Vitals/I&O/Wt Last Vital Signs Temp 98.3 F 07/04/23 05:31 Pulse 78 07/04/23 06:00 Resp 28 H 07/04/23 05:31 BP 125/76 07/04/23 05:31 Pulse Ox 100 07/04/23 05:31 O2 Del Method Room Air 07/04/23 05:31 07/03/23 07/04/23 07/04/23 22:59 06:59 14:59 Intake Total 16.50 / 16.50 Output Total 1150 / 1150 420 / 420 Balance -1133.50 / -1133.50 -420 / -420 Weight last 48 hrs Weight 58.967 kg Physical Exam Narrative: General: No acute distress, AO x3 HEENT: PERRLA, pupils bilaterally equal and reactive, pallors not present Chest: Normal vesicular breath sounds, no added sounds, equal good air entry bilaterally CVS: S1-S2 regular, no murmurs, no tachycardia, no gallops, no rubs Abdomen: Soft, nontender, no organomegaly, bowel sounds present Neuro: No focal deficits, no facial deformity, AO x3, power 5/5 in all limbs Extremities: No edema clubbing or cyanosis Data 07/04/23 01:50 07/04/23 01:50 Other Labs: Radiology Impressions Chest X-Ray 07/04/23 01:43 IMPRESSION: No focal acute pulmonary disease. Chest CTA 07/04/23 03:11 IMPRESSION: 1. Negative for pulmonary artery embolism, however it should be noted that the lower lobe segmental pulmonary arteries are not adequately opacified for evaluation. 2. Bilateral pleural effusions. 3. Right upper lobe pulmonary mass suspicious for malignancy. This could represent metastatic lesion or primary lung neoplasm. Laboratory Results WBC 6.21 10^3/uL (3.29-11.43) 07/04/23 01:50 RBC 3.59 10^6/uL (3.85-5.65) L 07/04/23 01:50 Hgb 13.60 g/dL (11.27-16.99) 07/04/23 01:50 Hct 39.8 % (37-53) 07/04/23 01:50 MCV 110.9 fl (82-101) H 07/04/23 01:50 MCH 37.9 pg (27-33) H 07/04/23 01:50 MCHC 34.2 g/dL (30-55) 07/04/23 01:50 RDW 16.6 % (12.1-15.1) H 07/04/23 01:50 Plt Count 60 10^3/cmm (157-399) L 07/04/23 01:50 MPV 12.5 fL (7.4-10.4) H 07/04/23 01:50 Neut % (Auto) 55.7 % 07/04/23 01:50 Lymph % (Auto) 33.8 % 07/04/23 01:50 [place] % (Auto) 8.4 % 07/04/23 01:50 Eos % (Auto) 1.4 % 07/04/23 01:50 Baso % (Auto) 0.5 % 07/04/23 01:50 Neut # (Auto) 3.46 10^3/uL (1.8-7.7) 07/04/23 01:50 Lymph # (Auto) 2.1 10^3/uL (0.8-4.8) 07/04/23 01:50 [place] # (Auto) 0.5 10^3/uL (0.2-0.9) 07/04/23 01:50 Eos # (Auto) 0.1 10^3/uL (0.0-0.8) 07/04/23 01:50 Baso # (Auto) 0.0 10^3/uL (0.0-0.1) 07/04/23 01:50 Nucleated RBC % (auto) 0 % 07/04/23 01:50 Nucleated RBCs # 0.0 /100WBC 07/04/23 01:50 D-Dimer 2.79 ug/mLFEU (0-0.59) H 07/04/23 01:50 Specimen Type Arterial 07/04/23 02:34 Sample Site Brachial, left 07/04/23 02:34 ABG pH 7.41 (7.35-7.45) 07/04/23 02:34 ABG pCO2 36.4 mmHg (35-45) 07/04/23 02:34 ABG pO2 77.9 mmHg (80.0-100.0) L 07/04/23 02:34 ABG HCO3 23.3 mmol/L (22-26) 07/04/23 02:34 ABG Base Excess -1.0 mmol/L (-2.0-2.0) 07/04/23 02:34 Wil Test N/a 07/04/23 02:34 Hematocrit 40.3 % (42-52) L 07/04/23 02:34 Hgb O2 Saturation 92.4 % (95-100) L 07/04/23 02:34 Carboxyhemoglobin 2.8 %THgb (0.4-20.1) 07/04/23 02:34 Methemoglobin 1.3 % (0.4-1.5) 07/04/23 02:34 Total Hemoglobin 13.2 g/dL (14-18) L 07/04/23 02:34 O2 Delivery Device Room air 07/04/23 02:34 Form Grader ID [email or web address] 07/04/23 02:34 Sodium 137 mmol/L (136-145) 07/04/23 01:50 Potassium 4.4 mmol/L (3.5-5.1) 07/04/23 01:50 Chloride 104 mmol/L (98-107) 07/04/23 01:50 Carbon Dioxide 26 mmol/L (22-29) 07/04/23 01:50 Anion Gap 11.4 (5-19) 07/04/23 01:50 BUN 21 mg/dL (8-23) 07/04/23 01:50 Creatinine 1.6 mg/dL (0.7-1.2) H 07/04/23 01:50 GFR Calculation Not Reportable 07/04/23 01:50 Glucose 100 mg/dL (65-115) 07/04/23 01:50 Calculated Osmolality 287 mOsm/kg (285-295) 07/04/23 01:50 Lactic Acid 1.1 mmol/L (0.5-2.2) 07/04/23 01:50 Calcium 8.7 mg/dL (8.5-10.5) 07/04/23 01:50 Total Bilirubin 2.2 mg/dL (0.15-1.2) H 07/04/23 01:50 AST 33 U/L (0-40) 07/04/23 01:50 ALT 21 U/L (0-41) 07/04/23 01:50 Alkaline Phosphatase 227 U/L (40-130) H 07/04/23 01:50 Troponin T Baseline 19 ng/L (0-15) H 07/04/23 01:50 Troponin T 120 Minute 17.28 ng/L (0-15) H 07/04/23 03:44 Delta Troponin T -1.72 ABS# (0-10) L 07/04/23 03:44 NT-Pro-B Natriuret Pep 3404 pg/mL (0-450) H 07/04/23 01:50 Total Protein 5.8 g/dL (6.6-8.7) L 07/04/23 01:50 Albumin 3.3 g/dL (3.5-5.2) L 07/04/23 01:50 Globulin 2.5 g/dL (1.3-4.6) 07/04/23 01:50 SARS-CoV-2 Ag (Rapid) negative (Negative) 07/04/23 02:10 A&P Assessment and plan (1) Atrial fibrillation with RVR: Patient presenting today with A-fib with RVR, started on Cardizem infusion in the emergency room which is being continued currently. Currently on 5 mg/h infusion Start metoprolol 25 mg p.o. twice daily and attempt to titrate off the drip. Patient has previously been evaluated by cardiology for his A-fib with RVR, not a candidate for anticoagulation given thrombocytopenia, history of peptic ulcers and GI bleeding, carcinoid tumor, history of colon resection for the same. Pacemaker interrogation check TSH (2) Pulmonary edema: Pulmonary edema precipitated likely as a result of A-fib with RVR. Possible contribution also by pulmonary hypertension as noted on recent echocardiogram from December 2022. He has received Lasix 60 mg IV in the emergency room. Further doses to be based on urine output and renal function. (3) Mass of lung: New mass noted in the lung with endobronchial involvement. Suspicion for primary malignancy. History of neuroendocrine tumor. Will refer to pulmonology for biopsy as outpatient. Plan DVT prophylaxis: Lovenox 40 PUD prophylaxis Protonix 40 mg daily Attestations Medical Necessity Statement*: Greater than 2 midnight admission is anticipated Coding Level of Care Code Acute Code for Chg Fwd Moderate MDM includes number and complexity of problems actively addressed during encounter, amount and/or complexity of data reviewed/ordered and described risk of complication, morbidity or mortality of management as documented Diagnoses Atrial fibrillation with RVR I48.91 Pulmonary edema J81.1 Mass of lung R91.8
[2023-07-04 08:46] LABS: Thyroid Stimulating Hormone 2.15 uIU/mL (0.27-4.20)
[2023-07-04] MEDS: pantoprazole DR 40 mg Tablet PO (09:18)
[2023-07-04] MEDS: enoxaparin 40 mg/0.4 mL Syringe SUBCUT (09:18)
[2023-07-04] MEDS: metoprolol tartrate 25 mg Tablet PO (09:18)
[2023-07-04 09:47] LABS: Troponin 5 6HR 18.41 ng/L (0-15)
[2023-07-04 09:52] LABS: Troponin 5 6HR Delta -0.59 ng/L (0-12)
--- NOTE | 2023-07-04 11:30 | PM.DCS ---
Discharge Providers Date of Admission: 07/04/23 04:37 Date of Discharge: July 04, 2023 Attending Provider at Admission: Michelle Valdez MD Attending Provider at Discharge: Harley Jeronimo MD Primary Care Provider: Gabriel Angela MD Diagnoses at Discharge Discharge Diagnosis (1) Atrial fibrillation with RVR: Status: Acute (2) Pulmonary edema: Status: Acute (3) Mass of lung: Status: Acute Reason for Visit Reason for Visit: SOB Hospital Course Hospital Course Jigar Ochoa is a 82 year old male?with past medical history of metastatic neuroendocrine tumor, supraventricular tachycardia, sick sinus syndrome status post pacemaker, smoking history, small AAA. He presents to the emergency room today with chief complaints of dyspnea which woke him up from sleep at around 3 AM.? Patient states that he woke up unable to catch his breath.? Also felt palpitations at that time.? Came into the ER with these complaints and was found to have A-fib with RVR.? Review of records shows that he followed with cardiology in November 2022 at which time he had been diagnosed with new onset A-fib with RVR.? He was started on metoprolol 25 mg p.o. twice daily, however I am unable to see it on his current home medication list.? Uncertain if patient is taking this medication.? He was not started on anticoagulation due to history of peptic ulcer disease and GI bleeding history.? When I asked him about this, patient states that he does not remember having A-fib, however also states that he may have forgotten as he has been increasingly forgetful over the past few months as well.? Echocardiogram completed in December 2022 had shown LV systolic function of 50 to 55%, dilated RA, mild MR, mild AR mild TR and mild pulmonary hypertension. CT of the chest was performed earlier today, study was negative for the same but did show a right upper lobe pulmonary mass which was suspicious for malignancy. Patient was admitted to [facility] for A-fib with RVR, managed with Cardizem drip, transition to p.o. metoprolol, discharged on Metroprolol 25 twice daily. In terms of anticoagulation, I discussed the risk and benefits of anticoagulation, patient has a history of thrombocytopenia, peptic ulcers, GI bleed, carcinoid tumor, I have recommended for him to do a trial of anticoagulant therapy, due to risk of strokes, however patient has declined. After discussing the risk and benefits of anticoagulation, shared decision making, he voiced understanding, all consents are, declined anticoagulation for now. He wants to continue aspirin 81 mg. Patient was found to have a mass of the right upper lung, with a history of neuroendocrine tumor, concern for underlying malignancy, patient tells me that he does not want to have any chemotherapy, we discussed further evaluation by oncology, and pulmonary, he is agreeable,. 3. ? Right upper lobe pulmonary mass suspicious for malignancy.? This could represent metastatic lesion or primary lung neoplasm. Physical Exam Const: COMMON NORMALS: no acute distress and patient oriented x3 Resp: COMMON NORMALS: normal respiratory effort, No retractions, No use of accessory muscles and clear to auscultation bilaterally AUSCULTATION: clear to auscultation bilaterally Cardio: COMMON NORMALS: regular rate, S1 normal heart sound present and S2 normal heart sound present RATE: regular rate RHYTHM: abnormal rhythm HEART SOUNDS: S1 normal heart sound present and S2 normal heart sound present GI: COMMON NORMALS: Normal to inspection, nondistended, normoactive bowel sounds present and non-tender Extremity: COMMON NORMALS: no pedal edema Neuro: COMMON NORMALS: patient oriented x3 Psych: COMMON NORMALS: mental status grossly normal Discharge Data Studies Completed and Pending Completed Studies During Hospitalization Category Date Time Status CT angio chest PE protcl [id number] Urgent Cat Scan 07/04/23 03:11 Completed XR chest 1V portable [id number] Stat Exams 07/04/23 01:43 Completed Pending at discharge Category Date Time Status Complete Blood Count w/Auto AM LABS Lab 07/05/23 04:00 Ordered Comprehensive Metabolic Panel AM LABS Lab 07/05/23 04:00 Ordered Radiology Impressions Chest X-Ray 07/04/23 01:43 IMPRESSION: No focal acute pulmonary disease. Chest CTA 07/04/23 03:11 IMPRESSION: 1. Negative for pulmonary artery embolism, however it should be noted that the lower lobe segmental pulmonary arteries are not adequately opacified for evaluation. 2. Bilateral pleural effusions. 3. Right upper lobe pulmonary mass suspicious for malignancy. This could represent metastatic lesion or primary lung neoplasm. Laboratory Results WBC 6.21 10^3/uL (3.29-11.43) 07/04/23 01:50 RBC 3.59 10^6/uL (3.85-5.65) L 07/04/23 01:50 Hgb 13.60 g/dL (11.27-16.99) 07/04/23 01:50 Hct 39.8 % (37-53) 07/04/23 01:50 MCV 110.9 fl (82-101) H 07/04/23 01:50 MCH 37.9 pg (27-33) H 07/04/23 01:50 MCHC 34.2 g/dL (30-55) 07/04/23 01:50 RDW 16.6 % (12.1-15.1) H 07/04/23 01:50 Plt Count 60 10^3/cmm (157-399) L 07/04/23 01:50 MPV 12.5 fL (7.4-10.4) H 07/04/23 01:50 Neut % (Auto) 55.7 % 07/04/23 01:50 Lymph % (Auto) 33.8 % 07/04/23 01:50 Cedar % (Auto) 8.4 % 07/04/23 01:50 Eos % (Auto) 1.4 % 07/04/23 01:50 Baso % (Auto) 0.5 % 07/04/23 01:50 Neut # (Auto) 3.46 10^3/uL (1.8-7.7) 07/04/23 01:50 Lymph # (Auto) 2.1 10^3/uL (0.8-4.8) 07/04/23 01:50 Cedar # (Auto) 0.5 10^3/uL (0.2-0.9) 07/04/23 01:50 Eos # (Auto) 0.1 10^3/uL (0.0-0.8) 07/04/23 01:50 Baso # (Auto) 0.0 10^3/uL (0.0-0.1) 07/04/23 01:50 Nucleated RBC % (auto) 0 % 07/04/23 01:50 Nucleated RBCs # 0.0 /100WBC 07/04/23 01:50 D-Dimer 2.79 ug/mLFEU (0-0.59) H 07/04/23 01:50 Specimen Type Arterial 07/04/23 02:34 Sample Site Brachial, left 07/04/23 02:34 ABG pH 7.41 (7.35-7.45) 07/04/23 02:34 ABG pCO2 36.4 mmHg (35-45) 07/04/23 02:34 ABG pO2 77.9 mmHg (80.0-100.0) L 07/04/23 02:34 ABG HCO3 23.3 mmol/L (22-26) 07/04/23 02:34 ABG Base Excess -1.0 mmol/L (-2.0-2.0) 07/04/23 02:34 Wil Test N/a 07/04/23 02:34 Hematocrit 40.3 % (42-52) L 07/04/23 02:34 Hgb O2 Saturation 92.4 % (95-100) L 07/04/23 02:34 Carboxyhemoglobin 2.8 %THgb (0.4-20.1) 07/04/23 02:34 Methemoglobin 1.3 % (0.4-1.5) 07/04/23 02:34 Total Hemoglobin 13.2 g/dL (14-18) L 07/04/23 02:34 O2 Delivery Device Room air 07/04/23 02:34 Special Events Manager ID [email or web address] 07/04/23 02:34 Sodium 137 mmol/L (136-145) 07/04/23 01:50 Potassium 4.4 mmol/L (3.5-5.1) 07/04/23 01:50 Chloride 104 mmol/L (98-107) 07/04/23 01:50 Carbon Dioxide 26 mmol/L (22-29) 07/04/23 01:50 Anion Gap 11.4 (5-19) 07/04/23 01:50 BUN 21 mg/dL (8-23) 07/04/23 01:50 Creatinine 1.6 mg/dL (0.7-1.2) H 07/04/23 01:50 GFR Calculation Not Reportable 07/04/23 01:50 Glucose 100 mg/dL (65-115) 07/04/23 01:50 Calculated Osmolality 287 mOsm/kg (285-295) 07/04/23 01:50 Lactic Acid 1.1 mmol/L (0.5-2.2) 07/04/23 01:50 Calcium 8.7 mg/dL (8.5-10.5) 07/04/23 01:50 Total Bilirubin 2.2 mg/dL (0.15-1.2) H 07/04/23 01:50 AST 33 U/L (0-40) 07/04/23 01:50 ALT 21 U/L (0-41) 07/04/23 01:50 Alkaline Phosphatase 227 U/L (40-130) H 07/04/23 01:50 Troponin T Baseline 19 ng/L (0-15) H 07/04/23 01:50 Troponin T 120 Minute 17.28 ng/L (0-15) H 07/04/23 03:44 Delta Troponin T -1.72 ABS# (0-10) L 07/04/23 03:44 Troponin T Hi Sens 6Hr 18.41 ng/L (0-15) H 07/04/23 08:15 Troponin T Hi Sens 6Hr Delta -0.59 ng/L (0-12) L 07/04/23 08:15 NT-Pro-B Natriuret Pep 3404 pg/mL (0-450) H 07/04/23 01:50 Total Protein 5.8 g/dL (6.6-8.7) L 07/04/23 01:50 Albumin 3.3 g/dL (3.5-5.2) L 07/04/23 01:50 Globulin 2.5 g/dL (1.3-4.6) 07/04/23 01:50 TSH 2.15 uIU/mL (0.27-4.20) 07/04/23 03:44 SARS-CoV-2 Ag (Rapid) negative (Negative) 07/04/23 02:10 Vitals Last Vital Signs Temp 98.3 F 07/04/23 05:31 Pulse 81 07/04/23 08:00 Resp 15 07/04/23 08:00 BP 106/69 07/04/23 08:00 Pulse Ox 94 07/04/23 08:00 O2 Del Method Nasal Cannula 07/04/23 08:00 Discharge Plan Discharge Patient Disposition: Home Condition: Stable Prescriptions: New metoprolol tartrate 25 mg Tablet 25 mg PO BID@0900,2100 30 Days Qty: 60 0RF Continued multivitamin Tablet 1 tab PO QAM triamcinolone acetonide 0.1 % cream See Rx Instructions .ROUTE .COMPLEX Qty: 454 0RF Dose Instruction: APPLY CREAM EXTERNALLY TO AFFECTED AREA ONCE DAILY Rx Instructions: APPLY CREAM EXTERNALLY TO AFFECTED AREA ONCE DAILY pantoprazole 40 mg tablet,delayed release (DR/EC) 40 mg PO QAM Qty: 90 0RF sertraline 25 mg tablet 25 mg PO QAM Qty: 30 0RF ferrous sulfate 325 mg (65 mg iron) tablet 325 mg PO QAM Discharge Orders: Discharge Order (Routine); Ordered 07/04/23 Ordered By: Harley Jeronimo Referrals: Gabriel Angela MD [Primary Care Provider] - 07/08/23 10:00 am () Discharge Diet: Cardiac Discharge Activity: Resume usual activity Patient Instructions: Metoprolol (By mouth) (Lopressor, Toprol XL), Opioid Safety, Pain Management Discharge Attestations Time Spent in Discharge Care*: less than 30 min Quality Metrics Clinical Quality Measures [ No reported AMI, CVA or VTE this stay] Coding Level of Care Code Acute Code for [facility] Fwd Diagnoses Atrial fibrillation with RVR I48.91 Pulmonary edema J81.1 Mass of lung R91.8
== END 2023-07-04 12:05 | disposition home or self-care (01) ==
LOC: ER 04:40 → CSU 04:58
PROVIDERS: Admitting Provider Student in an Organized Health Care Education/Training Program; Emergency Provider Emergency Medicine; PCP Family Medicine Adult Medicine; Visit Provider Family Medicine
DX: I48.91 Unspecified atrial fibrillation (principal); J81.1 Chronic pulmonary edema; R91.8 Other nonspecific abnormal finding of lung field; Z95.0 Presence of cardiac pacemaker; F17.210 Nicotine dependence, cigarettes, uncomplicated; J90 Pleural effusion, not elsewhere classified; Z85.030 Personal history of malignant carcinoid tumor of large intestine; C78.7 Secondary malignant neoplasm of liver and intrahepatic bile duct; N18.30 Chronic kidney disease, stage 3 unspecified; Z87.11 Personal history of peptic ulcer disease
CPT/HCPCS: 36415; 36600; 71045; 71275; 80053; 82805; 83605; 83880; 84443; 84484; 85025; 85378; 87426; 93005; 94640; 96372; 96374; 96375; 99285; G0378; J1650; J1940; J3490; Q9967

== ENCOUNTER 2023-07-07 10:51 | Outpatient (CLI) | payer MEDICARE, SELFPAY ==
--- NOTE | 2023-07-07 12:00 | CT_ITS ---
WS: [id number] CT CHEST, ABDOMEN AND PELVIS WITH CONTRAST. HISTORY: Follow up for elevated tumor markers TECHNIQUE: Contiguous 5 mm axial imaging performed through the chest, abdomen and pelvis with IV cont rast, oral contrast has been provided. Coronal and sagittal reformats chest. Coronal and sagittal ref ormats through the abdomen and pelvis. All CT scans at [facility] use at least one of these d ose optimization techniques: automated exposure control; mA and/or kV adjustment per patient size (in cludes targeted exams where dose is matched to clinical indication); or iterative reconstruction. CONTRAST: Omnipaque 350; 100 mL IV. DLP: 502.26 mGy.cm COMPARISON: 07/04/2023, 12/18/[address]: Pulmonary hyperexpansion and chronic emphysema. Lobulated nodule reidentified in the RIGHT upper lobe measures 2.1 x 2.2 cm x 1.3 cm. This nodule similar to the prior study of 07/04/2023 but is increased in size since 12/18/2022. No additional mass or nodule is identified. No pneumonia. No fior cardial or pleural effusions. RIGHT hilar lymph node 1.0 cm. No significant increase in the size of the mediastinal or hilar lymph nodes. Moderate atherosclerosis aorta. Plaque and thrombus is noted throughout the aorta. Normal size d pulmonary artery. LEFT subclavian pacer. Abdomen CT: There are several areas within the liver of concern. One area measures 1.1 cm of blush li ke enhancement which could be a benign hemangioma. Additional areas of variable enhancement in the po sterior superior RIGHT lobe of the liver which could represent early metastatic sites. This will need to be further evaluated on follow-up exams. PET/CT imaging would be helpful also. Cholelithiasis. Nu merous stones in the gallbladder. No wall thickening. No bile duct dilatation. Atrophied pancreas. No change in appearance of the spleen. There is mild variable enhancement within the spleen. No renal o bstruction or solid mass. Large abdominal aortic aneurysm. Maximum diameter of the infrarenal aneurys m is 4.3 cm. There is a large amount of circumferential thrombus within the aneurysm sac. Aneurysm is still patent through the iliac arteries. There is mild mesenteric and soft tissue edema. No ascites. No adenopathy. No GI tract obstruction. M ild patulous appearance of the cecum which has been previously identified. As per history status post partial RIGHT colectomy. No mass or obstruction. Pelvic CT: No free fluid in the pelvis. Mild prostate heterogeneity. Soft tissue anasarca. No osteolytic or osteoblastic bone disease. IMPRESSION: 1. RIGHT upper lobe lobulated nodule has increased in size as compared to 12/18/2022. Nodule measures 2.1 x 2.2 x 1.3 cm. Highly suspicious for metastatic or primary neoplastic focus. No increase in size of the hilar or mediastinal lymph nodes. 2. Chronic emphysema. 3. Variable density and enhancement within the liver. There is a new area of blush like enhancement i n the RIGHT lobe which may be recurrent hypervascular metastatic site. There is additional variable d ensity in the superior posterior RIGHT lobe which may be early site of additional metastatic sites wi thin the liver. The large hypervascular masses previously described from metastatic disease are not a s apparent. 4. No GI tract obstruction. 5. Cholelithiasis. 6. Infrarenal abdominal aortic aneurysm, 4.3 cm maximum diameter, stable.
[2023-07-07] MEDS: iohexol 350 mg/mL 500 mL Btl (per mL) PO (12:37)
[2023-07-07] MEDS: iohexol 350 mg/mL 500 mL Btl (per mL) IV (12:37)
== END 2023-07-07 10:52 | disposition home or self-care (01) ==
LOC: RAD 10:52
PROVIDERS: PCP Family Medicine Adult Medicine; Visit Provider Internal Medicine Medical Oncology
DX: R97.8 Other abnormal tumor markers (principal); C7A.012 Malignant carcinoid tumor of the ileum; C7B.02 Secondary carcinoid tumors of liver; R91.1 Solitary pulmonary nodule; J43.9 Emphysema, unspecified; R93.2 Abnormal findings on diagnostic imaging of liver and biliary tract
CPT/HCPCS: 71260; 74177; Q9967

== ENCOUNTER 2023-07-15 14:57 | Oncology outpatient (recurring) (ONCR) | payer MEDICARE, SELFPAY ==
[2023-07-15] MEDS: octreotide LAR depot 20 mg Kit IM (15:46)
== END 2023-07-30 23:59 | disposition home or self-care (01) ==
PROVIDERS: PCP Family Medicine Adult Medicine; Visit Provider Internal Medicine Medical Oncology
DX: C7A.012 Malignant carcinoid tumor of the ileum (principal); C7B.02 Secondary carcinoid tumors of liver; Z79.899 Other long term (current) drug therapy; Z51.11 Encounter for antineoplastic chemotherapy
CPT/HCPCS: 96401; 99215; J2353

== ENCOUNTER 2023-07-21 05:20 | Day surgery (SDC) | payer MEDICARE, SELFPAY ==
[2023-07-21] VITALS (13 sets, daily range): BP systolic 77–112; BP diastolic 54–85; PULSE 95–123; RESP 14–30; TEMP 36.1–36.5; O2SAT 94–99; BMI 16.2
[2023-07-21] MEDS: sodium chloride 0.9% 1,000 ML 30 ML IV (06:31)
--- NOTE | 2023-07-21 07:00 | P.HP_ITS ---
Providers/Chief Complaint Admitting Physician: Jean Claude Cates MD /Pulmonary Critical care Primary Care Provider: Gabriel Angela MD Chief Complaint: 21568 R91.8 History of Present Illness Jigar Ochoa is a 82 year old male?with past medical history of metastatic neuroendocrine tumor, supraventricular tachycardia, sick sinus syndrome status post pacemaker, smoking history, small AAA. found to have right upper lobe lesion suspicious for malignancy on survelliance CT chest on 07/07/23 . 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 He had presented initially with small bowel obstruction, and he underwent exploratory laparotomy with the ileocolic resection on 06/23/2014.? During follow-up he continued to have somewhat marginal performance status, and he experienced some weight loss.? He continued to have mildly elevated total bilirubin and moderately elevated alkaline phosphatase along with mild thrombocytopenia, suspicious for liver cirrhosis. He recently was seen in the emergency room 07/04/2023 for Respiratory distress due to pulmonary edema in association with atrial fibrillation with rapid ventricular response.? He is repeat CT scans 07/07/2023 at that time showed a new right upper lobe lung mass, suspicious for primary lung malignancy CT chest 07/07/23 showed RIGHT upper lobe lobulated nodule has increased in size as compared to 12/18/2022. Nodule measures 2.1 x 2.2 x 1.3 cm. Highly suspicious for metastatic or primary neoplastic focus. No increase in size of the hilar or mediastinal lymph nodes. Patient has a history of chronic extensive smoking. He has evidence of emphysema on CT chest Oncology referred to us to obtain biopsies to rule out between primary lung cancers versus metastatic carcinoid Patient has significant difficulty with hearing and uses hearing aids. He requested me to talk to his sister. I have discussed with patient's sister about the nature of procedure. Patient also verbalized understanding. Today scheduled for robotic Navigational assisted bronchoscopic biopsy of right upper lobe lesion followed by endobronchial ultrasound-guidedsurveillance of hilar and mediastinal lymph nodes Review of Systems General: Reports: 10 or more systems reviewed and unremarkable except in HPI and below Medications/Allergies Home Medications Medication Instructions Recorded Confirmed Last Taken Type multivitamin 1 tab PO QAM 11/01/19 07/21/23 07/20/23 History ferrous sulfate 325 mg (65 mg 325 mg PO QAM 12/30/22 07/21/23 07/20/23 History iron) tablet pantoprazole 40 mg tablet,delayed 40 mg PO QAM #90 tabs 05/26/23 07/21/23 07/20/23 Rx release metoprolol tartrate 25 mg tablet 25 mg PO BID@0900,2100 30 days #60 07/04/23 07/21/23 07/20/23 Rx tabs albuterol sulfate 90 mcg/actuation 2 puff inhalation Q6H PRN 07/08/23 07/21/23 07/20/23 Rx aerosol inhaler shortness of breath or wheezing #8.5 grams diphenoxylate-atropine 2.5 1 tab PO TID diarrhea #10 tabs 07/16/23 07/21/23 07/17/23 Rx mg-0.025 mg tablet (Lomotil) triamcinolone acetonide 0.1 % 1 applic topical DAILY 07/17/23 07/21/23 Unknown History topical cream Allergies Allergy/AdvReac Type Severity Reaction Status Date / Time Penicillins Allergy Unknown unknown Verified 07/17/23 10:36 aspirin Allergy ADR-Nausea Verified 07/17/23 10:36 lidocaine Allergy ALGY-Difficulty Verified 07/17/23 10:36 Breathing PFSH Acute PFSH: Medical History Abdominal aortic aneurysm Anemia Anxiety and depression Atrial fibrillation, new onset Cardiac arrhythmia CKD (chronic kidney disease) stage 3, GFR 30-59 ml/min COPD (chronic obstructive pulmonary disease) Diarrhea History of atrial fibrillation History of lower GI bleeding Metastatic carcinoid tumor Liver mets Pacemaker Peptic ulcer disease Polymyalgia rheumatica Sick sinus syndrome Surgical History H/O colectomy (06/23/14) right hemicolectomy and distal small bowel resection for low-grade carcinoid tumor History of appendectomy History of carpal tunnel release of both wrists History of cataract surgery bilateral Hx of cardiac pacemaker Family History Grandfather Diabetes Denies family history of CAD (coronary artery disease) Clotting disorder Dementia Hyperlipidemia Psychiatric illness Chronic kidney disease (CKD) Suicide Anesthesia complication Bleeding disorder Lung disease Cancer Hypertension Stroke Social History Smoking and tobacco/nicotine status: current some day tobacco/nicotine user cigarettes Packs smoked per day: 0.25 Years cigarettes smoked: 60 Quit status (tobacco/nicotine): has quit using Year quit tobacco: Former quit date comment: Smoked for 20 + years on and off Second hand smoke exposure: Yes Alcohol intake: never Substance/Drug Use: never Vitals/I&O/Wt Last Vital Signs Temp 97.7 F 07/21/23 05:58 Pulse 123 H 07/21/23 05:58 Resp 18 07/21/23 05:58 BP 101/72 07/21/23 05:58 Pulse Ox 97 07/21/23 05:58 O2 Del Method Room Air 07/21/23 05:58 Weight last 48 hrs Weight 126 lb Physical Exam Narrative: General: alert, NAD HEENT: conj clear, EOMI, PERRL, mmm, Neck: supple, no meningismus Heme: no cervical LAP Respiratory: Inspection: No visible deformity of the chest wall Palpation: Trachea is mildly deviated to the right, bilateral symmetric ex pansion Percussion: Bilateral tympanic percussion note both anterior and posteriorly Auscultation: Bilateral clear to auscultation both anterior and posteriorly, no crackles wheezing or rhonchi Cardiovascular: rrr, nl s1s2, no mrg Abdomen: soft, nt, nd, no r/g, bs+ Extremities: pulses +, no edema, no c/c : no CVA tenderness Skin: intact, no rash MSK: no back or neck pain Neurologic: grossly intact A&P Assessment and plan (1) Mass of lung: 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 ?He recently was seen in the emergency room 07/04/2023 for Respiratory distress due to pulmonary edema in association with atrial fibrillation with rapid ventricular response.? He is repeat CT scans 07/07/2023 at that time showed a new right upper lobe lung mass, suspicious for primary lung malignancy CT chest 07/07/23 showed RIGHT upper lobe lobulated nodule has increased in size as compared to 12/18/2022. Nodule measures 2.1 x 2.2 x 1.3 cm. Highly suspicious for metastatic or primary neoplastic focus. No increase in size of the hilar or mediastinal lymph nodes. Patient has a history of chronic extensive smoking. He has evidence of emphysema on CT chest Oncology referred to us to obtain biopsies to rule out between primary lung cancers versus metastatic carcinoid Patient has significant difficulty with hearing and uses hearing aids. He requested me to talk to his sister. I have discussed with patient's sister about the nature of procedure, complications associated with it including pneumothorax and bleeding. Patient also verbalized understanding. Today scheduled for robotic Navigational assisted bronchoscopic biopsy of right upper lobe lesion followed by endobronchial ultrasound-guidedsurveillance of hilar and mediastinal lymph nodes (2) Malignant carcinoid tumor of the ileum: (3) COPD (chronic obstructive pulmonary disease): needs pfts as out pt Attestations Medical Necessity Statement*: today he is here for procedure Time Spent in Patient Care: Greater than 35 minutes Coding Level of Care Code 42022 Diagnoses Mass of lung R91.8 Malignant carcinoid tumor of the ileum C7A.012 COPD (chronic obstructive pulmonary disease) J44.9 Time Spent (min) 38
--- NOTE | 2023-07-21 07:18 | SC_ITS ---
WS: [id number] INTRAOPERATIVE TECHNIQUE: 4 Spot fluoroscopic images for intraoperative purposes. FLUOROSCOPY TIME: 63.2 seconds CLINICAL INFORMATION: Right upper lobe nodule COMPARISON: None. FINDINGS: AICD. Fluoroscopy used for intraoperative bronchoscopy navigational purposes. No visualized pneumotho rax RIGHT lung. IMPRESSION: Images obtained for intraoperative purposes.
--- NOTE | 2023-07-21 07:53 | ANES.PREANE2 ---
Pre-Anesthetic Assessment Height/Weight: Height 1.88 m Weight 57.153 kg Temp Pulse Resp BP Pulse Ox O2 Del Method 97.7 F 123 H 18 101/72 97 Room Air 07/21/23 05:58 07/21/23 05:58 07/21/23 05:58 07/21/23 05:58 07/21/23 05:58 07/21/23 05:58 Operation Date: 07/21/23 07:00 Proposed Procedures p ION, EBUS, 84489, 92174, 35854,18995, 03459, 68346, 43700, 88629, 91961, 13279, 57648, 53326, 65343,R91.8(Not Applicable) - Jean Claude Cates MD s Ebus(Not Applicable) - Jean Claude Cates MD Familial anesthetic complications: none Was Beta Greg taken within 24 hours: Yes Was Clonidine taken within 24 hours: N/A Last intake: Intake Last Liquid Date 07/20/23 Last Liquid Time 19:00 Last Solid Date 07/20/23 Last Solid Time 19:00 Social Tobacco and No alcohol Exam alert and oriented x 3 Airway Submandibular: within normal limits Cervical ROM: within normal limits Mallampati: Class I Dentition: false Pulmonary Chronic Obstructive Pulmonary Disease CV/HEM Hypertension and Peripheral Vascular Disease AAA, pacemaker Chronic Renal Insufficiency GI Gastroesophageal Reflux Disease Metabolic Failure to thrive Anesthetic Plan ASA status: 3 Anesthesia: General Medications/Allergies Home Medications Medication Instructions Recorded Confirmed Last Taken Type multivitamin 1 tab PO QAM 11/01/19 07/21/23 07/20/23 History ferrous sulfate 325 mg (65 mg 325 mg PO QAM 12/30/22 07/21/23 07/20/23 History iron) tablet pantoprazole 40 mg tablet,delayed 40 mg PO QAM #90 tabs 05/26/23 07/21/23 07/20/23 Rx release metoprolol tartrate 25 mg tablet 25 mg PO BID@0900,2100 30 days #60 07/04/23 07/21/23 07/20/23 Rx tabs albuterol sulfate 90 mcg/actuation 2 puff inhalation Q6H PRN 07/08/23 07/21/23 07/20/23 Rx aerosol inhaler shortness of breath or wheezing #8.5 grams diphenoxylate-atropine 2.5 1 tab PO TID diarrhea #10 tabs 07/16/23 07/21/23 07/17/23 Rx mg-0.025 mg tablet (Lomotil) triamcinolone acetonide 0.1 % 1 applic topical DAILY 07/17/23 07/21/23 Unknown History topical cream Allergies Allergy/AdvReac Type Severity Reaction Status Date / Time Penicillins Allergy Unknown unknown Verified 07/17/23 10:36 aspirin Allergy ADR-Nausea Verified 07/17/23 10:36 lidocaine Allergy ALGY-Difficulty Verified 07/17/23 10:36 Breathing Current Medications Generic Name Dose Route Start Last Admin Trade Name Freq PRN Reason Stop Dose Admin Sodium Chloride 1,000 mls @ 30 mls/hr 07/21/23 06:00 07/21/23 06:31 Sodium Chloride 0.9% IV 07/22/23 05:59 30 mls/hr .Q24H JAMES Administration PFSH Anesthesia Medical History Abdominal aortic aneurysm Anemia Anxiety and depression Atrial fibrillation, new onset Cardiac arrhythmia CKD (chronic kidney disease) stage 3, GFR 30-59 ml/min COPD (chronic obstructive pulmonary disease) Diarrhea History of atrial fibrillation History of lower GI bleeding Metastatic carcinoid tumor Liver mets Pacemaker Peptic ulcer disease Polymyalgia rheumatica Sick sinus syndrome Surgical History H/O colectomy (06/23/14) right hemicolectomy and distal small bowel resection for low-grade carcinoid tumor History of appendectomy History of carpal tunnel release of both wrists History of cataract surgery bilateral Hx of cardiac pacemaker Family History Grandfather Diabetes Denies family history of CAD (coronary artery disease) Clotting disorder Dementia Hyperlipidemia Psychiatric illness Chronic kidney disease (CKD) Suicide Anesthesia complication Bleeding disorder Lung disease Cancer Hypertension Stroke Social History Smoking and tobacco/nicotine status: current some day tobacco/nicotine user cigarettes Packs smoked per day: 0.25 Years cigarettes smoked: 60 Quit status (tobacco/nicotine): has quit using Year quit tobacco: Former quit date comment: Smoked for 20 + years on and off Second hand smoke exposure: Yes Alcohol intake: never Substance/Drug Use: never Data Anesthesia Cardiac Studies: Echocardiogram 01/07/23
[2023-07-21 08:43] LABS: Cyto Order Verification Order Verified
[2023-07-21 08:44] LABS: Apprearance, Bronch Wash Cloudy (CLEAR); Color, Bronc Wash Red; Cyto Order Verification Order Verified
--- NOTE | 2023-07-21 08:51 | XRR_ITS ---
PROCEDURE INFORMATION: Exam: XR Chest Exam date and time: 07/21/2023 9:59 AM Age: 82 years old Clinical indication: Device placement; Other: Post bronch; Prior surgery; Surgery date: Post-operative (0-2 days); Additional info: Post ebus, PT in pacu TECHNIQUE: Imaging protocol: Radiologic exam of the chest. Views: 1 view. COMPARISON: CT chest abdpel w/*[id number] 07/07/2023 12:19 PM FINDINGS: Tubes, catheters and devices: Multi lead pacemaker/defibrillator. Lungs: Unremarkable. No consolidation. Pleural spaces: Unremarkable. No pleural effusion. No pneumothorax. Heart/Mediastinum: Unremarkable. No cardiomegaly. Bones/joints: Unremarkable. XR/XR chest 1V portable [id number] IMPRESSION: No acute cardiopulmonary disease.
--- NOTE | 2023-07-21 08:58 | PM.OP ---
Operative Report Date of procedure: July 21, 2023 Pre-op diagnosis: Suspected lung malignancy Post-op diagnosis: Same Procedure done: 55516 Dx Bronchoscope w/Washings or airway inspection 53203 Dx Bronchoscope w/BAL 80491 Bronch with computer image guided Navigational Bronchoscopy 25458 Bronchoscopy w/Transbronchial lung biopsy(s), single lobe 10728 Bronchoscopy w/Transbronchial needle aspiration biopsy(s), tracheal, main stem, and/or lobar bronchus 36203 Bronchoscopy w/ therapeutic aspiration of the tracheobronchial tree (clearance of airway secretions, removal of mucus plugs) 88366 EBUS Sampling 1/2 nodes 25367 EBUS Diag or Interven Peripheral lesion (radial EBUS) Surgeon: Jean Claude Cates MD Brief History: Jigar Ochoa is a 82 year old male?with past medical history of metastatic neuroendocrine tumor, supraventricular tachycardia, sick sinus syndrome status post pacemaker, smoking history, small AAA. found to have right upper lobe lesion suspicious for malignancy on [facility] CT chest on 07/07/23 . currently is following up with oncology for? 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 He had presented initially with small bowel obstruction, and he underwent exploratory laparotomy with the ileocolic resection on 06/23/2014.? During follow-up he continued to have somewhat marginal performance status, and he experienced some weight loss.? He continued to have mildly elevated total bilirubin and moderately elevated alkaline phosphatase along with mild thrombocytopenia, suspicious for liver cirrhosis. He recently was seen in the emergency room 07/04/2023 for Respiratory distress due to pulmonary edema in association with atrial fibrillation with rapid ventricular response.? He is repeat CT scans 07/07/2023 at that time showed a new right upper lobe lung mass, suspicious for primary lung malignancy CT chest 07/07/23 showed RIGHT upper lobe lobulated nodule has increased in size as compared to 12/18/2022. Nodule measures 2.1 x 2.2 x 1.3 cm. Highly suspicious for metastatic or primary neoplastic focus. No increase in size of the hilar or mediastinal lymph nodes. Patient has a history of chronic extensive smoking.? He has evidence of emphysema on CT chest Oncology referred to us to obtain biopsies to rule out between primary lung cancers versus metastatic carcinoid Patient has significant difficulty with hearing and uses hearing aids.? He requested me to talk to his phone. .? I have discussed with patient's sister about the nature of procedure.? Patient also verbalized understanding. Today scheduled for robotic? Navigational assisted bronchoscopic biopsy of right upper lobe lesion followed by endobronchial ultrasound-guidedsurveillance of hilar and mediastinal lymph nodes ? Procedure: 18988 Dx Bronchoscope w/Washings or airway inspection 05204 Dx Bronchoscope w/BAL 02582 Bronch with computer image guided Navigational Bronchoscopy 50380 Bronchoscopy w/Transbronchial lung biopsy(s), single lobe 90652 Bronchoscopy w/Transbronchial needle aspiration biopsy(s), tracheal, main stem, and/or lobar bronchus 40978 Bronchoscopy w/ therapeutic aspiration of the tracheobronchial tree (clearance of airway secretions, removal of mucus plugs) 16466 EBUS Sampling 1/2 nodes 61895 EBUS Diag or Interven Peripheral lesion (radial EBUS) Indication: Description of the procedure: The procedure was explained to the patient and the consent was obtained. The patient was brought to the OR. Anesthesia: The patient underwent endotracheal intubation for general anesthesia. Following induction of general anesthesia, the flexible bronchoscope was advanced through the ET tube. The lower trachea mucosa appeared normal, no endotracheal lesion was seen. The pamella was sharp. In a systematic manner bilateral bronchial tree was then examined. The bronchoscope was then introduced into the right mainstem bronchus. The right upper lobe, right middle lobe and right lower lobe bronchi were examined up to the third subsegmental level and no abnormalities were identified.Mucosa appeared normal with no endobronchial lesion, active bleeding or mucous plug.There were small thick mucous plugs in right upper lobe which were suctioned right away.(38187). The bronchoscope was advanced into the left mainstem bronchus. The mucosa appeared normal with no endobronchial lesions. The left upper lobe, lingula and left lower lobe bronchi were examined up to the third subsegmental level and no abnormalities were identified. Mucosa appeared normal with no endobronchial lesion, active bleeding or mucous plug. There were some mucus secretions in left lower lobe-which were suctioned right away.(08283) After initial inspection as well as airway clearance with flexible bronchoscope(92583), ION robotic assisted navigational bronchoscope (63475) was introduced-and right upper lobe lesion was accessed. After confirming the location with radial EBUS (31741), under the fluoroscopy guidance -we were able to obtain biopsies using fine-needle, forceps.There was some evidence of grade 2 bleeding-cold saline was instilled. BAL was also taken from anterior segment of right upper lobe After making sure there is no active bleeding navigational bronchoscope was retracted and introduced Endobronchial ultrasound EBUS (14261). With the help of EBUS, identified lymph nodes at station 7. Fine-needle aspiration biopsies were taken from lymph nodes at station 7. (41528) After taking the biopsies EBUS retracted-diagnostic bronchoscope was introduced to check for any evidence of active bleeding. There was some evidence of bleeding-controlled with instillation of cold saline and diluted epinephrine. After making sure there is no active bleeding bronchoscope was retracted and procedure terminated. Samples: A. right upper lobe lesion 1. Total of 4 passes were made using needle aspiration(81214); we do not have onsite pathology and so all the material was placed in formalin for histopathology 2. Targeting the same area 4 passes were made using forceps (94035); we do not have onsite pathology and so all the material was placed in formalin for histopathology 3. Bronchoscope was wedged at the entrance of the anterior segment of right upper lobe, 20 mL of saline was instilled and returned 15 mL of bronchoalveolar lavage (13519). The fluid was mixed with blood and specks of tissue. Samples for cell count, cytology, cultures B. EBUS guided Fine-needle aspiration biopsies were taken from station 7. (18130) 4. Total of 3 passes were made using needle aspiration(13328) from station 7: all the material was placed in formalin and sent for histopathology. Complications: None.The patient was extubated and brought to the PACU in stable condition. Postprocedure chest x-ray: There is no evidence of pneumothorax Disposition: Patient can be discharged home in stable condition. Pt, and his sister are aware that I am going to call them to update final biopsy results once available.
[2023-07-21 10:46] LABS: Total Cells Counted Bronch 200
[2023-07-21 10:47] LABS: PATH Referral Yes
--- NOTE | 2023-07-21 13:42 | ANE.PACU2 ---
Inpatient post-anesthesia follow up: Airway intact: Yes Vital signs: Temperature 97.5 F Pulse Rate 95 Respiratory Rate 18 Blood Pressure 81/54 Pulse Oximetry 96 Oxygen Delivery Me thod Room Air Oxygen Flow Rate Fraction of Inspir ed Oxygen Hydration adequate: Yes Nausea and vomiting: No Pain level: 2 Mental status: Baseline
== END 2023-07-21 10:15 | disposition home or self-care (01) ==
PROVIDERS: PCP Family Medicine Adult Medicine; Visit Provider Internal Medicine Pulmonary Disease
PROC: 0BJ08ZZ Inspection of Tracheobronchial Tree, Via Natural or Artificial Opening Endoscopic (ICD-10-PCS; CPT 31622; principal; 2023-07-21 07:00)
PROC: BB4BZZZ Ultrasonography of Pleura (ICD-10-PCS; 2023-07-21 07:00)
DX: C34.11 Malignant neoplasm of upper lobe, right bronchus or lung (principal); J44.9 Chronic obstructive pulmonary disease, unspecified; K21.9 Gastro-esophageal reflux disease without esophagitis; I12.9 Hypertensive chronic kidney disease with stage 1 through stage 4 chronic kidney disease, or unspecified chronic kidney disease; N18.30 Chronic kidney disease, stage 3 unspecified; I48.91 Unspecified atrial fibrillation; Z95.0 Presence of cardiac pacemaker; Z87.11 Personal history of peptic ulcer disease; Z90.49 Acquired absence of other specified parts of digestive tract; F17.210 Nicotine dependence, cigarettes, uncomplicated
CPT/HCPCS: 31624; 31627; 31628; 31629; 31645; 31652; 31654; 71045; 76000; 80503; 87070; 87205; 88112; 88305; 88342; 89050; J1100; J2405; J2704; J3010; J3490; J7030

== ENCOUNTER → 2023-07-31 08:37 | Outpatient (BNVA) | payer MEDICARE, SELFPAY | PROVIDERS: PCP Family Medicine Adult Medicine; Visit Provider Internal Medicine Medical Oncology | DX: C34.11 Malignant neoplasm of upper lobe, right bronchus or lung (principal); Z79.899 Other long term (current) drug therapy; J44.9 Chronic obstructive pulmonary disease, unspecified | CPT/HCPCS: 99215 ==

== ENCOUNTER → 2023-08-05 13:44 | Outpatient (BNVA) | payer MEDICARE, SELFPAY | PROVIDERS: PCP Family Medicine Adult Medicine; Visit Provider Internal Medicine Cardiovascular Disease | DX: Z45.010 Encounter for checking and testing of cardiac pacemaker pulse generator [battery] (principal) | CPT/HCPCS: 93296 ==

== ENCOUNTER 2023-08-05 19:10 | Emergency (ER) | payer MEDICARE, SELFPAY ==
[2023-08-05 19:29] VITALS: BP 110/78; PULSE 101; RESP 16; TEMP 36.4; O2SAT 99; BMI 16.7
--- NOTE | 2023-08-05 19:38 | ED_ITS ---
HPI - Male Genitourinary General: Chief complaint: Urogenital-Male Stated complaint: Cant Urinate Time Seen by Provider: 08/05/23 19:25 History of Present Illness: Patient presents to the ER with complaints of inability to urinate today. Patient says been having problems throughout a week where he just been dribbling. Patient does have a new diagnosis of lung cancer this started about 2 days ago. Patient has not had any chemotherapy yet patient has been in remission for colon cancer for many years. Prior to this episode patient has not had any urinary tract symptoms or prostate issues. Review of Systems General: Reports: 10 or more systems reviewed and unremarkable except in HPI and below PFSH ED PFSH: Medical History BPH loc w urin obs/LUTS Small cell lung cancer Anxiety and depression Pacemaker CKD (chronic kidney disease) stage 3, GFR 30-59 ml/min History of lower GI bleeding History of atrial fibrillation 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), N2, M1 Secondary carcinoid tumors of liver Peptic ulcer disease Abdominal aortic aneurysm Polymyalgia rheumatica COPD (chronic obstructive pulmonary disease) Anemia Sick sinus syndrome Surgical History History of cataract surgery bilateral History of carpal tunnel release of both wrists History of appendectomy H/O colectomy (06/23/14) right hemicolectomy and distal small bowel resection for low-grade carcinoid tumor Hx of cardiac pacemaker Family History Grandfather Diabetes Denies family history of CAD (coronary artery disease) Clotting disorder Dementia Hyperlipidemia Psychiatric illness Chronic kidney disease (CKD) Suicide Anesthesia complication Bleeding disorder Lung disease Cancer Hypertension Stroke Social History Smoking and tobacco/nicotine status: current some day tobacco/nicotine user cigarettes Packs smoked per day: 0.25 Years cigarettes smoked: 60 Quit status (tobacco/nicotine): has quit using Year quit tobacco: Former quit date comment: Smoked for 20 + years on and off Second hand smoke exposure: Yes Alcohol intake: never Substance/Drug Use: never Physical Exam Const: COMMON NORMALS: no acute distress, average body habitus, patient oriented x3, no limitations, healthy appearing, alert and well nourished HENMT: COMMON NORMALS: normocephalic, atraumatic, hearing grossly normal bilaterally, external ears normal, Normal external nose present, moist oral mucous membranes and oropharynx normal HEAD & SCALP: normocephalic and atraumatic NOSE: Normal external nose present EXTERNAL EAR: Yes external ears normal Neck/C-Spine: COMMON NORMALS: no JVD Chest: COMMONS NORMALS: normal inspection of the chest and normal palpation of entire chest wall Resp: COMMON NORMALS: normal respiratory effort, No retractions, No use of accessory muscles and clear to auscultation bilaterally AUSCULTATION: clear to auscultation bilaterally Cardio: COMMON NORMALS: no JVD, regular rate, regular rhythm, S1 normal heart sound present, S2 normal heart sound present, No gallops present (Cardio), No clicks present (Cardio), No murmurs present (Cardio) and No rub (Cardio) RATE: regular rate RHYTHM: regular rhythm HEART SOUNDS: S1 normal heart sound present and S2 normal heart sound present GI: COMMON NORMALS: Normal to inspection, nondistended, normoactive bowel sounds present, Soft to palpation, non-tender, No hepatosplenomegaly present and no masses PALPATION: Yes Soft to palpation and Yes No hepatosplenomegaly present : COMMON NORMALS: Yes no CVA tenderness BLADDER/KIDNEY EXAM: Yes no CVA tenderness Back/Pelvis: COMMON NORMALS: no CVA tenderness Neuro: COMMON NORMALS: patient oriented x3 SENSORIUM/ORIENTATION: Yes alert Course Vital Signs: Vital signs: Vital Signs Temperature 97.6 F 08/05/23 19:29 Pulse Rate 101 H 08/05/23 19:29 Respiratory Rate 16 08/05/23 19:29 Blood Pressure 110/78 08/05/23 19:29 Pulse Oximetry 99 08/05/23 19:29 Oxygen Delivery Me thod Nasal Cannula 08/05/23 19:29 Oxygen Flow Rate 3 08/05/23 19:29 MDM - Male Medical Decision Making After Carolina catheter was placed approximately 700 mL of urine came out and patient felt immediate improvement. Patient wanted to leave immediately and did not want a wait till the urinalysis results came back. We will let the person go and if the results are positive we can call him with the results and they can return for the prescription for the antibiotic. Differential Diagnosis Likely acute retention of urine; Unlikely urinary tract infection, priapism, urethritis, genital herpes simplex, prostatitis or inguinal hernia Medical Records I reviewed the patient's medical records. Lab Data I reviewed the patient's lab results. All radiology interpretation(s) finalized by discharge Discharge Plan Discharge Patient Disposition: Home Clinical Impression: Acute retention of urine Condition: Stable Prescriptions: No Action multivitamin Tablet 1 tab PO QAM albuterol sulfate 90 mcg/actuation HFA aerosol inhaler 2 puff inhalation Q6H PRN (Reason: shortness of breath or wheezing) Qty: 8.5 0RF diphenoxylate-atropine [Lomotil] 2.5-0.025 mg tablet 1 tab PO TID Qty: 10 0RF ipratropium-albuterol 0.5 mg-3 mg(2.5 mg base)/3 mL solution for nebulization 3 ml inhalation QID PRN (Reason: wheezing, shortness of breath) Qty: 180 0RF (DME) nebulizer and kit See Rx Instructions .Route .MEDSUPPLY Qty: 1 0RF Rx Instructions: Use Q6H PRN for shortness of breath. Length of time - 99 ferrous sulfate 325 mg (65 mg iron) tablet 325 mg PO QAM Qty: 90 3RF (DME) Home and traveling oxygen 2 L/min See Rx Instructions .Route .MEDSUPPLY Qty: 1 0RF Rx Instructions: Pulse ox dropped to 86% with walking in clinic. tamsulosin 0.4 mg capsule 0.4 mg PO DAILY Qty: 30 3RF pantoprazole 40 mg tablet,delayed release (DR/EC) 40 mg PO QAM Qty: 90 0RF sertraline 25 mg tablet 25 mg PO QAM Qty: 90 1RF triamcinolone acetonide 0.1 % cream 1 applic topical DAILY Rx Instructions: APPLY CREAM EXTERNALLY TO AFFECTED AREA ONCE DAILY Discharge Orders: Discharge ED (Routine); Ordered 08/05/23 Ordered By: Enoch Kaplan Referrals: Gabriel Angela MD [Primary Care Provider] - 1-3 days Patient Instructions: Urinary Retention in Men (ED), Carolina Catheter Placement and Care (ED) Activity Restrictions/Additional Instructions: Please follow-up with your family practice physician within the next 2 to 4 days for possible reevaluation and treatment and Carolina removal. Coding Level of Care Code ED Returns Supervisor for Ricky Almeida
[2023-08-05 20:51] LABS: Add Urine Microscopic? YES; Bacteria Urine 4+ /hpf; Bilirubin Urine Neg (Negative); Blood Urine 2+ (Negative); Glucose Urine UA Norm (Normal); Ketones Urine Negative (Negative); Leukocyte Esterase Urine Trace (Negative); Nitrate Urine Negative (Negative); Protein Urine Neg (Negative); RBC Urine 0-4 /hpf (0-2); Specific Gravity, Urine 1.015 (1.005-1.030); Squamous Epithelial Cell Urine 0-4 /hpf (0-5); Urine Appearance SL Hazy (CLEAR); Urine Color Yellow (Yellow); Urobilinogen Urine 1 mg/dL (Negative); pH Urine 5 (5-7)
[2023-08-05 20:52] LABS: Add Urine Culture? Yes
== END 2023-08-05 20:46 | disposition home or self-care (01) ==
PROVIDERS: Emergency Provider Emergency Medicine; PCP Family Medicine Adult Medicine
DX: R33.9 Retention of urine, unspecified (principal); F17.210 Nicotine dependence, cigarettes, uncomplicated; Z85.118 Personal history of other malignant neoplasm of bronchus and lung; Z95.0 Presence of cardiac pacemaker; N18.30 Chronic kidney disease, stage 3 unspecified; Z85.060 Personal history of malignant carcinoid tumor of small intestine; J44.9 Chronic obstructive pulmonary disease, unspecified
CPT/HCPCS: 51702; 81001; 87077; 87086; 87186; 99283

== ENCOUNTER 2023-08-12 13:56 | Oncology outpatient (recurring) (ONCR) | payer MEDICARE, SELFPAY ==
[2023-08-12 14:28] VITALS: BP 109/78; PULSE 106; RESP 18; TEMP 36.6; O2SAT 98
[2023-08-12 14:50] VITALS: BP 119/78; PULSE 74; RESP 17; TEMP 36.1; O2SAT 97
[2023-08-12] MEDS: octreotide LAR depot 20 mg Kit IM (15:01)
== END 2023-08-30 23:59 | disposition home or self-care (01) ==
LOC: ONCMED 13:57
PROVIDERS: PCP Family Medicine Adult Medicine; Visit Provider Internal Medicine Medical Oncology
DX: C7A.012 Malignant carcinoid tumor of the ileum
CPT/HCPCS: 96402; J2353

== ENCOUNTER 2023-09-02 15:30 | Observation (INO) | payer MEDICARE, SELFPAY ==
[2023-09-02] VITALS (29 sets, daily range): BP systolic 95–117; BP diastolic 69–85; PULSE 61–159; RESP 19–39; TEMP 36.2–36.6; O2SAT 72–99; BMI 16.2
--- NOTE | 2023-09-02 15:46 | XRR_ITS ---
PROCEDURE INFORMATION: Exam: XR Chest Exam date and time: 09/02/2023 3:51 PM Age: 82 years old Clinical indication: Cough; Additional info: Weakness, cough, HX met cancer TECHNIQUE: Imaging protocol: Radiologic exam of the chest. Views: 1 view. COMPARISON: CR XR chest 1V portable [id number] 07/21/2023 9:59 AM FINDINGS: Tubes, catheters and devices: Pacer device noted in the left chest wall. Lungs: Right perihilar/infrahilar opacity. Suspected scarring at the left lung base. Pleural spaces: No apparent pleural effusion. No pneumothorax. Heart/Mediastinum: No cardiomegaly. Bones/joints: Visualized osseous structures are intact. XR/XR chest 1V portable [id number] IMPRESSION: Right perihilar/infrahilar opacity suspicious for infiltrate/pneumonia.
[2023-09-02 15:53] LABS: ABG PH Result 7.42 (7.35-7.45); Alveolar-Arterial Oxygen Gradi 6.2 mmHg (5-10); Arterial Blood Gas Hematocrit 46.8 % (42-52); Base Excess ABG 0.8 mmol/L (-2.0-2.0); Blood Gas Allen Test Pos; Blood Gas Operator Identificat WALCI; Blood Gas Sample Site Radial, right; Blood Gas Sample Type Arterial; Carboxyhemoglobin 0.2 %THgb (0.4-20.1); HCO3 ABG 25.2 mmol/L (22-26); HGB O2 Sat 85.6 % (95-100); Ionized Calcium Level - ABG 1.2 mmol/L (1.1-1.4); Methemoglobin 0.7 % (0.4-1.5); Oxygen Device NC; Oxygen Saturation ABG 86.4; PO2 ABG 53.9 mmHg (80.0-100.0); Potassium Level - ABG 3.7 mmol/L (3.5-5.0); Total Hemoglobin 15.3 g/dL (14-18)
--- NOTE | 2023-09-02 16:04 | ED_ITS ---
HPI - Pediatric SOB/Dyspnea General: Chief Complaint: Shortness of Breath/Dyspnea Stated Complaint: sob,can't stand, abd pain,n/v/d/ Time Seen by Provider: 09/02/23 15:47 PFSH ED PFSH: Medical History Indwelling Carolina catheter present BPH loc w urin obs/LUTS Small cell lung cancer Anxiety and depression Pacemaker CKD (chronic kidney disease) stage 3, GFR 30-59 ml/min History of lower GI bleeding History of atrial fibrillation 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), N2, M1, 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 Peptic ulcer disease Abdominal aortic aneurysm Polymyalgia rheumatica COPD (chronic obstructive pulmonary disease) Anemia Sick sinus syndrome Surgical History History of cataract surgery bilateral History of carpal tunnel release of both wrists History of appendectomy H/O colectomy (06/23/14) right hemicolectomy and distal small bowel resection for low-grade carcinoid tumor Hx of cardiac pacemaker Family History Grandfather Diabetes Denies family history of CAD (coronary artery disease) Clotting disorder Dementia Hyperlipidemia Psychiatric illness Chronic kidney disease (CKD) Suicide Anesthesia complication Bleeding disorder Lung disease Cancer Hypertension Stroke Social History Smoking and tobacco/nicotine status: current some day tobacco/nicotine user cigarettes Packs smoked per day: 0.25 Years cigarettes smoked: 60 Quit status (tobacco/nicotine): has quit using Year quit tobacco: Former quit date comment: Smoked for 20 + years on and off Second hand smoke exposure: Yes Alcohol intake: never Substance/Drug Use: never Course Vital Signs: Vital signs: Vital Signs Temperature 98 F 09/02/23 15:33 Pulse Rate 127 H 09/02/23 16:02 Respiratory Rate 24 H 09/02/23 16:02 Pulse Oximetry 94 09/02/23 16:02 Oxygen Delivery Me thod Oxymask 09/02/23 16:02 Oxygen Flow Rate 15 09/02/23 16:02 Medical Decision Making Lab Data Laboratory Results Specimen Type Arterial 09/02/23 15:42 Sample Site Radial, right 09/02/23 15:42 ABG pH 7.42 (7.35-7.45) 09/02/23 15:42 ABG pCO2 39.0 mmHg (35-45) 09/02/23 15:42 ABG pO2 53.9 mmHg (80.0-100.0) L 09/02/23 15:42 ABG HCO3 25.2 mmol/L (22-26) 09/02/23 15:42 ABG O2 Saturation 86.4 09/02/23 15:42 ABG Base Excess 0.8 mmol/L (-2.0-2.0) 09/02/23 15:42 Wil Test Pos 09/02/23 15:42 A-a O2 Gradient 6.2 mmHg (5-10) 09/02/23 15:42 Hematocrit 46.8 % (42-52) 09/02/23 15:42 Hgb O2 Saturation 85.6 % (95-100) L 09/02/23 15:42 Carboxyhemoglobin 0.2 %THgb (0.4-20.1) L 09/02/23 15:42 Methemoglobin 0.7 % (0.4-1.5) 09/02/23 15:42 Total Hemoglobin 15.3 g/dL (14-18) 09/02/23 15:42 Sodium 141.0 mmol/L (131-143) 09/02/23 15:42 Potassium 3.7 mmol/L (3.5-5.0) 09/02/23 15:42 Glucose 63.0 mg/dL (70-115) L 09/02/23 15:42 Ionized Calcium 1.2 mmol/L (1.1-1.4) 09/02/23 15:42 O2 Delivery Device Nc 09/02/23 15:42 O2 Liters/Min 10.0 % 09/02/23 15:42 Chief Wheelage Clerk ID Larissa 09/02/23 15:42 Discharge Plan Discharge Condition: Stable Prescriptions: No Action multivitamin Tablet 1 tab PO QAM albuterol sulfate 90 mcg/actuation HFA aerosol inhaler 2 puff inhalation Q6H PRN (Reason: shortness of breath or wheezing) Qty: 8.5 0RF diphenoxylate-atropine [Lomotil] 2.5-0.025 mg tablet 1 tab PO TID Qty: 10 0RF (DME) nebulizer and kit See Rx Instructions .Route .MEDSUPPLY Qty: 1 0RF Rx Instructions: Use Q6H PRN for shortness of breath. Length of time - 99 ferrous sulfate 325 mg (65 mg iron) tablet 325 mg PO QAM Qty: 90 3RF (DME) Home and traveling oxygen 2 L/min See Rx Instructions .Route .MEDSUPPLY Qty: 1 0RF Rx Instructions: Pulse ox dropped to 86% with walking in clinic. tamsulosin 0.4 mg capsule 0.4 mg PO DAILY Qty: 30 3RF pantoprazole 40 mg tablet,delayed release (DR/EC) 40 mg PO QAM Qty: 90 0RF sertraline 25 mg tablet 25 mg PO QAM Qty: 90 1RF ipratropium-albuterol 0.5 mg-3 mg(2.5 mg base)/3 mL solution for nebulization 3 ml inhalation QID PRN (Reason: wheezing, shortness of breath) Qty: 180 0RF triamcinolone acetonide 0.1 % cream 1 applic topical DAILY Rx Instructions: APPLY CREAM EXTERNALLY TO AFFECTED AREA ONCE DAILY Referrals: Gabriel Angela MD [Primary Care Provider] - Coding Level of Care Code ED Project Control Officer for Chg Elle
[2023-09-02] MEDS: ipratropium-albuterol 3 mL Neb INHALATION (16:06)
--- NOTE | 2023-09-02 16:20 | W.ED.SOB ---
HPI - SOB/Dyspnea General: Chief Complaint: Shortness of Breath/Dyspnea Stated Complaint: sob,can't stand, abd pain,n/v/d/ Time Seen by Provider: 09/02/23 15:47 Source: patient Mode of arrival: ambulatory History of Present Illness: HPI Narrative: 82-year-old male presents emergency room with severe respiratory distress initially on arrival was taken straight to room began workup. He was listed as a full code in the chart reviewed his chart he is had colon cancer and recently diagnosed with a new primary with neuroendocrine based lung cancer. Patient is on hospice we found later. We also contacted his family who confirmed that he is a no code. Patient confirmed this as well although initially were concerned about his ability to understand questions after we upped his oxygen he did improve significantly. MD elicited complaint: shortness of breath and cough Pertinent past history: COPD and other (Lung cancer) Onset (ago): unknown Severity: mild Exacerbating factors: nothing Relieving factors: nothing Known history of: COPD Associated symptoms: Reports orthopnea; Deny abdominal pain, chest congestion, chest pain, cough, dizziness, extremity pain, fever(s), hemoptysis, myalgias, nausea, paresthesias, polydipsia, polyuria, rash, sense of impending doom or vomiting Treatment prior to arrival: oxygen Review of Systems Const: Denies: fever(s) Card: Reports: orthopnea; Denies: chest pain Resp: Reports: dyspnea, non-productive cough and wheezing; Denies: hemoptysis or chest congestion GI: Denies: abdominal pain, nausea or vomiting Musc: Denies: extremity pain Neuro: Denies: dizziness Endo: Denies: polyuria or polydipsia [facility] ED PFSH: Medical History Indwelling Carolina catheter present BPH loc w urin obs/LUTS Small cell lung cancer Anxiety and depression Pacemaker CKD (chronic kidney disease) stage 3, GFR 30-59 ml/min History of lower GI bleeding History of atrial fibrillation 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), N2, M1, 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 Peptic ulcer disease Abdominal aortic aneurysm Polymyalgia rheumatica COPD (chronic obstructive pulmonary disease) Anemia Sick sinus syndrome Surgical History History of cataract surgery bilateral History of carpal tunnel release of both wrists History of appendectomy H/O colectomy (06/23/14) right hemicolectomy and distal small bowel resection for low-grade carcinoid tumor Hx of cardiac pacemaker Family History Grandfather Diabetes Denies family history of CAD (coronary artery disease) Clotting disorder Dementia Hyperlipidemia Psychiatric illness Chronic kidney disease (CKD) Suicide Anesthesia complication Bleeding disorder Lung disease Cancer Hypertension Stroke Social History Smoking and tobacco/nicotine status: current some day tobacco/nicotine user cigarettes Packs smoked per day: 0.25 Years cigarettes smoked: 60 Quit status (tobacco/nicotine): has quit using Year quit tobacco: Former quit date comment: Smoked for 20 + years on and off Second hand smoke exposure: Yes Alcohol intake: never Substance/Drug Use: never Physical Exam Const: GENERAL APPEARANCE: cooperative ORIENTATION/CONSCIOUSNESS: Yes awake HENMT: COMMON NORMALS: normocephalic, atraumatic and hearing grossly normal bilaterally HEAD & SCALP: normocephalic and atraumatic Resp: EFFORT & INSPECTION: Yes uses accessory muscles AUSCULTATION: wheezes Cardio: RATE: tachycardic GI: COMMON NORMALS: Soft to palpation and No hepatosplenomegaly present AUSCULTATION: Yes normoactive bowel sounds PALPATION: Yes Soft to palpation, No Tenderness to palpation present (GI), No Guarding due to palpation present (GI) and Yes No hepatosplenomegaly present Extremity: COMMON NORMALS: normal to inspection, capillary refill normal, no clubbing, cyanosis or edema, no calf tenderness and no pedal edema Skin: COMMON NORMALS: no rashes or lesions noted GENERAL SKIN EXAM: no rashes or lesions noted Course Vital Signs: Vital signs: Vital Signs Temperature 97.1 F L 09/02/23 21:17 Pulse Rate 112 H 09/03/23 09:17 Respiratory Rate 22 H 09/03/23 13:19 Blood Pressure 98/61 09/03/23 09:17 Pulse Oximetry 88 L 09/03/23 09:17 Oxygen Delivery Me thod Nasal Cannula 09/03/23 09:17 Oxygen Flow Rate 2 09/03/23 07:30 MDM - SOB/Dyspnea Medical Decision Making Patient expressed desire to be no code his family confirms. We will here for the patient observation overnight they are planning to move him to respite at [facility] tomorrow. Talk to Latricia Gomez at [facility] she has agreed to authorize the admission. Medical Records I reviewed the patient's medical records. Lab Data I reviewed the patient's lab results. 09/02/23 16:35 09/02/23 16:35 Labs/Radiology: Radiology Impressions Chest X-Ray 09/02/23 15:46 IMPRESSION: Right perihilar/infrahilar opacity suspicious for infiltrate/pneumonia. Laboratory Results WBC 4.43 10^3/uL (3.29-11.43) 09/02/23 16:35 RBC 3.82 10^6/uL (3.85-5.65) L 09/02/23 16:35 Hgb 14.60 g/dL (11.27-16.99) 09/02/23 16:35 Hct 43.0 % (37-53) 09/02/23 16:35 MCV 112.6 fl (82-101) H 09/02/23 16:35 MCH 38.2 pg (27-33) H 09/02/23 16:35 MCHC 34.0 g/dL (30-55) 09/02/23 16:35 RDW 14.8 % (12.1-15.1) 09/02/23 16:35 Plt Count 50 10^3/cmm (157-399) L 09/02/23 16:35 MPV 12.1 fL (7.4-10.4) H 09/02/23 16:35 Lymph % (Auto) Not Reportable 09/02/23 16:35 Millard % (Auto) Not Reportable 09/02/23 16:35 Lymph # (Auto) Not Reportable 09/02/23 16:35 Millard # (Auto) Not Reportable 09/02/23 16:35 Total Counted 100 (0-100) 09/02/23 16:35 Atypical Lymphs % 1.0 % (0-5) 09/02/23 16:35 Absolute Neutrophils 3.9 10^3/cmm (1.4-6.5) 09/02/23 16:35 Segmented Neutrophils 73 % 09/02/23 16:35 Abs Segm Neuts (Man) 3.2 10/cmm (1.6-7.1) 09/02/23 16:35 Band Neutrophils 15.0 % 09/02/23 16:35 Abs Band Neuts (Man) 0.7 10^3/cmm (0.0-1.2) 09/02/23 16:35 Absolute Lymphocytes 0.4 10^3/cmm (1.2-3.4) L 09/02/23 16:35 Lymphocytes (Manual) 7 % 09/02/23 16:35 Monocytes (Manual) 0.0 % 09/02/23 16:35 Absolute Monocytes 0.0 10^3/cmm (0.1-0.6) L 09/02/23 16:35 Eosinophils (Manual) 0 % 09/02/23 16:35 Absolute Eosinophils 0.0 10^3/cmm (0.0-0.7) 09/02/23 16:35 Basophils (Manual) 0.0 % 09/02/23 16:35 Absolute Basophils 0.0 10^3/cmm (0.0-0.2) 09/02/23 16:35 Metamyelocytes 4.0 % 09/02/23 16:35 Platelet Estimate Decreased (Normal) 09/02/23 16:35 Macrocytosis 2+ H 09/02/23 16:35 Specimen Type Arterial 09/02/23 15:42 Sample Site Radial, right 09/02/23 15:42 ABG pH 7.42 (7.35-7.45) 09/02/23 15:42 ABG pCO2 39.0 mmHg (35-45) 09/02/23 15:42 ABG pO2 53.9 mmHg (80.0-100.0) L 09/02/23 15:42 ABG HCO3 25.2 mmol/L (22-26) 09/02/23 15:42 ABG O2 Saturation 86.4 09/02/23 15:42 ABG Base Excess 0.8 mmol/L (-2.0-2.0) 09/02/23 15:42 Wil Test Pos 09/02/23 15:42 A-a O2 Gradient 6.2 mmHg (5-10) 09/02/23 15:42 Hematocrit 46.8 % (42-52) 09/02/23 15:42 Hgb O2 Saturation 85.6 % (95-100) L 09/02/23 15:42 Carboxyhemoglobin 0.2 %THgb (0.4-20.1) L 09/02/23 15:42 Methemoglobin 0.7 % (0.4-1.5) 09/02/23 15:42 Total Hemoglobin 15.3 g/dL (14-18) 09/02/23 15:42 Sodium 141.0 mmol/L (131-143) 09/02/23 15:42 Potassium 3.7 mmol/L (3.5-5.0) 09/02/23 15:42 Glucose 63.0 mg/dL (70-115) L 09/02/23 15:42 Ionized Calcium 1.2 mmol/L (1.1-1.4) 09/02/23 15:42 O2 Delivery Device Nc 09/02/23 15:42 O2 Liters/Min 10.0 % 09/02/23 15:42 Perinatal Director ID Walci 09/02/23 15:42 Sodium 142 mmol/L (136-145) 09/02/23 16:35 Potassium 3.8 mmol/L (3.5-5.1) 09/02/23 16:35 Chloride 103 mmol/L (98-107) 09/02/23 16:35 Carbon Dioxide 28 mmol/L (22-29) 09/02/23 16:35 Anion Gap 14.8 (5-19) 09/02/23 16:35 BUN 25 mg/dL (8-23) H 09/02/23 16:35 Creatinine 1.5 mg/dL (0.7-1.2) H 09/02/23 16:35 GFR Calculation Not Reportable 09/02/23 16:35 Glucose 63 mg/dL (65-115) L 09/02/23 16:35 Calculated Osmolality 296 mOsm/kg (285-295) H 09/02/23 16:35 Calcium 8.6 mg/dL (8.5-10.5) 09/02/23 16:35 Total Bilirubin 3.2 mg/dL (0.15-1.2) H 09/02/23 16:35 AST 24 U/L (0-40) 09/02/23 16:35 ALT 18 U/L (0-41) 09/02/23 16:35 Alkaline Phosphatase 199 U/L (40-130) H 09/02/23 16:35 Total Protein 5.9 g/dL (6.6-8.7) L 09/02/23 16:35 Albumin 3.2 g/dL (3.5-5.2) L 09/02/23 16:35 Globulin 2.7 g/dL (1.3-4.6) 09/02/23 16:35 Coronavirus 229E (PCR) Not detected (NOT DETECT) 09/02/23 21:00 Influenza Type A Ag negative (Negative) 09/02/23 21:00 Influenza Type B Ag negative (Negative) 09/02/23 21:00 SARS-CoV-2 (PCR) Not detected (NOT DETECT) 09/02/23 21:00 All radiology interpretation(s) finalized by discharge Discharge Plan Discharge Patient Disposition: Placed in Observation Admit Provider: Harley Jeronimo Clinical Impression: 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
[2023-09-02] MEDS: morphine 4 mg/mL SDV 1 mL 2 MG IVP (16:43)
[2023-09-02 16:57] LABS: Mean Corpuscular Hemoglobin 38.2 pg (27-33); Mean Corpuscular Volume 112.6 fl (82-101); Mean Platelet Volume 12.1 fL (7.4-10.4); Platelet Count 50 10^3/cmm (157-399); Red Blood Count 3.82 10^6/uL (3.85-5.65); Red Cell Distribution Width 14.8 % (12.1-15.1); White Blood Count 4.43 10^3/uL (3.29-11.43)
[2023-09-02 17:04] LABS: Alanine Aminotransferase 18 U/L (0-41); Albumin Level 3.2 g/dL (3.5-5.2); Alkaline Phosphatase 199 U/L (40-130); Anion Gap 14.8 (5-19); Aspartate Amino Transferase 24 U/L (0-40); Blood Urea Nitrogen 25 mg/dL (8-23); Calcium 8.6 mg/dL (8.5-10.5); Carbon Dioxide 28 mmol/L (22-29); Chloride 103 mmol/L (98-107); Globulin 2.7 g/dL (1.3-4.6); Glucose 63 mg/dL (65-115); Osmolality Calculated 296 mOsm/kg (285-295); Potassium 3.8 mmol/L (3.5-5.1); Sodium 142 mmol/L (136-145); Total Bilirubin 3.2 mg/dL (0.15-1.2); Total Protein 5.9 g/dL (6.6-8.7)
[2023-09-02 17:43] LABS: Slide Review Slide Review Perform
[2023-09-02 17:44] LABS: Absolute Segmented Neutrophil 3.2 10/cmm (1.6-7.1); Band Neutrophils Absolute 0.7 10^3/cmm (0.0-1.2); Segmented Neutrophils 73 %; Total Cells Counted 100 (0-100)
[2023-09-02 17:45] LABS: Absolute Neutrophil 3.9 10^3/cmm (1.4-6.5); Eosinophils 0 %; Lymphocytes 7 %; Lymphocytes Absolute 0.4 10^3/cmm (1.2-3.4); Macrocytosis 2+; Platelet Estimate Decreased (Normal)
--- NOTE | 2023-09-02 18:15 | PM.HP ---
Providers/Chief Complaint Primary Care Provider: Gabriel Angela MD Chief Complaint: sob,can't stand, abd pain,n/v/d/ History of Present Illness Jigar Ochoa is a 82 year old male with a past medical history of right upper lobe lobe lung mass, which is primary small cell carcinoma of the upper lobe of the right lung, with history of metastatic carcinoid involving the liver, with CKD, history of atrial fibrillation, peptic ulcer disease, COPD, anemia, sick sinus syndrome, with anorexia, severe protein calorie malnutrition, who presents to [facility] due to shortness of breath, encephalopathy. Currently patient is alert to person, not to place, not to time, he is in mild respiratory distress with intercostal retractions nasal flaring, he is on 10 L OxyMask, in A-fib with RVR, normotensive, he does not follow commands at times, when I asked him if he wanted to be resuscitated, he tells me no resuscitation, he keeps repeating he does not want to be resuscitated. I was unable to get a clear history from him, according to patient's family I spoke to ER provider, and to the patient's family, spoke to patient's DPOA, Walt, patient's daughter, Racheal, patient is currently on hospice for his lung cancer, he lives at home by himself, he is on hospice at home, they are not exactly sure about the reason for ER visit, but he was short of breath, I advised family that patient is in acute hypoxic respiratory failure, likely secondary to pneumonia, with sepsis, with encephalopathy with A-fib with RVR, currently his status is critical, prognosis is poor, he is very cachectic, his anorexia, we discussed interventions, family tells me that they do not want any interventions they do not want any antibiotics did not want any intervention for the atrial fibrillation all they want for us to do is for us to make Jigar comfortable for us to ease his pain and ease his suffering and allow him to be comfortable. Racheal tells me that she is driving to the hospital she should be here by 8 or so. I offered A-fib control, antibiotics further workup, nonaggressive interventions however Walt and Racheal declined. I spoke to Walt, who is friends the [facility] power of associate attorney, who tells me that this is their wishes, that all they want us to do is to ease his pain easing suffering allow him to pass away comfortably did not want any further workup, any further medical interventions, except just easing his pain easing suffering allow him to be comfortable. After discussing the risk and benefits of all options, they voiced understanding, all questions answered, declined any medical interventions for A-fib, pneumonia, sepsis, further workup they want us to go ahead and proceed and admit him to inpatient comfort care hospice, spoke to patient, spoke to ER provider, spoke to nursing staff, spoke to patient's DPOA Walt patient's brother, spoke to patient's daughter Racheal Review of Systems General: Reports: ROS unobtainable due to mental status Medications/Allergies Home Medications Medication Instructions Recorded Confirmed Last Taken Type multivitamin 1 tab PO QAM 11/01/19 09/02/23 07/20/23 History pantoprazole 40 mg tablet,delayed 40 mg PO QAM #90 tabs 05/26/23 09/02/23 07/20/23 Rx release albuterol sulfate 90 mcg/actuation 2 puff inhalation Q6H PRN 07/08/23 09/02/23 07/20/23 Rx aerosol inhaler shortness of breath or wheezing #8.5 grams triamcinolone acetonide 0.1 % 1 applic topical DAILY 07/17/23 09/02/23 Unknown History topical cream sertraline 25 mg tablet 25 mg PO QAM #90 tabs 07/21/23 09/02/23 Unknown Rx Home and traveling oxygen 2 L/min #1 ea 07/29/23 09/02/23 Unknown Rx ferrous sulfate 325 mg (65 mg 325 mg PO QAM #90 tabs 07/29/23 09/02/23 Unknown Rx iron) tablet nebulizer and kit #1 ea 07/31/23 09/02/23 Unknown Rx tamsulosin 0.4 mg capsule 0.4 mg PO DAILY urination #30 caps 08/05/23 09/02/23 Unknown Rx ipratropium 0.5 mg-albuterol 3 mg 3 ml inhalation QID PRN wheezing, 09/02/23 09/02/23 Unknown Rx (2.5 mg base)/3 mL nebulization shortness of breath #180 mL soln metoprolol tartrate 25 mg tablet 25 mg PO BID 09/02/23 09/02/23 Unknown History Allergies Allergy/AdvReac Type Severity Reaction Status Date / Time Penicillins Allergy Unknown unknown Verified 09/02/23 16:50 aspirin Allergy ADR-Nausea Verified 09/02/23 16:50 lidocaine Allergy ALGY-Difficulty Verified 09/02/23 16:50 Breathing PFSH Acute PFSH: Medical History Indwelling Carolina catheter present BPH loc w urin obs/LUTS Small cell lung cancer Anxiety and depression Pacemaker CKD (chronic kidney disease) stage 3, GFR 30-59 ml/min History of lower GI bleeding History of atrial fibrillation 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), N2, M1, 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 Peptic ulcer disease Abdominal aortic aneurysm Polymyalgia rheumatica COPD (chronic obstructive pulmonary disease) Anemia Sick sinus syndrome Surgical History History of cataract surgery bilateral History of carpal tunnel release of both wrists History of appendectomy H/O colectomy (06/23/14) right hemicolectomy and distal small bowel resection for low-grade carcinoid tumor Hx of cardiac pacemaker Family History Grandfather Diabetes Denies family history of CAD (coronary artery disease) Clotting disorder Dementia Hyperlipidemia Psychiatric illness Chronic kidney disease (CKD) Suicide Anesthesia complication Bleeding disorder Lung disease Cancer Hypertension Stroke Social History Smoking and tobacco/nicotine status: current some day tobacco/nicotine user cigarettes Packs smoked per day: 0.25 Years cigarettes smoked: 60 Quit status (tobacco/nicotine): has quit using Year quit tobacco: Former quit date comment: Smoked for 20 + years on and off Second hand smoke exposure: Yes Alcohol intake: never Substance/Drug Use: never Vitals/I&O/Wt Last Vital Signs Temp 98 F 09/02/23 15:33 Pulse 155 H 09/02/23 18:05 Resp 22 H 09/02/23 18:05 BP 109/80 09/02/23 18:05 Pulse Ox 95 09/02/23 18:05 O2 Del Method Simple Mask 09/02/23 18:05 O2 Flow Rate 15 09/02/23 18:05 Weight last 48 hrs Weight 57.153 kg Physical Exam Const: EXAM LIMITATIONS: altered mental status ORIENTATION/CONSCIOUSNESS: Yes awake, Yes oriented to person, Yes confused and Yes patient obtunded; not oriented to place and not oriented to time Eye: COMMON NORMALS: Equal, round and reactive pupils present Neck/C-Spine: COMMON NORMALS: no lymphadenopathy Resp: EFFORT & INSPECTION: Yes abnormal respiratory pattern, Yes tachypneic, Yes respiratory distress, Yes retractions and Yes uses accessory muscles AUSCULTATION: crackles and wheezes Cardio: COMMON NORMALS: no JVD, regular rate, regular rhythm, S1 normal heart sound present and S2 normal heart sound present RATE: regular rate and tachycardic RHYTHM: abnormal rhythm HEART SOUNDS: S1 normal heart sound present and S2 normal heart sound present GI: COMMON NORMALS: Normal to inspection, nondistended, normoactive bowel sounds present, Soft to palpation and non-tender Extremity: COMMON NORMALS: no pedal edema Data 09/02/23 16:35 09/02/23 16:35 A&P Assessment and plan (1) Need for comfort care: Patient with history of small cell carcinoma of the lung, on home hospice currently with acute hypoxic respiratory failure secondary to pneumonia, sepsis with A-fib with encephalopathy, ? Admit to inpatient hospice, ? Comfort care order sets ordered -Patient DNR/DNI Attestations Medical Necessity Statement*: Patient requires hospitalization for comfort care, hospice Diagnoses Need for comfort care
--- NOTE | 2023-09-02 21:19 | PC.NURSE ---
Patient is lethargic at this time.
[2023-09-02 21:55] LABS: Influenza A by IFA negative (Negative); Influenza B by IFA negative (Negative)
--- NOTE | 2023-09-02 23:03 | PC.NURSE ---
Patient is laying in bed and appears to be lethargic but opens eyes to verbal command. He is able to answer some questions, knows where we are at. He states he is not in any pain. Family is at bedside. They are requesting a lead pharmacy technician at this time. Sales And Service Engineer friction paint machine tender is on his way to the hospital.
[2023-09-02 23:09] LABS: Adenovirus Not Detected (NOT DETECT); Chlamydia Pneumoniae Not Detected (NOT DETECT); Coronavirus 229E,HKU1,NL63,OC4 Not Detected (NOT DETECT); Human Metapneumovirus Not Detected (NOT DETECT); Human Rhinovirus/Enterovirus Not Detected (NOT DETECT); Influenza A Not Detected (NOT DETECT); Influenza A H1 Not Detected (NOT DETECT); Influenza A H1-2009 Not Detected (NOT DETECT); Influenza A H3 Not Detected (NOT DETECT); Influenza B Not Detected (NOT DETECT); Mycoplasma Pneumoniae Not Detected (NOT DETECT); Parainfluenza Virus Type 1 Not Detected (NOT DETECT); Parainfluenza Virus Type 2 Not Detected (NOT DETECT); Parainfluenza Virus Type 3 Not Detected (NOT DETECT); Parainfluenza Virus Type 4 Not Detected (NOT DETECT); Respiratory Syncytial Virus A Not Detected (NOT DETECT); Respiratory Syncytial Virus B Not Detected (NOT DETECT); SARS-COV-2 Not Detected (NOT DETECT)
[2023-09-02] MEDS: morphine 4 mg/mL SDV 1 mL 1 MG IVP (23:36)
[2023-09-03 09:17] VITALS: BP 98/61; PULSE 112; RESP 18; O2SAT 88
[2023-09-03 11:57] VITALS: RESP 22
[2023-09-03] MEDS: morphine 4 mg/mL SDV 1 mL 1 MG IVP (11:57)
--- NOTE | 2023-09-03 12:30 | P.DS_ITS ---
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 Currently patient is alert to person, not to place, not to time, he is in mild respiratory distress with intercostal retractions nasal flaring, he is on 10 L OxyMask, in A-fib with RVR, normotensive, he does not follow commands at times, when I asked him if he wanted to be resuscitated, he tells me no resuscitation, he keeps repeating he does not want to be resuscitated. I was unable to get a clear history from him, according to patient's family I spoke to ER provider, and to the patient's family, spoke to patient's DPOAWalt, patient's daughter, Racheal, patient is currently on hospice for his lung cancer, he lives at home by himself, he is on hospice at home, they are not exactly sure about the reason for ER visit, but he was short of breath, I advised family that patient is in acute hypoxic respiratory failure, likely secondary to pneumonia, with sepsis, with encephalopathy with A-fib with RVR, currently his status is critical, prognosis is poor, he is very cachectic, his anorexia, we discussed interventions, family tells me that they do not want any interventions they do not want any antibiotics did not want any intervention for the atrial fibrillation all they want for us to do is for us to make Jigar comfortable for us to ease his pain and ease his suffering and allow him to be comfortable. Racheal tells me that she is driving to the hospital she should be here by 8 or so. I offered A-fib control, antibiotics further workup, nonaggressive interventions however Walt and Racheal declined. I spoke to Walt, who is friends [facility] power of corporate attorney, who tells me that this is their wishes, that all they want us to do is to ease his pain easing suffering allow him to pass away comfortably did not want any further workup, any further medical interventions, except just easing his pain easing suffering allow him to be comfortable. After discussing the risk and benefits of all options, they voiced understanding, all questions answered, declined any medical interventions for A-fib, pneumonia, sepsis, further workup they want us to go ahead and proceed and admit him to inpatient comfort care hospice, spoke to patient, spoke to ER provider, spoke to nursing staff, spoke to patient's DPOA Walt patient's brother, spoke to patient's daughter Racheal Patient was monitored as inpatient hospice for 24 hours, remained nonresponsive, managed on inpatient hospice comfort care, he was seen in the morning of 09/03/2023, remains nonresponsive remains in A-fib remains in respiratory failure, in comfort care, looks comfortable this morning, will be discharged to hospice Physical Exam Const: OTHER: Nonresponsive, does not respond to sternal rub, does have nasal flaring slight intercostal retractions, tachypnea, tachycardia, A-fib, irregular rhythm, severe protein calorie malnutrition, physical deconditioning, severe muscle wasting Resp: COMMON NORMALS: normal respiratory effort AUSCULTATION: crackles and wheezes Cardio: COMMON NORMALS: S1 normal heart sound present and S2 normal heart sound present HEART SOUNDS: S1 normal heart sound present and S2 normal heart sound present GI: COMMON NORMALS: Normal to inspection, nondistended, normoactive bowel sounds present and non-tender Extremity: COMMON NORMALS: no pedal edema Urinary Catheter Management: 2-way Urethral: Cath Placed During This Visit: yes Reason for Continuing Indwelling Catheter: Other Urinary Catheter Date of Insertion: 09/02/23 Urinary Catheter Time of Insertion: 21:39 Discharge Data Studies Completed and Pending Completed Studies During Hospitalization Category Date Time Status XR chest 1V portable [id number] Stat Exams 09/02/23 15:46 Completed Radiology Impressions Chest X-Ray 09/02/23 15:46 IMPRESSION: Right perihilar/infrahilar opacity suspicious for infiltrate/pneumonia. Laboratory Results WBC 4.43 10^3/uL (3.29-11.43) 09/02/23 16:35 RBC 3.82 10^6/uL (3.85-5.65) L 09/02/23 16:35 Hgb 14.60 g/dL (11.27-16.99) 09/02/23 16:35 Hct 43.0 % (37-53) 09/02/23 16:35 MCV 112.6 fl (82-101) H 09/02/23 16:35 MCH 38.2 pg (27-33) H 09/02/23 16:35 MCHC 34.0 g/dL (30-55) 09/02/23 16:35 RDW 14.8 % (12.1-15.1) 09/02/23 16:35 Plt Count 50 10^3/cmm (157-399) L 09/02/23 16:35 MPV 12.1 fL (7.4-10.4) H 09/02/23 16:35 Lymph % (Auto) Not Reportable 09/02/23 16:35 Centre % (Auto) Not Reportable 09/02/23 16:35 Lymph # (Auto) Not Reportable 09/02/23 16:35 Centre # (Auto) Not Reportable 09/02/23 16:35 Total Counted 100 (0-100) 09/02/23 16:35 Atypical Lymphs % 1.0 % (0-5) 09/02/23 16:35 Absolute Neutrophils 3.9 10^3/cmm (1.4-6.5) 09/02/23 16:35 Segmented Neutrophils 73 % 09/02/23 16:35 Abs Segm Neuts (Man) 3.2 10/cmm (1.6-7.1) 09/02/23 16:35 Band Neutrophils 15.0 % 09/02/23 16:35 Abs Band Neuts (Man) 0.7 10^3/cmm (0.0-1.2) 09/02/23 16:35 Absolute Lymphocytes 0.4 10^3/cmm (1.2-3.4) L 09/02/23 16:35 Lymphocytes (Manual) 7 % 09/02/23 16:35 Monocytes (Manual) 0.0 % 09/02/23 16:35 Absolute Monocytes 0.0 10^3/cmm (0.1-0.6) L 09/02/23 16:35 Eosinophils (Manual) 0 % 09/02/23 16:35 Absolute Eosinophils 0.0 10^3/cmm (0.0-0.7) 09/02/23 16:35 Basophils (Manual) 0.0 % 09/02/23 16:35 Absolute Basophils 0.0 10^3/cmm (0.0-0.2) 09/02/23 16:35 Metamyelocytes 4.0 % 09/02/23 16:35 Platelet Estimate Decreased (Normal) 09/02/23 16:35 Macrocytosis 2+ H 09/02/23 16:35 Specimen Type Arterial 09/02/23 15:42 Sample Site Radial, right 09/02/23 15:42 ABG pH 7.42 (7.35-7.45) 09/02/23 15:42 ABG pCO2 39.0 mmHg (35-45) 09/02/23 15:42 ABG pO2 53.9 mmHg (80.0-100.0) L 09/02/23 15:42 ABG HCO3 25.2 mmol/L (22-26) 09/02/23 15:42 ABG O2 Saturation 86.4 09/02/23 15:42 ABG Base Excess 0.8 mmol/L (-2.0-2.0) 09/02/23 15:42 Wil Test Pos 09/02/23 15:42 A-a O2 Gradient 6.2 mmHg (5-10) 09/02/23 15:42 Hematocrit 46.8 % (42-52) 09/02/23 15:42 Hgb O2 Saturation 85.6 % (95-100) L 09/02/23 15:42 Carboxyhemoglobin 0.2 %THgb (0.4-20.1) L 09/02/23 15:42 Methemoglobin 0.7 % (0.4-1.5) 09/02/23 15:42 Total Hemoglobin 15.3 g/dL (14-18) 09/02/23 15:42 Sodium 141.0 mmol/L (131-143) 09/02/23 15:42 Potassium 3.7 mmol/L (3.5-5.0) 09/02/23 15:42 Glucose 63.0 mg/dL (70-115) L 09/02/23 15:42 Ionized Calcium 1.2 mmol/L (1.1-1.4) 09/02/23 15:42 O2 Delivery Device Nc 09/02/23 15:42 O2 Liters/Min 10.0 % 09/02/23 15:42 [employer] Supervisor ID [place] 09/02/23 15:42 Sodium 142 mmol/L (136-145) 09/02/23 16:35 Potassium 3.8 mmol/L (3.5-5.1) 09/02/23 16:35 Chloride 103 mmol/L (98-107) 09/02/23 16:35 Carbon Dioxide 28 mmol/L (22-29) 09/02/23 16:35 Anion Gap 14.8 (5-19) 09/02/23 16:35 BUN 25 mg/dL (8-23) H 09/02/23 16:35 Creatinine 1.5 mg/dL (0.7-1.2) H 09/02/23 16:35 GFR Calculation Not Reportable 09/02/23 16:35 Glucose 63 mg/dL (65-115) L 09/02/23 16:35 Calculated Osmolality 296 mOsm/kg (285-295) H 09/02/23 16:35 Calcium 8.6 mg/dL (8.5-10.5) 09/02/23 16:35 Total Bilirubin 3.2 mg/dL (0.15-1.2) H 09/02/23 16:35 AST 24 U/L (0-40) 09/02/23 16:35 ALT 18 U/L (0-41) 09/02/23 16:35 Alkaline Phosphatase 199 U/L (40-130) H 09/02/23 16:35 Total Protein 5.9 g/dL (6.6-8.7) L 09/02/23 16:35 Albumin 3.2 g/dL (3.5-5.2) L 09/02/23 16:35 Globulin 2.7 g/dL (1.3-4.6) 09/02/23 16:35 Coronavirus 229E (PCR) Not detected (NOT DETECT) 09/02/23 21:00 Influenza Type A Ag negative (Negative) 09/02/23 21:00 Influenza Type B Ag negative (Negative) 09/02/23 21:00 SARS-CoV-2 (PCR) Not detected (NOT DETECT) 09/02/23 21:00 Vitals Last Vital Signs Temp 97.1 F L 09/02/23 21:17 Pulse 112 H 09/03/23 09:17 Resp 22 H 09/03/23 11:57 BP 98/61 09/03/23 09:17 Pulse Ox 88 L 09/03/23 09:17 O2 Del Method Nasal Cannula 09/03/23 09:17 O2 Flow Rate 2 09/03/23 07:30 Discharge Plan Discharge Patient Disposition: Hospice - Home Condition: Stable Prescriptions: Continued multivitamin Tablet 1 tab PO QAM albuterol sulfate 90 mcg/actuation HFA aerosol inhaler 2 puff inhalation Q6H PRN (Reason: shortness of breath or wheezing) Qty: 8.5 0RF (DME) nebulizer and kit See Rx Instructions .Route .MEDSUPPLY Qty: 1 0RF Rx Instructions: Use Q6H PRN for shortness of breath. Length of time - 99 (DME) Home and traveling oxygen 2 L/min See Rx Instructions .Route .MEDSUPPLY Qty: 1 0RF Rx Instructions: Pulse ox dropped to 86% with walking in clinic. tamsulosin 0.4 mg capsule 0.4 mg PO DAILY Qty: 30 3RF pantoprazole 40 mg tablet,delayed release (DR/EC) 40 mg PO QAM Qty: 90 0RF sertraline 25 mg tablet 25 mg PO QAM Qty: 90 1RF ipratropium-albuterol 0.5 mg-3 mg(2.5 mg base)/3 mL solution for nebulization 3 ml inhalation QID PRN (Reason: wheezing, shortness of breath) Qty: 180 0RF triamcinolone acetonide 0.1 % cream 1 applic topical DAILY Rx Instructions: APPLY CREAM EXTERNALLY TO AFFECTED AREA ONCE DAILY metoprolol tartrate 25 mg tablet 25 mg PO BID Discontinued ferrous sulfate 325 mg (65 mg iron) tablet 325 mg PO QAM Qty: 90 3RF Discharge Orders: Discharge Order (Routine); Ordered 09/03/23 Ordered By: Harley Jeronimo Referrals: Gabriel Angela MD [Primary Care Provider] - Discharge Diet: Advance as tolerated Discharge Activity: Resume usual activity Patient Instructions: Hospice Care (GEN) Discharge Attestations Time Spent in Discharge Care*: greater than 30 min Quality Metrics Clinical Quality Measures [ No reported AMI, CVA or VTE this stay] Coding Level of Care Code Acute Code for Chg Fwd Diagnoses Need for comfort care
--- NOTE | 2023-09-03 13:04 | PC.NURSE ---
Report called to [facility]. Pt being tranferred there for Respit Care. FAmily contacted and advised that [facility] will be here to transport pt in approx 15 minutes.
[2023-09-03 13:19] VITALS: RESP 22
--- NOTE | 2023-09-03 13:19 | PC.NURSE ---
EMS here to transport pt to [facility]. Home meds sent with pressroom foreman.
== END 2023-09-03 13:21 | disposition hospice, home (50) ==
LOC: ER 16:37 → MEDSURG 09-03 00:15
PROVIDERS: Nurse Practitioner Family; Admitting Provider Family Medicine; Emergency Provider Family Medicine; PCP Family Medicine Adult Medicine; Visit Provider Family Medicine
DX: Z51.5 Encounter for palliative care (principal); C34.11 Malignant neoplasm of upper lobe, right bronchus or lung; J96.01 Acute respiratory failure with hypoxia; J18.9 Pneumonia, unspecified organism; Z66 Do not resuscitate; N40.1 Benign prostatic hyperplasia with lower urinary tract symptoms; N13.8 Other obstructive and reflux uropathy; Z95.0 Presence of cardiac pacemaker; Z87.11 Personal history of peptic ulcer disease; J44.9 Chronic obstructive pulmonary disease, unspecified; F17.210 Nicotine dependence, cigarettes, uncomplicated
CPT/HCPCS: 36415; 36600; 51702; 71045; 80051; 80053; 82330; 82805; 85007; 85025; 87635; 87804; 94640; 96374; 96375; 99285; G0378; J2270